=== PATIENT | male | born 1970 | race Caucasian/White ===

== ENCOUNTER 2016-10-30 18:08 | Emergency (ER) | payer BC, OTHER ==
[2016-10-30 18:28] VITALS: PULSE 71; RESP 18; TEMP 96.9
--- NOTE | 2016-10-30 18:28 | ED ---
General Adult HPI - General Chief complaint: ENT Stated complaint: ear pain Time Seen by Provider: 10/30/16 18:11 Source: patient, RN notes reviewed Mode of arrival: ambulatory Limitations: no limitations - History of Present Illness Initial comments: This is a 45-year-old male presents with a perforation to the left eardrum. Patient states he has had sinus congestion for 2 weeks and went to his doctor today who said he was going to prescribe him eardrops for perforated eardrum. Patient states when he got to the pharmacy the eardrops were not prescribed. Patient states the pharmacy told the patient to come here to get eardrops prescribed. Patient denies any ear pain or hearing loss but does admit to sinus congestion. Patient denies any fever/chills, nausea/vomiting/diarrhea. Patient states he is ALLERGIC to penicillins. Patient denies any recent fever, chills, shortness breath, chest pain, abdominal pain, back pain, numbness, tingling, hematuria, headache, or visual changes, or any other complaints. - Related Data Home Medications Medication Instructions Recorded Confirmed Benazepril HCl [Benazepril HCl] 10 mg PO DAILY 01/08/15 06/17/16 Metoprolol Succinate [Toprol XL] 50 mg PO BID 01/08/15 06/17/16 Aspirin 81 mg PO DAILY 06/08/15 06/17/16 Prasugrel HCl [Effient] 10 mg PO DAILY 06/09/16 06/17/16 buPROPion XL [Wellbutrin XL] 150 mg PO DAILY 06/09/16 06/17/16 Naproxen [Naproxen] 500 mg PO DAILY PRN 06/17/16 06/17/16 Previous Rx's Medication Instructions Recorded Atorvastatin [Lipitor] 80 mg PO DAILY #14 tab 12/10/15 HYDROcodone/APAP 7.5-325MG [[place]irley 1 tab PO Q4H PRN #40 tab 06/17/16 7.5-325] Ofloxacin [Floxin 0.3% Otic Soln] 10 drops LEFT EAR BID 14 Days 10/30/16 Allergies Allergy/AdvReac Type Severity Reaction Status Date / Time Penicillins Allergy Unknown Verified 10/30/16 18:15 Childhood venom-honey bee Allergy Swelling Verified 10/30/16 18:15 [bee venom (honey bee)] Review of Systems ROS Statement: Those systems with pertinent positive or pertinent negative responses have been documented in the HPI. ROS Other: All systems not noted in ROS Statement are negative. Past Medical History Past Medical History: Coronary Artery Disease (CAD), Hyperlipidemia, Hypertension, Myocardial Infarction ([place]), Osteoarthritis (OA) Additional Past Medical History / Comment(s): "blood clot" Last Myocardial Infarction Date:: 2008 History of Any Multi-Drug Resistant Organisms: None Reported Past Surgical History: Heart Catheterization With Stent, Orthopedic Surgery Additional Past Surgical History / Comment(s): multiple knee surg., bilateral shoulder surg., right thumb Past Anesthesia/Blood Transfusion Reactions: No Reported Reaction Date of Last Stent Placement:: 2008 Past Psychological History: No Psychological Hx Reported Smoking Status: Current every day smoker Past Alcohol Use History: Occasional Additional Past Alcohol Use History / Comment(s): 1ppd for 35 yrs. Past Drug Use History: None Reported - Past Family History Mother Family Medical History: No Reported History General Exam - General Exam Comments Initial Comments: General: The patient is awake and alert, in no distress, and does not appear acutely ill. Eye: Pupils are equal, round and reactive to light, extra-ocular movements are intact. No nystagmus. There is normal conjunctiva bilaterally. No signs of icterus. Ears: Left tympanic membrane with perforation to the 2 to 3 o'clock area, no erythema or drainage. Normal right tympanic membrane. Normal external ear canal. Nose: Nasal turbinates pink and moist. Mouth and throat: There are moist mucous membranes and no oral lesions. Neck: The neck is supple, there is no tenderness or JVD. Cardiovascular: There is a regular rate and rhythm. No murmur, rub or gallop is appreciated. Respiratory: Lungs are clear to auscultation, respirations are non-labored, breath sounds are equal. No wheezes, stridor, rales, or rhonchi. Musculoskeletal: Normal ROM, no tenderness. Strength 5/5. Sensation intact. Radial pulses equal bilaterally 2+. Neurological: A&O x 3. CN II-XII intact, There are no obvious motor or sensory deficits. Coordination appears grossly intact. Speech is normal. Skin: Skin is warm and dry and no rashes or lesions are noted. Psychiatric: Cooperative, appropriate mood & affect, normal judgment. Limitations: no limitations Course Vital Signs 10/30/16 10/30/16 18:12 18:34 Temperature 96.9 F L Pulse Rate 71 Respiratory 18 Rate Blood Pressure 181/95 171/102 O2 Sat by Pulse 99 Oximetry Medical Decision Making - Medical Decision Making This 45-year-old male who presents with perforated eardrum. On physical exam there is a perforation to the left tympanic membrane to the 2 to 3 o'clock area. Patient is afebrile in the EC today. Patient states he was at his doctor 's office today and was told he would get a prescription for eardrops but the doctor forgot to prescribe the eardrops when the patient arrived at the pharmacy. Patient states he is arriving today for a prescription for eardrops. I discussed the patient will receive a prescription for Floxin. I discussed that patient should follow-up with his family doctor tomorrow. Elevated blood pressure noted. Patient states his blood pressure at his doctor's today was in the 120s/80s. Patient states he is on blood pressure medication and has not yet taken his second dose due to being in the EC today. Patient Refuses treatment for blood pressure today in the EC stating he has medication at home and is currently asymptomatic. Discussed to return to the EC for any worsening symptoms or for any further concerns. Patient was receptive to this plan and patient will be discharged home. Disposition Clinical Impression: Perforated eardrum Disposition: HOME SELF-CARE Condition: Good Instructions: Ruptured Eardrum (ED) Additional Instructions: Please use eardrops as prescribed. Please follow-up with family physician tomorrow. Please return to the EC for any worsening symptoms or for any further concerns. Prescriptions: Ofloxacin [Floxin 0.3% Otic Soln] 10 drops LEFT EAR BID 14 Days Referrals: Kyler Ng DO [Primary Care Provider] - 1-2 days Kristian Loving MD [STAFF PHYSICIAN] - 1-2 days Time of Disposition: 18:27
[2016-10-30 18:36] VITALS: BP 171/102
== END 2016-10-30 18:36 | disposition home or self-care (01) ==
LOC: EC 18:08
DX: H72.92 Unspecified perforation of tympanic membrane, left ear (principal); I10 Essential (primary) hypertension; I25.10 Atherosclerotic heart disease of native coronary artery without angina pectoris; I25.2 Old myocardial infarction; M19.90 Unspecified osteoarthritis, unspecified site; F17.200 Nicotine dependence, unspecified, uncomplicated; Z88.0 Allergy status to penicillin; Z79.899 Other long term (current) drug therapy; Z91.030 Bee allergy status; Z79.82 Long term (current) use of aspirin; Z79.02 Long term (current) use of antithrombotics/antiplatelets; Z86.2 Personal history of diseases of the blood and blood-forming organs and certain disorders involving the immune mechanism
CPT/HCPCS: 99282

== ENCOUNTER 2016-11-24 18:54 | Emergency (ER) | payer BC, OTHER ==
[2016-11-24 19:17] VITALS: TEMP 97.7
--- NOTE | 2016-11-24 19:21 | ED ---
General Adult HPI - General Chief complaint: Extremity Injury, Upper Stated complaint: rt shoulder pain Time Seen by Provider: 11/24/16 19:10 Source: patient, RN notes reviewed Mode of arrival: ambulatory Limitations: no limitations - History of Present Illness Initial comments: Patient is a pleasant 45-year-old male presenting to the emergency Department with right shoulder discomfort. Onset was sometime around noon and has been progressively worsening since that time. No history of chronic shoulder problems. No specific injury. Discomfort is the right upper trapezius between the neck and the shoulder. Discomfort does increase with range of motion. No weakness. No loss of sensation. No chest pain or dyspnea. - Related Data Home Medications Medication Instructions Recorded Confirmed Benazepril HCl [Benazepril HCl] 10 mg PO DAILY 01/08/15 11/24/16 Aspirin 81 mg PO DAILY 06/08/15 11/24/16 buPROPion XL [Wellbutrin XL] 150 mg PO DAILY 06/09/16 11/24/16 Naproxen [Naproxen] 500 mg PO HS 06/17/16 11/24/16 Metoprolol Succinate (ER) [Toprol 50 mg PO BID 11/24/16 11/24/16 Xl] Previous Rx's Medication Instructions Recorded Atorvastatin [Lipitor] 80 mg PO DAILY #14 tab 12/10/15 Hydrocodone/Acetaminophen [[place] 2 each PO Q6HR PRN #20 tab 11/24/16 5-325] Allergies Allergy/AdvReac Type Severity Reaction Status Date / Time Penicillins Allergy Unknown Verified 11/24/16 20:12 Childhood venom-honey bee Allergy Swelling Verified 11/24/16 20:12 [bee venom (honey bee)] Review of Systems ROS Statement: Those systems with pertinent positive or pertinent negative responses have been documented in the HPI. ROS Other: All systems not noted in ROS Statement are negative. Constitutional: Denies: fever Eyes: Denies: eye pain ENT: Denies: ear pain Respiratory: Denies: cough Cardiovascular: Denies: chest pain Endocrine: Denies: fatigue Gastrointestinal: Denies: abdominal pain Genitourinary: Denies: dysuria Musculoskeletal: Denies: joint swelling Skin: Denies: rash Neurological: Denies: weakness Past Medical History Past Medical History: Coronary Artery Disease (CAD), Hyperlipidemia, Hypertension, Myocardial Infarction ([place]), Osteoarthritis (OA) Additional Past Medical History / Comment(s): "blood clot" Last Myocardial Infarction Date:: 2008 History of Any Multi-Drug Resistant Organisms: None Reported Past Surgical History: Heart Catheterization With Stent, Orthopedic Surgery Additional Past Surgical History / Comment(s): multiple knee surg., bilateral shoulder surg., right thumb Past Anesthesia/Blood Transfusion Reactions: No Reported Reaction Date of Last Stent Placement:: 2008 Past Psychological History: No Psychological Hx Reported Smoking Status: Current every day smoker Past Alcohol Use History: Rare Additional Past Alcohol Use History / Comment(s): 1ppd for 35 yrs. Past Drug Use History: None Reported - Past Family History Mother Family Medical History: No Reported History General Exam Limitations: no limitations General appearance: alert, in no apparent distress Head exam: Present: atraumatic Eye exam: Present: normal appearance Neck exam: Present: other (No midline tenderness. Mild right sided tenderness) Respiratory exam: Present: normal lung sounds bilaterally Cardiovascular Exam: Present: regular rate, normal rhythm Expanded Peripheral pulses: 2+: Radial (R) GI/Abdominal exam: Present: soft. Absent: tenderness Extremities exam: Present: other (Pain with active range of motion of the right arm. Patient is unable to fully relax for testing of passive range of motion. No discomfort of the shoulder itself. Distally the right upper extremity is neurovascular intact.) Back exam: Present: tenderness, muscle spasm (Right upper trapezius) Neurological exam: Present: alert. Absent: motor sensory deficit Psychiatric exam: Present: normal affect, normal mood Skin exam: Absent: rash Course Vital Signs 11/24/16 19:10 Temperature 97.7 F Pulse Rate 83 Respiratory 18 Rate Blood Pressure 196/96 O2 Sat by Pulse 96 Oximetry Medical Decision Making - Medical Decision Making Patient reexamined and resting comfortably in bed. updated on results and patient refuses pain medication at this time and states he took a naproxen just prior to arrival. Patient does not want a prescription for muscle relaxers. - Radiology Data Radiology results: image reviewed (X-ray of the chest, and right shoulder show no acute process. X-ray of the cervical spine shows minimal degenerative changes C5-C6.) Disposition Clinical Impression: Strain of shoulder Disposition: HOME SELF-CARE Condition: Stable Instructions: Muscle Spasm (ED) Additional Instructions: Please follow-up with your doctor this week. Return for weakness, loss of sensation, neck pain, chest pain or difficulty breathing, worsening symptoms or other concerns. Prescriptions: Hydrocodone/Acetaminophen [Climax 5-325] 2 each PO Q6HR PRN #20 tab PRN Reason: Pain Referrals: Kyler Ng DO [Primary Care Provider] - 1-2 days
[2016-11-24 20:31] VITALS: BP 159/84; PULSE 71; RESP 16
--- NOTE | 2016-11-24 22:23 | XR ---
EXAMINATION TYPE: XR shoulder complete RT DATE OF EXAM: 11/24/2016 7:54 PM CLINICAL HISTORY: Right shoulder pain with no known injury TECHNIQUE: Three views of the right shoulder are obtained. COMPARISON: None. FINDINGS: There is no acute fracture/dislocation evident in the right shoulder. The acromioclavicul ar and glenohumeral joint spaces are preserved. There is mild acromioclavicular arthropathy. There i s cortical irregularity of the inferior glenoid, as seen on the prior exam of 03/14/2014 and unchanged in the interim. Note is made on this examination that it is similar in appearance to the left inferi or glenoid. The visualized ribs are intact and unremarkable. IMPRESSION: 1. There is no acute fracture or dislocation in the right shoulder. 2. 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
--- NOTE | 2016-11-24 22:23 | XR ---
EXAMINATION TYPE: XR cervical spine comp DATE OF EXAM: 11/24/2016 7:54 PM TECHNIQUE: Frontal, lateral, oblique, swimmers, and open mouth view of the cervical spine are obtaine d. HISTORY: Cervical pain with no known injury COMPARISON: None FINDINGS: The cervical spine is visualized in its entirety from C1 thru the top of T1 level, it is s atisfactory in alignment without evidence of acute fracture or dislocation. The pre-vertebral soft t issue appears within normal limits. The C1-C2 articulation is within normal limits on the open mouth view. The oblique images are within normal limits. Minimal degenerative changes are appreciated of C5-C6. IMPRESSION: Mild degenerative changes at C5-C6. No acute fracture or dislocation is seen in the cerv ical spine.
--- NOTE | 2016-11-24 22:23 | XR ---
EXAMINATION TYPE: XR chest 2V DATE OF EXAM: 11/24/2016 7:54 PM COMPARISON: Chest radiograph dated 10/29/2015 HISTORY: Chest pain with history of coronary artery disease. TECHNIQUE: Frontal and lateral views of the chest are obtained. FINDINGS: There is no focal air space opacity, pleural effusion, or pneumothorax seen. The cardiac silhouette size is within normal limits. The osseous structures are intact. Minimal degenerative ch anges are appreciated the visualized thoracolumbar spine. IMPRESSION: No acute cardiopulmonary process, unchanged from the prior exam.
== END 2016-11-24 20:30 | disposition home or self-care (01) ==
LOC: EC 18:54
DX: S46.911A Strain of unspecified muscle, fascia and tendon at shoulder and upper arm level, right arm, initial encounter (principal); I25.10 Atherosclerotic heart disease of native coronary artery without angina pectoris; I25.2 Old myocardial infarction; I10 Essential (primary) hypertension; E78.5 Hyperlipidemia, unspecified; M19.90 Unspecified osteoarthritis, unspecified site; Z79.82 Long term (current) use of aspirin; Z79.1 Long term (current) use of non-steroidal anti-inflammatories (NSAID); Z79.899 Other long term (current) drug therapy; Z88.0 Allergy status to penicillin; Z91.030 Bee allergy status; F17.200 Nicotine dependence, unspecified, uncomplicated; Z95.5 Presence of coronary angioplasty implant and graft; X58.XXXA Exposure to other specified factors, initial encounter
CPT/HCPCS: 71020; 72050; 99283

== ENCOUNTER 2017-03-08 01:31 | Emergency (ER) | payer BC, OTHER ==
[2017-03-08 01:40] VITALS: RESP 18
--- NOTE | 2017-03-08 02:51 | XR ---
EXAM: XR Right Shoulder Complete, 2 or More Views CLINICAL HISTORY: Reason: Pain TECHNIQUE: Two or more views of the right shoulder. COMPARISON: Right shoulder radiographs 11/24/2016 FINDINGS: Bones/joints: No evidence of acute fracture, dislocation or bony erosion. Minimal hypertrophic degenerative changes involve the acromioclavicular joint. Soft tissues: Radiographically Unremarkable. Other findings: No significant change since 11/24/2016. IMPRESSION: No acute bone or joint abnormalities.
--- NOTE | 2017-03-08 03:03 | ED ---
Upper Extremity HPI - General Chief Complaint: Extremity Injury, Upper Stated Complaint: R Shoulder Pain Time Seen by Provider: 03/08/17 02:25 Source: patient, RN notes reviewed, old records reviewed Mode of arrival: ambulatory Limitations: no limitations - History of Present Illness Initial Comments: This is a 46 year old with right shoulder pain for the past 3 days. Patient reports this started while working on his vehicle. Patient reports he has had previous problems on the left shoulder and has known rotator cuff tear. Patient reports pain with abduction and rotation of the shoulder. Denies any fever, chills, elbow pain, wrist pain, peripheral paresthesias. - Related Data Home Medications Medication Instructions Recorded Confirmed Benazepril HCl [Benazepril HCl] 10 mg PO DAILY 01/08/15 03/08/17 Aspirin 81 mg PO DAILY 06/08/15 03/08/17 buPROPion XL [Wellbutrin XL] 150 mg PO DAILY 06/09/16 03/08/17 Naproxen [Naproxen] 500 mg PO HS 06/17/16 03/08/17 Metoprolol Succinate (ER) [Toprol 50 mg PO BID 11/24/16 03/08/17 Xl] Previous Rx's Medication Instructions Recorded Atorvastatin [Lipitor] 80 mg PO DAILY #14 tab 12/10/15 Hydrocodone/Acetaminophen [[place] 2 each PO Q6HR PRN #20 tab 11/24/16 5-325] HYDROcodone/APAP 5-325MG [[place] 1 tab PO Q6HR PRN #12 tab 03/08/17 5-325] Ibuprofen [Motrin] 600 mg PO Q8HR PRN #20 tab 03/08/17 Allergies Allergy/AdvReac Type Severity Reaction Status Date / Time Penicillins Allergy Unknown Verified 03/08/17 01:40 Childhood venom-honey bee Allergy Swelling Verified 03/08/17 01:40 [bee venom (honey bee)] Review of Systems ROS Statement: Those systems with pertinent positive or pertinent negative responses have been documented in the HPI. ROS Other: All systems not noted in ROS Statement are negative. Past Medical History Past Medical History: Coronary Artery Disease (CAD), Hyperlipidemia, Hypertension, Myocardial Infarction ([place]), Osteoarthritis ([place]) Additional Past Medical History / Comment(s): "blood clot" Last Myocardial Infarction Date:: 2008 History of Any Multi-Drug Resistant Organisms: None Reported Past Surgical History: Heart Catheterization With Stent, Orthopedic Surgery Additional Past Surgical History / Comment(s): multiple knee surg., bilateral shoulder surg., right thumb Past Anesthesia/Blood Transfusion Reactions: No Reported Reaction Date of Last Stent Placement:: 2008 Past Psychological History: No Psychological Hx Reported Smoking Status: Current every day smoker Past Alcohol Use History: Rare Additional Past Alcohol Use History / Comment(s): 1ppd for 35 yrs. Past Drug Use History: None Reported - Past Family History Mother Family Medical History: No Reported History General Exam - General Exam Comments Initial Comments: Pleasant 46 year old male, no distress. Limitations: no limitations General appearance: alert, in no apparent distress Head exam: Present: atraumatic, normocephalic, normal inspection Eye exam: Present: normal appearance, PERRL, EOMI. Absent: scleral icterus, conjunctival injection, periorbital swelling ENT exam: Present: normal exam, mucous membranes moist Neck exam: Present: normal inspection. Absent: tenderness, meningismus, lymphadenopathy Respiratory exam: Present: normal lung sounds bilaterally. Absent: respiratory distress, wheezes, rales, rhonchi, stridor Cardiovascular Exam: Present: regular rate, normal rhythm, normal heart sounds. Absent: systolic murmur, diastolic murmur, rubs, gallop, clicks GI/Abdominal exam: Present: soft, normal bowel sounds. Absent: distended, tenderness, guarding, rebound, rigid Extremities exam: Present: normal inspection, full ROM, normal capillary refill , other (pain on right shoulder and difficulty with abduction and flexion. ). Absent: tenderness, pedal edema, joint swelling, calf tenderness Back exam: Present: normal inspection Neurological exam: Present: alert, oriented X3, CN II-XII intact Psychiatric exam: Present: normal affect, normal mood Skin exam: Present: warm, dry, intact, normal color. Absent: rash Course Vital Signs 03/08/17 03/08/17 01:36 03:12 Temperature 97.7 F 98 F Pulse Rate 64 87 Respiratory 18 18 Rate Blood Pressure 157/111 129/79 O2 Sat by Pulse 99 98 Oximetry Medical Decision Making - Medical Decision Making This is a 46 year old with right shoulder pain after working. Patient has difficulty with abduction and internal rotation of right shoulder. Patient xray reviewed, negative for any acute process. Patient will be placed in a sling, advised to follow up with orthopedic. Sherie agrees to treatment plan and will comply. - Radiology Data Radiology results: pending, report reviewed Xray negative for acute process. Disposition Clinical Impression: Pain in right shoulder Disposition: HOME SELF-CARE Condition: Good Instructions: Rotator Cuff Injury (ED) Additional Instructions: Patient advised to rest, apply ice over the area. Take anti-inflammatory medication and tramadol as prescribed. Follow-up with orthopedic physician if symptoms continue to persist. Return to emergency department if any alarming signs or symptoms occur. Prescriptions: HYDROcodone/APAP 5-325MG [[place] 5-325] 1 tab PO Q6HR PRN #12 tab PRN Reason: Pain Ibuprofen [Motrin] 600 mg PO Q8HR PRN #20 tab PRN Reason: Pain Referrals: Kyler Ng DO [Primary Care Provider] - 1-2 days Time of Disposition: 03:00
[2017-03-08 03:13] VITALS: BP 129/79; PULSE 87; TEMP 98
== END 2017-03-08 03:13 | disposition home or self-care (01) ==
LOC: EC 01:31
DX: M25.511 Pain in right shoulder (principal); I10 Essential (primary) hypertension; M19.90 Unspecified osteoarthritis, unspecified site; I25.10 Atherosclerotic heart disease of native coronary artery without angina pectoris; F17.200 Nicotine dependence, unspecified, uncomplicated; Z98.890 Other specified postprocedural states; Z79.82 Long term (current) use of aspirin; Z79.899 Other long term (current) drug therapy; Z88.0 Allergy status to penicillin; Z91.030 Bee allergy status; X50.9XXA Other and unspecified overexertion or strenuous movements or postures, initial encounter; Y93.89 Activity, other specified
CPT/HCPCS: 99283

== ENCOUNTER 2017-04-03 14:01 | Emergency (ER) | payer BC, OTHER ==
[2017-04-03 14:12] VITALS: BP 163/96; PULSE 89; RESP 16; TEMP 98.3
--- NOTE | 2017-04-03 14:42 | ED ---
Upper Extremity HPI - General Chief Complaint: Extremity Injury, Upper Stated Complaint: Wrist Pain Time Seen by Provider: 04/03/17 14:19 Source: patient, RN notes reviewed Mode of arrival: ambulatory Limitations: no limitations - History of Present Illness Initial Comments: 46-year-old male presents emergency Department chief complaint right wrist pain. Patient states that he was walking on the yard fell on some gravel. Patient states he fell onto his right wrist and has right wrist pain. Patient states pain radiates to his right hand. Denies any head injury no LOC. Patient denies any paresthesias. Patient states only injury he has is his right wrist. He has had prior fracture to this. - Related Data Home Medications Medication Instructions Recorded Confirmed Benazepril HCl [Benazepril HCl] 10 mg PO DAILY 01/08/15 03/08/17 Aspirin 81 mg PO DAILY 06/08/15 03/08/17 buPROPion XL [Wellbutrin XL] 150 mg PO DAILY 06/09/16 03/08/17 Naproxen [Naproxen] 500 mg PO HS 06/17/16 03/08/17 Metoprolol Succinate (ER) [Toprol 50 mg PO BID 11/24/16 03/08/17 Xl] Previous Rx's Medication Instructions Recorded Atorvastatin [Lipitor] 80 mg PO DAILY #14 tab 12/10/15 Hydrocodone/Acetaminophen [[place] 2 each PO Q6HR PRN #20 tab 11/24/16 5-325] HYDROcodone/APAP 5-325MG [[place] 1 tab PO Q6HR PRN #12 tab 03/08/17 5-325] Ibuprofen [Motrin] 600 mg PO Q8HR PRN #20 tab 03/08/17 Hydrocodone/Acetaminophen [[place] 1 tab PO Q6HR PRN #15 tab 04/03/17 5-325] Ibuprofen [Motrin] 600 mg PO Q8HR PRN #30 tab 04/03/17 Allergies Allergy/AdvReac Type Severity Reaction Status Date / Time Penicillins Allergy Unknown Verified 03/08/17 01:40 Childhood venom-honey bee Allergy Swelling Verified 03/08/17 01:40 [bee venom (honey bee)] Review of Systems ROS Statement: Those systems with pertinent positive or pertinent negative responses have been documented in the HPI. ROS Other: All systems not noted in ROS Statement are negative. Past Medical History Past Medical History: Coronary Artery Disease (CAD), Hyperlipidemia, Hypertension, Myocardial Infarction ([place]), Osteoarthritis ([place]) Additional Past Medical History / Comment(s): "blood clot" Last Myocardial Infarction Date:: 2008 History of Any Multi-Drug Resistant Organisms: None Reported Past Surgical History: Heart Catheterization With Stent, Orthopedic Surgery Additional Past Surgical History / Comment(s): multiple knee surg., bilateral shoulder surg., right thumb Past Anesthesia/Blood Transfusion Reactions: No Reported Reaction Date of Last Stent Placement:: 2008 Past Psychological History: No Psychological Hx Reported Smoking Status: Current every day smoker Past Alcohol Use History: Rare Additional Past Alcohol Use History / Comment(s): 1ppd for 35 yrs. Past Drug Use History: None Reported - Past Family History Mother Family Medical History: No Reported History General Exam Limitations: no limitations General appearance: alert, in no apparent distress Neck exam: Present: normal inspection, full ROM. Absent: tenderness, meningismus, lymphadenopathy Respiratory exam: Present: normal lung sounds bilaterally. Absent: respiratory distress, wheezes, rales, rhonchi, stridor Cardiovascular Exam: Present: regular rate, normal rhythm, normal heart sounds. Absent: systolic murmur, diastolic murmur, rubs, gallop, clicks Extremities exam: Present: other (Right wrist there is mild swelling noted, tenderness greatest over the ulnar styloid region, mild distal radius tenderness radial pulses equal bilaterally there is no hand tenderness patient has full range of motion of his digits he does have moderate discomfort with range of motion of his right wrist and with pronation supination no tenderness proximal to the right wrist) Skin exam: Present: warm, intact Course Vital Signs 04/03/17 14:10 Temperature 98.3 F Pulse Rate 89 Respiratory 16 Rate Blood Pressure 163/96 O2 Sat by Pulse 98 Oximetry Medical Decision Making - Medical Decision Making 46-year-old male presented for right wrist injury. Patient had a fall. There is no acute fracture pressure reading. Patient is right wrist pain. Patient be discharged. Return parameters were discussed. Disposition Clinical Impression: Right wrist sprain Disposition: HOME SELF-CARE Condition: Stable Instructions: Wrist Sprain (ED) Additional Instructions: Please return to the Emergency Department if symptoms worsen or any other concerns. Prescriptions: Hydrocodone/Acetaminophen [[place] 5-325] 1 tab PO Q6HR PRN #15 tab PRN Reason: Pain Ibuprofen [Motrin] 600 mg PO Q8HR PRN #30 tab PRN Reason: Pain Referrals: Kyler Ng DO [Primary Care Provider] - 1-2 days Time of Disposition: 15:05
--- NOTE | 2017-04-03 14:59 | XR ---
EXAMINATION TYPE: XR wrist complete RT DATE OF EXAM ORDERED: 04/03/2017 HISTORY: Pain. COMPARISON: None. FINDINGS: There is a mild ulnar minus variant. No fracture, dislocation or other acute osseous lesion is seen. IMPRESSION: NO ACUTE OSSEOUS LESION.
== END 2017-04-03 15:17 | disposition home or self-care (01) ==
LOC: EC 14:01
DX: S63.501A Unspecified sprain of right wrist, initial encounter (principal); I10 Essential (primary) hypertension; M19.90 Unspecified osteoarthritis, unspecified site; I25.2 Old myocardial infarction; F17.200 Nicotine dependence, unspecified, uncomplicated; Z79.1 Long term (current) use of non-steroidal anti-inflammatories (NSAID); Z79.82 Long term (current) use of aspirin; Z79.899 Other long term (current) drug therapy; Z88.0 Allergy status to penicillin; Z91.030 Bee allergy status; W18.30XA Fall on same level, unspecified, initial encounter; Y92.096 Garden or yard of other non-institutional residence as the place of occurrence of the external cause; Y93.01 Activity, walking, marching and hiking
CPT/HCPCS: 99283

== ENCOUNTER 2017-05-02 23:31 | Emergency (ER) | payer BC, OTHER ==
[2017-05-02] MEDS ORDERED: SODIUM CHLORIDE 0.9% 1,000 ML IV STA (23:57)
[2017-05-02] MEDS ORDERED: PANTOPRAZOLE 40 MG/10 ML VIAL IVP STA (23:57)
[2017-05-02] MEDS ORDERED: RX INFO: IV CONTRAST WAS GIVEN 1 EACH MISC MISCELLANE PRN (23:57)
[2017-05-03 00:15] VITALS: RESP 18
[2017-05-03 00:32] LABS: Basophils # (A) 0.1 k/uL (0-0.2); Basophils % (A) 1 %; CH 33.8; CHCM 37.1; Eosinophils # (A) 0.2 k/uL (0-0.7); Eosinophils % (A) 3 %; HCT 41.5 % (39.0-53.0); HDW 2.68; HGB 15.3 gm/dL (13.0-17.5); Luc # (Auto) 0.16; Luc % (Auto) 2; Lymphocytes # (A) 2.2 k/uL (1.0-4.8); Lymphocytes % (A) 24 %; MCH 33.8 pg (25.0-35.0); MCHC 36.9 g/dL (31.0-37.0); MCV 91.4 fL (80.0-100.0); Mean Platelet Volume 8.5; Monocytes # (A) 0.5 k/uL (0-1.0); Monocytes % (A) 6 %; Neutrophils # (A) 5.8 k/uL (1.3-7.7); Neutrophils % (A) 65 %; RBC 4.53 m/uL (4.30-5.90); RDW 12.7 % (11.5-15.5)
[2017-05-03 00:34] LABS: ALT 65 U/L (21-72); AST 35 U/L (17-59); Alkaline Phosphatase 76 U/L (38-126); Anion Gap 10 mmol/L; Blood Urea Nitrogen 14 mg/dL (9-20); Calcium 9.6 mg/dL (8.4-10.2); Carbon Dioxide 25 mmol/L (22-30); Chloride 107 mmol/L (98-107); Glucose 92 mg/dL (74-99); Non-African American GFR(MDRD) >60 (>60 ml/min/1.73 sqM); Partial Thromboplastin Time 27.7 sec (22.0-30.0); Prothrombin Time 10.3 sec (9.0-12.0); Sodium 142 mmol/L (137-145); Total Bilirubin 0.4 mg/dL (0.2-1.3); Total Protein 6.6 g/dL (6.3-8.2)
[2017-05-03 00:52] LABS: Manual Review Performed; RBC Morphology Normal
[2017-05-03 01:16] LABS: Creatine Kinase MB 2.9 ng/mL (0.0-2.4)
--- NOTE | 2017-05-03 01:53 | ED ---
GI Bleed HPI - General Chief complaint: GI Bleed Stated complaint: Blood in Stool/LUQ Pain Time Seen by Provider: 05/02/17 23:49 Source: patient, RN notes reviewed Mode of arrival: ambulatory Limitations: no limitations - History of Present Illness Initial comments: 46-year-old male presents emergency Department chief complaint of rectal bleeding. Patient states that he noticed that he had some maroonish colored blood in the stool. Patient states that he was concerned because he developed some left-sided abdominal discomfort. Patient has no history of diverticulitis or bowel infections. Patient states she's had an ulcer in the past. Patient denies any chest pain or shortness of breath. Denies any fatigue denies fever, chills, dysuria, hematuria. Patient states that he initially thought it was related to eating topical well last night. Patient offers no other complaints. - Related Data Home Medications Medication Instructions Recorded Confirmed Benazepril HCl [Benazepril HCl] 10 mg PO DAILY 01/08/15 03/08/17 Aspirin 81 mg PO DAILY 06/08/15 03/08/17 buPROPion XL [Wellbutrin XL] 150 mg PO DAILY 06/09/16 03/08/17 Naproxen [Naproxen] 500 mg PO HS 06/17/16 03/08/17 Metoprolol Succinate (ER) [Toprol 50 mg PO BID 11/24/16 03/08/17 Xl] Previous Rx's Medication Instructions Recorded Atorvastatin [Lipitor] 80 mg PO DAILY #14 tab 12/10/15 Hydrocodone/Acetaminophen [[place] 2 each PO Q6HR PRN #20 tab 11/24/16 5-325] HYDROcodone/APAP 5-325MG [[place] 1 tab PO Q6HR PRN #12 tab 03/08/17 5-325] Ibuprofen [Motrin] 600 mg PO Q8HR PRN #20 tab 03/08/17 Hydrocodone/Acetaminophen [[place] 1 tab PO Q6HR PRN #15 tab 04/03/17 5-325] Ibuprofen [Motrin] 600 mg PO Q8HR PRN #30 tab 04/03/17 Allergies Allergy/AdvReac Type Severity Reaction Status Date / Time Penicillins Allergy Unknown Verified 05/02/17 23:35 Childhood venom-honey bee Allergy Swelling Verified 05/02/17 23:35 [bee venom (honey bee)] Review of Systems ROS Statement: Those systems with pertinent positive or pertinent negative responses have been documented in the HPI. ROS Other: All systems not noted in ROS Statement are negative. Past Medical History Past Medical History: Coronary Artery Disease (CAD), Hyperlipidemia, Hypertension, Myocardial Infarction ([place]), Osteoarthritis (OA) Additional Past Medical History / Comment(s): "blood clot" Last Myocardial Infarction Date:: 2008 History of Any Multi-Drug Resistant Organisms: None Reported Past Surgical History: Heart Catheterization With Stent, Orthopedic Surgery Additional Past Surgical History / Comment(s): multiple knee surg., bilateral shoulder surg., right thumb Past Anesthesia/Blood Transfusion Reactions: No Reported Reaction Date of Last Stent Placement:: 2008 Past Psychological History: No Psychological Hx Reported Smoking Status: Current every day smoker Past Alcohol Use History: Rare Past Drug Use History: None Reported - Past Family History Mother Family Medical History: No Reported History General Exam Limitations: no limitations General appearance: alert, in no apparent distress Respiratory exam: Present: normal lung sounds bilaterally. Absent: respiratory distress, wheezes, rales, rhonchi, stridor Cardiovascular Exam: Present: regular rate, normal rhythm, normal heart sounds. Absent: systolic murmur, diastolic murmur, rubs, gallop, clicks GI/Abdominal exam: Present: soft, tenderness (Mild left-sided abdominal tenderness), normal bowel sounds. Absent: distended, guarding, rebound, rigid Back exam: Absent: CVA tenderness (R), CVA tenderness (L) Neurological exam: Present: alert, oriented X3, CN II-XII intact Skin exam: Present: warm, dry, intact, normal color. Absent: rash Course Vital Signs 05/02/17 05/03/17 05/03/17 23:32 00:14 00:45 Temperature 97.4 F L Pulse Rate 95 84 83 Respiratory 20 18 18 Rate Blood Pressure 201/99 186/101 186/104 O2 Sat by Pulse 99 97 98 Oximetry 05/03/17 02:07 Temperature Pulse Rate 75 Respiratory 18 Rate Blood Pressure 173/107 O2 Sat by Pulse 97 Oximetry Medical Decision Making - Medical Decision Making 46-year-old male presents emergency Department chief complaint of blood in stool. Patient appears to have some colitis regardless of diverticulitis. Patient lab work is unremarkable other than Hemoccult-positive. Patient with follow-up with on-call surgery for colonoscopy. Return parameters discussed. - Lab Data Result diagrams: 05/03/17 00:00 05/03/17 00:00 Lab Results 05/03/17 05/03/17 05/03/17 Range/Units 00:00 00:00 00:00 WBC 9.0 (3.8-10.6) k/uL RBC 4.53 (4.30-5.90) m/uL Hgb 15.3 (13.0-17.5) gm/dL Hct 41.5 (39.0-53.0) % MCV 91.4 (80.0-100.0) fL MCH 33.8 (25.0-35.0) pg MCHC 36.9 (31.0-37.0) g/dL RDW 12.7 (11.5-15.5) % Plt Count 192 (150-450) k/uL Neutrophils % 65 % Lymphocytes % 24 % Monocytes % 6 % Eosinophils % 3 % Basophils % 1 % Neutrophils # 5.8 (1.3-7.7) k/uL Lymphocytes # 2.2 (1.0-4.8) k/uL Monocytes # 0.5 (0-1.0) k/uL Eosinophils # 0.2 (0-0.7) k/uL Basophils # 0.1 (0-0.2) k/uL Manual Slide Review Performed RBC Morphology Normal PT (9.0-12.0) sec INR (<1.1) APTT (22.0-30.0) sec Sodium 142 (137-145) mmol/L Potassium 4.0 (3.5-5.1) mmol/L Chloride 107 (98-107) mmol/L Carbon Dioxide 25 (22-30) mmol/L Anion Gap 10 mmol/L BUN 14 (9-20) mg/dL Creatinine 1.00 (0.66-1.25) mg/dL Est GFR (MDRD) Af Amer >60 (>60 ml/min/1.73 sqM) Est GFR (MDRD) Non-Af >60 (>60 ml/min/1.73 sqM) Glucose 92 (74-99) mg/dL Calcium 9.6 (8.4-10.2) mg/dL Total Bilirubin 0.4 (0.2-1.3) mg/dL AST 35 (17-59) U/L ALT 65 (21-72) U/L Alkaline Phosphatase 76 (38-126) U/L Total Creatine Kinase 180 H (55-170) U/L CK-MB (CK-2) 2.9 H* (0.0-2.4) ng/mL CK-MB (CK-2) Rel Index 1.6 Total Protein 6.6 (6.3-8.2) g/dL Albumin 4.3 (3.5-5.0) g/dL Stool Occult Blood (Negative) 05/03/17 05/03/17 Range/Units 00:00 00:00 WBC (3.8-10.6) k/uL RBC (4.30-5.90) m/uL Hgb (13.0-17.5) gm/dL Hct (39.0-53.0) % MCV (80.0-100.0) fL MCH (25.0-35.0) pg MCHC (31.0-37.0) g/dL RDW (11.5-15.5) % Plt Count (150-450) k/uL Neutrophils % % Lymphocytes % % Monocytes % % Eosinophils % % Basophils % % Neutrophils # (1.3-7.7) k/uL Lymphocytes # (1.0-4.8) k/uL Monocytes # (0-1.0) k/uL Eosinophils # (0-0.7) k/uL Basophils # (0-0.2) k/uL Manual Slide Review RBC Morphology PT 10.3 (9.0-12.0) sec INR 1.0 (<1.1) APTT 27.7 (22.0-30.0) sec Sodium (137-145) mmol/L Potassium (3.5-5.1) mmol/L Chloride (98-107) mmol/L Carbon Dioxide (22-30) mmol/L Anion Gap mmol/L BUN (9-20) mg/dL Creatinine (0.66-1.25) mg/dL Est GFR (MDRD) Af Amer (>60 ml/min/1.73 sqM) Est GFR (MDRD) Non-Af (>60 ml/min/1.73 sqM) Glucose (74-99) mg/dL Calcium (8.4-10.2) mg/dL Total Bilirubin (0.2-1.3) mg/dL AST (17-59) U/L ALT (21-72) U/L Alkaline Phosphatase (38-126) U/L Total Creatine Kinase (55-170) U/L CK-MB (CK-2) (0.0-2.4) ng/mL CK-MB (CK-2) Rel Index Total Protein (6.3-8.2) g/dL Albumin (3.5-5.0) g/dL Stool Occult Blood Positive (Negative) Disposition Clinical Impression: Colitis, Rectal bleeding Disposition: HOME SELF-CARE Condition: Stable Instructions: Colitis (ED) Additional Instructions: Please return to the Emergency Department if symptoms worsen or any other concerns. Referrals: Kyler Ng DO [Primary Care Provider] - 1-2 days Ant Solis MD [Medical Doctor] - 1-2 days Time of Disposition: 02:13
--- NOTE | 2017-05-03 02:07 | CT ---
EXAM: CT Abdomen and Pelvis With Intravenous Contrast CLINICAL HISTORY: Reason: pain/rectal bleeding TECHNIQUE: Axial computed tomography images of the abdomen and pelvis with intravenous contrast. CTDI is 11.1, 11.1 mGy and DLP is 1029.4 mGy-cm. This CT exam was performed using one or more of the following dose reduction techniques: automated exposure control, adjustment of the mA and/or kV according to patient size, and/or use of iterative reconstruction technique. COMPARISON: No relevant prior studies available. FINDINGS: Lower thorax: Small pulmonary nodules, the largest is a 5 mm nodule in the right middle lobe. Mild basilar atelectatic changes. ABDOMEN: Liver: Fatty liver. Gallbladder and bile ducts: Unremarkable. Pancreas: Unremarkable. Spleen: Unremarkable. Adrenals: Unremarkable. Kidneys and ureters: Prominence of the bilateral renal collecting systems without evidence of ureteral stone. Stomach and bowel: Mild wall thickening of the descending and sigmoid colon. No evidence of bowel obstruction. Underdistended mildly thickened stomach. Appendix: No findings to suggest acute appendicitis. PELVIS: Bladder: Unremarkable. Reproductive: Unremarkable as visualized. ABDOMEN and PELVIS: Intraperitoneal space: Unremarkable. No free air. No significant fluid collection. Bones/joints: Degenerative changes in the spine, most prominent at L5- S1. Soft tissues: Unremarkable. Vasculature: Atherosclerotic disease. Lymph nodes: Small nonspecific mesenteric and retroperitoneal lymph nodes. IMPRESSION: 1. Mild wall thickening of the descending and sigmoid colon. Correlate clinically for colitis. 2. Small pulmonary nodules measuring up to 5 mm. Compare to prior studies if available, nonemergent chest CT maybe considered if indicated. 3. Additional incidental findings, as above.
[2017-05-03 02:11] VITALS: BP 173/107; PULSE 75
[2017-05-03 02:23] VITALS: TEMP 98.4
== END 2017-05-03 02:23 | disposition home or self-care (01) ==
LOC: EC 23:31
DX: K52.9 Noninfective gastroenteritis and colitis, unspecified (principal); K62.5 Hemorrhage of anus and rectum; I25.10 Atherosclerotic heart disease of native coronary artery without angina pectoris; I25.2 Old myocardial infarction; I10 Essential (primary) hypertension; M19.90 Unspecified osteoarthritis, unspecified site; F17.200 Nicotine dependence, unspecified, uncomplicated; Z79.82 Long term (current) use of aspirin; Z79.899 Other long term (current) drug therapy; Z88.0 Allergy status to penicillin; Z91.030 Bee allergy status
CPT/HCPCS: 99285; 96374; 96361 ×2; 36415; 80053; 82550; 82553; 85025; 85610; 85730; 82272; 74177; Q9967; C9113

== ENCOUNTER 2017-10-12 07:52 | Emergency (ER) | payer BC, OTHER ==
[2017-10-12 07:57] VITALS: PULSE 102; RESP 20; TEMP 98.2
--- NOTE | 2017-10-12 08:08 | ED ---
URI HPI - General Chief Complaint: Upper Respiratory Infection Stated Complaint: HEADACHE AND CHEST CONGESTION Time Seen by Provider: 10/12/17 08:00 Source: patient, RN notes reviewed Mode of arrival: ambulatory Limitations: no limitations - History of Present Illness Initial Comments: 46-year-old presents emergency Department chief complaint of cough and cold- like symptoms for 3 weeks. Patient states started a sinus congestion progressed to chest congestion. Patient states his productive cough. Patient is a smoker denies any asthma or history of COPD. Patient has no chest pain or shortness breath. Denies sore throat. He complains of facial pressure, mild ear pain. Patient has tried some [id number] DayQuil without relief. Denies any sick contacts. Patient states he has ALLERGIES to penicillin products. Patient denies nausea, vomiting diarrhea constipation. - Related Data Home Medications Medication Instructions Recorded Confirmed Benazepril HCl [Benazepril HCl] 10 mg PO DAILY 01/08/15 03/08/17 Aspirin 81 mg PO DAILY 06/08/15 03/08/17 buPROPion XL [Wellbutrin XL] 150 mg PO DAILY 06/09/16 03/08/17 Naproxen [Naproxen] 500 mg PO HS 06/17/16 03/08/17 Metoprolol Succinate (ER) [Toprol 50 mg PO BID 11/24/16 03/08/17 Xl] Previous Rx's Medication Instructions Recorded Atorvastatin [Lipitor] 80 mg PO DAILY #14 tab 12/10/15 Hydrocodone/Acetaminophen [[place] 2 each PO Q6HR PRN #20 tab 11/24/16 5-325] HYDROcodone/APAP 5-325MG [[place] 1 tab PO Q6HR PRN #12 tab 03/08/17 5-325] Ibuprofen [Motrin] 600 mg PO Q8HR PRN #20 tab 03/08/17 Hydrocodone/Acetaminophen [[place] 1 tab PO Q6HR PRN #15 tab 04/03/17 5-325] Ibuprofen [Motrin] 600 mg PO Q8HR PRN #30 tab 04/03/17 Clarithromycin [Biaxin] 500 mg PO Q12HR #20 tablet 10/12/17 predniSONE 50 mg PO DAILY #5 tab 10/12/17 Allergies Allergy/AdvReac Type Severity Reaction Status Date / Time Penicillins Allergy Unknown Verified 10/12/17 07:57 Childhood venom-honey bee Allergy Swelling Verified 10/12/17 07:57 [bee venom (honey bee)] Review of Systems ROS Statement: Those systems with pertinent positive or pertinent negative responses have been documented in the HPI. ROS Other: All systems not noted in ROS Statement are negative. Past Medical History Past Medical History: Coronary Artery Disease (CAD), Hyperlipidemia, Hypertension, Myocardial Infarction ([place]), Osteoarthritis (OA) Additional Past Medical History / Comment(s): "blood clot" Last Myocardial Infarction Date:: 2008 History of Any Multi-Drug Resistant Organisms: None Reported Past Surgical History: Heart Catheterization With Stent, Orthopedic Surgery Additional Past Surgical History / Comment(s): multiple knee surg., bilateral shoulder surg., right thumb Past Anesthesia/Blood Transfusion Reactions: No Reported Reaction Date of Last Stent Placement:: 2008 Past Psychological History: No Psychological Hx Reported Smoking Status: Current every day smoker Past Alcohol Use History: Rare Past Drug Use History: None Reported - Past Family History Mother Family Medical History: No Reported History General Exam Limitations: no limitations General appearance: alert, in no apparent distress Head exam: Present: atraumatic, normocephalic, normal inspection Eye exam: Present: normal appearance, PERRL, EOMI. Absent: scleral icterus, conjunctival injection, periorbital swelling ENT exam: Present: mucous membranes moist, TM's normal bilaterally, normal external ear exam, other (maxillary sinus tenderness). Absent: normal oropharynx (Postnasal drainage) Neck exam: Present: normal inspection, full ROM. Absent: tenderness, meningismus, lymphadenopathy Respiratory exam: Present: normal lung sounds bilaterally. Absent: respiratory distress, wheezes, rales, rhonchi, stridor Cardiovascular Exam: Present: regular rate, normal rhythm, normal heart sounds. Absent: systolic murmur, diastolic murmur, rubs, gallop, clicks Skin exam: Present: warm, dry, intact, normal color. Absent: rash Course Vital Signs 10/12/17 07:54 Temperature 98.2 F Pulse Rate 102 H Respiratory 20 Rate Blood Pressure 181/110 O2 Sat by Pulse 99 Oximetry Medical Decision Making - Medical Decision Making 46-year-old male present emergency department for sinus congestion, chest congestion. Chest x-ray reveals no acute infiltrate noted. Patient was started on antibiotics at this time, steroids. Patient has been sick for 21 days per patient. Patient has acute sinusitis. Follow-up with PCP and return if symptoms worsen. Patient is a daily smoker and was counseled in detail greater than 3 minutes for smoking cessation. Disposition Clinical Impression: Acute sinusitis, Acute bronchitis Disposition: HOME SELF-CARE Condition: Stable Instructions: Sinusitis (ED) Additional Instructions: Please return to the Emergency Department if symptoms worsen or any other concerns. Prescriptions: Clarithromycin [Biaxin] 500 mg PO Q12HR #20 tablet predniSONE 50 mg PO DAILY #5 tab Referrals: Kyler Ng DO [Primary Care Provider] - 1-2 days Time of Disposition: 08:15
--- NOTE | 2017-10-12 08:29 | XR ---
EXAMINATION TYPE: XR chest 2V DATE OF EXAM: 10/12/2017 COMPARISON: Chest x-ray November 24, 2016 HISTORY: Cough and congestion for 3 weeks. TECHNIQUE: Frontal and lateral views of the chest are obtained. FINDINGS: Somewhat low lung volumes are redemonstrated. There is no focal air space opacity, pleural effusion, or pneumothorax seen. The cardiac silhouette size is within normal limits. Multilevel spur ring in thoracic spine is redemonstrated. IMPRESSION: No acute cardiopulmonary process. No significant change from prior.
[2017-10-12 08:34] VITALS: BP 174/93
== END 2017-10-12 08:33 | disposition home or self-care (01) ==
LOC: EC 07:52
DX: J20.9 Acute bronchitis, unspecified (principal); J01.90 Acute sinusitis, unspecified; I10 Essential (primary) hypertension; M19.90 Unspecified osteoarthritis, unspecified site; I25.2 Old myocardial infarction; F17.200 Nicotine dependence, unspecified, uncomplicated; Z79.1 Long term (current) use of non-steroidal anti-inflammatories (NSAID); Z79.82 Long term (current) use of aspirin; Z79.899 Other long term (current) drug therapy; Z88.0 Allergy status to penicillin; Z91.030 Bee allergy status
CPT/HCPCS: 71020; 99283

== ENCOUNTER 2018-01-27 15:22 | Emergency (ER) | payer BC ==
[2018-01-27 15:28] VITALS: TEMP 97.9
[2018-01-27 15:41] VITALS: PULSE 89
[2018-01-27 16:01] VITALS: RESP 16
[2018-01-27] MEDS ORDERED: cloNIDine HCL 0.1 MG TAB PO STA (16:01)
--- NOTE | 2018-01-27 16:13 | ED ---
General Adult HPI - General Chief complaint: Extremity Injury, Upper Stated complaint: Shoulder pain Time Seen by Provider: 01/27/18 15:30 Source: patient, RN notes reviewed Mode of arrival: ambulatory Limitations: no limitations - History of Present Illness Initial comments: Patient is a 47-year-old male presented to the emergency room today with a chief complaint of pain to the right axilla and shoulder over the last month. 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 He states he feels like there is some swelling in the right axilla area. He states he does have some pain is worse with movements. Denies any specific injury or trauma to the area. Patient denies any other complaints or symptoms. Patient's blood pressure is elevated at triage she doesn't that he just took his blood pressure medication prior to coming in to the emergency room. Patient denies any recent fever, chills, shortness of breath, chest pain, abdominal pain, nausea or vomiting, numbness or tingling, headaches or visual changes, or any other complaints. - Related Data Home Medications Medication Instructions Recorded Confirmed Benazepril HCl [Benazepril HCl] 10 mg PO DAILY 01/08/15 03/08/17 Aspirin 81 mg PO DAILY 06/08/15 03/08/17 buPROPion XL [Wellbutrin XL] 150 mg PO DAILY 06/09/16 03/08/17 Naproxen [Naproxen] 500 mg PO HS 06/17/16 03/08/17 Metoprolol Succinate (ER) [Toprol 50 mg PO BID 11/24/16 03/08/17 Xl] Previous Rx's Medication Instructions Recorded Atorvastatin [Lipitor] 80 mg PO DAILY #14 tab 12/10/15 Hydrocodone/Acetaminophen [[place] 2 each PO Q6HR PRN #20 tab 11/24/16 5-325] HYDROcodone/APAP 5-325MG [[place] 1 tab PO Q6HR PRN #12 tab 03/08/17 5-325] Ibuprofen [Motrin] 600 mg PO Q8HR PRN #20 tab 03/08/17 Hydrocodone/Acetaminophen [[place] 1 tab PO Q6HR PRN #15 tab 04/03/17 5-325] Ibuprofen [Motrin] 600 mg PO Q8HR PRN #30 tab 04/03/17 Clarithromycin [Biaxin] 500 mg PO Q12HR #20 tablet 10/12/17 predniSONE 50 mg PO DAILY #5 tab 10/12/17 Allergies Allergy/AdvReac Type Severity Reaction Status Date / Time Penicillins Allergy Unknown Verified 01/27/18 15:28 Childhood venom-honey bee Allergy Swelling Verified 01/27/18 15:28 [bee venom (honey bee)] Review of Systems ROS Statement: Those systems with pertinent positive or pertinent negative responses have been documented in the HPI. ROS Other: All systems not noted in ROS Statement are negative. Past Medical History Past Medical History: Coronary Artery Disease (CAD), Hyperlipidemia, Hypertension, Myocardial Infarction (OR), Osteoarthritis (OA) Additional Past Medical History / Comment(s): "blood clot" Last Myocardial Infarction Date:: 2008 History of Any Multi-Drug Resistant Organisms: None Reported Past Surgical History: Heart Catheterization With Stent, Orthopedic Surgery Additional Past Surgical History / Comment(s): multiple knee surg., bilateral shoulder surg., right thumb Past Anesthesia/Blood Transfusion Reactions: No Reported Reaction Date of Last Stent Placement:: 2008 Past Psychological History: No Psychological Hx Reported Smoking Status: Current every day smoker Past Alcohol Use History: Rare Past Drug Use History: None Reported - Past Family History Mother Family Medical History: No Reported History General Exam - General Exam Comments Initial Comments: General: The patient is awake and alert, in no distress, and does not appear acutely ill. Eye: Pupils are equal, round and reactive to light, extra-ocular movements are intact. No nystagmus. There is normal conjunctiva bilaterally. No signs of icterus. Ears, nose, mouth and throat: There are moist mucous membranes and no oral lesions. Neck: The neck is supple, there is no tenderness or JVD. Cardiovascular: There is a regular rate and rhythm. No murmur, rub or gallop is appreciated. Respiratory: Lungs are clear to auscultation, respirations are non-labored, breath sounds are equal. No wheezes, stridor, rales, or rhonchi. Musculoskeletal: Normal ROM. Patient does have tenderness right axilla some swollen lymph nodes on exam. Strength 5/5. Sensation intact. Pulses equal bilaterally 2+. Neurological: A&O x 3. CN II-XII intact, There are no obvious motor or sensory deficits. Coordination appears grossly intact. Speech is normal. Skin: Skin is warm and dry and no rashes or lesions are noted. Psychiatric: Cooperative, appropriate mood & affect, normal judgment. Limitations: no limitations Course Vital Signs 01/27/18 01/27/18 01/27/18 15:26 15:37 16:01 Temperature 97.9 F Pulse Rate 90 89 89 Respiratory 18 20 16 Rate Blood Pressure 203/100 180/109 173/109 O2 Sat by Pulse 97 Oximetry 01/27/18 16:50 Temperature Pulse Rate 89 Respiratory 16 Rate Blood Pressure 189/107 O2 Sat by Pulse Oximetry Medical Decision Making - Medical Decision Making The patient's ultrasound of the right axilla has been reviewed and does show 2 lymph nodes each measuring approximately 1 cm in size. No other abnormalities appreciated. Results were discussed with the patient. Some patient's pain is reproduced on palpation specifically over top of these lymph nodes in the right axilla. Patient advised to use anti-inflammatories for his pain. She states that approximate home that he can use. Patient blood pressure elevated here in the emergency room was given 0.1 Catapres. Patient states he does have blood pressure medication at home. He states he does plan on following up position. Advised to return to emergency room if any symptoms increase worsen. Disposition Clinical Impression: Lymphadenopathy, Hypertension Disposition: HOME SELF-CARE Condition: Good Instructions: Lymphadenopathy (ED) Additional Instructions: Please follow-up family physician as discussed over the next 2 days. Please return here to emergency room for any symptoms increase worsen or for any other concerns. Referrals: Kyler Ng DO [Primary Care Provider] - 1-2 days Time of Disposition: 16:57
--- NOTE | 2018-01-27 16:44 | US ---
EXAMINATION TYPE: US axilla RT DATE OF EXAM: 01/27/2018 COMPARISON: NONE CLINICAL HISTORY: 47-year-old male Pain and swelling right axilla x 1 month TECHNIQUE: Multiple sonographic images of the right axilla were obtained. FINDINGS: Two lymph nodes are noted in right axilla at patient's area of pain and swellin.1 x 0.9 x 1.0cm a nd more medially measuring = 1.1 x 1.1 x 0.9cm. IMPRESSION: 2 prominent but nonenlarged lymph nodes at the site of patient's right axillary swelling and pain. Th andrew measure up to 1.1 cm short axis. No other solid or cystic lesion identified. If any growth is not ed, the area can be very imaged.
[2018-01-27 16:50] VITALS: BP 189/107
== END 2018-01-27 17:00 | disposition home or self-care (01) ==
LOC: EC 15:22
DX: R59.0 Localized enlarged lymph nodes (principal); I10 Essential (primary) hypertension; I25.10 Atherosclerotic heart disease of native coronary artery without angina pectoris; I25.2 Old myocardial infarction; M19.90 Unspecified osteoarthritis, unspecified site; F17.200 Nicotine dependence, unspecified, uncomplicated; Z79.1 Long term (current) use of non-steroidal anti-inflammatories (NSAID); Z79.82 Long term (current) use of aspirin; Z79.899 Other long term (current) drug therapy; Z88.0 Allergy status to penicillin; Z91.030 Bee allergy status
CPT/HCPCS: 99283

== ENCOUNTER 2018-02-19 16:05 | Emergency (ER) | payer BC ==
[2018-02-19 16:09] VITALS: TEMP 98.4
[2018-02-19] MEDS ORDERED: ACETAMINOPHEN TAB 500 MG TAB PO STA (16:29)
[2018-02-19] MEDS ORDERED: SODIUM CHLORIDE 0.9% 500 ML IV STA (16:29)
--- NOTE | 2018-02-19 16:43 | ED ---
URI HPI - General Chief Complaint: Upper Respiratory Infection Stated Complaint: chest congestion, headache Time Seen by Provider: 02/19/18 16:15 Source: patient Mode of arrival: ambulatory Limitations: no limitations - History of Present Illness Initial Comments: Patient is a 47-year-old male presenting for congestion. He states that about 1 hour prior to presentation, he started getting a headache as well as congestion in his head and chest. He admits to shortness of breath and coughing but no chest pain or abdominal complaints. He also denies any nausea/ vomiting/diarrhea. He states that he is currently being worked up for enlarged lymph nodes in the right axilla in that he has a history of a blood clot in his heart after shoulder surgery but nothing recently and is not been put on blood thinners. He also denies any fevers and chills. - Related Data Home Medications Medication Instructions Recorded Confirmed Atorvastatin [Lipitor] 40 mg PO HS 02/19/18 02/19/18 Benazepril HCl 10 mg PO DAILY 02/19/18 02/19/18 Magnesium 200 mg PO BID 02/19/18 02/19/18 Metoprolol Succinate [Toprol XL] 25 mg PO BID 02/19/18 02/19/18 Naproxen 500 mg PO BID 02/19/18 02/19/18 Potassium 99 mg PO BID 02/19/18 02/19/18 buPROPion XL [Wellbutrin Xl] 150 mg PO DAILY 02/19/18 02/19/18 Allergies Allergy/AdvReac Type Severity Reaction Status Date / Time Penicillins Allergy Unknown Verified 02/19/18 16:14 Childhood venom-honey bee Allergy Swelling Verified 02/19/18 16:14 [bee venom (honey bee)] Review of Systems ROS Statement: Those systems with pertinent positive or pertinent negative responses have been documented in the HPI. Constitutional: Negative for chills, fatigue and fever. HENT: Positive for congestion. Negative for sore throat, ear pain Respiratory: Negative for chest tightness, and wheezing. Positive for cough and shortness of breath Cardiovascular: Negative for chest pain and palpitations. Gastrointestinal: Negative for abdominal pain. Negative for abdominal distention , diarrhea, nausea and vomiting. Genitourinary: Negative for dysuria. Musculoskeletal: Negative for back pain, neck pain and neck stiffness. Skin: Negative for color change. Neurological: Negative for dizziness, speech difficulty, weakness and light- headedness. Psychiatric/Behavioral: Negative for agitation and confusion. The patient is not nervous/anxious. ROS Other: All systems not noted in ROS Statement are negative. Past Medical History Past Medical History: Coronary Artery Disease (CAD), Hyperlipidemia, Hypertension, Myocardial Infarction ([place]), Osteoarthritis (OA) Additional Past Medical History / Comment(s): "blood clot" Last Myocardial Infarction Date:: 2008 History of Any Multi-Drug Resistant Organisms: None Reported Past Surgical History: Heart Catheterization With Stent, Orthopedic Surgery Additional Past Surgical History / Comment(s): multiple knee surg., bilateral shoulder surg., right thumb Past Anesthesia/Blood Transfusion Reactions: No Reported Reaction Date of Last Stent Placement:: 2008 Past Psychological History: No Psychological Hx Reported Smoking Status: Current every day smoker Past Alcohol Use History: Rare Past Drug Use History: None Reported - Past Family History Mother Family Medical History: No Reported History General Exam - General Exam Comments Initial Comments: Physical Exam Constitutional: Pt is oriented to person, place, and time. Pt appears well- developed and well-nourished. No distress. HENT: Head: Normocephalic and atraumatic. Eyes: EOM are normal. Neck: Normal range of motion. Neck supple. Cardiovascular: Positive for tachycardia, regular rhythm, S1 normal, S2 normal and normal heart sounds. Exam reveals no gallop and no friction rub. No murmur heard. Pulmonary/Chest: Effort normal and breath sounds normal. No tachypnea and no bradypnea. No respiratory distress. No wheezes or rales noted. Abdominal: Soft. Bowel sounds are normal. Pt exhibits no shifting dullness, no distension, no pulsatile liver, no fluid wave, no abdominal bruit and no ascites. There is no tenderness. There is no rigidity, no rebound, no guarding, no tenderness at McBurney's point and negative Quiroga's sign. Musculoskeletal: Normal range of motion. Neurological: Pt is alert and oriented to person, place, and time. No cranial nerve deficit. Skin: Skin is warm and dry. No rash noted. Pt is not diaphoretic. No erythema. No pallor. Psychiatric: Pt has a normal mood and affect. Pt behavior is normal. Thought content normal. Limitations: no limitations Course Vital Signs 02/19/18 02/19/18 02/19/18 16:07 16:53 18:25 Temperature 98.4 F Pulse Rate 112 H 101 H 87 Respiratory 20 18 18 Rate Blood Pressure 196/109 198/117 191/123 O2 Sat by Pulse 96 93 L 94 L Oximetry 02/19/18 19:54 Temperature Pulse Rate Respiratory Rate Blood Pressure 194/120 O2 Sat by Pulse Oximetry - Reevaluation(s) Reevaluation #1: 02/19/18 19:06 Cardiac evaluation revealed that repeat EKG did not show the ST depressions. Additionally, troponin was negative and d-dimer was initially negative but CT PE study was completed as the patient was considered to be high risk. This study was noted to negative. Patient was noted to be resting comfortably in no acute distress. He is also noted to be hypertensive and therefore the patient was given his home dose of metoprolol 50 mg XL and observed in the emergency department. Medical Decision Making - Medical Decision Making Laboratory studies showed that there is mild leukocytosis at 13.6 but patient states that this is been normal for him. Initial d-dimer was not elevated but because of the patient's past medical history and concern for pulmonary embolism , CT PE study was performed and showed no evidence of pulmonary embolism. Also , this study showed no evidence of infiltrate. Initial EKG did show a mild ST elevation. However, it is not clear whether this is artifact or not and therefore it was repeated at the end of the stay which did not show the same ST elevation. The patient had no chest pain or to stay and it is suspected that the initial ST elevation was potentially artifact. Additionally, there was transaminitis with ALT measuring 106 but patient was aware of this and states that this is a chronic problem for which he has been evaluated. His blood pressure was also noted to be mildly elevated with systolic measuring the low 190s. Patient was given his home blood pressure medication which did not result in a significant improvement. However, the patient showed no evidence of hypertensive emergency as he did not have a headache and did not have chest pain. It was explained that while there does not appear to be an emergent process, the etiology of the symptoms are still unclear but possibly related to viral syndrome and may need further workup as an outpatient if symptoms continue. Explained all labs and diagnostic test results and that we will discharge the patient home and patient is to follow up with PCP in 1-2 days and return to the ED if symptoms worsen. Pt is agreeable to plan. - Lab Data Result diagrams: 02/19/18 16:44 02/19/18 16:44 Lab Results 02/19/18 02/19/18 02/19/18 Range/Units 16:44 16:44 16:44 WBC 13.6 H (3.8-10.6) k/uL RBC 4.91 (4.30-5.90) m/uL Hgb 15.7 (13.0-17.5) gm/dL Hct 44.0 (39.0-53.0) % MCV 89.5 (80.0-100.0) fL MCH 31.9 (25.0-35.0) pg MCHC 35.7 (31.0-37.0) g/dL RDW 12.4 (11.5-15.5) % Plt Count 220 (150-450) k/uL Neutrophils % 74 % Lymphocytes % 17 % Monocytes % 6 % Eosinophils % 2 % Basophils % 0 % Neutrophils # 10.1 H (1.3-7.7) k/uL Lymphocytes # 2.3 (1.0-4.8) k/uL Monocytes # 0.8 (0-1.0) k/uL Eosinophils # 0.3 (0-0.7) k/uL Basophils # 0.0 (0-0.2) k/uL PT 9.7 (9.0-12.0) sec INR 1.0 (<1.2) APTT 25.1 (22.0-30.0) sec D-Dimer 0.21 (<0.60) mg/L FEU Sodium (137-145) mmol/L Potassium (3.5-5.1) mmol/L Chloride (98-107) mmol/L Carbon Dioxide (22-30) mmol/L Anion Gap mmol/L BUN (9-20) mg/dL Creatinine (0.66-1.25) mg/dL Est GFR (CKD-EPI)AfAm (>60 ml/min/1.73 sqM) Est GFR (CKD-EPI)NonAf (>60 ml/min/1.73 sqM) Glucose (74-99) mg/dL Calcium (8.4-10.2) mg/dL Magnesium (1.6-2.3) mg/dL Total Bilirubin (0.2-1.3) mg/dL AST (17-59) U/L ALT (21-72) U/L Alkaline Phosphatase (38-126) U/L Troponin I (0.000-0.034) ng/mL Total Protein (6.3-8.2) g/dL Albumin (3.5-5.0) g/dL Influenza Type A RNA Not Detected (Not Detectd) Influenza Type B (PCR) Not Detected (Not Detectd) 02/19/18 02/19/18 Range/Units 16:44 16:44 WBC (3.8-10.6) k/uL RBC (4.30-5.90) m/uL Hgb (13.0-17.5) gm/dL Hct (39.0-53.0) % MCV (80.0-100.0) fL MCH (25.0-35.0) pg MCHC (31.0-37.0) g/dL RDW (11.5-15.5) % Plt Count (150-450) k/uL Neutrophils % % Lymphocytes % % Monocytes % % Eosinophils % % Basophils % % Neutrophils # (1.3-7.7) k/uL Lymphocytes # (1.0-4.8) k/uL Monocytes # (0-1.0) k/uL Eosinophils # (0-0.7) k/uL Basophils # (0-0.2) k/uL PT (9.0-12.0) sec INR (<1.2) APTT (22.0-30.0) sec D-Dimer (<0.60) mg/L FEU Sodium 143 (137-145) mmol/L Potassium 4.2 (3.5-5.1) mmol/L Chloride 107 (98-107) mmol/L Carbon Dioxide 24 (22-30) mmol/L Anion Gap 12 mmol/L BUN 14 (9-20) mg/dL Creatinine 0.96 (0.66-1.25) mg/dL Est GFR (CKD-EPI)AfAm >90 (>60 ml/min/1.73 sqM) Est GFR (CKD-EPI)NonAf >90 (>60 ml/min/1.73 sqM) Glucose 97 (74-99) mg/dL Calcium 9.9 (8.4-10.2) mg/dL Magnesium 2.2 (1.6-2.3) mg/dL Total Bilirubin 0.6 (0.2-1.3) mg/dL AST 56 (17-59) U/L ALT 106 H (21-72) U/L Alkaline Phosphatase 85 (38-126) U/L Troponin I 0.021 (0.000-0.034) ng/mL Total Protein 6.9 (6.3-8.2) g/dL Albumin 4.4 (3.5-5.0) g/dL Influenza Type A RNA (Not Detectd) Influenza Type B (PCR) (Not Detectd) - EKG Data EKG Comments: EKG shows normal sinus rhythm with rate of 93 bpm, DC interval 162, QRS 92, QTC 440. There is approximately [address] elevation in lead V1 and 1-2 mm elevation in V2. There are no reciprocal changes. There is no evidence of S1Q3T3. Repeat EKG performed at 18:33 shows sinus rhythm of 89 bpm, DC interval 166, QRS 92, QTC 462. Additionally the ST elevations from the prior EKG is not present in V1 and V2. Nonspecific T-wave inversion remains in V1. Disposition Clinical Impression: Head congestion, Hypertension Disposition: HOME SELF-CARE Condition: Good Instructions: Upper Respiratory Infection (ED) Is patient prescribed a controlled substance at d/c from ED?: No Referrals: Kyler Ng DO [Primary Care Provider] - 1-2 days Time of Disposition: 18:46
[2018-02-19 16:55] VITALS: RESP 18
[2018-02-19 16:58] LABS: Basophils % (A) 0 %; Eosinophils # (A) 0.3 k/uL (0-0.7); Eosinophils % (A) 2 %; HGB 15.7 gm/dL (13.0-17.5); Lymphocytes # (A) 2.3 k/uL (1.0-4.8); Lymphocytes % (A) 17 %; MCH 31.9 pg (25.0-35.0); MCHC 35.7 g/dL (31.0-37.0); MCV 89.5 fL (80.0-100.0); Mean Platelet Volume 8.5; Monocytes # (A) 0.8 k/uL (0-1.0); Monocytes % (A) 6 %; Neutrophils # (A) 10.1 k/uL (1.3-7.7); Neutrophils % (A) 74 %; Platelet Count 220 k/uL (150-450); RBC 4.91 m/uL (4.30-5.90); RDW 12.4 % (11.5-15.5); WBC 13.6 k/uL (3.8-10.6)
--- NOTE | 2018-02-19 17:02 | XR ---
EXAMINATION TYPE: XR chest 2V DATE OF EXAM: 02/19/2018 COMPARISON: 10/12/2017 HISTORY: Chest congestion TECHNIQUE: Frontal and lateral views of the chest are obtained. FINDINGS: Heart and mediastinum are normal. Lungs are clear of infiltrate. There is no pleural effus ion. There are chest leads. Bony thorax is intact. IMPRESSION: Normal chest. No change.
[2018-02-19 17:07] LABS: ALT 106 U/L (21-72); AST 56 U/L (17-59); Albumin 4.4 g/dL (3.5-5.0); Alkaline Phosphatase 85 U/L (38-126); Anion Gap 12 mmol/L; Blood Urea Nitrogen 14 mg/dL (9-20); Calcium 9.9 mg/dL (8.4-10.2); Carbon Dioxide 24 mmol/L (22-30); Chloride 107 mmol/L (98-107); Glucose 97 mg/dL (74-99); Magnesium 2.2 mg/dL (1.6-2.3); Potassium 4.2 mmol/L (3.5-5.1); Sodium 143 mmol/L (137-145); Total Bilirubin 0.6 mg/dL (0.2-1.3); Total Protein 6.9 g/dL (6.3-8.2)
[2018-02-19 17:12] LABS: D-Dimer 0.21 mg/L FEU (<0.60); Partial Thromboplastin Time 25.1 sec (22.0-30.0); Prothrombin Time 9.7 sec (9.0-12.0)
[2018-02-19] MEDS ORDERED: RX INFO: IV CONTRAST WAS GIVEN 1 EACH MISC MISCELLANE PRN (17:16)
--- NOTE | 2018-02-19 18:04 | CT ---
EXAMINATION TYPE: CT angio chest DATE OF EXAM: 02/19/2018 5:49 PM COMPARISON: NONE HISTORY: Chest congestion. CT DLP: 377.4 mGycm Automated exposure control for dose reduction was used. CONTRAST: CTA scan of the thorax is performed with IV Contrast, patient injected with 78ml mL of Isovue 370, pu lmonary embolism protocol. There are 3-D post processed images.. FINDINGS: The lungs are clear of infiltrate. There is no evidence of a pulmonary mass. There is mild subsegment al atelectasis at the posterior lung cruz. Heart size is normal. There is no pericardial effusion. I see no filling defects in the pulmonary art eries. There is no evidence of thoracic aortic aneurysm or dissection. There are a few mediastinal an d bronchial lymph nodes that measure up to 1 cm. There is mild spurring in the thoracic spine. There is no pleural effusion. IMPRESSION: NO EVIDENCE OF PULMONARY EMBOLISM. NO PULMONARY CONSOLIDATION.
[2018-02-19 18:28] VITALS: PULSE 87
[2018-02-19] MEDS ORDERED: METOPROLOL SUCCINATE (ER) 50 MG TAB.ER.24H PO STA (18:44)
[2018-02-19 19:55] VITALS: BP 194/120
== END 2018-02-19 20:08 | disposition home or self-care (01) ==
LOC: EC 16:05
DX: R09.89 Other specified symptoms and signs involving the circulatory and respiratory systems (principal); I10 Essential (primary) hypertension; R06.02 Shortness of breath; R05 Cough; D72.829 Elevated white blood cell count, unspecified; R94.31 Abnormal electrocardiogram [ECG] [EKG]; R74.0 Nonspecific elevation of levels of transaminase and lactic acid dehydrogenase [LDH]; I25.10 Atherosclerotic heart disease of native coronary artery without angina pectoris; E78.5 Hyperlipidemia, unspecified; I25.2 Old myocardial infarction; M19.90 Unspecified osteoarthritis, unspecified site; F17.200 Nicotine dependence, unspecified, uncomplicated; Z79.1 Long term (current) use of non-steroidal anti-inflammatories (NSAID); Z79.899 Other long term (current) drug therapy; Z88.0 Allergy status to penicillin; Z91.030 Bee allergy status; Z95.5 Presence of coronary angioplasty implant and graft; Z53.29 Procedure and treatment not carried out because of patient's decision for other reasons
CPT/HCPCS: 36415; 93005; 85379; 80053; 83735; 84484; 85025; 85610; 85730; 87502; 71046; 71275; 99284; Q9967

== ENCOUNTER 2018-03-04 22:44 | Emergency (ER) | payer BC ==
--- NOTE | 2018-03-04 23:16 | ED ---
Abdominal Pain HPI - General Chief Complaint: Abdominal Pain Stated Complaint: lower abd pain Time Seen by Provider: 03/04/18 23:10 Source: patient, RN notes reviewed Mode of arrival: ambulatory Limitations: no limitations - History of Present Illness Initial Comments: This is a 47-year-old male with a recent history of elevated white blood cell count and was told by his doctor to come in tonight because his white blood cell count is in the 16,000 range. He states she's been dealing with this for about 2 months he also is had left lower quadrant abdominal pain for the past 2 days. He also states he coughed up some blood tonight. It was dark red. He denies any fevers chills nausea vomiting sweats diarrhea constipation melena or other symptoms. He is a smoker he does not drink alcohol anymore he states he quit because of elevated liver enzymes. MD Complaint: abdominal pain, other - Related Data Home Medications Medication Instructions Recorded Confirmed Atorvastatin [Lipitor] 40 mg PO HS 02/19/18 03/04/18 Benazepril HCl 10 mg PO DAILY 02/19/18 03/04/18 Magnesium 200 mg PO BID 02/19/18 03/04/18 Metoprolol Succinate [Toprol XL] 25 mg PO BID 02/19/18 03/04/18 Naproxen 500 mg PO BID 02/19/18 03/04/18 Potassium 99 mg PO BID 02/19/18 03/04/18 buPROPion XL [Wellbutrin Xl] 150 mg PO DAILY 02/19/18 03/04/18 Allergies Allergy/AdvReac Type Severity Reaction Status Date / Time Penicillins Allergy Unknown Verified 03/04/18 23:13 Childhood venom-honey bee Allergy Swelling Verified 03/04/18 23:13 [bee venom (honey bee)] Review of Systems ROS Statement: Those systems with pertinent positive or pertinent negative responses have been documented in the HPI. ROS Other: All systems not noted in ROS Statement are negative. Past Medical History Past Medical History: Coronary Artery Disease (CAD), Hyperlipidemia, Hypertension, Myocardial Infarction ([place]), Osteoarthritis (OA) Additional Past Medical History / Comment(s): "blood clot" Last Myocardial Infarction Date:: 2008 History of Any Multi-Drug Resistant Organisms: None Reported Past Surgical History: Heart Catheterization With Stent, Orthopedic Surgery Additional Past Surgical History / Comment(s): multiple knee surg., bilateral shoulder surg., right thumb Past Anesthesia/Blood Transfusion Reactions: No Reported Reaction Date of Last Stent Placement:: 2008 Past Psychological History: No Psychological Hx Reported Smoking Status: Current every day smoker Past Alcohol Use History: Rare Past Drug Use History: None Reported - Past Family History Mother Family Medical History: No Reported History General Exam - General Exam Comments Initial Comments: This is a well-developed well-nourished awake alert oriented 3 male Limitations: no limitations General appearance: alert, in no apparent distress Head exam: Present: atraumatic, normocephalic, normal inspection Eye exam: Present: normal appearance, PERRL, EOMI. Absent: scleral icterus, conjunctival injection, periorbital swelling ENT exam: Present: normal exam, mucous membranes moist Neck exam: Present: normal inspection. Absent: tenderness, meningismus, lymphadenopathy Respiratory exam: Present: normal lung sounds bilaterally. Absent: respiratory distress, wheezes, rales, rhonchi, stridor Cardiovascular Exam: Present: regular rate, normal rhythm, normal heart sounds. Absent: systolic murmur, diastolic murmur, rubs, gallop, clicks GI/Abdominal exam: Present: soft, tenderness (Left lower quadrant tenderness palpation no guarding rebound masses or bruits), normal bowel sounds. Absent: distended, guarding, rebound, rigid Rectal exam: Present: deferred Extremities exam: Present: normal inspection, full ROM, normal capillary refill. Absent: tenderness, pedal edema, joint swelling, calf tenderness Back exam: Present: normal inspection Neurological exam: Present: alert, oriented X3, CN II-XII intact Psychiatric exam: Present: normal affect, normal mood Skin exam: Present: warm, dry, intact, normal color. Absent: rash Course Vital Signs 03/04/18 03/05/18 03/05/18 22:52 00:22 01:02 Temperature 97.4 F L Pulse Rate 93 80 79 Respiratory 16 18 16 Rate Blood Pressure 234/135 198/115 206/118 O2 Sat by Pulse 97 98 96 Oximetry 03/05/18 01:25 Temperature Pulse Rate 68 Respiratory 18 Rate Blood Pressure 177/100 O2 Sat by Pulse 98 Oximetry Medical Decision Making - Medical Decision Making The patient feeling much improved his blood pressure is improved he states he did not take his medication today. Does explain the elevation of his blood pressure he is on a pickup later. He will be given a dose of his normal blood pressure medication he will be discharged the abdomen soft nontender no pain at this time his white blood cell count has improved. He will follow-up with his doctor. CAT scan reveals no acute processes. - Lab Data Result diagrams: 03/04/18 23:30 03/04/18 23:30 Lab Results 03/04/18 03/04/18 03/04/18 Range/Units 23:30 23:30 23:30 WBC 12.3 H (3.8-10.6) k/uL RBC 5.04 (4.30-5.90) m/uL Hgb 16.3 (13.0-17.5) gm/dL Hct 44.8 (39.0-53.0) % MCV 88.9 (80.0-100.0) fL MCH 32.3 (25.0-35.0) pg MCHC 36.3 (31.0-37.0) g/dL RDW 12.4 (11.5-15.5) % Plt Count 250 (150-450) k/uL Neutrophils % 68 % Lymphocytes % 22 % Monocytes % 6 % Eosinophils % 3 % Basophils % 1 % Neutrophils # 8.3 H (1.3-7.7) k/uL Lymphocytes # 2.7 (1.0-4.8) k/uL Monocytes # 0.7 (0-1.0) k/uL Eosinophils # 0.3 (0-0.7) k/uL Basophils # 0.1 (0-0.2) k/uL Hyperchromasia Slight PT (9.0-12.0) sec INR (<1.2) APTT (22.0-30.0) sec Sodium 143 (137-145) mmol/L Potassium 3.7 (3.5-5.1) mmol/L Chloride 103 (98-107) mmol/L Carbon Dioxide 28 (22-30) mmol/L Anion Gap 12 mmol/L BUN 13 (9-20) mg/dL Creatinine 0.90 (0.66-1.25) mg/dL Est GFR (CKD-EPI)AfAm >90 (>60 ml/min/1.73 sqM) Est GFR (CKD-EPI)NonAf >90 (>60 ml/min/1.73 sqM) Glucose 133 H (74-99) mg/dL Plasma Lactic Acid Sergio (0.7-2.0) mmol/L Calcium 9.8 (8.4-10.2) mg/dL Total Bilirubin 0.4 (0.2-1.3) mg/dL AST 43 (17-59) U/L ALT 79 H (21-72) U/L Alkaline Phosphatase 88 (38-126) U/L Total Creatine Kinase 178 H (55-170) U/L CK-MB (CK-2) 2.1 (0.0-2.4) ng/mL CK-MB (CK-2) Rel Index 1.2 Troponin I 0.027 (0.000-0.034) ng/mL Total Protein 6.9 (6.3-8.2) g/dL Albumin 4.3 (3.5-5.0) g/dL Amylase 63 (30-110) U/L Lipase 168 (23-300) U/L Urine Color Urine Appearance (Clear) Urine pH (5.0-8.0) Ur Specific [place] (1.001-1.035) Urine Protein (Negative) Urine Glucose (UA) (Negative) Urine Ketones (Negative) Urine Blood (Negative) Urine Nitrite (Negative) Urine Bilirubin (Negative) Urine Urobilinogen (<2.0) mg/dL Ur Leukocyte Esterase (Negative) Urine RBC (0-5) /hpf Urine WBC (0-5) /hpf Blood Type Blood Type Recheck Antibody Screen Spec Expiration Date 03/04/18 03/04/18 03/04/18 Range/Units 23:30 23:30 23:30 WBC (3.8-10.6) k/uL RBC (4.30-5.90) m/uL Hgb (13.0-17.5) gm/dL Hct (39.0-53.0) % MCV (80.0-100.0) fL MCH (25.0-35.0) pg MCHC (31.0-37.0) g/dL RDW (11.5-15.5) % Plt Count (150-450) k/uL Neutrophils % % Lymphocytes % % Monocytes % % Eosinophils % % Basophils % % Neutrophils # (1.3-7.7) k/uL Lymphocytes # (1.0-4.8) k/uL Monocytes # (0-1.0) k/uL Eosinophils # (0-0.7) k/uL Basophils # (0-0.2) k/uL Hyperchromasia PT 9.7 (9.0-12.0) sec INR 1.0 (<1.2) APTT 25.6 (22.0-30.0) sec Sodium (137-145) mmol/L Potassium (3.5-5.1) mmol/L Chloride (98-107) mmol/L Carbon Dioxide (22-30) mmol/L Anion Gap mmol/L BUN (9-20) mg/dL Creatinine (0.66-1.25) mg/dL Est GFR (CKD-EPI)AfAm (>60 ml/min/1.73 sqM) Est GFR (CKD-EPI)NonAf (>60 ml/min/1.73 sqM) Glucose (74-99) mg/dL Plasma Lactic Acid Sergio 0.9 (0.7-2.0) mmol/L Calcium (8.4-10.2) mg/dL Total Bilirubin (0.2-1.3) mg/dL AST (17-59) U/L ALT (21-72) U/L Alkaline Phosphatase (38-126) U/L Total Creatine Kinase (55-170) U/L CK-MB (CK-2) (0.0-2.4) ng/mL CK-MB (CK-2) Rel Index Troponin I (0.000-0.034) ng/mL Total Protein (6.3-8.2) g/dL Albumin (3.5-5.0) g/dL Amylase (30-110) U/L Lipase (23-300) U/L Urine Color Urine Appearance (Clear) Urine pH (5.0-8.0) Ur Specific [place] (1.001-1.035) Urine Protein (Negative) Urine Glucose (UA) (Negative) Urine Ketones (Negative) Urine Blood (Negative) Urine Nitrite (Negative) Urine Bilirubin (Negative) Urine Urobilinogen (<2.0) mg/dL Ur Leukocyte Esterase (Negative) Urine RBC (0-5) /hpf Urine WBC (0-5) /hpf Blood Type A Negative Blood Type Recheck CABO Indicated Antibody Screen NEGATIVE Spec Expiration Date 03/07/201803/04/18 Range/Units 23:30 WBC (3.8-10.6) k/uL RBC (4.30-5.90) m/uL Hgb (13.0-17.5) gm/dL Hct (39.0-53.0) % MCV (80.0-100.0) fL MCH (25.0-35.0) pg MCHC (31.0-37.0) g/dL RDW (11.5-15.5) % Plt Count (150-450) k/uL Neutrophils % % Lymphocytes % % Monocytes % % Eosinophils % % Basophils % % Neutrophils # (1.3-7.7) k/uL Lymphocytes # (1.0-4.8) k/uL Monocytes # (0-1.0) k/uL Eosinophils # (0-0.7) k/uL Basophils # (0-0.2) k/uL Hyperchromasia PT (9.0-12.0) sec INR (<1.2) APTT (22.0-30.0) sec Sodium (137-145) mmol/L Potassium (3.5-5.1) mmol/L Chloride (98-107) mmol/L Carbon Dioxide (22-30) mmol/L Anion Gap mmol/L BUN (9-20) mg/dL Creatinine (0.66-1.25) mg/dL Est GFR (CKD-EPI)AfAm (>60 ml/min/1.73 sqM) Est GFR (CKD-EPI)NonAf (>60 ml/min/1.73 sqM) Glucose (74-99) mg/dL Plasma Lactic Acid Sergio (0.7-2.0) mmol/L Calcium (8.4-10.2) mg/dL Total Bilirubin (0.2-1.3) mg/dL AST (17-59) U/L ALT (21-72) U/L Alkaline Phosphatase (38-126) U/L Total Creatine Kinase (55-170) U/L CK-MB (CK-2) (0.0-2.4) ng/mL CK-MB (CK-2) Rel Index Troponin I (0.000-0.034) ng/mL Total Protein (6.3-8.2) g/dL Albumin (3.5-5.0) g/dL Amylase (30-110) U/L Lipase (23-300) U/L Urine Color Light Yellow Urine Appearance Cloudy (Clear) Urine pH 7.5 (5.0-8.0) Ur Specific [place] 1.008 (1.001-1.035) Urine Protein Negative (Negative) Urine Glucose (UA) Negative (Negative) Urine Ketones Negative (Negative) Urine Blood Negative (Negative) Urine Nitrite Negative (Negative) Urine Bilirubin Negative (Negative) Urine Urobilinogen <2.0 (<2.0) mg/dL Ur Leukocyte Esterase Negative (Negative) Urine RBC 1 (0-5) /hpf Urine WBC 3 (0-5) /hpf Blood Type Blood Type Recheck Antibody Screen Spec Expiration Date - Radiology Data Radiology results: report reviewed (I did review the imaging and reports no acute findings.), image reviewed Disposition Clinical Impression: Abdominal pain, Leukocytosis, Uncontrolled hypertension Disposition: HOME SELF-CARE Condition: Good Instructions: Abdominal Pain (ED), Leukocytosis (ED), Hypertension (ED) Is patient prescribed a controlled substance at d/c from ED?: No Referrals: Kyler Ng DO [Primary Care Provider] - 1-2 days
[2018-03-04 23:38] LABS: Basophils # (A) 0.1 k/uL (0-0.2); Basophils % (A) 1 %; Eosinophils # (A) 0.3 k/uL (0-0.7); Eosinophils % (A) 3 %; HCT 44.8 % (39.0-53.0); HGB 16.3 gm/dL (13.0-17.5); Hyperchromasia Slight; Lymphocytes # (A) 2.7 k/uL (1.0-4.8); Lymphocytes % (A) 22 %; MCH 32.3 pg (25.0-35.0); MCHC 36.3 g/dL (31.0-37.0); MCV 88.9 fL (80.0-100.0); Mean Platelet Volume 7.6; Monocytes # (A) 0.7 k/uL (0-1.0); Monocytes % (A) 6 %; Neutrophils # (A) 8.3 k/uL (1.3-7.7); Neutrophils % (A) 68 %; Platelet Count 250 k/uL (150-450); RBC 5.04 m/uL (4.30-5.90); RDW 12.4 % (11.5-15.5); WBC 12.3 k/uL (3.8-10.6)
[2018-03-04 23:41] LABS: Appearance,Urine Cloudy (Clear); Bilirubin,Urine Negative (Negative); Blood,Urine Negative (Negative); Color,Urine Light Yellow; Glucose,Urine (UA) Negative (Negative); Ketones,Urine Negative (Negative); Leukocyte Esterase,Urine Negative (Negative); Nitrite,Urine Negative (Negative); PH, Urine 7.5 (5.0-8.0); Protein,Urine Negative (Negative); RBC,Urine 1 /hpf (0-5); Specific Gravity,Urine 1.008 (1.001-1.035); Urobilinogen,Urine <2.0 mg/dL (<2.0); WBC,Urine 3 /hpf (0-5)
[2018-03-04 23:48] LABS: Partial Thromboplastin Time 25.6 sec (22.0-30.0); Prothrombin Time 9.7 sec (9.0-12.0)
[2018-03-04 23:49] LABS: ALT 79 U/L (21-72); AST 43 U/L (17-59); Albumin 4.3 g/dL (3.5-5.0); Alkaline Phosphatase 88 U/L (38-126); Amylase 63 U/L (30-110); Anion Gap 12 mmol/L; Blood Urea Nitrogen 13 mg/dL (9-20); Calcium 9.8 mg/dL (8.4-10.2); Carbon Dioxide 28 mmol/L (22-30); Chloride 103 mmol/L (98-107); Glucose 133 mg/dL (74-99); Lipase 168 U/L (23-300); Potassium 3.7 mmol/L (3.5-5.1); Sodium 143 mmol/L (137-145); Total Bilirubin 0.4 mg/dL (0.2-1.3); Total Protein 6.9 g/dL (6.3-8.2)
[2018-03-05 00:03] LABS: Creatine Kinase MB 2.1 ng/mL (0.0-2.4); Troponin I 0.027 ng/mL (0.000-0.034)
[2018-03-05] MEDS ORDERED: KETOROLAC 30 MG/ML 1 ML VIAL IVP STA (00:23)
--- NOTE | 2018-03-05 00:36 | XR ---
EXAM: XR Chest, 2 Views CLINICAL HISTORY: : abdominal pain TECHNIQUE: Frontal and lateral views of the chest. COMPARISON: 02/19/18 FINDINGS: Lungs: Unremarkable. No consolidation. Pleural space: Unremarkable. No pneumothorax. Heart: Unremarkable. No cardiomegaly. Mediastinum: Unremarkable. Bones/joints: Unremarkable. IMPRESSION: Unremarkable 2 views of the chest no significant interval change compared to prior study
--- NOTE | 2018-03-05 00:38 | XR ---
EXAM: XR Abdomen, 2 Views CLINICAL HISTORY: abdominal pain TECHNIQUE: Frontal view of the abdomen/pelvis with upright view of the abdomen. COMPARISON: No relevant prior studies available. FINDINGS: Intraperitoneal space: No free air. Gastrointestinal tract: Unremarkable. No dilation. Bones/joints: Unremarkable. IMPRESSION: Normal abdominal x-rays.
[2018-03-05] MEDS ORDERED: hydrALAZINE HCL 20 MG/ML 1 ML VIAL IVP STA (01:02)
--- NOTE | 2018-03-05 01:35 | CT ---
EXAM: CT Abdomen and Pelvis With Intravenous Contrast CLINICAL HISTORY: Pain TECHNIQUE: Axial computed tomography images of the abdomen and pelvis with intravenous contrast. CTDI is 15.9 mGy and DLP is 1047.7 mGy-cm. This CT exam was performed using one or more of the following dose reduction techniques: automated exposure control, adjustment of the mA and/or kV according to patient size, and/or use of iterative reconstruction technique. COMPARISON: 05/03/17 FINDINGS: Lung bases: Unremarkable. No mass. No consolidation. ABDOMEN: Liver: Fatty infiltration of liver with no focal mass. Gallbladder and bile ducts: Unremarkable. Gallbladder is contracted. No calcified stones. No ductal dilation. Pancreas: Unremarkable. No mass. No ductal dilation. Spleen: Unremarkable. No splenomegaly. Adrenals: Unremarkable. No mass. Kidneys and ureters: Unremarkable. No solid mass. No hydronephrosis. Stomach and bowel: Unremarkable. No obstruction. No mucosal thickening. PELVIS: Appendix: No findings to suggest acute appendicitis. Bladder: Unremarkable. No mass. Reproductive: Unremarkable as visualized. ABDOMEN and PELVIS: Intraperitoneal space: Unremarkable. No free air. No significant fluid collection. Bones/joints: No acute fracture. No dislocation. Soft tissues: Unremarkable. Vasculature: Unremarkable. No abdominal aortic aneurysm. Lymph nodes: Unremarkable. No enlarged lymph nodes. IMPRESSION: Unremarkable CT abdomen and pelvis no significant change from prior study
[2018-03-05 01:41] VITALS: BP 177/100; PULSE 68; RESP 18
[2018-03-05] MEDS ORDERED: METOPROLOL SUCCINATE (ER) 25 MG TAB.ER.24H PO STA (01:50)
[2018-03-05 02:00] VITALS: TEMP 97.9
== END 2018-03-05 02:00 | disposition home or self-care (01) ==
LOC: EC 22:44
DX: I10 Essential (primary) hypertension (principal); D72.829 Elevated white blood cell count, unspecified; R10.32 Left lower quadrant pain; R04.2 Hemoptysis; E78.5 Hyperlipidemia, unspecified; I25.10 Atherosclerotic heart disease of native coronary artery without angina pectoris; M19.90 Unspecified osteoarthritis, unspecified site; I25.2 Old myocardial infarction; F17.200 Nicotine dependence, unspecified, uncomplicated; Z79.1 Long term (current) use of non-steroidal anti-inflammatories (NSAID); Z79.899 Other long term (current) drug therapy; Z88.0 Allergy status to penicillin; Z91.030 Bee allergy status
CPT/HCPCS: 36415; 86900; 86901; 80053; 82150; 82550; 82553; 83605; 83690; 84484; 85025; 85610; 85730; 86850; 81001; 71046; 74018; 74177; 99284; 96374; 96375; J0360; J1885; Q9967

== ENCOUNTER → 2018-03-30 | Outpatient (CLI) | payer BC ==
--- NOTE | 2018-03-31 00:19 | MR ---
EXAMINATION TYPE: MR brachial plexus RT wo/w con DATE OF EXAM: 03/30/2018 COMPARISON: NONE HISTORY: Brachial plexus disorder, Lumps under Rt arm, Order specifies attention brachial plexus CONTRAST: Standard multiplanar, multisequence MRI departmental protocol utilizing 10 mL intravenous Gadavist ga dolinium contrast. FINDINGS: I see no evidence of cervical or supraclavicular lymphadenopathy on the right side. There i s no evidence of soft tissue mass. Shoulder joint appears intact. There is no evidence of a brachial plexus mass. There is good visualization of the right-sided brachial plexus. I see no evidence of atr ophy or mass. There is a few lymph nodes in the right axilla and the largest measures 11 mm. The imag es of the cervical spine show no evidence of spinal stenosis. The contrast images show no pathologic enhancement. I see no bony destructive process. IMPRESSION: There are a few small nonspecific axillary lymph nodes. Otherwise negative exam. No evidence of brach ial plexus mass.
== END | disposition home or self-care (01) ==
LOC: RADMRIMAIN 19:34
PROVIDERS: ATTEND Family Medicine
DX: G54.0 Brachial plexus disorders (principal)
CPT/HCPCS: 71552; A9581

== ENCOUNTER 2018-06-25 13:43 | Emergency (ER) | payer BC ==
[2018-06-25 14:39] VITALS: RESP 18; TEMP 98.4
--- NOTE | 2018-06-25 15:08 | XR ---
EXAMINATION TYPE: XR chest 2V DATE OF EXAM: 06/25/2018 COMPARISON: 03/04/2018 HISTORY: 47-year-old male with cough TECHNIQUE: PA and lateral views FINDINGS: The cardiomediastinal silhouette, aorta, and pulmonary vasculature are within normal limits. There is mild peribronchial cuffing. Some strandy atelectasis at the left base. No consolidation or pleural e ffusion. IMPRESSION: Mild peribronchial cuffing could reflect bronchitis or asthma. Otherwise, no acute process seen.
[2018-06-25 15:17] LABS: Basophils % (A) 0 %; Eosinophils # (A) 0.2 k/uL (0-0.7); Eosinophils % (A) 1 %; Lymphocytes # (A) 1.9 k/uL (1.0-4.8); Lymphocytes % (A) 10 %; MCHC 34.8 g/dL (31.0-37.0); MCV 91.8 fL (80.0-100.0); Mean Platelet Volume 7.8; Monocytes % (A) 5 %; Neutrophils # (A) 15.6 k/uL (1.3-7.7); Neutrophils % (A) 82 %; Platelet Count 285 k/uL (150-450); RBC 5.01 m/uL (4.30-5.90); RDW 12.3 % (11.5-15.5)
[2018-06-25 15:26] LABS: ALT 57 U/L (21-72); AST 37 U/L (17-59); Albumin 4.3 g/dL (3.5-5.0); Alkaline Phosphatase 83 U/L (38-126); Amylase 49 U/L (30-110); Anion Gap 10 mmol/L; Blood Urea Nitrogen 11 mg/dL (9-20); Carbon Dioxide 23 mmol/L (22-30); Chloride 106 mmol/L (98-107); Glucose 87 mg/dL (74-99); Lipase 76 U/L (23-300); Potassium 4.9 mmol/L (3.5-5.1); Sodium 139 mmol/L (137-145); Total Bilirubin 0.6 mg/dL (0.2-1.3); Total Protein 7.3 g/dL (6.3-8.2)
[2018-06-25] MEDS ORDERED: ONDANSETRON 4 MG/2 ML VIAL IVP STA (15:42)
[2018-06-25] MEDS ORDERED: DICYCLOMINE 10 MG/ML 2 ML AMP IM STA (15:42)
[2018-06-25 16:12] LABS: Appearance,Urine Clear (Clear); Bilirubin,Urine Negative (Negative); Blood,Urine Negative (Negative); Color,Urine Light Yellow; Glucose,Urine (UA) Negative (Negative); Ketones,Urine Negative (Negative); Leukocyte Esterase,Urine Negative (Negative); Nitrite,Urine Negative (Negative); PH, Urine 5.5 (5.0-8.0); Protein,Urine Negative (Negative); Specific Gravity,Urine 1.006 (1.001-1.035); Urobilinogen,Urine <2.0 mg/dL (<2.0)
--- NOTE | 2018-06-25 16:27 | XR ---
EXAMINATION TYPE: XR abdomen 2V DATE OF EXAM: 06/25/2018 HISTORY: Pain. Technique: 3 views of the abdomen are submitted. Comparison: None. Findings: There is no convincing evidence of pneumoperitoneum. The Bowel gas pattern is nonspecific and nonobstructive. Wall thickening involving the left-sided sm all bowel loops may reflect enteritis. No sizable air-fluid levels are seen. No mass effects are noted. No renal calcifications are identified. IMPRESSION: 1. Nonspecific nonobstructive bowel gas pattern
--- NOTE | 2018-06-25 16:31 | ED ---
Nausea/Vomiting/Diarrhea HPI - General Chief complaint: Nausea/Vomiting/Diarrhea Stated complaint: Dizzy/Weakness Time Seen by Provider: 06/25/18 15:26 Source: patient Mode of arrival: ambulatory Limitations: no limitations - History of Present Illness Initial comments: Is a 47-year-old male who presents emergency department for nausea, vomiting, and diarrhea. He states that the symptoms been going on for the last few weeks area he states that he's been basically having similar symptoms for the last 6 months. He was found to have swollen lymph nodes in his axilla. He was worked up extensively because of these findings and did not find any acute abnormalities on his workup. Sees were negative. Patient states he just has persistent amount of nausea, vomiting, diarrhea. He denies any fevers or chills. He states that he just felt like he was getting worse or decided come emergency department for evaluation. No other acute complaint. - Related Data Home Medications Medication Instructions Recorded Confirmed Benazepril HCl 10 mg PO DAILY 02/19/18 06/25/18 Magnesium 200 mg PO BID 02/19/18 06/25/18 Metoprolol Succinate [Toprol XL] 25 mg PO BID 02/19/18 06/25/18 Naproxen 500 mg PO BID 02/19/18 06/25/18 Potassium 99 mg PO BID 02/19/18 06/25/18 buPROPion XL [Wellbutrin Xl] 150 mg PO DAILY 02/19/18 06/25/18 Previous Rx's Medication Instructions Recorded Albuterol Inhaler [Ventolin Hfa 1 - 2 puff INHALATION RT-Q6H PRN 06/25/18 Inhaler] #1 inhaler Azithromycin [Zithromax Z-pack] 0 mg PO DIRECTED #6 tab 06/25/18 predniSONE 50 mg PO DAILY #5 tablet 06/25/18 Allergies Allergy/AdvReac Type Severity Reaction Status Date / Time Penicillins Allergy Unknown Verified 06/25/18 15:23 Childhood venom-honey bee Allergy Swelling Verified 06/25/18 15:23 [bee venom (honey bee)] Review of Systems ROS Statement: Those systems with pertinent positive or pertinent negative responses have been documented in the HPI. ROS Other: All systems not noted in ROS Statement are negative. Past Medical History Past Medical History: Coronary Artery Disease (CAD), Hyperlipidemia, Hypertension, Myocardial Infarction (LA), Osteoarthritis (OA) Additional Past Medical History / Comment(s): "blood clot" Last Myocardial Infarction Date:: 2008 History of Any Multi-Drug Resistant Organisms: None Reported Past Surgical History: Heart Catheterization With Stent, Orthopedic Surgery Additional Past Surgical History / Comment(s): multiple knee surg., bilateral shoulder surg., right thumb Past Anesthesia/Blood Transfusion Reactions: No Reported Reaction Date of Last Stent Placement:: 2008 Past Psychological History: No Psychological Hx Reported Smoking Status: Current every day smoker Past Alcohol Use History: Rare Past Drug Use History: None Reported - Past Family History Mother Family Medical History: No Reported History General Exam - General Exam Comments Initial Comments: Constitutional: Awake alert Appears comfortable Head: Normocephalic atraumatic Eyes: no conjunctival injection No scleral icterus EOMI Neck: No JVD Supple Heart: Regular rate rhythm normal S1-S2 no murmurs Lungs: Clear to auscultation bilaterally No wheezing No rales Abdomen: Soft nondistended nontender Extremities: Non edematous DP pulses intact Radial pulses intact Neuro: A&Ox3 No focal neurologic deficits Psych: Appropriate mood and affect Limitations: no limitations Course Vital Signs 06/25/18 14:36 Temperature 98.4 F Pulse Rate 76 Respiratory 18 Rate Blood Pressure 143/95 O2 Sat by Pulse 98 Oximetry Medical Decision Making - Medical Decision Making This is a 47-year-old male who came in for nausea, vomiting, diarrhea. He also has been having a cough and some shortness of breath. Chest x-ray did not show any evidence for pneumonia but did show evidence for possible bronchitis. The patient had blood work performed that did show a leukocytosis however no other acute abnormalities. He did not want anything for nausea here. He states these had the symptoms for 6 months. I did tell me he is follow up with GI for these symptoms. As far as his bronchitis goes, I'm going to start him on azithromycin, steroids, and inhaler. He is told to follow-up closely with his primary doctor as well. He can return for any worsening or changing symptoms. All questions were answered. - Lab Data Result diagrams: 06/25/18 14:55 06/25/18 14:55 Lab Results 06/25/18 06/25/18 06/25/18 Range/Units 14:55 14:55 15:54 WBC 19.0 H (3.8-10.6) k/uL RBC 5.01 (4.30-5.90) m/uL Hgb 16.0 (13.0-17.5) gm/dL Hct 46.0 (39.0-53.0) % MCV 91.8 (80.0-100.0) fL MCH 32.0 (25.0-35.0) pg MCHC 34.8 (31.0-37.0) g/dL RDW 12.3 (11.5-15.5) % Plt Count 285 (150-450) k/uL Neutrophils % 82 % Lymphocytes % 10 % Monocytes % 5 % Eosinophils % 1 % Basophils % 0 % Neutrophils # 15.6 H (1.3-7.7) k/uL Lymphocytes # 1.9 (1.0-4.8) k/uL Monocytes # 1.0 (0-1.0) k/uL Eosinophils # 0.2 (0-0.7) k/uL Basophils # 0.0 (0-0.2) k/uL Sodium 139 (137-145) mmol/L Potassium 4.9 (3.5-5.1) mmol/L Chloride 106 (98-107) mmol/L Carbon Dioxide 23 (22-30) mmol/L Anion Gap 10 mmol/L BUN 11 (9-20) mg/dL Creatinine 1.10 (0.66-1.25) mg/dL Est GFR (CKD-EPI)AfAm >90 (>60 ml/min/1.73 sqM) Est GFR (CKD-EPI)NonAf 79 (>60 ml/min/1.73 sqM) Glucose 87 (74-99) mg/dL Calcium 10.0 (8.4-10.2) mg/dL Total Bilirubin 0.6 (0.2-1.3) mg/dL AST 37 (17-59) U/L ALT 57 (21-72) U/L Alkaline Phosphatase 83 (38-126) U/L Total Protein 7.3 (6.3-8.2) g/dL Albumin 4.3 (3.5-5.0) g/dL Amylase 49 (30-110) U/L Lipase 76 (23-300) U/L Urine Color Light Yellow Urine Appearance Clear (Clear) Urine pH 5.5 (5.0-8.0) Ur Specific [place] 1.006 (1.001-1.035) Urine Protein Negative (Negative) Urine Glucose (UA) Negative (Negative) Urine Ketones Negative (Negative) Urine Blood Negative (Negative) Urine Nitrite Negative (Negative) Urine Bilirubin Negative (Negative) Urine Urobilinogen <2.0 (<2.0) mg/dL Ur Leukocyte Esterase Negative (Negative) Disposition Clinical Impression: Bronchitis, Nausea & vomiting Disposition: HOME SELF-CARE Condition: Stable Instructions: Acute Bronchitis (ED), Acute Nausea and Vomiting (ED) Prescriptions: Albuterol Inhaler [Ventolin Hfa Inhaler] 1 - 2 puff INHALATION RT-Q6H PRN #1 inhaler PRN Reason: Wheezing Azithromycin [Zithromax Z-pack] 0 mg PO DIRECTED #6 tab predniSONE 50 mg PO DAILY #5 tablet Is patient prescribed a controlled substance at d/c from ED?: No Referrals: Kyler Ng DO [Primary Care Provider] - 1-2 days Binta Lees MD [STAFF PHYSICIAN] - 1-2 days
[2018-06-25 17:14] VITALS: BP 145/95; PULSE 74
== END 2018-06-25 17:14 | disposition home or self-care (01) ==
LOC: EC 13:43
DX: J40 Bronchitis, not specified as acute or chronic (principal); R11.2 Nausea with vomiting, unspecified; R19.7 Diarrhea, unspecified; D72.829 Elevated white blood cell count, unspecified; R59.0 Localized enlarged lymph nodes; I10 Essential (primary) hypertension; I25.10 Atherosclerotic heart disease of native coronary artery without angina pectoris; M19.90 Unspecified osteoarthritis, unspecified site; I25.2 Old myocardial infarction; F17.200 Nicotine dependence, unspecified, uncomplicated; Z79.1 Long term (current) use of non-steroidal anti-inflammatories (NSAID); Z79.899 Other long term (current) drug therapy; Z88.0 Allergy status to penicillin; Z91.030 Bee allergy status
CPT/HCPCS: 36415; 80053; 82150; 83690; 85025; 81003; 71046; 74019; 99284; 96372; J0500

== ENCOUNTER 2018-07-15 13:52 | Emergency (ER) | payer BC ==
[2018-07-15 14:43] VITALS: TEMP 98.2
[2018-07-15] MEDS ORDERED: SODIUM CHLORIDE 0.9% 1,000 ML IV STA (15:00)
[2018-07-15] MEDS ORDERED: ONDANSETRON 4 MG/2 ML VIAL IVP STA (15:00)
--- NOTE | 2018-07-15 15:05 | ED ---
General Adult HPI - General Chief complaint: Abdominal Pain Stated complaint: Stomach pain Time Seen by Provider: 07/15/18 14:00 Source: patient, RN notes reviewed Mode of arrival: ambulatory Limitations: no limitations - History of Present Illness Initial comments: This is a 47-year-old male who presents emergency Department complaining of lower abdominal pain. Patient states she's had this pain for 6 months. Patient states he vomits just about every day. Patient states she has an appointment with a ux architect on July 26. Patient states he has also had elevated white count the past and has been seeing a emu farm worker. Patient denies any fever chills. Patient denies any weight loss. Patient denies any chest pain difficulty breathing or shortness of breath. Patient denies any back pain. Patient denies any dysuria hematuria urinary frequency. - Related Data Home Medications Medication Instructions Recorded Confirmed Benazepril HCl 10 mg PO DAILY 02/19/18 07/15/18 Metoprolol Succinate [Toprol XL] 25 mg PO BID 02/19/18 07/15/18 Naproxen 500 mg PO BID 02/19/18 07/15/18 buPROPion XL [Wellbutrin Xl] 150 mg PO DAILY 02/19/18 07/15/18 Previous Rx's Medication Instructions Recorded Ondansetron Odt [Zofran Odt] 4 mg PO Q8HR PRN #10 tab 07/15/18 Allergies Allergy/AdvReac Type Severity Reaction Status Date / Time Penicillins Allergy Unknown Verified 07/15/18 15:33 Childhood venom-honey bee Allergy Swelling Verified 07/15/18 15:33 [bee venom (honey bee)] Review of Systems ROS Statement: Those systems with pertinent positive or pertinent negative responses have been documented in the HPI. ROS Other: All systems not noted in ROS Statement are negative. Past Medical History Past Medical History: Coronary Artery Disease (CAD), Hyperlipidemia, Hypertension, Myocardial Infarction (MD), Osteoarthritis (OA) Additional Past Medical History / Comment(s): "blood clot" Last Myocardial Infarction Date:: 2008 History of Any Multi-Drug Resistant Organisms: None Reported Past Surgical History: Heart Catheterization With Stent, Orthopedic Surgery Additional Past Surgical History / Comment(s): multiple knee surg., bilateral shoulder surg., right thumb Past Anesthesia/Blood Transfusion Reactions: No Reported Reaction Date of Last Stent Placement:: 2008 Past Psychological History: Depression Smoking Status: Current every day smoker Past Alcohol Use History: Occasional Past Drug Use History: None Reported - Past Family History Mother Family Medical History: No Reported History General Exam - General Exam Comments Initial Comments: GENERAL: Patient is well-developed and well-nourished. Patient is nontoxic and well- hydrated and is in mild distress. ENT: Neck is soft and supple. No significant lymphadenopathy is noted. Oropharynx is clear. Moist mucous membranes. Neck has full range of motion without eliciting any pain. EYES: The sclera were anicteric and conjunctiva were pink and moist. Extraocular movements were intact and pupils were equal round and reactive to light. Eyelids were unremarkable. PULMONARY: Unlabored respirations. Good breath sounds bilaterally. No audible rales rhonchi or wheezing was noted. CARDIOVASCULAR: There is a regular rate and rhythm without any murmurs gallops or rubs. ABDOMEN: Soft and nontender with normal bowel sounds. Patient is hyperactive bowel sounds SKIN: Skin is clear with no lesions or rashes and otherwise unremarkable. NEUROLOGIC: Patient is alert and oriented x3. Cranial nerves II through XII are grossly intact. Motor and sensory are also intact. Normal speech, volume and content. Symmetrical smile. MUSCULOSKELETAL: Normal extremities with adequate strength and full range of motion. No lower extremity swelling or edema. No calf tenderness. LYMPHATICS: No significant lymphadenopathy is noted PSYCHIATRIC: Normal psychiatric evaluation. Limitations: no limitations Course Vital Signs 07/15/18 14:40 Temperature 98.2 F Pulse Rate 67 Respiratory 20 Rate Blood Pressure 129/83 O2 Sat by Pulse 98 Oximetry Medical Decision Making - Medical Decision Making KUB shows no acute abnormality. Patient is resting comfortably the whole time he said emergency department. Patient never vomited while in the emergency department. - Lab Data Result diagrams: 07/15/18 15:13 07/15/18 15:13 Lab Results 07/15/18 07/15/18 07/15/18 Range/Units 15:13 15:13 15:55 WBC 11.5 H (3.8-10.6) k/uL RBC 4.95 (4.30-5.90) m/uL Hgb 16.2 (13.0-17.5) gm/dL Hct 45.9 (39.0-53.0) % MCV 92.8 (80.0-100.0) fL MCH 32.7 (25.0-35.0) pg MCHC 35.3 (31.0-37.0) g/dL RDW 12.9 (11.5-15.5) % Plt Count 278 (150-450) k/uL Neutrophils % 72 % Lymphocytes % 20 % Monocytes % 5 % Eosinophils % 2 % Basophils % 0 % Neutrophils # 8.2 H (1.3-7.7) k/uL Lymphocytes # 2.3 (1.0-4.8) k/uL Monocytes # 0.5 (0-1.0) k/uL Eosinophils # 0.2 (0-0.7) k/uL Basophils # 0.0 (0-0.2) k/uL Sodium 139 (137-145) mmol/L Potassium 4.8 (3.5-5.1) mmol/L Chloride 106 (98-107) mmol/L Carbon Dioxide 23 (22-30) mmol/L Anion Gap 10 mmol/L BUN 9 (9-20) mg/dL Creatinine 1.14 (0.66-1.25) mg/dL Est GFR (CKD-EPI)AfAm 87 (>60 ml/min/1.73 sqM) Est GFR (CKD-EPI)NonAf 76 (>60 ml/min/1.73 sqM) Glucose 93 (74-99) mg/dL Calcium 9.7 (8.4-10.2) mg/dL Total Bilirubin 0.7 (0.2-1.3) mg/dL AST 46 (17-59) U/L ALT 65 (21-72) U/L Alkaline Phosphatase 83 (38-126) U/L Total Protein 7.5 (6.3-8.2) g/dL Albumin 4.4 (3.5-5.0) g/dL Amylase 63 (30-110) U/L Lipase 90 (23-300) U/L Urine Color Light Yellow Urine Appearance Clear (Clear) Urine pH 5.5 (5.0-8.0) Ur Specific [place] 1.003 (1.001-1.035) Urine Protein Negative (Negative) Urine Glucose (UA) Negative (Negative) Urine Ketones Negative (Negative) Urine Blood Negative (Negative) Urine Nitrite Negative (Negative) Urine Bilirubin Negative (Negative) Urine Urobilinogen <2.0 (<2.0) mg/dL Ur Leukocyte Esterase Negative (Negative) Urine Opiates Screen Not Detected (NotDetected) Ur Oxycodone Screen Not Detected (NotDetected) Urine Methadone Screen Not Detected (NotDetected) Ur Propoxyphene Screen Not Detected (NotDetected) Ur Barbiturates Screen Not Detected (NotDetected) U Tricyclic Antidepress Not Detected (NotDetected) Ur Phencyclidine Scrn Not Detected (NotDetected) Ur Amphetamines Screen Not Detected (NotDetected) U Methamphetamines Scrn Not Detected (NotDetected) U Benzodiazepines Scrn Not Detected (NotDetected) Urine Cocaine Screen Not Detected (NotDetected) U Marijuana (THC) Screen Not Detected (NotDetected) Disposition Clinical Impression: Vomiting Disposition: HOME SELF-CARE Condition: Good Instructions: Acute Nausea and Vomiting (ED) Prescriptions: Ondansetron Odt [Zofran Odt] 4 mg PO Q8HR PRN #10 tab PRN Reason: Nausea And Vomiting Is patient prescribed a controlled substance at d/c from ED?: No Referrals: Kyler Ng DO [Primary Care Provider] - 1-2 days Time of Disposition: 16:23
[2018-07-15 15:31] LABS: Basophils % (A) 0 %; Eosinophils # (A) 0.2 k/uL (0-0.7); Eosinophils % (A) 2 %; HCT 45.9 % (39.0-53.0); HGB 16.2 gm/dL (13.0-17.5); Lymphocytes # (A) 2.3 k/uL (1.0-4.8); Lymphocytes % (A) 20 %; MCH 32.7 pg (25.0-35.0); MCHC 35.3 g/dL (31.0-37.0); MCV 92.8 fL (80.0-100.0); Monocytes # (A) 0.5 k/uL (0-1.0); Monocytes % (A) 5 %; Neutrophils # (A) 8.2 k/uL (1.3-7.7); Neutrophils % (A) 72 %; Platelet Count 278 k/uL (150-450); RBC 4.95 m/uL (4.30-5.90); RDW 12.9 % (11.5-15.5); WBC 11.5 k/uL (3.8-10.6)
[2018-07-15 15:38] LABS: Albumin 4.4 g/dL (3.5-5.0); Calcium 9.7 mg/dL (8.4-10.2); Potassium 4.8 mmol/L (3.5-5.1); Total Bilirubin 0.7 mg/dL (0.2-1.3); Total Protein 7.5 g/dL (6.3-8.2)
--- NOTE | 2018-07-15 15:50 | XR ---
EXAMINATION TYPE: XR KUB DATE OF EXAM: 07/15/2018 COMPARISON: 06/25/2018 HISTORY: Pain and diarrhea TECHNIQUE: One view abdominal series FINDINGS: The osseous structures are intact. The bowel gas pattern is nonspecific. There are air-fluid levels within the right abdomen. Arthropathy of the hip joints and hypertrophic change of the spine. IMPRESSION: 1. Nonspecific abdomen. Air-fluid levels are within the right abdomen. Correlate for ileus or enteri tis. Although partial obstruction not excluded felt less likely.
[2018-07-15 16:04] LABS: Appearance,Urine Clear (Clear); Bilirubin,Urine Negative (Negative); Blood,Urine Negative (Negative); Color,Urine Light Yellow; Glucose,Urine (UA) Negative (Negative); Ketones,Urine Negative (Negative); Leukocyte Esterase,Urine Negative (Negative); Nitrite,Urine Negative (Negative); PH, Urine 5.5 (5.0-8.0); Protein,Urine Negative (Negative); Specific Gravity,Urine 1.003 (1.001-1.035); Urobilinogen,Urine <2.0 mg/dL (<2.0)
[2018-07-15 16:17] LABS: Amphetamine Screen,Urine Not Detected (NotDetected); Barbiturate Screen,Urine Not Detected (NotDetected); Benzodiazepines Screen,Urine Not Detected (NotDetected); Cocaine Screen,Urine Not Detected (NotDetected); Methadone Screen, Urine Not Detected (NotDetected); Opiate Screen,Urine Not Detected (NotDetected); Oxycodone Screen, Urine Not Detected (NotDetected); Phencyclidine Screen,Urine Not Detected (NotDetected); Tricyclic Antidepressant,Urine Not Detected (NotDetected); Urn Cannabinoid Scrn Not Detected (NotDetected)
[2018-07-15 16:48] VITALS: BP 138/81; PULSE 61; RESP 18
== END 2018-07-15 16:46 | disposition home or self-care (01) ==
LOC: EC 13:52
DX: R11.10 Vomiting, unspecified (principal); R10.30 Lower abdominal pain, unspecified; I25.10 Atherosclerotic heart disease of native coronary artery without angina pectoris; I10 Essential (primary) hypertension; I25.2 Old myocardial infarction; M19.90 Unspecified osteoarthritis, unspecified site; F32.9 Major depressive disorder, single episode, unspecified; F17.200 Nicotine dependence, unspecified, uncomplicated; Z95.5 Presence of coronary angioplasty implant and graft; Z79.1 Long term (current) use of non-steroidal anti-inflammatories (NSAID); Z79.899 Other long term (current) drug therapy; Z88.0 Allergy status to penicillin; Z91.030 Bee allergy status
CPT/HCPCS: 36415; 74018; 80053; 80306; 81003; 82150; 83690; 85025; 96361; 96374; 99284

== ENCOUNTER 2018-07-28 09:57 | Day surgery (SDC) | payer BC ==
[2018-07-27 08:25] VITALS: BMI 27.8
[~2018-07-28 09:57] MED LIST: LACTATED RINGERS 1,000 ML IV SCH
[2018-07-28 11:09] VITALS: RESP 16; TEMP 98.1
[2018-07-28] MEDS ORDERED: LIDOCAINE 1% 20 ML VIAL (10MG/ML) FOR IV START INTRADERMA ONE (11:19)
[2018-07-28] MEDS ORDERED: PROPOFOL 10 MG/ML 20 ML VIAL IV ONE (11:30)
[2018-07-28] MEDS ORDERED: LIDOCAINE 1% INJ 10MG/ML (20 ML MDV) ONE (11:30)
--- NOTE | 2018-07-28 11:57 | P.PCN ---
Date of Procedure: 07/28/18 Procedure(s) Performed: Brief history: Patient is a pleasant 47-year-old white fmale male, scheduled for an elective upper endoscopy as well as colonoscopy as a part of evaluation of abdominal pain , nausea vomiting and change in bowel habits is a 30 pounds in the last 6 months duration. Procedure performed: Esophagogastroduodenoscopy WITH biopsy Colonoscopy with biopsy Preoperative diagnosis: Chronic intermittent nausea/vomiting Lower abdominal pain and progressive weight loss Anesthesia: MAC Procedure: After informed consent was obtained from the patient was brought into the endoscopy unit and IV sedation was administered by anesthesia under continuous monitoring. Initially upper endoscopy was done. The Olympus GF 160 video endoscope was inserted inserted into the mouth and esophagus intubated without any difficulty and was gradually advanced into the stomach and duodenum and carefully examined. The bulb and second part of the duodenum had mild erythema consistent with duodenitis and biopsies were done from this area.. The scope was then withdrawn into the stomach adequately insufflated with air and upon careful examination the antrum had patchy areas of erythema and biopsies were done from this area. The body, cardia and fundus appeared normal. The scope was then withdrawn into the esophagus. The GE junction was located at 42 cm to the incisors. It appeared re but there was circumferential erythema with superficial erosions consistent with LA grade B reflux esophagitis. Rest of the esophagus appeared normal. Patient tolerated the procedure well. At this time the patient continued to remain sedation. Initial digital rectal examination was normal. Olympus CF 160 video colonoscope was then inserted into the rectum and gradually advanced to the cecum without any difficulty. Careful examination was performed as the scope was gradually being withdrawn. The prep was excellent. The cecum, ascending colon, transverse colon, descending colon, sigmoid colon and rectum appeared normal. As a 5 mm polyp noted in the distal rectum that was removed by cold biopsy. Retroflexion was performed in the rectum and no lesions were noted. Patient tolerated the procedure well. Impression: 1. Upper Endoscopy revealed mild antral gastritis, duodenitis and LA grade B reflux esophagitis. 2. Colonoscopy revealed 5 mm distal rectal polyp status post removal by biopsy. Recommendations: Findings of this examination were discussed with the patient as well as his family. He was advised to follow with the biopsy results. He'll be seen in office in 2 weeks.
[2018-07-28 12:25] VITALS: BP 157/99; PULSE 65
== END 2018-07-28 12:35 | disposition home or self-care (01) ==
LOC: ORWHC2ENDO 09:57
PROVIDERS: ATTEND Internal Medicine Gastroenterology
DX: K29.50 Unspecified chronic gastritis without bleeding (principal); K29.80 Duodenitis without bleeding; K62.1 Rectal polyp; K21.0 Gastro-esophageal reflux disease with esophagitis; M19.90 Unspecified osteoarthritis, unspecified site; F17.210 Nicotine dependence, cigarettes, uncomplicated; I25.10 Atherosclerotic heart disease of native coronary artery without angina pectoris; I25.2 Old myocardial infarction; I10 Essential (primary) hypertension; E78.5 Hyperlipidemia, unspecified; Z95.5 Presence of coronary angioplasty implant and graft; Z88.0 Allergy status to penicillin; Z79.82 Long term (current) use of aspirin; Z79.1 Long term (current) use of non-steroidal anti-inflammatories (NSAID); Z79.899 Other long term (current) drug therapy
CPT/HCPCS: 88305; 88312; 45380; 43239; J2001; J2704

== ENCOUNTER 2018-08-15 11:55 | Emergency (ER) | payer BC ==
[2018-08-15 12:03] VITALS: TEMP 98.7
[2018-08-15] MEDS ORDERED: SODIUM CHLORIDE 0.9% 1,000 ML IV STA ×2 (12:18)
[2018-08-15] MEDS ORDERED: DIAZEPAM 5 MG/ML 2 ML INJ IVP STA (12:18)
[2018-08-15] MEDS ORDERED: SODIUM CHLORIDE 0.9% 500 ML 500 ML IV STA (12:18)
[2018-08-15] MEDS ORDERED: ONDANSETRON 4 MG/2 ML VIAL IVP STA (12:18)
--- NOTE | 2018-08-15 12:21 | ED ---
Weakness HPI - General Chief complaint: Headache Stated complaint: BLURRY VISION, HEADACHE, COLD SWEATS Time Seen by Provider: 08/15/18 12:03 Source: patient, RN notes reviewed, old records reviewed Mode of arrival: wheelchair Limitations: no limitations - History of Present Illness Initial comments: This is a 47-year-old male to the ER for evaluation of multiple nonspecific complaints today. Patient states he just recently got good news has had a prolonged hospitalization for some masses that he had his abdomen at this point he was told that he does not have CVA, patient is for about this, he states her last 2 days been having a lot of significant complaints minimally nonspecific regarding fevers chills occasional headaches bodyaches and generalized pain. Patient denies any recent change in medications is taking no new medications. Again no other recent travel history or sick contacts denies drug or alcohol abuse MD Complaint: generalized weakness, numbness, tingling, lack of energy -: days(s) Location: generalized Severity: mild Severity scale (1-10): 2 Consistency: intermittent Improves with: none Worsens with: none Associated Symptoms: fever/chills, headaches, loss of appetite, myalgias - Related Data Home Medications Medication Instructions Recorded Confirmed Aspirin [Adult Low Dose Aspirin EC] 81 mg PO DAILY 07/27/18 08/15/18 Benazepril [Lotensin] 10 mg PO DAILY 08/15/18 08/15/18 Metoprolol Succinate [Toprol XL] 25 mg PO BID 08/15/18 08/15/18 Naproxen 500 mg PO BID PRN 08/15/18 08/15/18 buPROPion XL [Wellbutrin Xl] 150 mg PO DAILY 08/15/18 08/15/18 Allergies Allergy/AdvReac Type Severity Reaction Status Date / Time Penicillins Allergy Unknown Verified 08/15/18 12:54 Childhood venom-honey bee Allergy Swelling Verified 08/15/18 12:54 [bee venom (honey bee)] Review of Systems ROS Statement: Those systems with pertinent positive or pertinent negative responses have been documented in the HPI. ROS Other: All systems not noted in ROS Statement are negative. Past Medical History Past Medical History: Coronary Artery Disease (CAD), Hyperlipidemia, Hypertension, Myocardial Infarction (LA), Osteoarthritis (OA) Additional Past Medical History / Comment(s): STATES NAUSEA & VOMITING AND DIARRHEA FOR 6 MONTHS. Last Myocardial Infarction Date:: 2008 History of Any Multi-Drug Resistant Organisms: None Reported Past Surgical History: Heart Catheterization With Stent, Orthopedic Surgery Additional Past Surgical History / Comment(s): multiple knee surg., bilateral shoulder surg., right thumb Past Anesthesia/Blood Transfusion Reactions: No Reported Reaction Date of Last Stent Placement:: 2008 Past Psychological History: Depression Smoking Status: Current every day smoker Past Alcohol Use History: Occasional Past Drug Use History: None Reported - Past Family History Mother Family Medical History: Cancer General Exam Limitations: no limitations General appearance: alert, in no apparent distress Head exam: Present: atraumatic, normocephalic, normal inspection Eye exam: Present: normal appearance, PERRL, EOMI. Absent: scleral icterus, conjunctival injection, periorbital swelling ENT exam: Present: normal exam, mucous membranes moist Neck exam: Present: normal inspection. Absent: tenderness, meningismus, lymphadenopathy Respiratory exam: Present: normal lung sounds bilaterally. Absent: respiratory distress, wheezes, rales, rhonchi, stridor Cardiovascular Exam: Present: regular rate, normal rhythm, normal heart sounds. Absent: systolic murmur, diastolic murmur, rubs, gallop, clicks GI/Abdominal exam: Present: soft, normal bowel sounds. Absent: distended, tenderness, guarding, rebound, rigid Extremities exam: Present: normal inspection, full ROM, normal capillary refill. Absent: tenderness, pedal edema, joint swelling, calf tenderness Back exam: Present: normal inspection Neurological exam: Present: alert, oriented X3, CN II-XII intact Psychiatric exam: Present: normal affect, normal mood Skin exam: Present: warm, dry, intact, normal color. Absent: rash Course Vital Signs 08/15/18 08/15/18 08/15/18 12:00 12:50 14:22 Temperature 98.7 F Pulse Rate 75 70 63 Respiratory 18 16 16 Rate Blood Pressure 185/105 166/110 179/108 O2 Sat by Pulse 98 97 99 Oximetry 08/15/18 14:37 Temperature Pulse Rate 67 Respiratory 18 Rate Blood Pressure 174/108 O2 Sat by Pulse 98 Oximetry - Reevaluation(s) Reevaluation #1: 08/15/18 14:34 Medical record is reviewed Reevaluation #2: 08/15/18 14:34 CT brain, x-ray, labwork are normal Reevaluation #3: 08/15/18 14:34 Patient's symptoms are improved EKG Findings - EKG Comments: EKG Findings:: EKG shows sinus rhythm rate of 67, CO 162, QRS 86, QTc 401 Medical Decision Making - Medical Decision Making Plan I male the ER here with multiple nonspecific complaints. This time patient feels much improved, states he can be discharged home - Lab Data Result diagrams: 08/15/18 12:31 08/15/18 12:31 Lab Results 08/15/18 08/15/18 08/15/18 Range/Units 12:31 12:31 12:31 WBC 13.0 H (3.8-10.6) k/uL RBC 5.01 (4.30-5.90) m/uL Hgb 16.1 (13.0-17.5) gm/dL Hct 47.5 (39.0-53.0) % MCV 94.8 (80.0-100.0) fL MCH 32.1 (25.0-35.0) pg MCHC 33.9 (31.0-37.0) g/dL RDW 13.3 (11.5-15.5) % Plt Count 240 (150-450) k/uL Neutrophils % 78 % Lymphocytes % 13 % Monocytes % 6 % Eosinophils % 1 % Basophils % 0 % Neutrophils # 10.2 H (1.3-7.7) k/uL Lymphocytes # 1.7 (1.0-4.8) k/uL Monocytes # 0.8 (0-1.0) k/uL Eosinophils # 0.2 (0-0.7) k/uL Basophils # 0.0 (0-0.2) k/uL PT (9.0-12.0) sec INR (<1.2) APTT (22.0-30.0) sec Sodium 140 (137-145) mmol/L Potassium 4.5 (3.5-5.1) mmol/L Chloride 108 H (98-107) mmol/L Carbon Dioxide 23 (22-30) mmol/L Anion Gap 9 mmol/L BUN 12 (9-20) mg/dL Creatinine 0.92 (0.66-1.25) mg/dL Est GFR (CKD-EPI)AfAm >90 (>60 ml/min/1.73 sqM) Est GFR (CKD-EPI)NonAf >90 (>60 ml/min/1.73 sqM) Glucose 96 (74-99) mg/dL Plasma Lactic Acid Sergio (0.7-2.0) mmol/L Calcium 9.9 (8.4-10.2) mg/dL Phosphorus 2.8 (2.5-4.5) mg/dL Magnesium 2.0 (1.6-2.3) mg/dL Total Bilirubin 0.5 (0.2-1.3) mg/dL AST 36 (17-59) U/L ALT 58 (21-72) U/L Alkaline Phosphatase 81 (38-126) U/L Total Creatine Kinase 97 (55-170) U/L CK-MB (CK-2) 3.3 H (0.0-2.4) ng/mL CK-MB (CK-2) Rel Index 3.4 Troponin I <0.012 (0.000-0.034) ng/mL Total Protein 6.5 (6.3-8.2) g/dL Albumin 4.1 (3.5-5.0) g/dL Urine Color Urine Appearance (Clear) Urine pH (5.0-8.0) Ur Specific [place] (1.001-1.035) Urine Protein (Negative) Urine Glucose (UA) (Negative) Urine Ketones (Negative) Urine Blood (Negative) Urine Nitrite (Negative) Urine Bilirubin (Negative) Urine Urobilinogen (<2.0) mg/dL Ur Leukocyte Esterase (Negative) Influenza Type A RNA (Not Detectd) Influenza Type B (PCR) (Not Detectd) 08/15/18 08/15/18 08/15/18 Range/Units 12:31 12:31 12:34 WBC (3.8-10.6) k/uL RBC (4.30-5.90) m/uL Hgb (13.0-17.5) gm/dL Hct (39.0-53.0) % MCV (80.0-100.0) fL MCH (25.0-35.0) pg MCHC (31.0-37.0) g/dL RDW (11.5-15.5) % Plt Count (150-450) k/uL Neutrophils % % Lymphocytes % % Monocytes % % Eosinophils % % Basophils % % Neutrophils # (1.3-7.7) k/uL Lymphocytes # (1.0-4.8) k/uL Monocytes # (0-1.0) k/uL Eosinophils # (0-0.7) k/uL Basophils # (0-0.2) k/uL PT 9.8 (9.0-12.0) sec INR 1.0 (<1.2) APTT 24.6 (22.0-30.0) sec Sodium (137-145) mmol/L Potassium (3.5-5.1) mmol/L Chloride (98-107) mmol/L Carbon Dioxide (22-30) mmol/L Anion Gap mmol/L BUN (9-20) mg/dL Creatinine (0.66-1.25) mg/dL Est GFR (CKD-EPI)AfAm (>60 ml/min/1.73 sqM) Est GFR (CKD-EPI)NonAf (>60 ml/min/1.73 sqM) Glucose (74-99) mg/dL Plasma Lactic Acid Sregio 1.2 (0.7-2.0) mmol/L Calcium (8.4-10.2) mg/dL Phosphorus (2.5-4.5) mg/dL Magnesium (1.6-2.3) mg/dL Total Bilirubin (0.2-1.3) mg/dL AST (17-59) U/L ALT (21-72) U/L Alkaline Phosphatase (38-126) U/L Total Creatine Kinase (55-170) U/L CK-MB (CK-2) (0.0-2.4) ng/mL CK-MB (CK-2) Rel Index Troponin I (0.000-0.034) ng/mL Total Protein (6.3-8.2) g/dL Albumin (3.5-5.0) g/dL Urine Color Urine Appearance (Clear) Urine pH (5.0-8.0) Ur Specific [place] (1.001-1.035) Urine Protein (Negative) Urine Glucose (UA) (Negative) Urine Ketones (Negative) Urine Blood (Negative) Urine Nitrite (Negative) Urine Bilirubin (Negative) Urine Urobilinogen (<2.0) mg/dL Ur Leukocyte Esterase (Negative) Influenza Type A RNA Not Detected (Not Detectd) Influenza Type B (PCR) Not Detected (Not Detectd) 08/15/18 Range/Units 12:50 WBC (3.8-10.6) k/uL RBC (4.30-5.90) m/uL Hgb (13.0-17.5) gm/dL Hct (39.0-53.0) % MCV (80.0-100.0) fL MCH (25.0-35.0) pg MCHC (31.0-37.0) g/dL RDW (11.5-15.5) % Plt Count (150-450) k/uL Neutrophils % % Lymphocytes % % Monocytes % % Eosinophils % % Basophils % % Neutrophils # (1.3-7.7) k/uL Lymphocytes # (1.0-4.8) k/uL Monocytes # (0-1.0) k/uL Eosinophils # (0-0.7) k/uL Basophils # (0-0.2) k/uL PT (9.0-12.0) sec INR (<1.2) APTT (22.0-30.0) sec Sodium (137-145) mmol/L Potassium (3.5-5.1) mmol/L Chloride (98-107) mmol/L Carbon Dioxide (22-30) mmol/L Anion Gap mmol/L BUN (9-20) mg/dL Creatinine (0.66-1.25) mg/dL Est GFR (CKD-EPI)AfAm (>60 ml/min/1.73 sqM) Est GFR (CKD-EPI)NonAf (>60 ml/min/1.73 sqM) Glucose (74-99) mg/dL Plasma Lactic Acid Sergio (0.7-2.0) mmol/L Calcium (8.4-10.2) mg/dL Phosphorus (2.5-4.5) mg/dL Magnesium (1.6-2.3) mg/dL Total Bilirubin (0.2-1.3) mg/dL AST (17-59) U/L ALT (21-72) U/L Alkaline Phosphatase (38-126) U/L Total Creatine Kinase (55-170) U/L CK-MB (CK-2) (0.0-2.4) ng/mL CK-MB (CK-2) Rel Index Troponin I (0.000-0.034) ng/mL Total Protein (6.3-8.2) g/dL Albumin (3.5-5.0) g/dL Urine Color Light Yellow Urine Appearance Clear (Clear) Urine pH 7.5 (5.0-8.0) Ur Specific [place] 1.006 (1.001-1.035) Urine Protein Negative (Negative) Urine Glucose (UA) Negative (Negative) Urine Ketones Negative (Negative) Urine Blood Negative (Negative) Urine Nitrite Negative (Negative) Urine Bilirubin Negative (Negative) Urine Urobilinogen <2.0 (<2.0) mg/dL Ur Leukocyte Esterase Negative (Negative) Influenza Type A RNA (Not Detectd) Influenza Type B (PCR) (Not Detectd) - Radiology Data Radiology results: report reviewed (T brain chest x-ray negative for acute disease), image reviewed Disposition Clinical Impression: Viral syndrome, Weakness Disposition: HOME SELF-CARE Condition: Good Instructions: Viral Syndrome (ED) Is patient prescribed a controlled substance at d/c from ED?: No Referrals: Kyler Ng DO [Primary Care Provider] - 1-2 days
[2018-08-15] MEDS ORDERED: ACETAMINOPHEN IV (For NPO) 1,000 MG in EMPTY BAG 1 BAG IVPB STA (12:22)
[2018-08-15 13:06] LABS: Basophils % (A) 0 %; Eosinophils # (A) 0.2 k/uL (0-0.7); Eosinophils % (A) 1 %; HCT 47.5 % (39.0-53.0); HGB 16.1 gm/dL (13.0-17.5); Lymphocytes # (A) 1.7 k/uL (1.0-4.8); Lymphocytes % (A) 13 %; MCH 32.1 pg (25.0-35.0); MCHC 33.9 g/dL (31.0-37.0); MCV 94.8 fL (80.0-100.0); Mean Platelet Volume 8.3; Monocytes # (A) 0.8 k/uL (0-1.0); Monocytes % (A) 6 %; Neutrophils # (A) 10.2 k/uL (1.3-7.7); Neutrophils % (A) 78 %; Platelet Count 240 k/uL (150-450); RBC 5.01 m/uL (4.30-5.90); RDW 13.3 % (11.5-15.5)
[2018-08-15 13:09] LABS: Appearance,Urine Clear (Clear); Bilirubin,Urine Negative (Negative); Blood,Urine Negative (Negative); Color,Urine Light Yellow; Glucose,Urine (UA) Negative (Negative); Ketones,Urine Negative (Negative); Leukocyte Esterase,Urine Negative (Negative); Nitrite,Urine Negative (Negative); PH, Urine 7.5 (5.0-8.0); Protein,Urine Negative (Negative); Specific Gravity,Urine 1.006 (1.001-1.035); Urobilinogen,Urine <2.0 mg/dL (<2.0)
[2018-08-15 13:14] LABS: Partial Thromboplastin Time 24.6 sec (22.0-30.0); Prothrombin Time 9.8 sec (9.0-12.0)
[2018-08-15 13:16] LABS: ALT 58 U/L (21-72); AST 36 U/L (17-59); Albumin 4.1 g/dL (3.5-5.0); Alkaline Phosphatase 81 U/L (38-126); Anion Gap 9 mmol/L; Blood Urea Nitrogen 12 mg/dL (9-20); Calcium 9.9 mg/dL (8.4-10.2); Carbon Dioxide 23 mmol/L (22-30); Chloride 108 mmol/L (98-107); Glucose 96 mg/dL (74-99); Phosphorus 2.8 mg/dL (2.5-4.5); Potassium 4.5 mmol/L (3.5-5.1); Sodium 140 mmol/L (137-145); Total Bilirubin 0.5 mg/dL (0.2-1.3); Total Protein 6.5 g/dL (6.3-8.2)
--- NOTE | 2018-08-15 13:16 | CT ---
EXAMINATION TYPE: CT brain wo con DATE OF EXAM: 08/15/2018 COMPARISON: Previous study dated 06/08/2015. HISTORY: Blurred vision, dizziness, disorientation CT DLP: 1108.4 mGycm Automated exposure control for dose reduction was used. FINDINGS: Central structures are midline. There is no evidence of hydrocephalus. No acute focal lesion, mass ef fect or midline shift is seen. I do not see evidence of intracranial blood There is mild mucoperiosteal thickening involving the right maxillary sinus. The remainder the parana kandace sinuses and mastoids are clear. The bony calvarium is intact. IMPRESSION: 1. NO ACUTE INTRACRANIAL ABNORMALITY. 2. MILD, CHRONIC RIGHT MAXILLARY SINUS MUCOSAL DISEASE.
--- NOTE | 2018-08-15 13:28 | XR ---
EXAMINATION TYPE: XR abdomen acute w cxr , 4 VIEWS DATE OF EXAM ORDERED: 08/15/2018 HISTORY: Blurry vision and diaphoresis. COMPARISON: None. FINDINGS: The lungs are clear. Pleural space are clear. The heart is not enlarged. Within the abdomen, the abdominal gas pattern is within normal limits. There is no evidence of obstru ction or free air. No unusual calcifications are seen. IMPRESSION: NO ACUTE ABDOMINAL OR THORACIC ABNORMALITY.
[2018-08-15 13:32] LABS: Creatine Kinase 97 U/L (55-170)
[2018-08-15] MEDS ORDERED: KETOROLAC 30 MG/ML 1 ML VIAL IVP STA (13:39)
[2018-08-15 13:43] LABS: Creatine Kinase MB 3.3 ng/mL (0.0-2.4); Troponin I <0.012 ng/mL (0.000-0.034)
[2018-08-15] MEDS ORDERED: LABETALOL 5 MG/ML VIAL MDV IVP STA (14:29)
[2018-08-15 14:38] VITALS: PULSE 67; RESP 18
[2018-08-15 15:04] VITALS: BP 163/96
== END 2018-08-15 15:11 | disposition home or self-care (01) ==
LOC: EC 11:55
DX: B34.9 Viral infection, unspecified (principal); I25.10 Atherosclerotic heart disease of native coronary artery without angina pectoris; I25.2 Old myocardial infarction; I10 Essential (primary) hypertension; F32.9 Major depressive disorder, single episode, unspecified; F17.200 Nicotine dependence, unspecified, uncomplicated; Z79.82 Long term (current) use of aspirin; Z79.899 Other long term (current) drug therapy; Z88.0 Allergy status to penicillin; Z91.030 Bee allergy status
CPT/HCPCS: 36415; 93005; 80053; 82550; 82553; 83605; 83735; 84100; 84484; 85025; 85610; 85730; 81003; 87086; 87502; 74022; 70450; 99285; 96374; 96375 ×4; 96361 ×3; J3360; J2405; J1885; J0131

== ENCOUNTER → 2018-09-10 | Outpatient (CLI) | payer BC ==
--- NOTE | 2018-09-10 09:15 | CT ---
EXAMINATION TYPE: CT ChestAbdPelvis w con DATE OF EXAM: 09/10/2018 COMPARISON: CT abdomen pelvis 03/05/2018 HISTORY: Weight loss, patient states benign abdominal (lateral) tumors CT DLP: 1648 mGycm CONTRAST: CT scan of the chest, abdomen and pelvis is performed with Oral Contrast and with IV Contrast, patien t injected with 100 mL of Isovue 300. CT Chest: LUNGS: The lungs are clear and free of infiltrate or atelectasis. 4.5 mm pulmonary nodule lateral seg ment right middle lobe. No additional pulmonary nodules seen. No evidence for pulmonary mass. No pleu ral effusion or CT evidence of interstitial lung disease. MEDIASTINUM: Thoracic aorta is of normal caliber. The heart is not enlarged. No evidence for media stinal mass or adenopathy. HILAR STRUCTURES: No evidence for mass. No hilar adenopathy is appreciated. OTHER: No significant abnormality. CONTRAST CT ABDOMEN AND PELVIS FINDINGS: LIVER/GB: Mild hepatic steatosis noted. No calcified gallstones. No space occupying hepatic lesion. Biliary tree is of normal caliber. PANCREAS: No inflammation. No distinct mass. SPLEEN: No splenic enlargement. No lesion seen. ADRENALS: No nodule. No thickening. KIDNEYS/BLADDER: No hydronephrosis. No nephrolithiasis. No disctinct renal mass. BOWEL: Normal appendix. Normal bowel caliber. No inflammation. GENITAL ORGANS: No gross abnormality. LYMPH NODES: No greater than 1cm abdominal or pelvic lymph nodes are appreciated. AORTA: No significant abnormality. OSSEOUS STRUCTURES: Degenerative changes lumbar spine. OTHER: No significant additional abnormality is seen. IMPRESSION: 1. Small nonspecific pulmonary nodular density lateral segment right middle lobe. Follow-up is advise d in 6 months. 2. Mild fatty liver. 3. Otherwise unremarkable study.
== END | disposition home or self-care (01) ==
LOC: RADCTMAIN 06:19
PROVIDERS: ATTEND Internal Medicine Hematology & Oncology
DX: K76.0 Fatty (change of) liver, not elsewhere classified (principal); R91.1 Solitary pulmonary nodule; D72.829 Elevated white blood cell count, unspecified; R63.4 Abnormal weight loss; Z88.0 Allergy status to penicillin
CPT/HCPCS: 71260; 74177; Q9967

== ENCOUNTER → 2018-09-24 | Outpatient (CLI) | payer OTHER ==
--- NOTE | 2018-09-24 15:00 | XR ---
EXAMINATION TYPE: XR shoulder complete RT DATE OF EXAM: 09/24/2018 CLINICAL HISTORY: Sprain injury with pain TECHNIQUE: Three views of the right shoulder are obtained. COMPARISON: None. FINDINGS: There is no acute fracture/dislocation evident in the right shoulder. Moderate to severe n arrowing at acromioclavicular joint with prominent inferior spur distal clavicle is noted. There is m ild narrowing and mild inferior spurring glenohumeral joint noted The visualized ribs are intact and unremarkable. IMPRESSION: There is no acute fracture or dislocation in the right shoulder.
== END | disposition home or self-care (01) ==
LOC: RADXRMAIN 14:38
PROVIDERS: ATTEND Emergency Medicine
DX: S43.401A Unspecified sprain of right shoulder joint, initial encounter (principal); S40.011A Contusion of right shoulder, initial encounter

== ENCOUNTER → 2018-10-08 | Outpatient (CLI) | payer OTHER ==
--- NOTE | 2018-10-09 23:47 | MR ---
EXAMINATION TYPE: MR shoulder RT wo con DATE OF EXAM: 10/08/2018 COMPARISON: Right shoulder x-ray September 24, 2018. HISTORY: Pain in right shoulder per order. Pain with difficulty raising overhead after lifting injury 2 months ago. TECHNIQUE: Multiplanar, multisequence imaging of the right shoulder is performed without contrast. FINDINGS: Rotator Cuff: Infraspinatus tendon is intact . There is however articular full surface tear of the gallegos praspinatus tendon seen paracoronal image 10 and best seen parasagittal image 5 measuring 13 mm AP di ameter. Subscapularis tendon is intact. Rotator cuff muscle bulk is preserved. Acromioclavicular Joint: Moderate to severe narrowing and spurring at acromioclavicular joint is pres ent. Distal acromion morphology is unremarkable. Glenohumeral Joint: Moderate to large glenohumeral joint effusion is seen. No significant spurring is present. Subchondral cyst inferior glenoid is present paracoronal image 15. Labrum: The labrum appears grossly intact given limitation of non-arthrogram study. Biceps Tendon: The long head of biceps is in normal location within bicipital groove. Bone marrow signal: No additional area of focal abnormal marrow signal is appreciated. Other: No additional significant abnormality is appreciated. IMPRESSION: Full-thickness tear of the supraspinatus tendon at articular surface felt likely acute in age.
== END | disposition home or self-care (01) ==
LOC: RADMRIMAIN 19:35
PROVIDERS: ATTEND Orthopaedic Surgery
DX: M75.121 Complete rotator cuff tear or rupture of right shoulder, not specified as traumatic (principal)

== ENCOUNTER → 2018-10-29 | Outpatient (CLI) | payer BC ==
[2018-10-29 16:13] LABS: Basophils # (A) 0.1 k/uL (0-0.2); Basophils % (A) 1 %; Eosinophils # (A) 0.2 k/uL (0-0.7); Eosinophils % (A) 2 %; HCT 42.8 % (39.0-53.0); HGB 14.1 gm/dL (13.0-17.5); Lymphocytes # (A) 2.2 k/uL (1.0-4.8); Lymphocytes % (A) 19 %; MCH 31.4 pg (25.0-35.0); MCV 95.1 fL (80.0-100.0); Mean Platelet Volume 7.6; Monocytes # (A) 0.8 k/uL (0-1.0); Monocytes % (A) 7 %; Neutrophils # (A) 8.2 k/uL (1.3-7.7); Neutrophils % (A) 70 %; Platelet Count 262 k/uL (150-450); RDW 12.7 % (11.5-15.5); WBC 11.7 k/uL (3.8-10.6)
[2018-10-29 16:34] LABS: Potassium 3.8 mmol/L (3.5-5.1)
== END | disposition home or self-care (01) ==
LOC: LABPAT 15:23
PROVIDERS: ATTEND Orthopaedic Surgery
DX: Z01.818 Encounter for other preprocedural examination (principal); Z01.812 Encounter for preprocedural laboratory examination; M75.41 Impingement syndrome of right shoulder
CPT/HCPCS: 36415; 80051; 85025; 93005

== ENCOUNTER → 2018-11-05 | Day surgery (SDC) | payer BC, OTHER ==
[2018-11-01 09:37] VITALS: BMI 29.5
--- NOTE | 2018-11-04 13:13 | HP ---
HISTORY AND PHYSICAL CHIEF COMPLAINT: Right shoulder pain. 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 He is having a difficult time with overhead use and at night ever since. He has been working with restrictions. He denies significant previous problems. He has been taking pain medications without much relief. PAST MEDICAL HISTORY: Significant for hypertension. PAST SURGICAL HISTORY: Significant for previous knee surgery, left shoulder surgery in addition to right thumb surgery. CURRENT MEDICATIONS: 1. Aspirin. 2. Atorvastatin. 3. Effient. 4. Metoprolol. 5. Omeprazole. 6. Benazepril. ALLERGIES: He notes allergies to PENICILLIN. FAMILY HISTORY: Negative. SOCIAL HISTORY: Significant for 1/2 pack per day tobacco use. REVIEW OF SYSTEMS: Sixteen-point review of systems otherwise reviewed and is noncontributory. PHYSICAL EXAMINATION: On examination, the patient is approximately 5 feet 9 inches, 190 pounds of endomorphic habitus. HEENT exam is nonfocal. Neck is supple. On examination of his right shoulder, he is tender about the anterior subacromial space. He has mild subacromial crepitus. He has moderate guarding. Active range of motion forward elevation 110 degrees, external rotation with arm at side 50 degrees, internal rotation to L1. Passively I am able to forward elevate him to 155 degrees. Impingement test, Neer test, and Speed test are positive. His distal neurovascular exam otherwise appears intact in the right upper extremity. MRI report from 10/08/2018 of the right shoulder shows a full-thickness tear of the supraspinatus tendon. IMPRESSION: 1. Right rotator cuff [id number]. 2. History of hypertension/coronary artery disease, on anticoagulants. RECOMMENDATIONS: I talked to the patient at length regarding his condition and treatment options. At this point, he remains quite symptomatic after this acute injury. After thorough discussion, he opts to proceed with surgery. We will plan to proceed with arthroscopic evaluation with probable subacromial decompression, arthroscopic rotator cuff repair versus debridement and possible biceps tenotomy. Risks and benefits are discussed at length in layman's terms. We will likely perform that as an outpatient procedure. MMODL / IJN: [id number] /
[~2018-11-05] MED LIST changes: +DEXAMETHASONE SOD PHOS (MDV) 100 MG/10 ML VIAL IVP ONE; +DEXAMETHASONE SOD PHOSPHATE 10 MG/ML 1 ML VIAL IV ONE; +LIDOCAINE 1% 20 ML VIAL (10MG/ML) FOR IV START INTRADERMA PRN; +LIDOCAINE 1% INJ 10MG/ML (20 ML MDV) ONE; +MIDAZOLAM (PF) 2 MG/2 ML VIAL IV PRN; +MIDAZOLAM 2 MG/2 ML VIAL ONE; +ONDANSETRON 4 MG/2 ML VIAL IVP ONE; +PROPOFOL 10 MG/ML 20 ML VIAL IV ONE; +ROPIVACAINE 5 MG/ML 30 ML VIAL MISCELLANE ONE; +ROPIVACAINE 5 MG/ML 30 ML VIAL ONE; +SODIUM CHLORIDE 0.9% 1,000 ML IV ONE; +SUCCINYLCHOLINE CHLORIDE VIAL 200 MG/10 ML VIAL IV ONE; +ceFAZolin IN SWFI 2 GM/20 ML SYRINGE IVP ONE; +fentaNYL (PF) 50 MCG/ML 2 ML AMP IVP ONE; +fentaNYL (PF) 50 MCG/ML 2 ML AMP ONE
[2018-11-05 08:23] VITALS: RESP 16
--- NOTE | 2018-11-05 09:20 | P.ONQ ---
Anesthesiology Proc Note - PNB - Peripheral Nerve Block Performed Right Interscalene Single Time Out Performed: Yes Procedure Start Time: 08:47 Procedure Stop Time: 08:55 Indication: Requested by physician Specifically requested for management of pain by : Leno Quintanilla Sedation Type: Sedate with meaningful contact maintained Preparation: Sterile Prep Needle Types: Other (see comment) (pujunk) Needle Size: 50mm (2") Needle Gauge: 21 Technique: Ultrasound Injectate: 0.5% Ropivacaine (see comment for volume) (25 ml) Blood Aspirated: No Pain Paresthesia on Injection Noted: No Resistance on Injection: Normal Events: Uneventful and Well Tolerated
--- NOTE | 2018-11-05 11:08 | P.OP ---
Date of Procedure: 11/05/18 Preoperative Diagnosis: Acute symptomatic rotator cuff tear Postoperative Diagnosis: Same Procedure(s) Performed: Right shoulder arthroscopic subacromial decompression/rotator cuff repair Implants: Arthrex 4.75 mm swivel lock anchor 4 Anesthesia: jazmine MCGUIRE Surgeon: Leno Quintanilla Principal Electrical Engineer #1: Rob De La Torre Estimated Blood Loss (ml): 10 Pathology: none sent Condition: stable Disposition: PACU Indications for Procedure: The patient's a 47-year-old male who presents with right shoulder pain after an injury at work. Upon evaluation he was noted of evidence of an acute rotator cuff tear. A discussion of the risks and benefits of operative intervention versus continued conservative measures was made with patient. He opted proceed with surgery. Operative risks to include infection, neurovascular injury, developed blood clots, possible tendon rerupture, possible postoperative stiffness, and possible need for subsequent procedures was discussed. Informed consent was obtained. Operative Findings: As below Description of Procedure: The patient was brought to the operating room, and after induction of general anesthesia was placed in a beachchair position. A preoperative interscalene block was placed for postoperative analgesia. I examined the right shoulder. There was no gross block to passive motion or gross glenohumeral instability. The right upper extremity was prepped and draped in normal fashion. The bony outlines the acromion, distal clavicle, and coracoid process were outlined with a skin marker. The glenohumeral joint was inflated with 50 mL of saline utilizing a spinal needle from posterior approach. A posterior portal was made through a 5 mm skin incision 1 cm medial and inferior to the posterior lateral border time. A blunt trocar was used to easily into the joint. Diagnostic arthroscopy was performed. An anterior portal was made just lateral to the coracoid process entering the joint above the subscapularis tendon. The subscapularis tendon appeared to be intact. Anterior labrum was intact. The inferior recess was inspected. The posterior labrum was intact. The biceps and its anchor were intact. On inspection the rotator cuff a 2 cm full- thickness tear involving the supraspinatus tendon was noted with minimal retraction. The arthroscope was placed into the subacromial space. The soft tissue on the undersurface of the acromion was debrided with a motorized shaver and electrocautery clearly defining the anterior medial and lateral borders as well as the distal clavicle. An anterior inferior acromioplasty was performed with a motorized shai starting anterolateral, then extending this posteriorly, then extending this medially. I converted to a flat acromion and this was verified in the posterior and lateral viewing portals. The greater tuberosity was lightly decorticating with a shaver down to a bleeding bony surface. The rotator cuff was easily mobilized back to the greater tuberosity. The greater tuberosity was lightly decorticated down to bleeding bony surface with motorized bur. An accessory superior lateral portals made just off the lateral edge of the acromion for anchor placement. 2 anchors were then placed just off the articular surface with the appropriate starting awl. 4.75 mm anchors preloaded with #2 fiber tape were placed. Good purchase was obtained. These fiber tapes were then passed the rotator cuff with a scorpion suture passer. A lateral row was created crisscrossing these tapes. Two 4.75 mm swivel lock anchors were placed laterally. Good purchase was obtained. Final arthroscopic view showed adequate compression at the footprint. The arthroscope was then removed. The portals were closed with simple 3-0 nylon sutures. A sterile dressing was applied in addition to an abductor brace. The patient was then awoken from general anesthesia and transferred to recovery room in good condition. Blood loss was estimated at 10 mL. No complications were incurred. Sponge and needle counts were correct in the case. Smith MARTELL assisted and the major components of the case to include arm positioning, anchor placement, and rotator cuff repair.
[2018-11-05 11:23] VITALS: TEMP 97.1
[2018-11-05] MEDS: fentaNYL (PF) 50 MCG/ML 2 ML AMP IV PRN ×2 (11:30→11:40)
[2018-11-05 13:25] VITALS: BP 161/93; PULSE 76
== END | disposition home or self-care (01) ==
LOC: OR 07:32
PROVIDERS: ATTEND Orthopaedic Surgery
DX: M75.121 Complete rotator cuff tear or rupture of right shoulder, not specified as traumatic (principal); M19.011 Primary osteoarthritis, right shoulder; I25.10 Atherosclerotic heart disease of native coronary artery without angina pectoris; I10 Essential (primary) hypertension; E78.5 Hyperlipidemia, unspecified; F17.210 Nicotine dependence, cigarettes, uncomplicated; K44.9 Diaphragmatic hernia without obstruction or gangrene; Z79.01 Long term (current) use of anticoagulants; Z79.82 Long term (current) use of aspirin; Z79.899 Other long term (current) drug therapy; Z88.0 Allergy status to penicillin
CPT/HCPCS: 64415; 29826; 29827; C1713; C1894; J2250 ×2; J0330; J2405; J2001; J3010; J1100; J2795; J2704; J0690

== ENCOUNTER → 2019-09-07 | Outpatient (CLI) | payer OTHER ==
--- NOTE | 2019-09-07 09:16 | MR ---
EXAMINATION TYPE: MR shoulder RT wo con DATE OF EXAM: 09/07/2019 8:43 AM COMPARISON: 10/08/2018 HISTORY: Pain in right shoulder, prior imaging in pacs, had surgery about 1 year ago TECHNIQUE: Multiplanar multispin echo imaging of the right shoulder was performed. Patient motion philip its portions of the examination. FINDINGS: Rotator cuff : Partial full-thickness tear supraspinatus tendon anteriorly. Thickening and heterogene ity of the supraspinatus tendon compatible chronic tendinopathy. Interval postoperative changes noted . Remaining constituents of the rotator cuff are intact. Bursa: No bursal effusion or thickening is seen. Musculature: There is no muscular tear, contusion, or atrophy. Acromioclavicular joint : Moderately severe AC joint arthropathy. There appear to be changes of acrom ioplasty. Osseous structures : There are no fractures or regions of abnormal bone marrow signal intensity. Cyst ic degenerative change humeral head. Cystic degenerative change of the glenoid. Long biceps tendon : The biceps tendon is normally situated within the bicipital groove. No complete or partial biceps tendon tear is present. Glenohumeral Joint fluid : There is no glenohumeral joint effusion. Cartilage and Bone : No focal hyaline cartilage defects are noted. No Hill-Sachs, reverse Hill-Sachs, or bony Bankart lesions are seen. Labrum : There are no SLAP or soft tissue Bankart lesions. No paralabral cysts are seen. OTHER FINDINGS : none IMPRESSION: 1. Partial full-thickness tear supraspinatus tendon anteriorly. Thickening and heterogeneity of the s upraspinatus tendon compatible chronic tendinopathy. Interval postoperative changes noted.
== END ==
LOC: RADMRIMAIN 07:50
PROVIDERS: ATTEND Orthopaedic Surgery
DX: R93.7 Abnormal findings on diagnostic imaging of other parts of musculoskeletal system (principal); M75.121 Complete rotator cuff tear or rupture of right shoulder, not specified as traumatic; Z98.890 Other specified postprocedural states

== ENCOUNTER → 2020-05-03 | Outpatient (CLI) | payer OTHER ==
--- NOTE | 2020-05-03 15:05 | P.PAINCN ---
History of Present Illness - Reason for Consult Consult date: 05/03/20 - History of Present Illness This is a initial consultation visit for this 49 years old male with a chronic history of severe right shoulder pain, the pain started in July 2018 after he had work-related injury, he was doing heavy lifting, and he injured his right shoulder, from that time on he continued to have severe right shoulder pain the pain is constant and localized in the right shoulder, after that he had right rotator cuff repair and right shoulder arthroscopy and subacromial decompression, which was done in October 2018, he continued to have severe right shoulder pain, denies any numbness or tingling sensation he denies any neck pain, and he is not able to do rotation of his right shoulder,, denies any fever or night sweats. Denies any discharge from the shoulder he denies any swelling or redness in the shoulder Past Medical History Past Medical History: Coronary Artery Disease (CAD), Hyperlipidemia, Hypertension, Myocardial Infarction (AR), Osteoarthritis (OA) Additional Past Medical History / Comment(s): STATES NAUSEA & VOMITING AND DIARRHEA FOR 6 MONTHS. Last Myocardial Infarction Date:: 2008 History of Any Multi-Drug Resistant Organisms: None Reported Past Surgical History: Heart Catheterization With Stent, Orthopedic Surgery Additional Past Surgical History / Comment(s): multiple knee surg., bilateral shoulder surg., right thumb Past Anesthesia/Blood Transfusion Reactions: No Reported Reaction Date of Last Stent Placement:: 2008 Smoking Status: Current every day smoker - Past Family History Mother Family Medical History: Cancer Medications and Allergies Home Medications Medication Instructions Recorded Confirmed Type Aspirin [Adult Low Dose Aspirin EC] 81 mg PO DAILY 07/27/18 05/03/20 History Benazepril [Lotensin] 10 mg PO DAILY 08/15/18 05/03/20 History Metoprolol Succinate [Toprol XL] 50 mg PO BID 08/15/18 05/03/20 History Naproxen 500 mg PO BID PRN 08/15/18 05/03/20 History buPROPion XL [Wellbutrin Xl] 150 mg PO DAILY 08/15/18 05/03/20 History Allergies Allergy/AdvReac Type Severity Reaction Status Date / Time Penicillins Allergy Unknown Verified 05/03/20 14:30 Childhood venom-honey bee Allergy Swelling Verified 05/03/20 14:30 [bee venom (honey bee)] Physical Exam Vitals: Vital Signs Pulse Resp BP Pulse Ox 07/09/20 14:32 95 16 238/132 98 Intake and Output 05/02/20 05/03/20 05/03/20 22:59 06:59 14:59 Other: Weight 90.718 kg Physical Examinations : -Constitutiona : Cooperative , not in acute distress . -HEENT : nech : supple , no Lymphadenopathy , normal thyroid size . : eyes : no ptosis , no icterus, no photophobia . : ENT : normal of hearing , normal oropharynx , no Thrush . - Respiratory : Chest clear to auscultations Bilaterally , no wheezing , no Rhonchi . - Cardiovascula : regular rate and rhythem , S1 , S2 , no S3 , no S4. - Gastrointestina : abdomen soft no tenderness , bowel sounds , no organomegally . - Genitourinary : Defferred . - neurologic : Cranial nerve II to XII intact , no focal neurological deffecit . -psychatric : alert , oriented X 3 , appropriate affect , intact judgment and insight . -Lymphatic : no Lymphadenopathy . - musculoskeltal : Cervical Spine motor stregnth in the deltoid and biceps, normal right side , normal Left side motor stregnth biceps and the wrist extensors normal right side ,normal left side . motor stregnth in the triceps muscle . normal Right side , normal Left side deep tendon reflexes normal at the biceps , normal at Brachioradialis , normal at triceps. cervical facet loading test= negative Bilaterally Spurling's test negative bilaterally Shoulder= severe tenderness over palpation of the right shoulder Severe tenderness over the right acromioclavicular joint Severe tenderness over the right glenohumeral joint Limited ability to extend or rotation of the right shoulder, decreased ability to abduct the right shoulder No erythema, and no discharge, no swelling over the right shoulder Lumber spine moter stegnth lower extremities ,thigh and legs 5/5 Right side , 5/5 Left side Results Comments: MRI of the right shoulder done August 2019 (after the right shoulder arthrosc opy ) Acromial clavicular joint arthropathy, there is degenerative changes in the glenohumeral joint and there is partial full thickness of the area of the supraspinatus tendon anteriorly Assessment and Plan Plan: Assessment and plan= right shoulder pain secondary to multifactorial causes, right shoulder rotator cuff tear and retear, and right shoulder acr omioclavicular joint arthroplasty and right shoulder glenohumeral joint arthropathy. Patient had no benefit from physical therapy, and he reported that Dr. Hernadez is not a candidate for any surgical interventions, patient could benefit from right-sided acromioclavicular joint steroid injection on the right- sided glenohumeral joint steroid injection, procedure risk and benefits and alternatives discussed with the patient and he agreed with the preceding, she should continue his current medication naproxen as prescribed by his primary care. note = during the visit today his blood pressure was extremely elevated process to the patient the need to go to the emergency room for his blood pressure management, he reported that he did not take his blood pressure medication over the last 2 days, patient also contacted his primary care to get this prescription refill Time with Patient: Greater than 30 PQRS Measure Charge Sheet Measure #130: Documentation of Current Meds in Medical Chart: Patient's medications documented in chart Measure #226: Tobacco Use: Screen & Cessation Intervention: Pt screened for tobacco use AND intervention given Measure #111: Pneumonia Vaccination: Pneumococcal vaccine administered or previously received Measure #47: Advance Care Plan: Advance care planning discussed & documented, pt chose/unable to give Measure #412: Opioid Treatment Agreement: No documentation of signed opioid treatment agreement Measure #408: Opioid Therapy Follow-up Evaluation: Patient had NO f/u eval minimum every 3 months during opioid therapy Measure #317: Preventitive Care & Scrn High Bld Press & F/U: Pre-hypertensive or hypertensive BP documented, pt will f/u with PCP Measure #128: Body Mass Index (BMI) Screening & Follow-up: BMI documented ABOVE normal parameters - f/u documented Measure #131: Pain Assessment & Follow-up: Pain positive & plan documented, Follow-up scheduled Measure #431: Unhealthy Alcohol Use Preventative Care & Scrn: Patient not identified as an unhealthy alcohol user PQRS Narrative: Smoking Status Current every day smoker Blood Pressure 238/132 Pain Intensity [Right Shoulder 9 ] Scale Used Numeric (1 - 10) Hx Alcohol Use (MH) Yes: 1 "ANG[employer]INE [employer]KE" DAILY Home Medications: Ambulatory Orders Aspirin [Adult Low Dose Aspirin EC] 81 mg PO DAILY 07/27/18 Benazepril [Lotensin] 10 mg PO DAILY 08/15/18 Metoprolol Succinate [Toprol XL] 50 mg PO BID 08/15/18 Naproxen 500 mg PO BID PRN 08/15/18 buPROPion XL [Wellbutrin Xl] 150 mg PO DAILY 08/15/18
[2020-05-04 10:15] VITALS: BP 238/132; PULSE 95; RESP 16
== END | disposition home or self-care (01) ==
LOC: PNWHC3 13:57
PROVIDERS: ATTEND Specialist
DX: M75.101 Unspecified rotator cuff tear or rupture of right shoulder, not specified as traumatic (principal); M19.011 Primary osteoarthritis, right shoulder; I25.10 Atherosclerotic heart disease of native coronary artery without angina pectoris; I10 Essential (primary) hypertension; Z96.611 Presence of right artificial shoulder joint; F17.200 Nicotine dependence, unspecified, uncomplicated; Z79.1 Long term (current) use of non-steroidal anti-inflammatories (NSAID); Z79.82 Long term (current) use of aspirin; Z79.899 Other long term (current) drug therapy; Z88.0 Allergy status to penicillin; Z91.030 Bee allergy status
CPT/HCPCS: 99211

== ENCOUNTER 2020-05-05 01:42 | Inpatient (IN) | payer BC ==
[2020-05-05] MEDS ORDERED: HEPARIN SODIUM,PORCINE 5,000 UNIT/ML 1 ML VIAL IV STA (01:56)
[2020-05-05] MEDS ORDERED: ASPIRIN 81 MG PO STA (01:56)
[2020-05-05] MEDS ORDERED: MORPHINE SULFATE 4 MG/ML SYRINGE IV STA (01:57)
--- NOTE | 2020-05-05 02:00 | ED ---
Chest Pain HPI - General Chief Complaint: Chest Pain Stated Complaint: Poss heart attack Time Seen by Provider: 05/05/20 01:49 Source: patient Mode of arrival: ambulatory Limitations: no limitations - History of Present Illness Initial Comments: This patient is a 49-year-old man who presents to be evaluated for substernal chest pain. The patient states that he had been sleeping and then woke up to tell his daughter to go to bed. He states that following this she noted some substernal tightness or pressure. He states that reminded him of previous chest pain related to an MS. He was seen here 9 years ago and had a stent placed. He does not follow with cardiology. He does continue to smoke. Patient denies any associated symptoms. MD Complaint: chest pain Onset/Timin -: minutes(s) Onset: during rest Pain Location: substernal Pain Radiation: none Quality: heaviness Consistency: constant Improves With: nothing Worsens With: nothing Treatments Prior to Arrival: none - Related Data Home Medications Medication Instructions Recorded Confirmed Aspirin [Adult Low Dose Aspirin EC] 81 mg PO DAILY 07/27/18 05/03/20 Benazepril [Lotensin] 10 mg PO DAILY 08/15/18 05/03/20 Metoprolol Succinate [Toprol XL] 50 mg PO BID 08/15/18 05/03/20 Naproxen 500 mg PO BID PRN 08/15/18 05/03/20 buPROPion XL [Wellbutrin Xl] 150 mg PO DAILY 08/15/18 05/03/20 Allergies Allergy/AdvReac Type Severity Reaction Status Date / Time Penicillins Allergy Unknown Verified 05/05/20 01:56 Childhood venom-honey bee Allergy Swelling Verified 05/05/20 01:56 [bee venom (honey bee)] Review of Systems ROS Statement: Those systems with pertinent positive or pertinent negative responses have been documented in the HPI. ROS Other: All systems not noted in ROS Statement are negative. Constitutional: Denies: fever, chills Respiratory: Denies: cough, dyspnea Cardiovascular: Reports: as per HPI, chest pain. Denies: palpitations, orthopnea, edema, syncope Gastrointestinal: Denies: abdominal pain, nausea, vomiting, diarrhea, melena, hematochezia Genitourinary: Denies: dysuria, hematuria Musculoskeletal: Denies: back pain Skin: Denies: rash Neurological: Denies: headache, weakness, numbness Hematological/Lymphatic: Denies: easy bleeding EKG Findings - EKG Results: EKG: interpreted by ERMD, sinus rhythm EKG shows: tachycardia (Rate approximately 104 bpm) - Blocks, [place], Hypertrophy, ST Abn: QRS axis and voltage: right axis deviation (+90 to +180) - MS, Pacemaker, Normal: Myocardial infarction: lateral MS (acute or recent) (ST elevation in V5, V6.) Past Medical History Past Medical History: Coronary Artery Disease (CAD), Hyperlipidemia, Hypertension, Myocardial Infarction (MS), Osteoarthritis (OA) Additional Past Medical History / Comment(s): STATES NAUSEA & VOMITING AND DIARRHEA FOR 6 MONTHS. Last Myocardial Infarction Date:: 2008 History of Any Multi-Drug Resistant Organisms: None Reported Past Surgical History: Heart Catheterization With Stent, Orthopedic Surgery Additional Past Surgical History / Comment(s): multiple knee surg., bilateral shoulder surg., right thumb Past Anesthesia/Blood Transfusion Reactions: No Reported Reaction Date of Last Stent Placement:: 2008 Past Psychological History: Depression Smoking Status: Current every day smoker Past Alcohol Use History: None Reported Past Drug Use History: None Reported - Past Family History Mother Family Medical History: Cancer General Exam Limitations: no limitations General appearance: alert, in no apparent distress Head exam: Present: atraumatic, normocephalic Eye exam: Present: normal appearance. Absent: scleral icterus, conjunctival injection ENT exam: Present: normal oropharynx Neck exam: Present: normal inspection Respiratory exam: Present: normal lung sounds bilaterally. Absent: respiratory distress, wheezes, rales, rhonchi, stridor Cardiovascular Exam: Present: normal rhythm, tachycardia (Rate approximately 14 bpm), normal heart sounds. Absent: systolic murmur, diastolic murmur, rubs, gallop GI/Abdominal exam: Present: soft. Absent: distended, tenderness, guarding, rebound, rigid, mass Extremities exam: Present: normal inspection, normal capillary refill. Absent: pedal edema, calf tenderness Back exam: Present: normal inspection. Absent: CVA tenderness (R), CVA tend erness (L) Neurological exam: Present: alert Skin exam: Present: warm, dry, intact, normal color. Absent: rash Course Vital Signs 05/05/20 05/05/20 05/05/20 01:52 01:58 02:12 Temperature 97.9 F Pulse Rate 107 H 107 H 97 Respiratory 18 18 18 Rate Blood Pressure 221/152 202/154 113/86 O2 Sat by Pulse 100 99 Oximetry 05/05/20 05/05/20 05/05/20 02:16 02:20 02:24 Temperature Pulse Rate 81 89 82 Respiratory 17 18 18 Rate Blood Pressure 133/86 114/93 118/71 O2 Sat by Pulse 96 99 97 Oximetry 05/05/20 02:35 Temperature 97.9 F Pulse Rate 79 Respiratory 16 Rate Blood Pressure 126/94 O2 Sat by Pulse 97 Oximetry - Reevaluation(s) Reevaluation #1: 05/05/20 01:59 Case is discussed with the on-call building consultant and mini lab operator activated. Chest Pain [facility] This patient is a 49-year-old man presenting to be evaluated for chest pain. The initial ECG is nondiagnostic though it is concerning for acute coronary syndrome. The patient subsequently became diaphoretic, he was continued have chest pain. The repeat ECG was obtained at 2:31 and at this point more diagnostic for STEMI. The case is discussed with Dr. Taveras who is coming to take the patient for catheterization. Critical Care Time Critical Care Time: Yes (45 minutes) Disposition Clinical Impression: Acute coronary syndrome Disposition: ADMITTED IP TO THIS HOSP Condition: Critical
[2020-05-05] MEDS: NITROGLYCERIN SL TABS 0.4 MG TAB SUBLINGUAL PRN ×2 (02:04→02:11)
[2020-05-05] MEDS ORDERED: ATORVASTATIN 80 MG TAB PO STA (02:07)
[2020-05-05] MEDS ORDERED: METOPROLOL TARTRATE 12.5 MG TAB PO STA (02:08)
[2020-05-05 02:12] LABS: Basophils # (A) 0.1 k/uL (0-0.2); Basophils % (A) 1 %; Eosinophils # (A) 0.4 k/uL (0-0.7); Eosinophils % (A) 3 %; HCT 51.9 % (39.0-53.0); HGB 18.1 gm/dL (13.0-17.5); Lymphocytes # (A) 4.2 k/uL (1.0-4.8); Lymphocytes % (A) 27 %; MCH 33.2 pg (25.0-35.0); MCHC 34.8 g/dL (31.0-37.0); MCV 95.2 fL (80.0-100.0); Mean Platelet Volume 9.3; Monocytes # (A) 0.9 k/uL (0-1.0); Monocytes % (A) 6 %; Neutrophils # (A) 9.9 k/uL (1.3-7.7); Neutrophils % (A) 63 %; Platelet Count 241 k/uL (150-450); RBC 5.45 m/uL (4.30-5.90); RDW 12.7 % (11.5-15.5); WBC 15.8 k/uL (3.8-10.6)
--- NOTE | 2020-05-05 02:12 | XR ---
EXAMINATION TYPE: XR chest 1V portable DATE OF EXAM: 05/05/2020 COMPARISON: 08/15/2018 HISTORY: Chest pain TECHNIQUE: Single view FINDINGS: There is no confluent pneumonic infiltrate. There is coarsening of the interstitial markin gs. Heart size is normal. There is no pleural effusion. There are chest leads. IMPRESSION: increased interstitial pulmonary markings compared to old exam. No gross heart failure.
[2020-05-05 02:20] LABS: INR 0.9 (<1.2); Partial Thromboplastin Time 26.2 sec (22.0-30.0); Prothrombin Time 9.6 sec (9.0-12.0)
[2020-05-05 02:24] LABS: Albumin 4.7 g/dL (3.5-5.0); Calcium 9.6 mg/dL (8.4-10.2); Potassium 3.2 mmol/L (3.5-5.1); Total Bilirubin 0.7 mg/dL (0.2-1.3); Total Protein 7.6 g/dL (6.3-8.2)
[2020-05-05] MEDS ORDERED: METOPROLOL TARTRATE 5 MG/5 ML VIAL IVP STA (02:26)
[2020-05-05] MEDS ORDERED: HYDROmorphone 1 MG/ML 1 ML SYRINGE IVP STA (02:30)
[2020-05-05] MEDS ORDERED: LIDOCAINE 1% INJ 10MG/ML (20 ML MDV) ONE (02:48)
[2020-05-05] MEDS ORDERED: MIDAZOLAM 2 MG/2 ML VIAL IVP ONE ×2 (03:01→03:13)
[2020-05-05] MEDS ORDERED: HYDROmorphone 1 MG/ML 1 ML SYRINGE ONE ×2 (03:12→04:10)
[2020-05-05] MEDS ORDERED: HYDROmorphone 1 MG/ML 1 ML SYRINGE IVP ONE ×2 (03:13→04:11)
[2020-05-05] MEDS ORDERED: SODIUM CHLORIDE 0.9% 1,000 ML IV ONE (03:14)
[2020-05-05] MEDS ORDERED: NITROGLYCERIN SL TABS 0.4 MG TAB SUBLINGUAL ONE (03:16)
[2020-05-05] MEDS ORDERED: LIDOCAINE 1% INJ 10MG/ML (20 ML MDV) SQ ONE (03:16)
[2020-05-05 03:17] LABS: Troponin I 0.136 ng/mL (0.000-0.034)
[2020-05-05] MEDS ORDERED: BIVALIRUDIN BOLUS 250 MG/50 ML IV ONE (03:28)
[2020-05-05] MEDS ORDERED: BIVALIRUDIN 250 MG in SODIUM CHLORIDE 0.9% 50 ML IV ONE (03:29)
[2020-05-05] MEDS ORDERED: LABETALOL 5 MG/ML VIAL MDV IVP STA (03:31)
[2020-05-05] MEDS ORDERED: NITROGLYCERIN 1000MCG/10ML SYRINGE INTRACORON ONE ×2 (03:40→04:00)
[2020-05-05] MEDS ORDERED: IOPAMIDOL-370 100ML BTL INJ ONE ×3 (03:40→04:09)
[2020-05-05] MEDS ORDERED: CLOPIDOGREL 75 MG TAB ONE (03:42)
[2020-05-05] MEDS ORDERED: CLOPIDOGREL 75 MG TAB PO ONE (03:47)
[2020-05-05] MEDS ORDERED: LABETALOL SYRINGE 5 MG/ML IV ONE ×3 (03:48→04:08)
[2020-05-05] MEDS ORDERED: FUROSEMIDE 10 MG/ML 4 ML VIAL ONE (04:05)
[2020-05-05] MEDS ORDERED: FUROSEMIDE 10 MG/ML 4 ML VIAL IV ONE (04:06)
[2020-05-05 04:41] LABS: Glucose,Whole Blood 151 mg/dL (75-99)
[2020-05-05] MEDS ORDERED: FUROSEMIDE 10 MG/ML 2 ML VIAL IV ONE (05:35)
[2020-05-05] MEDS: POTASSIUM CHLORIDE ER 20 MEQ TAB.ER PO SCH ×3 (06:19→09:05)
[2020-05-05] MEDS ORDERED: ALPRAZolam 0.25 MG TAB PO PRN (06:39)
--- NOTE | 2020-05-05 06:44 | CONS ---
CONSULTATION This is a 49-year-old gentleman with a known history of CAD and previous non ST elevation SC in 2011 when he presented with EKG changes and echocardiographic findings of hypokinesia in the apical lateral wall and had stenting of a diagonal vessel performed by me. Since then, he has not followed up with a oven tender and again in 2013 he came in with episode of chest pain with unremarkable coronaries. Now he presents with complaints of substernal heaviness and pressure. The symptoms are very similar to 2012 and he woke his daughter and came into the hospital. I reviewed the initial EKG and there was no evidence of any ST elevation. I recommended to do a repeat EKG after 30 minutes and the repeat EKG showed that there was an ST elevation in leads V5 and V6 suggestive of apical lateral ST-elevation SC. This was at about 2:31 a.m. on May 05. 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 The patient was having chest pain, hemodynamically stable at the time of my evaluation. He smokes heavily at least a pack a day. He also has back pain and was seen recently in the Pain [facility]. Does not follow up with a oven tender and is not very consistent in his followup with his PCP. He stopped all his medications and he states he ran out of them, but has been smoking nearly 1-2 packs a day. PAST MEDICAL HISTORY: 1. CAD with stenting of diagonal in 2011 and patent diagonal in 2013. 2. Hypertension with poor compliance with medications. 3. Smoking and chronic obstructive pulmonary disease. 4. Osteoarthritis. 5. History of some orthopedic surgery in the past. MEDICATIONS: Medications that he was supposed to take at home, but was not taking, include aspirin 81 mg b.i.d., benazepril 10 mg daily, metoprolol succinate 50 mg daily, Wellbutrin. ALLERGIES: PENICILLIN PHYSICAL EXAMINATION: On examination, blood pressure was 180/90, pulse rate is about 78 per minute. HEENT: Unremarkable. Fundus was not examined by me. NECK: Supple. No JVD. I do not hear a carotid bruit. HEART: Exam reveals S1, S2 heard normally. No significant murmurs. LUNGS: Reveal diminished air entry. ABDOMEN: Soft. EXTREMITIES: Lower extremities reveal diminished pulses. CENTRAL NERVOUS SYSTEM: Normal. EKG revealed sinus mechanism with ST elevation in V5 and V6. IMPRESSION: 1. Acute apical lateral ST-elevation myocardial infarction in a patient with known coronary artery disease. 2. History of hypertension, noncompliance with medications. 3. History of smoking and chronic obstructive pulmonary disease. RECOMMENDATIONS: I recommended cardiac cath and PCI and proceeded to perform this expeditiously. VANIA / ADRIAN: [id number] /
[2020-05-05] MEDS: SODIUM CHLORIDE 0.9% 1,000 ML IV SCH ×2 (06:54→20:17)
--- NOTE | 2020-05-05 07:05 | CC ---
CARDIAC CATHETERIZATION REPORT DATE OF SERVICE: 05/05/2020 PROCEDURE: 1. Left heart catheterization and coronary angiography. 2. PTCA and stenting of a totally occluded mid circumflex coronary artery in the setting of an acute ST-elevation MT with a drug-eluting stent, reperfusion accomplished in 52 minutes. 3. PTCA and stenting of a mid LAD lesion just after the diagonal branch with a drug- eluting stent. PERFORMED BY: Dr. Ronald Taveras. ANESTHESIA: Moderate conscious sedation time was 60 minutes. Patient was administered Versed and Dilaudid. Oxygen saturation, hemodynamics and EKG were monitored closely. CLINICAL INFORMATION: Mr. Ildefonso Mercer is a 49-year-old gentleman with a known history of CAD, diagonal stenting performed in 2011, noncompliant with medications and doctor visits. Smokes more than a pack a day and also has hypertension, does not take medicines as advised. He came in with chest pain and had ST elevation in apical lateral leads. ST elevation occurred at 2:32 a.m. and reperfusion was accomplished in 52 minutes. He was advised cardiac cath and PCI that was performed expeditiously. PROCEDURE NOTE: Under local anesthesia and strict aseptic precautions, a 6-Syriac introducer was placed in the right femoral artery. I started off with a 3.5 left Cassius guide catheter and performed intervention of the totally occluded circumflex and also performed intervention of the mid LAD. Subsequently performed selective coronary angiography of the right coronary artery and also checked LV pressures. LV gram was not performed. The sheath was taken out and a Perclose device used to secure hemostasis and he was sent to the room in a stable condition. Results were discussed with the patient and daughter. The left ventricular end-diastolic pressure was elevated. He received 20 mg of Lasix IV push in addition to nitrates. CARDIAC CATHETERIZATION FINDINGS: The left ventricular end-diastolic pressure was almost 36 mmHg with no gradient across the aortic valve. CORONARY ANGIOGRAPHY FINDINGS: RIGHT CORONARY ARTERY: This coronary artery was injected after the intervention procedure. It is a very super dominant vessel, large in caliber and distribution, bifurcates distally into PDA, PLV, and other smaller branches. Has minor diffuse irregularities of less than 30%. No significant disease. This is a super dominant relatively disease free vessel. LEFT MAIN CORONARY ARTERY: This almost does not exist. Patient has almost 2 separate ostia to the circumflex and LAD [id number] and there is no clear-cut left main. LEFT ANTERIOR DESCENDING CORONARY ARTERY: Fair caliber vessel, gives off septal branch and the first diagonal branch. The second diagonal branch was stented and the stented diagonal branch is patent. After the second diagonal branch, there is a very eccentric 80% stenosis and then the caliber of the vessel decreases and has diffuse irregularities all the way to the apex. LAD therefore has a mid lesion of 80% diagonal which is a second diagonal that was stented which is patent with brisk flow and has no more than 35% to 40% lesion just before the stent. Within the stent, there is no significant stenosis. The LAD therefore has a mid lesion, which I believe is quite significant in multiple projections. LEFT POSTERIOR CIRCUMFLEX CORONARY ARTERY: This has almost a separate origin just below the LAD and it has a single obtuse marginal that is totally occluded and only the groove branch is noted with 100% occlusion of mid circumflex after the origin of a groove branch. LV function was not assessed by LV-gram. FINAL IMPRESSION: This patient has a right dominant system. No significant disease in RCA, the previously stented diagonal stent is widely patent with good flow with some 40% lesion before the stented segment. LAD has 80% mid lesion after the second diagonal. The circumflex is totally occluded in the midportion and is a culprit vessel for his presentation with acute MT. LV end-diastolic pressure is elevated. No gradient across aortic valve. RECOMMENDATIONS: I recommended PCI of circumflex and proceeded to perform this expeditiously. PCI PROCEDURE DETAILS: A 3.5 left Cassius guide catheter was used to cannulate the circumflex coronary artery. A run-through wire was used to cross the lesion. A 3.0 caliber 12 mm Trek balloon was to used to pre-dilate the lesion and a 3.5 caliber 15 mm long Xience stent was deployed at 13 atmospheres. Excellent angiographic result was achieved without complication. I then turned my attention to the LAD. Same guide catheter was used and the catheter was selectively placed in the LAD. I noted the mid LAD lesion was significant of 80%. I advanced the same guidewire distally without predilatation. I deployed a 3.0 caliber 12 mm Xience stent right after the diagonal branch. Excellent angiographic result was achieved in multiple projections. The patient had chest pain and ST elevation. He received Angiomax bolus and infusion and also received 600 mg of Plavix orally. The sheath was then taken out and a Perclose device used to secure hemostasis. Excellent angiographic results were achieved. Patient was chest pain free, hemodynamically stable with a JOHANA-3 flow in both LAD and circumflex. He was counseled regarding the need to quit smoking. He was sent to the ICU in a stable condition. VANIA / ADRIAN: [id number] /
[2020-05-05] MEDS: METOPROLOL TARTRATE 25 MG TAB PO SCH ×2 (09:20→18:03)
[2020-05-05] MEDS: NICOTINE 21MG/24HR PATCH TRANSDERM SCH (09:20)
[2020-05-05] MEDS: lisinopriL 20 MG TAB PO SCH (09:21)
[2020-05-05] MEDS: amLODIPine 5 MG TAB PO SCH ×2 (09:21→19:55)
--- NOTE | 2020-05-05 12:14 | P.CNPUL ---
History of Present Illness Consult date: 05/05/20 Requesting physician: Vikash Taveras Reason for consult: COPD, other (Critical care management) Chief complaint: Chest pain History of present illness: This is a very pleasant 49-year-old gentleman who follows with Dr. Ng as his primary care provider. He has a history of coronary artery disease with previous stent placement, hyperlipidemia, hypertension, osteoarthritis, depression, chronic and ongoing tobacco dependence. He presented here to the emergency room earlier this morning at approximately 2 AM after waking up with substernal chest pain. This was substernal tightness and pressure that reminded him of his previous myocardial infarction that was 9 years ago with the stent pl acement. He was found to have an acute ST segment elevation myocardial infarction was taken directly to the [facility] where he received PTCA and stenting of a totally occluded mid circumflex artery and PTCA and stenting of the mid LAD. He was transferred to the intensive care unit for closer observ ation. He is currently awake and alert in no acute distress. He is maintaining O2 saturations in the mid 90s on 4 L/m per nasal cannula. He's per currently afebrile. Hemodynamically stable. His 0.9 normal saline at 75 ML's per hour. No other drips. White count 15.8. Hemoglobin 18.1. Platelets 241. Sodium 140. Potassium 3.2. Creatinine 1.30. Initial troponin 0.136 second troponin 68.9. Chest x-ray revealed no acute pulmonary process or some coarsening of interstitial markings. No overt heart failure. Echocardiogram pending. Coag 19 screening pending. Review of Systems REVIEW OF SYSTEMS: CONSTITUTIONAL: Denies any recent significant weight loss or weight gain. EYES: Denies change in vision. EARS, NOSE, MOUTH, THROAT: Denies headaches, denies sore throat. CARDIOVASCULAR: Positive for chest pain, no palpitations or syncopal episodes. RESPIRATORY: Denies shortness of breath, cough, congestion or hemoptysis. GASTROINTESTINAL: Denies change in appetite, denies abdominal pain GENITOURINARY: Denies hematuria, denies infections. MUSKULOSKELETAL: Denies pain, denies swelling. INTEGUMENTARY: Denies rash, denies eczema. NEUROLOGICAL: Denies recent memory loss, no recent seizure activity. PSYCHIATRIC: Denies anxiety, denies depression. HEMATOLOGIC/LYMPHATIC: Denies anemia, denies enlarged lymph nodes. Past Medical History Past Medical History: Coronary Artery Disease (CAD), Hyperlipidemia, Hypertension, Myocardial Infarction (MD), Osteoarthritis (OA) Additional Past Medical History / Comment(s): STATES NAUSEA & VOMITING AND DIARRHEA FOR 6 MONTHS. Last Myocardial Infarction Date:: 2008 History of Any Multi-Drug Resistant Organisms: None Reported Past Surgical History: Heart Catheterization With Stent, Orthopedic Surgery Additional Past Surgical History / Comment(s): multiple knee surg., bilateral shoulder surg., right thumb Past Anesthesia/Blood Transfusion Reactions: No Reported Reaction Date of Last Stent Placement:: 2008 Past Psychological History: Depression Smoking Status: Current every day smoker Past Alcohol Use History: None Reported Past Drug Use History: None Reported - Past Family History Mother Family Medical History: Cancer Medications and Allergies Home Medications Medication Instructions Recorded Confirmed Type Aspirin [Adult Low Dose Aspirin EC] 81 mg PO DAILY 07/27/18 05/05/20 History Naproxen 500 mg PO DAILY PRN 08/15/18 05/05/20 History Allergies Allergy/AdvReac Type Severity Reaction Status Date / Time Penicillins Allergy Unknown Verified 05/05/20 09:49 Childhood venom-honey bee Allergy Swelling Verified 05/05/20 09:49 [bee venom (honey bee)] Physical Exam Vitals: Vital Signs Temp Pulse Resp BP Pulse Ox 05/05/20 11:00 62 14 142/99 95 05/05/20 10:00 66 16 144/100 94 L 05/05/20 09:00 78 16 136/95 95 05/05/20 08:00 98.0 F 71 14 137/98 94 L 05/05/20 07:00 60 12 114/77 96 05/05/20 06:00 67 12 121/78 97 05/05/20 05:00 97.7 F 66 14 143/88 95 05/05/20 02:35 97.9 F 79 16 126/94 97 05/05/20 02:24 82 18 118/71 97 05/05/20 02:20 89 18 114/93 99 05/05/20 02:16 81 17 133/86 96 05/05/20 02:12 97 18 113/86 05/05/20 01:58 107 H 18 202/154 99 05/05/20 01:52 97.9 F 107 H 18 221/152 100 Intake and Output 0705/05/20 05/05/20 22:59 06:59 14:59 Intake Total 485 375 Output Total 300 1300 Balance 185 -925 Intake: IV 485 0.9 Normal Saline 150 Intake, IV Titration 375 Amount Sodium Chloride 0.9% 1, 375 000 ml @ 75 mls/hr IV . [id number] [facility] Rx#:[id number] Output: Urine 300 1300 Other: Voiding Method Urinal Weight 90 kg GENERAL EXAM: Alert, pleasant 49-year-old gentleman, on 4 L nasal cannula, comfortable in no apparent distress. HEAD: Normocephalic. EYES: Normal reaction of pupils, equal size. NOSE: Clear with pink turbinates. THROAT: No erythema or exudates. NECK: No masses, no JVD. CHEST: No chest wall deformity. LUNGS: Equal air entry with no crackles, wheeze, rhonchi or dullness. CVS: S1 and S2 normal with no audible murmur, regular rhythm. ABDOMEN: No hepatosplenomegaly, normal bowel sounds, no guarding or rigidity. SPINE: No scoliosis or deformity SKIN: No rashes CENTRAL NERVOUS SYSTEM: No focal deficits, tone is normal in all 4 extremities. EXTREMITIES: There is no peripheral edema. No clubbing, no cyanosis. Peripheral pulses are intact. Results - Laboratory Findings CBC and BMP: 05/05/20 01:58 05/05/20 01:58 PT/INR, D-dimer PT 9.6 sec (9.0-12.0) 05/05/20 01:58 INR 0.9 (<1.2) 05/05/20 01:58 Abnormal lab findings: Abnormal Labs 05/05/20 05/05/20 05/05/20 01:58 01:58 01:58 WBC 15.8 H Hgb 18.1 H Neutrophils # 9.9 H Potassium 3.2 L Creatinine 1.30 H Glucose 120 H POC Glucose (mg/dL) ALT 60 H CK-MB (CK-2) 3.0 H Troponin I 0.136 H* 05/05/20 05/05/20 04:40 07:53 WBC Hgb Neutrophils # Potassium Creatinine Glucose POC Glucose (mg/dL) 151 H ALT CK-MB (CK-2) Troponin I 68.900 H* - Diagnostic Findings Chest x-ray: image reviewed (No acute pulmonary process) Assessment and Plan Assessment: [address] segment elevation myocardial infarction status post stenting of a totally occluded mid circumflex artery along with stenting of the mid LAD. 2 History of coronary artery disease with previous stent placement in 2011 3 Chronic and ongoing tobacco dependence 4 Hypertension 5 Hyperlipidemia 6 Osteoarthritis 7 History of depression Plan: The patient was seen and evaluated by Dr. Sears Chest x-ray and labs reviewed Titrate down the FiO2 as tolerated Continue isolation until Covid screening resulted Educated regarding the importance of complete smoking cessation Would benefit from a workup in the outpatient setting including full pulmonary function testing to evaluate the severity of his suspected COPD We will continue to follow and make further recommendations based on his clinical status. I, the cosigning physician, performed a history & physical examination of the patient. Lungs sounds are clear. Maintaining good O2 saturations in the 90s on 4 L/m per nasal cannula. I discussed the assessment and plan of care with my nurse practitioner, Monica Rios. I attest to the above note as dictated by her. Time with Patient: Greater than 30
--- NOTE | 2020-05-05 13:14 | ECHOF ---
Referral Reason:Status Post PCI with Stent Placement MEASUREMENTS -------- HEIGHT: 175.3 cm WEIGHT: 89.8 kg BP: 114/77 RVIDd: 2.4 cm (< 3.3) IVSd: 1.6 cm (0.6 - 1.1) LVIDd: 4.1 cm (3.9 - 5.3) LVPWd: 1.6 cm (0.6 - 1.1) IVSs: 2.3 cm LVIDs: 3.0 cm LVPWs: 1.7 cm LAESV Index (A-L): 38.28 ml/m Ao Diam: 3.6 cm (2.0 - 3.7) AV Cusp: 2.4 cm (1.5 - 2.6) MV EXCURSION: 16.269 mm (> 18.000) MV EF SLOPE: 110 mm/s (70 - 150) EPSS: 0.7 cm MV E Grupo: 1.07 m/s MV DecT: 172 ms MV A Grupo: 0.42 m/s MV E/A Ratio: 2.53 RAP: 5.00 mmHg RVSP: 43.85 mmHg FINDINGS -------- Sinus rhythm. This was a technically adequate study. The left ventricular size is normal. There is moderate concentric left ventricular hypertrophy. O verall left ventricular systolic function is moderately impaired with, an EF between 35 - 40 %. [facility] Doppler inflow pattern suggests diastolic filling abnormality 20.67. apical hypokinetic The right ventricle is normal in size. LA is moderately dilated 34-39 ml/m2 The right atrial size is normal. Interatrial and interventricular septum intact. The aortic valve is trileaflet and appears structurally normal. There is no evidence of aortic regu rgitation. There is no evidence of aortic stenosis. [id number] mitral regurgitation is present. Mild tricuspid regurgitation present. There is mild pulmonary hypertension. The right ventricular systolic pressure, as measured by Doppler, is 43.85mmHg. Trace/mild (physiologic) pulmonic regurgitation. The aortic root size is normal. IVC Not well visulized. There is no pericardial effusion. CONCLUSIONS -------- 1. Sinus rhythm. 2. This was a technically adequate study. 3. The left ventricular size is normal. 4. There is moderate concentric left ventricular hypertrophy. 5. Overall left ventricular systolic function is moderately impaired with, an EF between 35 - 40 %. 6. Mitral Doppler inflow pattern suggest diastolic filling abnormality 20.67. 7. Anterior is hypokinetic 8. The right ventricle is normal in size. 9. LA is moderately dilated 34-39 ml/m2 10. The right atrial size is normal. 11. Interatrial and interventricular septum intact. 12. The aortic valve is trileaflet and appears structurally normal. 13. There is no evidence of aortic regurgitation. 14. There is no evidence of aortic stenosis. 15. [id number] mitral regurgitation is present. 16. Mild tricuspid regurgitation present. 17. There is mild pulmonary hypertension. 18. The right ventricular systolic pressure, as measured by Doppler, is 43.85mmHg. 19. Trace/mild (physiologic) pulmonic regurgitation. 20. The aortic root size is normal. 21. IVC Not well visulized. 22. There is no pericardial effusion. CLINIC SUPERVISOR: Silvia Kiran RDCS
[2020-05-05 16:09] LABS: Calcium 9.1 mg/dL (8.4-10.2); Magnesium 2.1 mg/dL (1.6-2.3); Potassium 3.9 mmol/L (3.5-5.1)
--- NOTE | 2020-05-05 20:55 | P.HPIM ---
History of Present Illness H&P Date: 05/05/20 Chief Complaint: Chest Pain Patient is a 49-year-old male with a known history of coronary artery disease status post stent placement and 2009, history of UT, osteoarthritis, hypertension, hyperlipidemia, depression and currently everyday smoker presents to ER with his 1 week of at around 2 AM with the complaints of chest pain. Chest pain is mainly substernal with tightness and pressure-like sensation which he felt when he had acute UT about 9 years ago. No associated headache or dizziness or lightheadedness. Patient was diaphoretic when he presented to ER. In the ER he was found to have acute ST elevated UT and was immediately taken to cardiac catheterization. Patient is status post stenting of mid circumflex and mid LAD. Patient otherwise denied any complaints of cough or sputum production. No fever no chills. Denied any recent illnesses. Patient otherwise continues to smoke daily. Currently denied any complaints of chest pain or shortness of breath. Laboratory data showed WBC 15.8, hemoglobin 18.1, platelets 241 Neutrophils 9.9 Sodium 140, potassium 3.2, BUN 14 and creatinine 1.3 Troponin 0 0.136, 68.9 and 61.9 blood pressure is 155/99 pulse is 71 respiration 22 and pulse ox 92% on 2 L oxygen via nasal cannula. Chest x-ray showed increased interstitial pulmonary markings compatible exam. No gross heart failure. Review of Systems Constitutional: Patient denies any fever or chills . No generalized weakness or weight loss. Abdomen: Patient denied nausea vomiting and diarrhea and abdominal pain. Cardiovascular: Patient does have chest pain is worse with shortness of breath and diaphoresis. No palpitations.. Respiratory: patient denied any cough is from production. No shortness of breath Neurologic: Patient denied any numbness or tingling headache. Musculoskeletal: Patient denies any complaints of joint swelling or deformity. Skin: Negative Psychiatric: Negative Endocrine: No heat or cold intolerance. No recent weight gain. Genitourinary: No dysuria or hematuria. All other 14 point ROS negative except the above Past Medical History Past Medical History: Coronary Artery Disease (CAD), Hyperlipidemia, Hypertension, Myocardial Infarction (UT), Osteoarthritis (OA) Additional Past Medical History / Comment(s): STATES NAUSEA & VOMITING AND DIARRHEA FOR 6 MONTHS. Last Myocardial Infarction Date:: 2008 History of Any Multi-Drug Resistant Organisms: None Reported Past Surgical History: Heart Catheterization With Stent, Orthopedic Surgery Additional Past Surgical History / Comment(s): multiple knee surg., bilateral shoulder surg., right thumb Past Anesthesia/Blood Transfusion Reactions: No Reported Reaction Date of Last Stent Placement:: 2008 Past Psychological History: Depression Smoking Status: Current every day smoker Past Alcohol Use History: None Reported Past Drug Use History: None Reported - Past Family History Mother Family Medical History: Cancer Medications and Allergies Home Medications Medication Instructions Recorded Confirmed Type Aspirin [Adult Low Dose Aspirin EC] 81 mg PO DAILY 07/27/18 05/05/20 History Naproxen 500 mg PO DAILY PRN 08/15/18 05/05/20 History Allergies Allergy/AdvReac Type Severity Reaction Status Date / Time Penicillins Allergy Unknown Verified 05/05/20 09:49 Childhood venom-honey bee Allergy Swelling Verified 05/05/20 09:49 [bee venom (honey bee)] Physical Exam Vitals: Vital Signs Temp Pulse Resp BP Pulse Ox 05/05/20 07:00 60 12 114/77 96 05/05/20 06:00 67 12 121/78 97 05/05/20 05:00 97.7 F 66 14 143/88 95 05/05/20 02:35 97.9 F 79 16 126/94 97 05/05/20 02:24 82 18 118/71 97 05/05/20 02:20 89 18 114/93 99 05/05/20 02:16 81 17 133/86 96 05/05/20 02:12 97 18 113/86 05/05/20 01:58 107 H 18 202/154 99 05/05/20 01:52 97.9 F 107 H 18 221/152 100 Intake and Output 05/04/20 05/05/20 05/05/20 22:59 06:59 14:59 Intake Total 485 75 Output Total 300 500 Balance 185 -425 Intake: IV 485 0.9 Normal Saline 150 Intake, IV Titration 75 Amount Sodium Chloride 0.9% 1, 75 000 ml @ 75 mls/hr IV . [id number] [facility] Rx#:[id number] Output: Urine 300 500 Other: Weight 90 kg PHYSICAL EXAMINATION: Patient is lying in the bed comfortably, no acute distress, awake alert and oriented.. HEENT: Normocephalic. Neck is supple. Pupils reactive. Nostrils clear. Oral cavity is moist. Ears reveal no drainage. Neck reveals no JVD, carotid bruits, or thyromegaly. CHEST EXAMINATION: Trachea is central. Symmetrical expansion. Lung cruz clear to auscultation and percussion. CARDIAC: Normal S1, S2 with no gallops. No murmurs ABDOMEN: Soft. Bowel sounds normal. No organomegaly. No abdominal bruits. Extremities: reveal no edema. No clubbing or cyanosis Neurologically awake, alert, oriented x3 with well-coordinated movements. No focal deficits noted Skin: No rash or skin lesions. Psychiatric: Coperative. Nonsuicidal Musculoskeletal: No joint swelling or deformity. Normal range of motion. Results CBC & Chem 7: 05/05/20 01:58 05/05/20 15:11 Labs: Abnormal Lab Results - Last 24 Hours (Table) 05/05/20 05/05/20 05/05/20 Range/Units 01:58 01:58 01:58 WBC 15.8 H (3.8-10.6) k/uL Hgb 18.1 H (13.0-17.5) gm/dL Neutrophils # 9.9 H (1.3-7.7) k/uL Potassium 3.2 L (3.5-5.1) mmol/L Creatinine 1.30 H (0.66-1.25) mg/dL Glucose 120 H (74-99) mg/dL POC Glucose (mg/dL) (75-99) mg/dL ALT 60 H (4-49) U/L CK-MB (CK-2) 3.0 H (0.0-2.4) ng/mL Troponin I 0.136 H* (0.000-0.034) ng/mL 05/05/20 05/05/20 Range/Units 04:40 07:53 WBC (3.8-10.6) k/uL Hgb (13.0-17.5) gm/dL Neutrophils # (1.3-7.7) k/uL Potassium (3.5-5.1) mmol/L Creatinine (0.66-1.25) mg/dL Glucose (74-99) mg/dL POC Glucose (mg/dL) 151 H (75-99) mg/dL ALT (4-49) U/L CK-MB (CK-2) (0.0-2.4) ng/mL Troponin I 68.900 H* (0.000-0.034) ng/mL Thrombosis Risk Factor Assmnt - DVT/VTE Prophylaxis DVT/VTE Prophylaxis: Pharmacologic Prophylaxis ordered - Choose All That Apply Each Factor Represents 1 point: Acute UT, Age 41-60 years Thrombosis Risk Factor Assessment Total Risk Factor Score: 2 Thrombosis Risk Factor Assessment Level: Low Risk Assessment and Plan Assessment: Acute ST elevated UT status post stent placement to mid circumflex and mid LAD History of coronary artery disease with stent placement about 9 years ago Ongoing nicotine addiction Possible underlying COPD. Will need outpatient PFTs. Questionable noncompliance with medications Uncontrolled hypertension, Hyperlipidemia History of UT Osteoarthritis with multiple knee surgeries and bilateral shoulder surgery Depression DVT prophylaxis with heparin subcu Plan: Patient is currently status post stent placement x2. Continue with telemetry monitoring. Patient was started on aspirin, statins, Plavix and metoprolol. Titrate blood pressure medications for better blood pressure control. Currently patient is maintaining sinus rhythm. Continue to follow-up as an ICU. Smoking cessation has been counseled extensively. Time with Patient: Greater than 30
[2020-05-06 04:50] LABS: Basophils # (A) 0.1 k/uL (0-0.2); Basophils % (A) 0 %; Eosinophils # (A) 0.1 k/uL (0-0.7); Eosinophils % (A) 1 %; Lymphocytes # (A) 1.5 k/uL (1.0-4.8); Lymphocytes % (A) 9 %; MCH 32.3 pg (25.0-35.0); MCHC 34.2 g/dL (31.0-37.0); MCV 94.5 fL (80.0-100.0); Mean Platelet Volume 9.2; Monocytes # (A) 0.9 k/uL (0-1.0); Monocytes % (A) 6 %; Neutrophils # (A) 13.4 k/uL (1.3-7.7); Neutrophils % (A) 83 %; Platelet Count 185 k/uL (150-450); RBC 4.65 m/uL (4.30-5.90); RDW 12.7 % (11.5-15.5); WBC 16.1 k/uL (3.8-10.6)
[2020-05-06 05:02] LABS: African American GFR (CKD) >90 (>60 ml/min/1.73 sqM); Anion Gap 6 mmol/L; Blood Urea Nitrogen 14 mg/dL (9-20); Calcium 8.9 mg/dL (8.4-10.2); Carbon Dioxide 23 mmol/L (22-30); Chloride 108 mmol/L (98-107); Glucose 106 mg/dL (74-99); Non-African American GFR(CKD) 85 (>60 ml/min/1.73 sqM); Potassium 3.6 mmol/L (3.5-5.1); Sodium 137 mmol/L (137-145)
[2020-05-06] MEDS: ATORVASTATIN 80 MG TAB PO SCH (07:59)
[2020-05-06] MEDS: NICOTINE 21MG/24HR PATCH TRANSDERM SCH (08:00)
[2020-05-06] MEDS: lisinopriL 20 MG TAB PO SCH (08:00)
[2020-05-06] MEDS: ASPIRIN 81 MG PO SCH (08:00)
[2020-05-06] MEDS: CLOPIDOGREL 75 MG TAB PO SCH (08:00)
[2020-05-06] MEDS: METOPROLOL TARTRATE 25 MG TAB PO SCH (08:00)
[2020-05-06] MEDS: amLODIPine 5 MG TAB PO SCH ×2 (08:00→20:08)
[2020-05-06] MEDS ORDERED: METOPROLOL TARTRATE 25 MG TAB PO STA (09:18)
--- NOTE | 2020-05-06 10:11 | PN ---
PROGRESS NOTE Ildefonso is a 49-year-old gentleman that was admitted to hospital with anterior wall myocardial infarction. He underwent cardiac catheterization and angioplasty of the LAD. This morning he is doing well and is free of symptoms. PHYSICAL EXAM: Blood pressure is elevated at 142/90 to 151/102. Afebrile. Heart rate is normal. There is there is no jugular venous distention. Chest exam reveals good air entry bilaterally. Heart exam reveals first and second heart sounds. No gallop. No murmur. No rub. Abdomen is soft, nontender. Exam of extremities did not reveal any edema. Groin is free of bleeding, bruit, hematoma. LABS: His labs show that the troponin is elevated at 68, potassium is 3.6, creatinine is 1. Hemoglobin is 15. MEDICATIONS: The patient is currently on Norvasc 5 b.i.d. aspirin, Lipitor, Plavix 75 daily, Zestril 20 daily, metoprolol 25 b.i.d., Nicoderm patch. ASSESSMENT: 1. Acute anterior wall myocardial infarction status post catheterization and angioplasty. 2. Ischemic cardiomyopathy. 3. Uncontrolled hypertension. PLAN: I am going to increase the dose of metoprolol to 50 b.i.d. given the elevated blood pressures and the cardiomyopathy. MMODL / IJN: [id number] /
--- NOTE | 2020-05-06 11:21 | P.PN ---
Subjective Progress Note Date: 05/06/20 Principal diagnosis: Acute ST segment elevation status post stenting of a totally occluded mid circumflex along with stenting of the LAD This is a very pleasant 49-year-old gentleman who follows with Dr. Ng as his primary care provider. He has a history of coronary artery disease with previous stent placement, hyperlipidemia, hypertension, osteoarthritis, depression, chronic and ongoing tobacco dependence. He presented here to the emergency room earlier this morning at approximately 2 AM after waking up with substernal chest pain. This was substernal tightness and pressure that reminded him of his previous myocardial infarction that was 9 years ago with the stent p lacement. He was found to have an acute ST segment elevation myocardial infarction was taken directly to the [facility] where he received PTCA and stenting of a totally occluded mid circumflex artery and PTCA and stenting of the mid LAD. He was transferred to the intensive care unit for closer obser vation. He is currently awake and alert in no acute distress. He is maintaining O2 saturations in the mid 90s on 4 L/m per nasal cannula. He's per currently afebrile. Hemodynamically stable. His 0.9 normal saline at 75 ML's per hour. No other drips. White count 15.8. Hemoglobin 18.1. Platelets 241. Sodium 140. Potassium 3.2. Creatinine 1.30. Initial troponin 0.136 second troponin 68.9. Chest x-ray revealed no acute pulmonary process or some coarsening of interstitial markings. No overt heart failure. Echocardiogram pending. Coag 19 screening pending. The patient is seen today 05/06/2020 in follow-up in the intensive care unit. He is awake and alert in no acute distress. No shortness of breath, cough or congestion. No chest pain or palpitations. He is feeling much better. No further issues overnight. He is maintaining good O2 saturations in the mid 90s on room air. He's afebrile. Hemodynamically stable. White count 16.1. Hemoglobin 15.0. Sodium 137. Potassium 3.6. Creatinine 1.02. Troponins trending down. [place] virus not detected. He remains on Plavix and aspirin. Objective - Vital Signs Vital signs: Vital Signs Temp 98.5 F 05/06/20 08:00 Pulse 74 05/06/20 09:00 Resp 19 05/06/20 09:00 BP 151/102 07/12/20 09:00 Pulse Ox 96 05/06/20 09:00 Intake & Output 05/05/20 05/06/20 05/06/20 18:59 06:59 18:59 Intake Total 900 0 Output Total 1300 0 0 Balance -400 0 0 Weight 97.2 kg Intake: IV 0 0.9 Normal Saline 0 Intake, IV Titration 900 Amount Sodium Chloride 0.9% 1, 900 000 ml @ 75 mls/hr IV . [id number] [facility] Rx#:[id number] Output: Urine 1300 0 0 Other: Voiding Method Urinal Urinal # Voids 1 0 0 - Exam GENERAL EXAM: Alert, active, very pleasant 49-year-old gentleman, on room air, comfortable in no apparent distress. HEAD: Normocephalic. EYES: Normal reaction of pupils, equal size. NOSE: Clear with pink turbinates. THROAT: No erythema or exudates. NECK: No masses, no JVD. CHEST: No chest wall deformity. LUNGS: Equal air entry with no crackles, wheeze, rhonchi or dullness. CVS: S1 and S2 normal with no audible murmur, regular rhythm. ABDOMEN: No hepatosplenomegaly, normal bowel sounds, no guarding or rigidity. SPINE: No scoliosis or deformity SKIN: No rashes CENTRAL NERVOUS SYSTEM: No focal deficits, tone is normal in all 4 extremities. EXTREMITIES: There is no peripheral edema. No clubbing, no cyanosis. Peripheral pulses are intact. - Labs CBC & Chem 7: 05/06/20 04:13 05/06/20 04:13 Labs: Abnormal Lab Results - Last 24 Hours (Table) 05/05/20 05/05/20 05/06/20 Range/Units 15:11 17:54 04:13 WBC 16.1 H (3.8-10.6) k/uL Neutrophils # 13.4 H (1.3-7.7) k/uL Chloride (98-107) mmol/L Glucose 134 H (74-99) mg/dL Troponin I 61.900 H* (0.000-0.034) ng/mL 05/06/20 Range/Units 04:13 WBC (3.8-10.6) k/uL Neutrophils # (1.3-7.7) k/uL Chloride 108 H (98-107) mmol/L Glucose 106 H (74-99) mg/dL Troponin I (0.000-0.034) ng/mL Assessment and Plan Assessment: [address] segment elevation myocardial infarction status post stenting of a totally occluded mid circumflex artery along with stenting of the mid LAD. 2 History of coronary artery disease with previous stent placement in 2011 3 Chronic and ongoing tobacco dependence 4 Hypertension 5 Hyperlipidemia 6 Osteoarthritis 7 History of depression Plan: The patient was seen and evaluated by Dr. Sears He is stable from the critical care standpoint [facility] Again educated regarding the importance of complete smoking cessation Would benefit from a workup in the outpatient setting including full pulmonary function testing to evaluate the severity of his suspected COPD We will continue to follow and make further recommendations based on his clinical status. I, the cosigning physician, performed a history & physical examination of the patient. Lungs sounds are clear. Maintaining good O2 saturations in the 90s on room air. I discussed the assessment and plan of care with my nurse practitioner, Monica Rios. I attest to the above note as dictated by her.
[2020-05-06] MEDS: METOPROLOL TARTRATE 50 MG TAB PO SCH (20:08)
--- NOTE | 2020-05-06 23:04 | P.PN ---
Subjective Progress Note Date: 05/06/20 Principal diagnosis: Acute KS Patient is a 49-year-old male with a known history of coronary artery disease status post stent placement and 2009, history of KS, osteoarthritis, h ypertension, hyperlipidemia, depression and currently everyday smoker presents to ER with his 1 week of at around 2 AM with the complaints of chest pain. Chest pain is mainly substernal with tightness and pressure-like sensation which he felt when he had acute KS about 9 years ago. No associated headache or dizziness or lightheadedness. Patient was diaphoretic when he presented to ER. In the ER he was found to have acute ST elevated KS and was immediately taken to cardiac catheterization. Patient is status post stenting of mid circumflex and mid LAD. Patient otherwise denied any complaints of cough or sputum production. No fever no chills. Denied any recent illnesses. Patient otherwise continues to smoke daily. Currently denied any complaints of chest pain or shortness of breath. Laboratory data showed WBC 15.8, hemoglobin 18.1, platelets 241 Neutrophils 9.9 Sodium 140, potassium 3.2, BUN 14 and creatinine 1.3 Troponin 0 0.136, 68.9 and 61.9 blood pressure is 155/99 pulse is 71 respiration 22 and pulse ox 92% on 2 L oxygen via nasal cannula. Chest x-ray showed increased interstitial pulmonary markings compatible exam. No gross heart failure. 05/06/2020 Patient is currently sitting in the chair comfortably. Denied any complaints of nausea vomiting or abdominal pain. No chest pain or shortness of breath. Blood pressure is slightly elevated today. Beta-karina dose was increased. Cardiology and pulmonary is on board. No other acute overnight issues or abnormal rhythm noted. Currently being continued on aspirin Plavix and beta-blockers. Current medications reviewed. Objective - Vital Signs Vital signs: Vital Signs Temp 98.3 F 05/06/20 16:00 Pulse 82 05/06/20 16:00 Resp 18 05/06/20 16:00 BP 146/65 05/06/20 16:00 Pulse Ox 96 05/06/20 19:37 Intake & Output 05/06/20 05/06/20 05/07/20 06:59 18:59 06:59 Intake Total 0 230 Output Total 0 0 Balance 0 230 Weight 97.2 kg Intake: IV 0 0.9 Normal Saline 0 Oral 230 Output: Urine 0 0 Other: Voiding Method Urinal Urinal # Voids 0 2 - Exam PHYSICAL EXAMINATION: Patient is lying in the bed comfortably, no acute distress, awake alert and oriented.. HEENT: Normocephalic. Neck is supple. Pupils reactive. Nostrils clear. Oral cavity is moist. Ears reveal no drainage. Neck reveals no JVD, carotid bruits, or thyromegaly. CHEST EXAMINATION: Trachea is central. Symmetrical expansion. Lung cruz clear to auscultation and percussion. CARDIAC: Normal S1, S2 with no gallops. No murmurs ABDOMEN: Soft. Bowel sounds normal. No organomegaly. No abdominal bruits. Extremities: reveal no edema. No clubbing or cyanosis Neurologically awake, alert, oriented x3 with well-coordinated movements. No focal deficits noted Skin: No rash or skin lesions. Psychiatric: Coperative. Nonsuicidal Musculoskeletal: No joint swelling or deformity. Normal range of motion. - Labs CBC & Chem 7: 05/06/20 04:13 05/06/20 04:13 Labs: Abnormal Lab Results - Last 24 Hours (Table) 05/06/20 05/06/20 Range/Units 04:13 04:13 WBC 16.1 H (3.8-10.6) k/uL Neutrophils # 13.4 H (1.3-7.7) k/uL Chloride 108 H (98-107) mmol/L Glucose 106 H (74-99) mg/dL Assessment and Plan Assessment: Acute ST elevated KS status post stent placement to mid circumflex and mid LAD History of coronary artery disease with stent placement about 9 years ago Ongoing nicotine addiction Possible underlying COPD. Will need outpatient PFTs. Questionable noncompliance with medications Uncontrolled hypertension, Hyperlipidemia History of [place] Osteoarthritis with multiple knee surgeries and bilateral shoulder surgery Depression DVT prophylaxis with heparin subcu Plan: Patient is currently status post stent placement x2. Continue with telemetry monitoring. Patient was started on aspirin, statins, Plavix and metoprolol. Titrate blood pressure medications for better blood pressure control. Currently patient is maintaining sinus rhythm. Continue to follow-up as an ICU. Smoking cessation has been counseled extensively. Time with Patient: Greater than 30
[2020-05-07] MEDS: amLODIPine 5 MG TAB PO SCH (09:28)
[2020-05-07] MEDS: CLOPIDOGREL 75 MG TAB PO SCH (09:28)
[2020-05-07] MEDS: METOPROLOL TARTRATE 50 MG TAB PO SCH (09:28)
[2020-05-07] MEDS: ASPIRIN 81 MG PO SCH (09:28)
[2020-05-07] MEDS: ATORVASTATIN 80 MG TAB PO SCH (09:28)
[2020-05-07] MEDS: lisinopriL 20 MG TAB PO SCH (09:28)
[2020-05-07] MEDS: NICOTINE 21MG/24HR PATCH TRANSDERM SCH (09:28)
--- NOTE | 2020-05-07 13:28 | P.PN ---
Subjective Progress Note Date: 05/07/20 Principal diagnosis: Acute ST segment elevated myocardial infarction This is a very pleasant 49-year-old gentleman who follows with Dr. Ng as his primary care provider. He has a history of coronary artery disease with previous stent placement, hyperlipidemia, hypertension, osteoarthritis, depression, chronic and ongoing tobacco dependence. He presented here to the emergency room earlier this morning at approximately 2 AM after waking up with substernal chest pain. This was substernal tightness and pressure that reminded him of his previous myocardial infarction that was 9 years ago with the stent placement. He was found to have an acute ST segment elevation myocardial infarction was taken directly to the [facility] where he received PTCA and stenting of a totally occluded mid circumflex artery and PTCA and stenting of the mid LAD. He was transferred to the intensive care unit for closer observation. He is currently awake and alert in no acute distress. He is maintaining O2 saturations in the mid 90s on 4 L/m per nasal cannula. He's per currently afebrile. Hemodynamically stable. His 0.9 normal saline at 75 ML's per hour. No other drips. White count 15.8. Hemoglobin 18.1. Platelets 241. Sodium 140. Potassium 3.2. Creatinine 1.30. Initial troponin 0.136 second troponin 68.9. Chest x-ray revealed no acute pulmonary process or some coarsening of interstitial markings. No overt heart failure. Echocardiogram pending. Coag 19 screening pending. The patient is seen today 05/06/2020 in follow-up in the intensive care unit. He is awake and alert in no acute distress. No shortness of breath, cough or congestion. No chest pain or palpitations. He is feeling much better. No further issues overnight. He is maintaining good O2 saturations in the mid 90s on room air. He's afebrile. Hemodynamically stable. White count 16.1. Hemoglobin 15.0. Sodium 137. Potassium 3.6. Creatinine 1.02. Troponins trending down. [place] virus not detected. He remains on Plavix and aspirin. On 05/07/2020 patient seen in follow-up on selective care unit, he is awake and alert, oriented 3, not on any oxygen or any IV drips. IV fluids have an hep- locked, he is ambulating about the room, tolerating activity well, room air pulse ox 90%, hemodynamically stable, no fever or chills, no complaint of shortness of breath or chest pain. Patient is on aspirin, Plavix, Lipitor, lisinopril, metoprolol. No acute events overnight, his lung sounds are clear, his echocardiogram showed moderately impaired left ventricular systolic function with an EF between 35-40%, no evidence of aortic regurgitation or aortic stenosis, mild to moderate mitral regurg, mild tricuspid regurgitation, mild pulmonary hypertension with right-sided pressures of 43.8 mmHg. Today's labs have been reviewed, showing white blood cell, 16.1, hemoglobin of 15, sodium is 137, potassium is 3.6, chloride is 108, CO2 is 23, BUN of 14, creatinine is 1.04 patient has had no acute events overnight, he is anticipated to be discharged home today. Objective - Vital Signs Vital signs: Vital Signs Temp 98.1 F 05/07/20 08:00 Pulse 79 05/07/20 08:00 Resp 16 05/07/20 08:00 BP 140/90 05/07/20 08:00 Pulse Ox 98 05/07/20 08:00 Intake & Output 05/06/20 05/07/20 05/07/20 18:59 06:59 18:59 Intake Total 230 240 240 Output Total 0 Balance 230 240 240 Weight 91.4 kg Intake: Oral 230 240 240 Output: Urine 0 Other: Voiding Method Urinal Urinal # Voids 2 - Exam GENERAL EXAM: Alert, very pleasant, 49-year-old white male, on room air, with a pulse ox of 98% comfortable in no apparent distress. HEAD: Normocephalic/atraumatic. EYES: Normal reaction of pupils, equal size. Conjunctiva pink, sclera white. NOSE: Clear with pink turbinates. THROAT: No erythema or exudates. NECK: No masses, no JVD, no thyroid enlargement, no adenopathy. CHEST: No chest wall deformity. Symmetrical expansion. LUNGS: Equal air entry with crackles, no rhonchi or wheezes CVS: Regular rate and rhythm, normal S1 and S2, no gallops, no murmurs, no rubs ABDOMEN: Soft, nontender. No hepatosplenomegaly, normal bowel sounds, no guarding or rigidity. EXTREMITIES: No clubbing, no edema, no cyanosis, 2+ pulses and upper and lower extremities. MUSCULOSKELETAL: Muscle strength and tone normal. SPINE: No scoliosis or deformity SKIN: No rashes CENTRAL NERVOUS SYSTEM: Alert and oriented -3. No focal deficits, tone is normal in all 4 extremities. PSYCHIATRIC: Alert and oriented -3. Appropriate affect. Intact judgment and i nsight. - Labs CBC & Chem 7: 05/06/20 04:13 05/06/20 04:13 Assessment and Plan Plan: Assessment: [address] segment elevation myocardial infarction status post stenting of a totally occluded mid circumflex artery along with stenting of the mid LAD. 2 History of coronary artery disease with previous stent placement in 2011 3 Chronic and ongoing tobacco dependence 4 Hypertension 5 Hyperlipidemia 6 Osteoarthritis 7 History of depression 8 ischemic cardiomyopathy, with moderately impaired LV function and EF of 35- 40%, moderate concentric LVH, mild tricuspid regurg, mild to moderate mitral regurg, mild pulmonary hypertension with right-sided oppressive 43.8 mmHg Plan: Patient remains stable, no complaint of chest pain, no shortness of breath, he is tolerating ambulation, IV fluids have been hep-locked, he is on room air, no acute events overnight. Echocardiogram results have been noted. Anticipate discharge home today, smoking cessation was advised I performed a history & physical examination of the patient and discussed their management with my nurse practitioner, Yesenia Vieira. I reviewed the nurse practitioner's note and agree with the documented findings and plan of care. Lung sounds are positive for clear breath sounds. The findings and the impression was discussed with the patient. I attest to the documentation by the nurse practitioner. Time with Patient: Less than 30
[2020-05-07 13:40] VITALS: BP 132/85; PULSE 71; RESP 18; TEMP 98
[2020-05-07] MEDS ORDERED: POTASSIUM CHLORIDE ER 20 MEQ TAB.ER PO STA (14:07)
--- NOTE | 2020-05-07 14:31 | PN ---
PROGRESS NOTE Mr. Mercer presents with acute apical AK, underwent stenting of a totally occluded circumflex and also a mid LAD. He is doing better. No chest pain or shortness of breath. Vitals are stable, no JVD, ejection fraction in the 40% range. I am recommending we decrease amlodipine to 5 mg daily and increase activity, possible discharge today. I will see him in the office in 2 weeks. Vitals are stable, no JVD,. S1, S2 heard normally. His lungs are clear. Abdomen and lower extremity exam unchanged. MMODL / IJN: [id number] /
--- NOTE | 2020-05-07 16:14 | P.DS ---
Providers Date of admission: 05/05/20 02:06 Expected date of discharge: 05/07/20 Attending physician: Kyler Ng Consults: 05/05/20 01:56 Consult Physician Stat Consulting Provider: [facility] Consult Reason/Comments: STEMI ACTIVATION COMPLETE Do you want consulting provider notified?: Yes 05/05/20 04:44 Consult Physician Stat Consulting Provider: Arabella Taveras Consult Reason/Comments: Acute coronary syndrome Do you want consulting provider notified?: Already Contacted 05/05/20 05:00 Consult Physician Routine Consulting Provider: Pj Sears Consult Reason/Comments: COPD Do you want consulting provider notified?: Already Contacted Primary care physician: Kyler Ng Hospital Course: Final Diagnoses: Acute ST elevated [place] status post stent placement to mid circumflex and mid LAD History of coronary artery disease with stent placement about 9 years ago Ongoing nicotine addiction Possible underlying COPD. Will need outpatient PFTs. Questionable noncompliance with medications Uncontrolled hypertension, Hyperlipidemia History of [place] Osteoarthritis with multiple knee surgeries and bilateral shoulder surgery Depression Hospital course: This is a 49-year-old gentleman admitted with acute STEMI and multiple other medical issues. Evaluated by cardiology and pulmonary. Underwent cardiac catheterization with stenting of the LAD and circumflex. Tolerated procedure well. Cleared by cardiology and pulmonary for discharge. Patient is being discharged home today in a stable condition with guarded prognosis. Please refer to EMR for further details. The impression and plan of care has been dictated as directed. : I performed a history and examination of this patient, discussed the same with the dictator. I agree with the dictator's note ,documented as a scribe. Any additional findings or plans will be noted. Patient Condition at Discharge: Stable Plan - Discharge Summary Discharge Rx Participant: No New Discharge Prescriptions: New Nicotine 21Mg/24Hr Patch [Habitrol] 1 patch TRANSDERM DAILY #30 patch Atorvastatin [Lipitor] 80 mg PO HS #30 tab Metoprolol Tartrate [Lopressor] 50 mg PO BID #60 tab Nitroglycerin Sl Tabs [Nitrostat] 0.4 mg SUBLINGUAL Q5M PRN #100 tab PRN Reason: Chest Pain amLODIPine [Norvasc] 5 mg PO DAILY #30 tab Clopidogrel [Plavix] 75 mg PO DAILY #30 tab Lisinopril [Zestril] 20 mg PO BID #60 tab Continue Aspirin [Adult Low Dose Aspirin EC] 81 mg PO DAILY Discontinued Naproxen 500 mg PO DAILY PRN PRN Reason: Pain Discharge Medication List Aspirin [Adult Low Dose Aspirin EC] 81 mg PO DAILY 07/27/18 [History] Atorvastatin [Lipitor] 80 mg PO HS #30 tab 05/07/20 [Rx] Clopidogrel [Plavix] 75 mg PO DAILY #30 tab 05/07/20 [Rx] Lisinopril [Zestril] 20 mg PO BID #60 tab 05/07/20 [Rx] Metoprolol Tartrate [Lopressor] 50 mg PO BID #60 tab 05/07/20 [Rx] Nicotine 21Mg/24Hr Patch [Habitrol] 1 patch TRANSDERM DAILY #30 patch 05/07/20 [Rx] Nitroglycerin Sl Tabs [Nitrostat] 0.4 mg SUBLINGUAL Q5M PRN #100 tab 05/07/20 [Rx] amLODIPine [Norvasc] 5 mg PO DAILY #30 tab 05/07/20 [Rx] Follow up Appointment(s)/Referral(s): Arabella Taveras MD [STAFF PHYSICIAN] - 2 Weeks (Dr Taveras's office will call patient with appointment ) Kyler Ng DO [Primary Care Provider] - 05/08/20 11:00 am Ambulatory/Diagnostic Orders: Complete Blood Count w/diff [LAB.AMB] Time Frame: 3 Days, Location: None Selected Patient Instructions/Handouts: Acute Coronary Syndrome (DC), Heart Catheterization (DC) Activity/Diet/Wound Care/Special Instructions: No smoking Discharge Disposition: HOME SELF-CARE
[2020-05-07] MEDS ORDERED: lisinopriL 20 MG TAB PO SCH (21:00)
[2020-05-08] MEDS ORDERED: amLODIPine 5 MG TAB PO SCH (09:00)
--- NOTE | 2020-05-08 13:38 | CDI ---
Documentation Clarification Form Date: 05/08/20 From: Reyna Brown Phone: If you have a question about this query, please contact Samantha Fisher Leather Belt Shaper at [phone] between 8am and 5pm. Admit Date: 05/05/20 Discharge Date: 05/07/20 Patient Name: Ildefonso Mercer Visit Number: [id number] ATTENTION: The Clinical Documentation Specialists (CDI) and [facility] Coding Staff appreciate your assistance in clarifying documentation. Please respond to the clarification below the line at the bottom and electronically sign. The CDI & [facility] Coding staff will review the response and follow-up if needed. Please note: Queries are made part of the Legal Health Record. If you have any questions, please contact the author of this message via ITS. Dear Dr. Johnson The patient presented with the following: acute ST elevation [place]. History/Risk Factors: Hypertension, noncompliance with hypertensive meds, CAD, pulmonary hypertension, smoker Clinical Indicators: Elevated blood pressures Vital Signs: T. 97/9, P. 107, R. 18, BP 221/152 Blood Pressures: 05/05 - 221/152, 202/154 (01:52 - 02:12); 144/100, 142/99, 139/103 (10:00 - 12:00), 155/99, 151/91, 178/115, 172/102, 151/97, 173/112 (16:00 - midnight) Treatment: increased metoprolol dose to 50 b.i.d. In your professional opinion, can you please clarify the uncontrolled hypertension? Crisis Emergency Urgency Other, please specify Unable to determine Hypertensive Emergency MTDD
== END 2020-05-07 14:59 | disposition home or self-care (01) | DRG 247 ==
LOC: EC 01:42 → 2SICU 02:06 → 3SCARD 05-06 10:48
PROVIDERS: ADMIT Family Medicine; ATTEND Family Medicine
PROC: 4A023N7 Measurement of Cardiac Sampling and Pressure, Left Heart, Percutaneous Approach (ICD-10-PCS; principal; 2020-05-05 02:26)
PROC: 027135Z Dilation of Coronary Artery, Two Arteries with Two Drug-eluting Intraluminal Devices, Percutaneous Approach (ICD-10-PCS; principal; 2020-05-05 02:26)
PROC: B2111ZZ Fluoroscopy of Multiple Coronary Arteries using Low Osmolar Contrast (ICD-10-PCS; principal; 2020-05-05 02:26)
DX: I21.09 ST elevation (STEMI) myocardial infarction involving other coronary artery of anterior wall (principal); I16.1 Hypertensive emergency; I25.5 Ischemic cardiomyopathy; I27.20 Pulmonary hypertension, unspecified; J44.9 Chronic obstructive pulmonary disease, unspecified; E78.5 Hyperlipidemia, unspecified; F17.210 Nicotine dependence, cigarettes, uncomplicated; F32.9 Major depressive disorder, single episode, unspecified; I08.1 Rheumatic disorders of both mitral and tricuspid valves; I10 Essential (primary) hypertension; I25.10 Atherosclerotic heart disease of native coronary artery without angina pectoris; I25.2 Old myocardial infarction; M19.90 Unspecified osteoarthritis, unspecified site; M54.9 Dorsalgia, unspecified; Z11.59 Encounter for screening for other viral diseases; Z79.899 Other long term (current) drug therapy; Z79.82 Long term (current) use of aspirin; Z91.14 Patient's other noncompliance with medication regimen; Z88.0 Allergy status to penicillin; Z91.030 Bee allergy status
CPT/HCPCS: 36415; 71045; 80048; 80053; 82550; 82553; 83735; 84484; 85025; 85610; 85730; 93005; 93306; 93458; 94760; 96374; 96375; 99291

== ENCOUNTER 2021-04-28 10:22 | Emergency (ER) | payer BC ==
[2021-04-28 10:36] VITALS: RESP 18; TEMP 98.4
[2021-04-28] MEDS ORDERED: SODIUM CHLORIDE 0.9% 1,000 ML IV STA (10:50)
--- NOTE | 2021-04-28 10:55 | ED ---
Abdominal Pain HPI - General Chief Complaint: Abdominal Pain Stated Complaint: side pain Time Seen by Provider: 04/28/21 10:37 Source: patient Mode of arrival: ambulatory Limitations: no limitations - History of Present Illness Initial Comments: Patient is a 50-year-old male with history of heart disease, hypertension, presenting to the emergency Department with complaints of right-sided abdominal pain that's been intermittent for the last 3 weeks. He describes the pain as a pulled muscle for further arm many times that the pain is very sharp and feels like something is ripping inside. He describes it on the on the side of his abdomen with some mild radiation towards the right flank. He denies any abdominal surgeries in the past, he states he has had a scope to remove "2 masses in his stomach." He was on a small dose chemo medication for 2 years, just finished that a few months ago. He had intermittent diarrhea which has been normal for him for the past 5-6 months. He denies any fevers or chills, no nausea or vomiting. He states he has been taking naproxen for the medication, it sometimes helps. He denies any chest pain or shortness of breath. No hematuria, he has history of kidney stones many years ago, he is unsure if the pain is similar. He has no further complaints. His vital signs are stable upon arrival. - Related Data Home Medications Medication Instructions Recorded Confirmed Aspirin [Adult Low Dose Aspirin EC] 81 mg PO DAILY 07/27/18 04/28/21 Atorvastatin [Lipitor] 80 mg PO DAILY 04/28/21 04/28/21 Naproxen [Naprosyn] 500 mg PO BID PRN 04/28/21 04/28/21 amLODIPine BESYLATE/BENAZEPRIL 1 cap PO DAILY 04/28/21 04/28/21 [Lotrel 5-20 MG] buPROPion XL [Wellbutrin Xl] 150 mg PO DAILY 04/28/21 04/28/21 Previous Rx's Medication Instructions Recorded Metoprolol Tartrate [Lopressor] 50 mg PO BID #60 tab 05/07/20 lisinopriL [Zestril] 20 mg PO BID #60 tab 05/07/20 Ciprofloxacin HCl [Cipro] 500 mg PO BID 7 Days #14 tab 04/28/21 metroNIDAZOLE [Flagyl] 500 mg PO TID 7 Days #21 tab 04/28/21 Allergies Allergy/AdvReac Type Severity Reaction Status Date / Time Penicillins Allergy Unknown Verified 04/28/21 10:36 Childhood venom-honey bee Allergy Swelling Verified 04/28/21 10:36 [bee venom (honey bee)] Review of Systems ROS Statement: Those systems with pertinent positive or pertinent negative responses have been documented in the HPI. ROS Other: All systems not noted in ROS Statement are negative. Past Medical History Past Medical History: Coronary Artery Disease (CAD), Hyperlipidemia, Hypertension, Myocardial Infarction ([place]), Osteoarthritis (OA) Additional Past Medical History / Comment(s): STATES NAUSEA & VOMITING AND DIARRHEA FOR 6 MONTHS. Last Myocardial Infarction Date:: 2008 History of Any Multi-Drug Resistant Organisms: None Reported Past Surgical History: Heart Catheterization With Stent, Orthopedic Surgery Additional Past Surgical History / Comment(s): multiple knee surg., bilateral shoulder surg., right thumb Past Anesthesia/Blood Transfusion Reactions: No Reported Reaction Date of Last Stent Placement:: 2008 Past Psychological History: Depression Smoking Status: Current every day smoker Past Alcohol Use History: None Reported Past Drug Use History: None Reported - Past Family History Mother Family Medical History: Cancer General Exam - General Exam Comments Initial Comments: GENERAL: Patient is well-developed and well-nourished. Patient is nontoxic and in no acute distress. HEAD: Atraumatic, normocephalic. EYES: Pupils equal round and reactive to light, extraocular movements intact, sclera anicteric, conjunctiva are normal. Eyelids were unremarkable. ENT: TMs normal, nares patent, oropharynx clear without exudates. Moist mucous membranes. NECK: Normal range of motion, supple without lymphadenopathy or JVD. LUNGS: Unlabored respirations. Breath sounds clear to auscultation bilaterally and equal. No wheezes rales or rhonchi. HEART: Regular rate and rhythm without murmurs, rubs or gallops. ABDOMEN: Soft, tender to palpation of the entire right side of the abdomen, right flank pain, positive guarding, normoactive bowel sounds. No masses appreciated. : Deferred MUSCULOSKELETAL: Normal extremities with adequate strength and normal range of motion, no pitting or edema. No clubbing or cyanosis. NEUROLOGICAL: Patient is alert and oriented x 3. Motor and sensory are also intact. Cranial nerves II through XII grossly intact. Symmetrical smile. Normal speech, normal gait. PSYCH: Normal mood, normal affect. SKIN: Warm, Dry, normal turgor, no rashes or lesions noted. Limitations: no limitations Course Vital Signs 04/28/21 04/28/21 04/28/21 10:34 11:36 12:00 Temperature 98.4 F Pulse Rate 74 60 Respiratory 18 18 18 Rate Blood Pressure 128/85 135/84 O2 Sat by Pulse 100 98 Oximetry Medical Decision Making - Medical Decision Making Patient is a 50-year-old male here for right-sided abdominal pain for the last 3 weeks. He has intermittent spurts of very sharp pains. No fevers, his vitals are stable. CT the abdomen and pelvis shows a normal appendix, known nephrolithiasis, no hydronephrosis. There is some wall thickening around the maximal sigmoid colon as well as some minimal diverticular change. No evidence of acute diverticulitis. She has been resting comfortably, vital signs remained stable. I discussed these findings with the patient. I recommended a course of antibiotics for inflammation, possible colitis. He is in agreement with this plan of care. Patient is stable for discharge. He will follow up with his primary care physician. Return parameters were discussed with him and he verbalized understanding. Case discussed with Dr. Bates. - Lab Data Result diagrams: 04/28/21 11:08 04/28/21 11:08 Lab Results 04/28/21 04/28/21 04/28/21 Range/Units 11:08 11:08 11:08 WBC 16.8 H (3.8-10.6) k/uL RBC 5.10 (4.30-5.90) m/uL Hgb 16.5 (13.0-17.5) gm/dL Hct 47.9 (39.0-53.0) % MCV 94.1 (80.0-100.0) fL MCH 32.5 (25.0-35.0) pg MCHC 34.5 (31.0-37.0) g/dL RDW 13.3 (11.5-15.5) % Plt Count 211 (150-450) k/uL MPV 8.6 Neutrophils % 78 % Lymphocytes % 13 % Monocytes % 5 % Eosinophils % 2 % Basophils % 1 % Neutrophils # 13.1 H (1.3-7.7) k/uL Lymphocytes # 2.2 (1.0-4.8) k/uL Monocytes # 0.9 (0-1.0) k/uL Eosinophils # 0.3 (0-0.7) k/uL Basophils # 0.1 (0-0.2) k/uL Sodium 140 (137-145) mmol/L Potassium 4.3 (3.5-5.1) mmol/L Chloride 110 H (98-107) mmol/L Carbon Dioxide 23 (22-30) mmol/L Anion Gap 7 mmol/L BUN 17 (9-20) mg/dL Creatinine 1.03 (0.66-1.25) mg/dL Est GFR (CKD-EPI)AfAm >90 (>60 ml/min/1.73 sqM) Est GFR (CKD-EPI)NonAf 84 (>60 ml/min/1.73 sqM) Glucose 110 H (74-99) mg/dL Plasma Lactic Acid Sergio 1.1 (0.7-2.0) mmol/L Calcium 9.8 (8.4-10.2) mg/dL Total Bilirubin 0.6 (0.2-1.3) mg/dL AST 34 (17-59) U/L ALT 36 (4-49) U/L Alkaline Phosphatase 60 (38-126) U/L Total Protein 6.6 (6.3-8.2) g/dL Albumin 4.2 (3.5-5.0) g/dL Lipase 145 (23-300) U/L Urine Color Urine Appearance (Clear) Urine pH (5.0-8.0) Ur Specific [place] (1.001-1.035) Urine Protein (Negative) Urine Glucose (UA) (Negative) Urine Ketones (Negative) Urine Blood (Negative) Urine Nitrite (Negative) Urine Bilirubin (Negative) Urine Urobilinogen (<2.0) mg/dL Ur Leukocyte Esterase (Negative) 04/28/21 Range/Units 12:17 WBC (3.8-10.6) k/uL RBC (4.30-5.90) m/uL Hgb (13.0-17.5) gm/dL Hct (39.0-53.0) % MCV (80.0-100.0) fL MCH (25.0-35.0) pg MCHC (31.0-37.0) g/dL RDW (11.5-15.5) % Plt Count (150-450) k/uL MPV Neutrophils % % Lymphocytes % % Monocytes % % Eosinophils % % Basophils % % Neutrophils # (1.3-7.7) k/uL Lymphocytes # (1.0-4.8) k/uL Monocytes # (0-1.0) k/uL Eosinophils # (0-0.7) k/uL Basophils # (0-0.2) k/uL Sodium (137-145) mmol/L Potassium (3.5-5.1) mmol/L Chloride (98-107) mmol/L Carbon Dioxide (22-30) mmol/L Anion Gap mmol/L BUN (9-20) mg/dL Creatinine (0.66-1.25) mg/dL Est GFR (CKD-EPI)AfAm (>60 ml/min/1.73 sqM) Est GFR (CKD-EPI)NonAf (>60 ml/min/1.73 sqM) Glucose (74-99) mg/dL Plasma Lactic Acid Sergio (0.7-2.0) mmol/L Calcium (8.4-10.2) mg/dL Total Bilirubin (0.2-1.3) mg/dL AST (17-59) U/L ALT (4-49) U/L Alkaline Phosphatase (38-126) U/L Total Protein (6.3-8.2) g/dL Albumin (3.5-5.0) g/dL Lipase (23-300) U/L Urine Color Yellow Urine Appearance Clear (Clear) Urine pH 5.5 (5.0-8.0) Ur Specific [place] 1.043 H (1.001-1.035) Urine Protein Trace H (Negative) Urine Glucose (UA) Negative (Negative) Urine Ketones Negative (Negative) Urine Blood Negative (Negative) Urine Nitrite Negative (Negative) Urine Bilirubin Negative (Negative) Urine Urobilinogen 2.0 (<2.0) mg/dL Ur Leukocyte Esterase Negative (Negative) Disposition Clinical Impression: Abdominal pain, Colitis Disposition: HOME SELF-CARE Condition: Stable Instructions (If sedation given, give patient instructions): Colitis (ED) Additional Instructions: Please return to the Emergency Department if symptoms worsen or any other concerns. Take both medications as prescribed. Finish entire course. Follow up with your primary care physician. Prescriptions: Ciprofloxacin HCl [Cipro] 500 mg PO BID 7 Days #14 tab metroNIDAZOLE [Flagyl] 500 mg PO TID 7 Days #21 tab Is patient prescribed a controlled substance at d/c from ED?: No Referrals: Kyler Ng DO [Primary Care Provider] - 1-2 days Time of Disposition: 13:31
[2021-04-28 11:21] LABS: Basophils # (A) 0.1 k/uL (0-0.2); Basophils % (A) 1 %; Eosinophils # (A) 0.3 k/uL (0-0.7); Eosinophils % (A) 2 %; HCT 47.9 % (39.0-53.0); HGB 16.5 gm/dL (13.0-17.5); Lymphocytes # (A) 2.2 k/uL (1.0-4.8); Lymphocytes % (A) 13 %; MCH 32.5 pg (25.0-35.0); MCHC 34.5 g/dL (31.0-37.0); MCV 94.1 fL (80.0-100.0); Mean Platelet Volume 8.6; Monocytes # (A) 0.9 k/uL (0-1.0); Monocytes % (A) 5 %; Neutrophils # (A) 13.1 k/uL (1.3-7.7); Neutrophils % (A) 78 %; Platelet Count 211 k/uL (150-450); RDW 13.3 % (11.5-15.5); WBC 16.8 k/uL (3.8-10.6)
[2021-04-28 11:25] LABS: ALT 36 U/L (4-49); AST 34 U/L (17-59); African American GFR (CKD) >90 (>60 ml/min/1.73 sqM); Albumin 4.2 g/dL (3.5-5.0); Alkaline Phosphatase 60 U/L (38-126); Anion Gap 7 mmol/L; Blood Urea Nitrogen 17 mg/dL (9-20); Calcium 9.8 mg/dL (8.4-10.2); Carbon Dioxide 23 mmol/L (22-30); Chloride 110 mmol/L (98-107); Glucose 110 mg/dL (74-99); Lipase 145 U/L (23-300); Non-African American GFR(CKD) 84 (>60 ml/min/1.73 sqM); Potassium 4.3 mmol/L (3.5-5.1); Sodium 140 mmol/L (137-145); Total Bilirubin 0.6 mg/dL (0.2-1.3); Total Protein 6.6 g/dL (6.3-8.2)
--- NOTE | 2021-04-28 12:19 | CT ---
EXAMINATION TYPE: CT abdomen pelvis w con DATE OF EXAM: 04/28/2021 COMPARISON: 09/10/2018 HISTORY: 50-year-old male right-sided abdominal pain for 3 weeks Abdomen pain TECHNIQUE: Contiguous axial scanning of the abdomen and pelvis following administration of 100 ml Iso annamarie 300 IV contrast. Delayed images through the kidneys and coronal/sagittal reconstructions perform ed. CT DLP: 1127.9 mGycm Automated exposure control for dose reduction was used. FINDINGS: Heart normal size without pericardial effusion. Some strandy dependent atelectasis is present. Liver mildly enlarged at 18.5 cm without focal lesion. Bile duct upper limits of normal in caliber at 6 mm. No intrahepatic biliary ductal dilatation. Portal venous system is patent. Gallbladder, adrenal glands, right kidney, spleen, and pancreas within normal limits. Extrarenal pelv is left kidney. No dilated small bowel, free fluid, free air. No mesenteric or retroperitoneal lymphadenopathy. A 1.2 cm wendi hepatic lymph node remains unchanged from 2018, likely chronic reactive/post inflammatory e tiology. Normal appendix. Some prominent fluid-filled small bowel loops mid to lower abdomen. No significant s tool burden. Mild circumferential wall thickening proximal sigmoid colon, axial image 72 but without any surrounding inflammation. Minimal diverticular change junction of the sigmoid and descending colo n. Mild stool within the distal sigmoid and rectum. Bladder urine distended. No abnormal fluid collection in the pelvis. Prominent 9 mm bilateral externa l iliac chain lymph nodes remain unchanged from 2018. No abnormal fluid collection in the pelvis. Bones: Mild degenerative spurring at the hips. Moderate degenerative disc disease at L5-S1. Prominent disc osteophyte complex at L5-S1 may impinge the traversing left S1 nerve root and causes a mild to moderate spinal canal stenosis. There is also moderate bilateral neuroforaminal stenosis. IMPRESSION: 1. Normal appendix. No nephrolithiasis or hydronephrosis. Some prominent fluid-filled small bowel loo ps in the mid to lower abdomen could reflect a mild ileus or enteritis. 2. In addition, some circumferential wall thickening along the proximal sigmoid colon could be due to nondistention or a nonspecific mild colitis. 3. Minimal diverticular change at the junction of the lower descending and sigmoid colon. No evidence for acute diverticulitis.
[2021-04-28 12:57] LABS: Appearance,Urine Clear (Clear); Bilirubin,Urine Negative (Negative); Blood,Urine Negative (Negative); Color,Urine Yellow; Glucose,Urine (UA) Negative (Negative); Ketones,Urine Negative (Negative); Leukocyte Esterase,Urine Negative (Negative); Nitrite,Urine Negative (Negative); PH, Urine 5.5 (5.0-8.0); Protein,Urine Trace (Negative); Specific Gravity,Urine 1.043 (1.001-1.035)
[2021-04-28 13:48] VITALS: BP 142/82; PULSE 63
== END 2021-04-28 13:32 | disposition home or self-care (01) ==
LOC: EC 10:22
DX: K52.9 Noninfective gastroenteritis and colitis, unspecified (principal); F17.200 Nicotine dependence, unspecified, uncomplicated; I25.10 Atherosclerotic heart disease of native coronary artery without angina pectoris; E78.5 Hyperlipidemia, unspecified; I10 Essential (primary) hypertension; I25.2 Old myocardial infarction; M19.90 Unspecified osteoarthritis, unspecified site; F32.9 Major depressive disorder, single episode, unspecified; Z95.5 Presence of coronary angioplasty implant and graft
CPT/HCPCS: 36415; 80053; 83605; 83690; 85025; 81003; 74177; 99284; 96360; Q9967

== ENCOUNTER 2021-05-28 17:47 | Emergency (ER) | payer BC ==
[2021-05-28 18:18] VITALS: TEMP 100
--- NOTE | 2021-05-28 19:51 | XR ---
EXAMINATION TYPE: XR elbow complete LT DATE OF EXAM: 05/28/2021 COMPARISON: NONE HISTORY: Pain and swelling TECHNIQUE: 3 views FINDINGS: There is large spur on the olecranon process of the ulna. There is subcutaneous edema over the posterior lower humerus. I see no fracture nor dislocation. Joint spaces are fairly normal. There is soft tissue swelling over the olecranon process. IMPRESSION: Large olecranon process spur. No fracture seen. Subcutaneous edema and posterior soft tis howie swelling.
[2021-05-28] MEDS ORDERED: CLINDAMYCIN 150 MG CAP PO STA (20:04)
--- NOTE | 2021-05-28 20:07 | ED ---
General Adult HPI - General Chief complaint: Allergic Reaction Stated complaint: Elbow pain Time Seen by Provider: 05/28/21 19:18 Source: patient Mode of arrival: ambulatory Limitations: no limitations - History of Present Illness Initial comments: 50-year-old male with a past medical history of CAD, hyperlipidemia, hypertension presents to the emergency room for chief complaint of left elbow pain. Patient reports for 3 days now he has had left elbow pain. Patient states he woke up with this. Patient denies any pain with movement of the elbow. Patient denies fevers at home and states he has been taking his temperature daily. Patient denies any constitutional symptoms.Patient has no other complaints at this time including shortness of breath, chest pain, abdominal pain, nausea or vomiting, headache, or visual changes. - Related Data Home Medications Medication Instructions Recorded Confirmed Aspirin [Adult Low Dose Aspirin EC] 81 mg PO DAILY 07/27/18 04/28/21 Atorvastatin [Lipitor] 80 mg PO DAILY 04/28/21 04/28/21 Naproxen [Naprosyn] 500 mg PO BID PRN 04/28/21 04/28/21 amLODIPine BESYLATE/BENAZEPRIL 1 cap PO DAILY 04/28/21 04/28/21 [Lotrel 5-20 MG] buPROPion XL [Wellbutrin Xl] 150 mg PO DAILY 04/28/21 04/28/21 Previous Rx's Medication Instructions Recorded Metoprolol Tartrate [Lopressor] 50 mg PO BID #60 tab 05/07/20 lisinopriL [Zestril] 20 mg PO BID #60 tab 05/07/20 Ciprofloxacin HCl [Cipro] 500 mg PO BID 7 Days #14 tab 04/28/21 metroNIDAZOLE [Flagyl] 500 mg PO TID 7 Days #21 tab 04/28/21 Clindamycin [Cleocin] 450 mg PO Q8H 14 Days #126 cap 05/28/21 Allergies Allergy/AdvReac Type Severity Reaction Status Date / Time Penicillins Allergy Unknown Verified 05/28/21 18:18 Childhood venom-honey bee Allergy Swelling Verified 05/28/21 18:18 [bee venom (honey bee)] Review of Systems ROS Statement: Those systems with pertinent positive or pertinent negative responses have been documented in the HPI. ROS Other: All systems not noted in ROS Statement are negative. Past Medical History Past Medical History: Coronary Artery Disease (CAD), Hyperlipidemia, Hypertension, Myocardial Infarction ([place]), Osteoarthritis ([place]) Additional Past Medical History / Comment(s): STATES NAUSEA & VOMITING AND DIARRHEA FOR 6 MONTHS. Last Myocardial Infarction Date:: 2008 History of Any Multi-Drug Resistant Organisms: None Reported Past Surgical History: Heart Catheterization With Stent, Orthopedic Surgery Additional Past Surgical History / Comment(s): multiple knee surg., bilateral shoulder surg., right thumb Past Anesthesia/Blood Transfusion Reactions: No Reported Reaction Date of Last Stent Placement:: 2008 Past Psychological History: Depression Smoking Status: Current every day smoker Past Alcohol Use History: None Reported Past Drug Use History: None Reported - Past Family History Mother Family Medical History: Cancer General Exam Limitations: no limitations General appearance: alert Head exam: Present: atraumatic Eye exam: Present: normal appearance, PERRL, EOMI. Absent: scleral icterus, conjunctival injection ENT exam: Present: normal exam, mucous membranes moist Neck exam: Present: normal inspection, full ROM. Absent: tenderness Respiratory exam: Present: normal lung sounds bilaterally. Absent: respiratory distress, wheezes Cardiovascular Exam: Present: regular rate, normal rhythm, normal heart sounds Extremities exam: Present: full ROM (Full range of motion of the left elbow), tenderness (Mild tenderness to the dorsal left elbow.), normal capillary refill (Capillary refill less than 2 seconds, radial pulse 2+ left upper extremity.), other (Patient has mild edema of the left olecranon bursa with erythema extending midway up the upper arm volar aspect) Course Vital Signs 05/28/21 18:16 Temperature 100 F H Pulse Rate 94 Respiratory 16 Rate Blood Pressure 129/85 O2 Sat by Pulse 98 Oximetry Medical Decision Making - Medical Decision Making Vitals are stable. Patient has a low-grade temperature 100.0, has not taken any Motrin or Tylenol the past 6-8 hours. Patient denies fevers at home. Physical exam does reveal Olecranon bursitis and surrounding cellulitis extending midway up the upper arm and possibly the very proximal forearm. Patient has full range of motion of the elbow. There is no evidence for a joint infection at this time. X-ray was obtained which showed a large spur of the olecranon process as well as subcutaneous edema and posterior soft tissue swelling. Patient was started on clindamycin. Patient strongly prefers outpatient management. Patient will have close follow-up and will call and hopefully see primary care tomorrow. I did discuss strict return parameters with patient and he is agreeable to this. Disposition Clinical Impression: Olecranon bursitis, Cellulitis Disposition: HOME SELF-CARE Condition: Good Additional Instructions: Take antibiotics as directed. Monitor for spreading redness. If the redness is spreading significantly over the next 24 hours he needs to return to the emergency room. If it is not improving after 24-48 hours in each return as well. Please follow-up with your primary care doctor tomorrow for recheck. Return for any other worsening symptoms. Prescriptions: Clindamycin [Cleocin] 450 mg PO Q8H 14 Days #126 cap Is patient prescribed a controlled substance at d/c from ED?: No Referrals: Kyler Ng DO [Primary Care Provider] - 1-2 days Time of Disposition: 20:05
[2021-05-28 20:15] VITALS: BP 137/92; PULSE 89; RESP 18
== END 2021-05-28 20:15 | disposition home or self-care (01) ==
LOC: EC 17:47
DX: M70.22 Olecranon bursitis, left elbow (principal); L03.114 Cellulitis of left upper limb; I10 Essential (primary) hypertension; E78.5 Hyperlipidemia, unspecified; I25.2 Old myocardial infarction; M19.90 Unspecified osteoarthritis, unspecified site; F32.9 Major depressive disorder, single episode, unspecified; F17.200 Nicotine dependence, unspecified, uncomplicated; Z79.82 Long term (current) use of aspirin
CPT/HCPCS: 99283

== ENCOUNTER 2021-12-12 21:02 | Inpatient (IN) | payer BC ==
--- NOTE | 2021-12-12 21:45 | ED ---
SOB HPI - General Chief Complaint: Shortness of Breath Stated Complaint: HARVEY Time Seen by Provider: 12/12/21 21:21 Source: patient, RN notes reviewed, old records reviewed Mode of arrival: wheelchair Limitations: no limitations - History of Present Illness Initial Comments: Is a 51-year-old male DF for evaluation. Patient presents today for shortness o f breath. Patient was outside on medication more short of breath with the day went on today. Patient comes in the ER for increasing difficulty breathing. Patient has long history of smoking as well as a positive significant heart history. No recent travel history no fevers. Symptoms just started today with no chest pain. Again patient denies chest pain. Has history of prior [place] this is not the same. No other cough or congestion, no other complaints MD Complaint: shortness of breath, cough -: hour(s) Severity: moderate Severity scale (1-10): 6 Quality: throbbing Improves With: nothing Worsens With: exertion, movement Known History Of: COPD, asthma, other (History of prior [place]) Associated Symptoms: denies other symptoms Treatments Prior to Arrival: none - Related Data Home Medications Medication Instructions Recorded Confirmed Atorvastatin [Lipitor] 80 mg PO DAILY 04/28/21 12/12/21 Naproxen [Naprosyn] 500 mg PO BID PRN 04/28/21 12/12/21 amLODIPine BESYLATE/BENAZEPRIL 1 cap PO DAILY 04/28/21 12/12/21 [Lotrel 5-20 MG] buPROPion XL [Wellbutrin Xl] 150 mg PO DAILY 04/28/21 12/12/21 Previous Rx's Medication Instructions Recorded Metoprolol Tartrate [Lopressor] 50 mg PO BID #60 tab 05/07/20 lisinopriL [Zestril] 20 mg PO BID #60 tab 05/07/20 Allergies Allergy/AdvReac Type Severity Reaction Status Date / Time Penicillins Allergy Unknown Verified 12/12/21 21:08 Childhood venom-honey bee Allergy Swelling Verified 12/12/21 21:08 [bee venom (honey bee)] Review of Systems ROS Statement: Those systems with pertinent positive or pertinent negative responses have been documented in the HPI. ROS Other: All systems not noted in ROS Statement are negative. Past Medical History Past Medical History: Coronary Artery Disease (CAD), Hyperlipidemia, Hypertension, Myocardial Infarction ([place]), Osteoarthritis (OA) Additional Past Medical History / Comment(s): STATES NAUSEA & VOMITING AND DIARRHEA FOR 6 MONTHS. Last Myocardial Infarction Date:: 2008 History of Any Multi-Drug Resistant Organisms: None Reported Past Surgical History: Heart Catheterization With Stent, Orthopedic Surgery Additional Past Surgical History / Comment(s): multiple knee surg., bilateral shoulder surg., right thumb Past Anesthesia/Blood Transfusion Reactions: No Reported Reaction Date of Last Stent Placement:: 2008 Past Psychological History: Depression Smoking Status: Current every day smoker Past Alcohol Use History: None Reported Past Drug Use History: None Reported - Past Family History Mother Family Medical History: Cancer General Exam Limitations: no limitations General appearance: alert, in no apparent distress, anxious Head exam: Present: atraumatic, normocephalic, normal inspection Eye exam: Present: normal appearance, PERRL, EOMI. Absent: scleral icterus, conjunctival injection, periorbital swelling ENT exam: Present: normal exam, mucous membranes moist Neck exam: Present: normal inspection. Absent: tenderness, meningismus, lymphadenopathy Respiratory exam: Present: respiratory distress, wheezes, accessory muscle use, decreased breath sounds, prolonged expiratory. Absent: rales, rhonchi, stridor Cardiovascular Exam: Present: regular rate, normal rhythm, normal heart sounds. Absent: systolic murmur, diastolic murmur, rubs, gallop, clicks GI/Abdominal exam: Present: soft, normal bowel sounds. Absent: distended, te nderness, guarding, rebound, rigid Extremities exam: Present: normal inspection, full ROM, normal capillary refill. Absent: tenderness, pedal edema, joint swelling, calf tenderness Back exam: Present: normal inspection Neurological exam: Present: alert, oriented X3, CN II-XII intact Psychiatric exam: Present: normal affect, normal mood Skin exam: Present: warm, dry, intact, normal color. Absent: rash Course Vital Signs 12/12/21 21:05 Temperature 98.0 F Pulse Rate 94 Respiratory 26 H Rate Blood Pressure 181/104 O2 Sat by Pulse 91 L Oximetry - Reevaluation(s) Reevaluation #1: 12/12/21 23:37 Medical record is reviewed Reevaluation #2: 12/12/21 23:37 Patient informed of results and questions have been answered Reevaluation #3: 12/12/21 23:37 Patient still remains shortness of breath any of some mild low to the ER - Consultations Consultation #1: Spoke with [facility] to agrees to admit this patient Medical Decision Making - Medical Decision Making 51 male to the emergency department for evaluation patient with shortness of breath. Patient is COPD and hypoxia with pneumonia. Also is elevated troponin, non-ST elevated [place] no chest pain throughout ER stay. Patient was significantly hypoxic upon arrival Patient be admitted for cardiology evaluation - Lab Data Result diagrams: 12/12/21 21:45 12/12/21 21:45 Lab Results 12/12/21 12/12/21 12/12/21 Range/Units 21:45 21:45 21:45 WBC 12.0 H (3.8-10.6) k/uL RBC 5.12 (4.30-5.90) m/uL Hgb 17.2 (13.0-17.5) gm/dL Hct 49.3 (39.0-53.0) % MCV 96.3 (80.0-100.0) fL MCH 33.6 (25.0-35.0) pg MCHC 34.9 (31.0-37.0) g/dL RDW 12.6 (11.5-15.5) % Plt Count 219 (150-450) k/uL MPV 9.5 Neutrophils % 69 % Lymphocytes % 22 % Monocytes % 5 % Eosinophils % 3 % Basophils % 1 % Neutrophils # 8.3 H (1.3-7.7) k/uL Lymphocytes # 2.6 (1.0-4.8) k/uL Monocytes # 0.6 (0-1.0) k/uL Eosinophils # 0.3 (0-0.7) k/uL Basophils # 0.1 (0-0.2) k/uL PT 10.5 (9.0-12.0) sec INR 1.0 (<1.2) APTT 27.0 (22.0-30.0) sec Sodium 139 (137-145) mmol/L Potassium 4.3 (3.5-5.1) mmol/L Chloride 107 (98-107) mmol/L Carbon Dioxide 23 (22-30) mmol/L Anion Gap 9 mmol/L BUN 17 (9-20) mg/dL Creatinine 1.33 H (0.66-1.25) mg/dL Est GFR (CKD-EPI)AfAm 71 (>60 ml/min/1.73 sqM) Est GFR (CKD-EPI)NonAf 61 (>60 ml/min/1.73 sqM) Glucose 107 H (74-99) mg/dL Plasma Lactic Acid Sergio (0.7-2.0) mmol/L Calcium 9.6 (8.4-10.2) mg/dL Phosphorus 3.1 (2.5-4.5) mg/dL Magnesium 2.2 (1.6-2.3) mg/dL Total Bilirubin 0.7 (0.2-1.3) mg/dL AST 47 (17-59) U/L ALT 61 H (4-49) U/L Alkaline Phosphatase 72 (38-126) U/L Troponin I (0.000-0.034) ng/mL NT-Pro-B Natriuret Pep pg/mL Total Protein 7.4 (6.3-8.2) g/dL Albumin 4.4 (3.5-5.0) g/dL 12/12/21 12/12/21 12/12/21 Range/Units 21:45 21:45 21:45 WBC (3.8-10.6) k/uL RBC (4.30-5.90) m/uL Hgb (13.0-17.5) gm/dL Hct (39.0-53.0) % MCV (80.0-100.0) fL MCH (25.0-35.0) pg MCHC (31.0-37.0) g/dL RDW (11.5-15.5) % Plt Count (150-450) k/uL MPV Neutrophils % % Lymphocytes % % Monocytes % % Eosinophils % % Basophils % % Neutrophils # (1.3-7.7) k/uL Lymphocytes # (1.0-4.8) k/uL Monocytes # (0-1.0) k/uL Eosinophils # (0-0.7) k/uL Basophils # (0-0.2) k/uL PT (9.0-12.0) sec INR (<1.2) APTT (22.0-30.0) sec Sodium (137-145) mmol/L Potassium (3.5-5.1) mmol/L Chloride (98-107) mmol/L Carbon Dioxide (22-30) mmol/L Anion Gap mmol/L BUN (9-20) mg/dL Creatinine (0.66-1.25) mg/dL Est GFR (CKD-EPI)AfAm (>60 ml/min/1.73 sqM) Est GFR (CKD-EPI)NonAf (>60 ml/min/1.73 sqM) Glucose (74-99) mg/dL Plasma Lactic Acid Sergio 1.6 (0.7-2.0) mmol/L Calcium (8.4-10.2) mg/dL Phosphorus (2.5-4.5) mg/dL Magnesium (1.6-2.3) mg/dL Total Bilirubin (0.2-1.3) mg/dL AST (17-59) U/L ALT (4-49) U/L Alkaline Phosphatase (38-126) U/L Troponin I 0.078 H* (0.000-0.034) ng/mL NT-Pro-B Natriuret Pep 2140 pg/mL Total Protein (6.3-8.2) g/dL Albumin (3.5-5.0) g/dL - EKG Data -: EKG Interpreted by Me (EKG shows sinus rhythm 77, SC 178, QRS 122, QTC 431) - Radiology Data Radiology results: report reviewed (Chest x-ray shows right lower lobe pne umonia), image reviewed Critical Care Time Critical Care Time: Yes Total Critical Care Time: 31 Disposition Clinical Impression: NSTEMI (non-ST elevated myocardial infarction), COPD (chronic obstructive pulmonary disease), Acute exacerbation of chronic bronchitis, Hypoxia, Community acquired pneumonia Disposition: ADMITTED IP TO THIS HOSP Condition: Fair Is patient prescribed a controlled substance at d/c from ED?: No Referrals: Kyler Ng DO [Primary Care Provider] - 1-2 days
[2021-12-12 21:57] LABS: Basophils # (A) 0.1 k/uL (0-0.2); Basophils % (A) 1 %; Eosinophils # (A) 0.3 k/uL (0-0.7); Eosinophils % (A) 3 %; HCT 49.3 % (39.0-53.0); HGB 17.2 gm/dL (13.0-17.5); Lymphocytes # (A) 2.6 k/uL (1.0-4.8); Lymphocytes % (A) 22 %; MCH 33.6 pg (25.0-35.0); MCHC 34.9 g/dL (31.0-37.0); MCV 96.3 fL (80.0-100.0); Mean Platelet Volume 9.5; Monocytes # (A) 0.6 k/uL (0-1.0); Monocytes % (A) 5 %; Neutrophils # (A) 8.3 k/uL (1.3-7.7); Neutrophils % (A) 69 %; Platelet Count 219 k/uL (150-450); RBC 5.12 m/uL (4.30-5.90); RDW 12.6 % (11.5-15.5)
--- NOTE | 2021-12-12 22:08 | XR ---
EXAMINATION TYPE: XR chest 1V portable DATE OF EXAM: 12/12/2021 9:44 PM COMPARISON:Chest radiographs from 05/05/2020 TECHNIQUE: XR chest 1V portable Frontal view of the chest. CLINICAL INDICATION:Male, 51 years old with history of sob; FINDINGS: Lungs/Pleura: Right lower lung airspace opacities to. There is no evidence of pleural effusion or pne umothorax. Pulmonary vascularity: Unremarkable. Heart/mediastinum: Cardiomediastinal silhouette is unremarkable. Musculoskeletal: No acute osseous pathology. IMPRESSION: Right lower lung increased airspace opacities correlate for pneumonia.
[2021-12-12 22:11] LABS: Albumin 4.4 g/dL (3.5-5.0); Calcium 9.6 mg/dL (8.4-10.2); Magnesium 2.2 mg/dL (1.6-2.3); Phosphorus 3.1 mg/dL (2.5-4.5); Potassium 4.3 mmol/L (3.5-5.1); Total Bilirubin 0.7 mg/dL (0.2-1.3); Total Protein 7.4 g/dL (6.3-8.2)
[2021-12-12 22:16] LABS: Prothrombin Time 10.5 sec (9.0-12.0)
[2021-12-12] MEDS ORDERED: IPRATROPIUM-ALBUTEROL 3 ML NEB INHALATION STA ×2 (22:49→23:25)
[2021-12-12] MEDS ORDERED: methylPREDNISolone SOD SUCCI 125 MG/2 ML VIAL IV STA (22:49)
[2021-12-12] MEDS ORDERED: AZITHROMYCIN 500 MG in SODIUM CHLORIDE 0.9% 250 ML IVPB ONE (23:00)
[2021-12-12] MEDS ORDERED: NALOXONE 0.4 MG/ML 1 ML VIAL IV PRN (23:25)
[2021-12-12] MEDS ORDERED: PNEUMONIA PROTOCOL UTILIZED 1 EACH MISC PO PRN (23:25)
[2021-12-12] MEDS ORDERED: MORPHINE SULFATE 4 MG/ML SYRINGE IV PRN (23:25)
[2021-12-12] MEDS ORDERED: IBUPROFEN 400 MG TAB PO PRN (23:25)
[2021-12-12] MEDS ORDERED: LORazepam 2 MG/ML INJ IV PRN (23:25)
[2021-12-12] MEDS ORDERED: ACETAMINOPHEN TAB 325 MG TAB PO PRN (23:25)
[2021-12-13] MEDS: SODIUM CHLORIDE 0.9% 1,000 ML IV SCH ×3 (00:20→11:12)
[2021-12-13] MEDS: NICOTINE 21MG/24HR PATCH TRANSDERM SCH ×2 (02:51→07:56)
[2021-12-13 05:11] LABS: Basophils % (A) 0 %; Eosinophils # (A) 0.1 k/uL (0-0.7); Eosinophils % (A) 0 %; HCT 46.6 % (39.0-53.0); HGB 15.8 gm/dL (13.0-17.5); Lymphocytes % (A) 7 %; MCH 33.1 pg (25.0-35.0); MCHC 33.9 g/dL (31.0-37.0); MCV 97.7 fL (80.0-100.0); Mean Platelet Volume 9.2; Monocytes # (A) 0.3 k/uL (0-1.0); Monocytes % (A) 2 %; Neutrophils # (A) 13.8 k/uL (1.3-7.7); Neutrophils % (A) 91 %; Platelet Count 197 k/uL (150-450); RBC 4.77 m/uL (4.30-5.90); RDW 12.6 % (11.5-15.5); WBC 15.2 k/uL (3.8-10.6)
[2021-12-13 05:23] LABS: Albumin 3.8 g/dL (3.5-5.0); Calcium 9.1 mg/dL (8.4-10.2); Potassium 3.7 mmol/L (3.5-5.1); Total Bilirubin 0.5 mg/dL (0.2-1.3); Total Protein 6.6 g/dL (6.3-8.2)
[2021-12-13] MEDS: ALBUTEROL NEBULIZED 2.5 MG/3 ML INHALATION SCH ×3 (07:27→16:37)
--- NOTE | 2021-12-13 09:41 | XR ---
EXAMINATION TYPE: XR chest 2V DATE OF EXAM: 12/13/2021 COMPARISON: 12/12/2021 TECHNIQUE: PA and lateral views submitted. HISTORY: Cough FINDINGS: The lungs are clear and there is no pneumothorax, pleural effusion, or focal pneumonia. Hypertrophi c and degenerative change of the spine. Arthropathy of the shoulders. Interstitial pattern noted. Und erlying COPD suspected with degenerative changes spine. IMPRESSION: 1. Correlate for chronic interstitial lung disease, bronchitis or interstitial pneumonitis..
--- NOTE | 2021-12-13 10:41 | P.CRDCN ---
History of Present Illness Consult date: 12/13/21 History of present illness: This is a 50-year-old gentleman with history of coronary artery disease with a previous stent placement, hyperlipidemia, hypertension, chronic tobacco abuse who came to the emergency room with complaints of mainly shortness of breath. He claims that he was walking to his mailbox and with some suddenly became short of breath. He was coughing. Denied any chest pain. In April 2020 patient presented to the hospital with chest pain and evidence of myocardial infarction. Patient had a cardiac catheterization and stent placement of the circumflex and also mid LAD by Dr. SHERLY Taveras. Since then patient hasn't had any cardiac follow- up. We'll continue to smoke. He chest x-ray showed findings of possible chronic bronchitis and interstitial pneumonia. He was treated with antibiotics and is already feeling better is also given some steroids. We are consulted because of abnormal troponin values. The troponins were mildly abnormal. The peak value of 0.078 with downward trend. Is not having any chest pain and is feeling much better today. His last echocardiogram and ejection fraction about 35%. He does have systolic murmur in the left sternal border. Patient is going to have an echocardiogram. I'm also going to get d-dimer value. I will resume his beta blockers, SLOANE inhibitor and the rest of the medications. Further exami nation depend upon the clinical course. Patient may need noninvasive evaluation to see if there is any progression of ischemic heart disease. If there is any Sigmund change in LV function, patient may also be considered for cardiac catheterization. We will also get a BNP level Review of Systems As per the chart Past Medical History Past Medical History: Coronary Artery Disease (CAD), Hyperlipidemia, Hypertension, Myocardial Infarction ([place]), Osteoarthritis (OA) Additional Past Medical History / Comment(s): STATES NAUSEA & VOMITING AND DIARRHEA FOR 6 MONTHS. Last Myocardial Infarction Date:: 2008 History of Any Multi-Drug Resistant Organisms: None Reported Past Surgical History: Heart Catheterization With Stent, Orthopedic Surgery Additional Past Surgical History / Comment(s): multiple knee surg., bilateral shoulder surg., right thumb Past Anesthesia/Blood Transfusion Reactions: No Reported Reaction Date of Last Stent Placement:: 2008 Past Psychological History: Depression Additional Psychological History / Comment(s): STATES STARTED ON WELLBUTRIN AFTER [place] Smoking Status: Current every day smoker Past Alcohol Use History: Occasional Additional Past Alcohol Use History / Comment(s): 1ppd for 35 yrs., Started smo ernie age 10. Past Drug Use History: None Reported - Past Family History Mother Family Medical History: Cancer Medications and Allergies Home Medications Medication Instructions Recorded Confirmed Type Metoprolol Tartrate [Lopressor] 50 mg PO BID #60 tab 05/07/20 12/12/21 Rx lisinopriL [Zestril] 20 mg PO BID #60 tab 05/07/20 12/12/21 Rx Atorvastatin [Lipitor] 80 mg PO DAILY 04/28/21 12/12/21 History Naproxen [Naprosyn] 500 mg PO BID PRN 04/28/21 12/12/21 History amLODIPine BESYLATE/BENAZEPRIL 1 cap PO DAILY 04/28/21 12/12/21 History [Lotrel 5-20 MG] buPROPion XL [Wellbutrin Xl] 150 mg PO DAILY 04/28/21 12/12/21 History Allergies Allergy/AdvReac Type Severity Reaction Status Date / Time Penicillins Allergy Unknown Verified 12/12/21 21:08 Childhood venom-honey bee Allergy Swelling Verified 12/12/21 21:08 [bee venom (honey bee)] Physical Exam Vitals: Vital Signs Temp Pulse Pulse Resp BP BP Pulse Ox 12/13/21 08:00 102 H 18 12/13/21 07:58 97.6 F 102 H 18 157/86 94 L 12/13/21 07:38 80 12/13/21 07:27 88 12/13/21 03:25 98.1 F 91 16 146/98 94 L 12/13/21 01:53 74 15 143/92 96 12/13/21 00:53 77 12/13/21 00:47 80 12/13/21 00:08 73 16 154/84 94 L 12/13/21 00:03 74 12/12/21 23:52 70 12/12/21 22:08 70 18 154/89 95 12/12/21 21:45 67 18 160/93 94 L 12/12/21 21:05 98.0 F 94 26 H 181/104 91 L Intake and Output 12/12/21 12/13/21 12/13/21 22:59 06:59 14:59 Other: Voiding Method Toilet Toilet # Voids 1 Weight 90.718 kg 90.718 kg GENERAL EXAM: Patient is alert and oriented and doesn't appear to be in any acute distress HEENT: Normocephalic. Normal reaction of pupils, equal size, normal range of extraocular motion. No erythema or exudates in the throat. NECK: No masses, no nuchal rigidity. CHEST: No chest wall deformity. LUNGS: Mild expiratory wheezes HEART: S1 and S2 normal . Systolic murmur heard ABDOMEN: No hepatosplenomegaly, normal bowel sounds, no guarding or rigidity. SKIN: No rashes CENTRAL NERVOUS SYSTEM: No focal deficits. EXTREMITIES: No cyanosis, clubbing or edema. Results 12/13/21 04:49 12/13/21 04:49 Cardiac Enzymes 12/12/21 12/12/21 12/13/21 Range/Units 21:45 21:45 01:26 AST 47 (17-59) U/L Troponin I 0.078 H* 0.063 H* (0.000-0.034) ng/mL 12/13/21 12/13/21 Range/Units 04:49 04:49 AST 41 (17-59) U/L Troponin I 0.047 H* (0.000-0.034) ng/mL Coagulation 12/12/21 Range/Units 21:45 PT 10.5 (9.0-12.0) sec APTT 27.0 (22.0-30.0) sec CBC 12/12/21 12/13/21 Range/Units 21:45 04:49 WBC 12.0 H 15.2 H (3.8-10.6) k/uL RBC 5.12 4.77 (4.30-5.90) m/uL Hgb 17.2 15.8 (13.0-17.5) gm/dL Hct 49.3 46.6 (39.0-53.0) % Plt Count 219 197 (150-450) k/uL Comprehensive Metabolic Panel 12/12/21 12/13/21 Range/Units 21:45 04:49 Sodium 139 139 (137-145) mmol/L Potassium 4.3 3.7 (3.5-5.1) mmol/L Chloride 107 109 H (98-107) mmol/L Carbon Dioxide 23 22 (22-30) mmol/L BUN 17 15 (9-20) mg/dL Creatinine 1.33 H 1.12 (0.66-1.25) mg/dL Glucose 107 H 214 H (74-99) mg/dL Calcium 9.6 9.1 (8.4-10.2) mg/dL AST 47 41 (17-59) U/L ALT 61 H 52 H (4-49) U/L Alkaline Phosphatase 72 66 (38-126) U/L Total Protein 7.4 6.6 (6.3-8.2) g/dL Albumin 4.4 3.8 (3.5-5.0) g/dL Current Medications Generic Name Dose Route Start Last Admin Trade Name Freq PRN Reason Stop Dose Admin Acetaminophen 650 mg 12/12/21 23:25 Acetaminophen Tab 325 Mg Tab PO Q6HR PRN Mild Pain or Fever > 100.5 Albuterol Sulfate 2.5 mg 12/13/21 08:00 12/13/21 07:27 Albuterol Nebulized 2.5 Mg/3 Ml INHALATION 2.5 mg RT-QID BINU Administration Atorvastatin Calcium 80 mg 12/14/21 09:00 Atorvastatin 80 Mg Tab PO DAILY BINU Bupropion HCl 150 mg 12/14/21 09:00 Bupropion Xl 150 Mg Tab.Er.24h PO DAILY BINU Azithromycin 500 mg/ Sodium 250 mls @ 250 mls/hr 12/13/21 21:00 Chloride IVPB DAILY@2100 BINU Ceftriaxone Sodium 1 gm/ 50 mls @ 100 mls/hr 12/13/21 09:00 12/13/21 07:53 Sodium Chloride IVPB 100 mls/hr Q12HR BINU Administration Sodium Chloride 1,000 mls @ 130 mls/hr 12/12/21 23:30 12/13/21 07:56 Saline 0.9% IV 130 mls/hr .Q7H42M BINU Administration Ibuprofen 400 mg 12/12/21 23:25 Ibuprofen 400 Mg Tab PO Q6HR PRN Mild Pain or Fever > 100.5 Lisinopril 20 mg 12/13/21 21:00 Lisinopril 20 Mg Tab PO BID BINU Lorazepam 0.5 mg 12/12/21 23:25 Lorazepam 2 Mg/Ml Inj IV Q6HR PRN Anxiety Metoprolol Tartrate 50 mg 12/13/21 21:00 Metoprolol Tartrate 50 Mg Tab PO BID [facility] Miscellaneous Information 1 each 12/12/21 23:25 Pneumonia Protocol Utilized 1 Each Misc PO ONCE PRN Per Protocol Morphine Sulfate 4 mg 12/12/21 23:25 Morphine Sulfate 4 Mg/Ml Syringe IV Q4HR PRN Severe Pain Naloxone HCl 0.2 mg 12/12/21 23:25 Naloxone 0.4 Mg/Ml 1 Ml Vial IV Q2M PRN Opioid Reversal Nicotine 1 patch 12/12/21 23:30 12/13/21 07:56 Nicotine 21mg/24hr Patch TRANSDERM Not Given DAILY BINU Non-Formulary Medication 1 cap 12/14/21 09:00 Amlodipine Besylate/Benazepril [Lotrel 5-20 Mg] PO DAILY BINU Intake and Output 12/12/21 12/13/21 12/13/21 22:59 06:59 14:59 Other: Voiding Method Toilet Toilet # Voids 1 Weight 90.718 kg 90.718 kg 12/13/21 04:49 12/13/21 04:49 EKG Interpretations (text) Sinus rhythm with evidence of J-point elevation in anterior leads and septal myocardial infarction cannot be completely excluded. APCs noted Assessment and Plan (1) Troponin level elevated Current Visit: Yes Status: Acute Code(s): R77.8 - OTHER SPECIFIED AB NORMALITIES OF PLASMA PROTEINS SNOMED Code(s): 181865439 (2) Acute exacerbation of chronic bronchitis Current Visit: Yes Status: Acute Code(s): J20.9 - ACUTE BRONCHITIS, UNSPEC IFIED; J42 - UNSPECIFIED CHRONIC BRONCHITIS SNOMED Code(s): 487807156 (3) COPD (chronic obstructive pulmonary disease) Current Visit: Yes Status: Acute Code(s): J44.9 - CHRONIC OBSTRUCTIVE PULMONARY DISEASE, UNSPECIFIED SNOMED Code(s): 99477631 (4) CAD (coronary artery disease) Current Visit: Yes Status: Acute Code(s): I25.10 - ATHSCL HEART DISEASE OF [place] CORONARY ARTERY W/O ANG PCTRS SNOMED Code(s): 15271202 (5) Cardiomyopathy Current Visit: Yes Status: Acute Code(s): I42.9 - CARDIOMYOPATHY, UNSPECIFIED SNOMED Code(s): 10453596 Plan: Patient has showed significant improvement with current medical therapy. Suggest her most probably pulmonary issues and bronchitis. We'll get an echocardiogram to assess LV function and continue monitor his symptoms. He may need noninvasive or invasive workup for any progression of the ischemic heart disease, especially if there are any new wall motion. We will also get d-dimer and BNP levels
[2021-12-13] MEDS: SPIRONOLACTONE 25 MG TAB PO SCH (11:12)
--- NOTE | 2021-12-13 12:45 | ECHOF ---
Referral Reason:Shortness of breath, heart murmur MEASUREMENTS -------- HEIGHT: 175.3 cm WEIGHT: 90.7 kg BP: IVSd: 1.8 cm (0.6 - 1.1) LVIDd: 4.3 cm (3.9 - 5.3) LVPWd: 1.7 cm (0.6 - 1.1) IVSs: 2.2 cm LVIDs: 2.8 cm LVPWs: 2.2 cm LAESV Index (A-L): 22.63 ml/m Ao Diam: 3.8 cm (2.0 - 3.7) AV Cusp: 2.5 cm (1.5 - 2.6) LA Diam: 4.9 cm (2.7 - 3.8) MV EXCURSION: 15.271 mm (> 18.000) MV EF SLOPE: 89 mm/s (70 - 150) EPSS: 1.0 cm MV E Grupo: 0.93 m/s MV DecT: 238 ms MV A Grupo: 1.29 m/s MV E/A Ratio: 0.72 RAP: 5.00 mmHg RVSP: 18.67 mmHg FINDINGS -------- Sinus rhythm. This was a technically adequate study. The left ventricular size is normal. There is moderate concentric left ventricular hypertrophy. O verall left ventricular systolic function is normal with, an EF between 55 - 60 %. The right ventricle is normal in size. Normal LA size by volume 22+/-6 ml/m2. The right atrial size is normal. Interatrial and interventricular septum intact. The aortic valve is trileaflet, and appears structurally normal. No aortic stenosis or regurgitation. The mitral valve is normal. There is trace mitral regurgitation. The tricuspid valve appears structurally normal. Mild tricuspid regurgitation present. Right vent ricular systolic pressure is normal at < 35 mmHg. The right ventricular systolic pressure, as measu red by Doppler, is 18.67mmHg. There is no pulmonic regurgitation present. The aortic root size is normal. IVC Not well visulized. There is no pericardial effusion. CONCLUSIONS -------- 1. There is moderate concentric left ventricular hypertrophy. 2. Overall left ventricular systolic function is normal with, an EF between 55 - 60 %. 3. The aortic valve is trileaflet, and appears structurally normal. No aortic stenosis or regurgitati on. 4. There is trace mitral regurgitation. 5. Mild tricuspid regurgitation present. [employer] GUARD: Silvia Kiran RDCS
--- NOTE | 2021-12-13 16:45 | P.HPIM ---
History of Present Illness H&P Date: 12/13/21 Chief Complaint: Shortness of breath 50-year-old gentleman with history of coronary artery disease with a previous stent placement, hyperlipidemia, hypertension, chronic tobacco abuse who came to the emergency room with complaints of mainly shortness of breath. He claims th at he was walking to his mailbox and with some suddenly became short of breath. He was coughing. Denied any chest pain. In April 2020 patient presented to the hospital with chest pain and evidence of myocardial infarction. Patient had a cardiac catheterization and stent placement of the circumflex and also mid LAD. Since then patient hasn't had any cardiac follow-up Workup in ED with chest x-ray showed findings of possible chronic bronchitis and interstitial pneumonia. He was treated with antibiotics and is already feeling better is also given some steroids. Blood work reveals; troponins were mildly abnormal. The peak value of 0.078 with downward trend. WBC of 15.2, hemoglobin 15.8 and hematocrit 46.6 with platelets of 197, sodium 139, potassium 2.7, BUN/creatinine of 15/12.1 and blood glucose of 214. Review of Systems REVIEW OF SYSTEMS: CONSTITUTIONAL: No fever, no malaise, no fatigue. HEENT: No recent visual problems or hearing problems. Denied any sore throat. CARDIOVASCULAR: No chest pain, orthopnea, PND, no palpitations, no syncope. PULMONARY: No shortness of breath, no cough, no hemoptysis. GASTROINTESTINAL: No diarrhea, no nausea, no vomiting, no abdominal pain. NEUROLOGICAL: No headaches, no weakness, no numbness. HEMATOLOGICAL: Denies any bleeding or petechiae. GENITOURINARY: Denies any burning micturition, frequency, or urgency. MUSCULOSKELETAL/RHEUMATOLOGICAL: Denies any joint pain, swelling, or any muscle pain. ENDOCRINE: Denies any polyuria or polydipsia. The rest of the 14-point review of systems is negative. Past Medical History Past Medical History: Coronary Artery Disease (CAD), Hyperlipidemia, Hypertension, Myocardial Infarction ([place]), Osteoarthritis (OA) Additional Past Medical History / Comment(s): STATES NAUSEA & VOMITING AND DIARRHEA FOR 6 MONTHS. Last Myocardial Infarction Date:: 2008 History of Any Multi-Drug Resistant Organisms: None Reported Past Surgical History: Heart Catheterization With Stent, Orthopedic Surgery Additional Past Surgical History / Comment(s): multiple knee surg., bilateral shoulder surg., right thumb Past Anesthesia/Blood Transfusion Reactions: No Reported Reaction Date of Last Stent Placement:: 2008 Past Psychological History: Depression Additional Psychological History / Comment(s): STATES STARTED ON WELLBUTRIN AFTER [place] Smoking Status: Current every day smoker Past Alcohol Use History: Occasional Additional Past Alcohol Use History / Comment(s): 1ppd for 35 yrs., Started smoking age 10. Past Drug Use History: None Reported - Past Family History Mother Family Medical History: Cancer Medications and Allergies Home Medications Medication Instructions Recorded Confirmed Type Metoprolol Tartrate [Lopressor] 50 mg PO BID #60 tab 05/07/20 12/12/21 Rx lisinopriL [Zestril] 20 mg PO BID #60 tab 05/07/20 12/12/21 Rx Atorvastatin [Lipitor] 80 mg PO DAILY 04/28/21 12/12/21 History Naproxen [Naprosyn] 500 mg PO BID PRN 04/28/21 12/12/21 History amLODIPine BESYLATE/BENAZEPRIL 1 cap PO DAILY 04/28/21 12/12/21 History [Lotrel 5-20 MG] buPROPion XL [Wellbutrin Xl] 150 mg PO DAILY 04/28/21 12/12/21 History Allergies Allergy/AdvReac Type Severity Reaction Status Date / Time Penicillins Allergy Unknown Verified 12/12/21 21:08 Childhood venom-honey bee Allergy Swelling Verified 12/12/21 21:08 [bee venom (honey bee)] Physical Exam Vitals: Vital Signs Temp Pulse Pulse Resp BP BP Pulse Ox 12/13/21 11:50 86 12/13/21 11:41 90 12/13/21 11:14 98.0 F 97 18 155/84 97 12/13/21 08:00 102 H 18 12/13/21 07:58 97.6 F 102 H 18 157/86 94 L 12/13/21 07:38 80 12/13/21 07:27 88 12/13/21 03:25 98.1 F 91 16 146/98 94 L 12/13/21 01:53 74 15 143/92 96 12/13/21 00:53 77 12/13/21 00:47 80 12/13/21 00:08 73 16 154/84 94 L 12/13/21 00:03 74 12/12/21 23:52 70 12/12/21 22:08 70 18 154/89 95 12/12/21 21:45 67 18 160/93 94 L 12/12/21 21:05 98.0 F 94 26 H 181/104 91 L Intake and Output 12/12/21 12/13/21 12/13/21 22:59 06:59 14:59 Other: Voiding Method Toilet Toilet # Voids 1 Weight 90.718 kg 90.718 kg - Constitutional General appearance: Present: average body habitus, cooperative, no acute distress - EENT Eyes: Present: anicteric sclerae, EOMI, PERRLA, normal appearance ENT: Present: hearing grossly normal, normal oropharynx Ears: bilateral: normal - Neck Neck: Present: normal ROM. Absent: lymphadenopathy, rigidity, thyromegaly Carotids: negative: bruit present Thyroid: bilateral: normal size, negative: enlarged, nodule - Respiratory Respiratory: bilateral: CTA, negative: rales, rhonchi, wheezing - Cardiovascular Rhythm: regular Heart sounds: normal: S1, S2 Abnormal Heart Sounds: Absent: systolic murmur, diastolic murmur - Gastrointestinal General gastrointestinal: Present: normal bowel sounds, soft. Absent: distended, organomegaly, tenderness - Genitourinary Genitourinary Comment(s): deferred - Integumentary Integumentary: Present: normal turgor. Absent: jaundiced, rash, ulcer - Neurologic Neurologic: Present: CNII-XII intact. Absent: focal deficits - Musculoskeletal Musculoskeletal: Present: gait normal, strength equal bilaterally - Psychiatric Psychiatric: Present: A&O x's 3, appropriate affect, intact judgment & insight Results CBC & Chem 7: 12/13/21 04:49 12/13/21 04:49 Labs: Abnormal Lab Results - Last 24 Hours (Table) 12/12/21 12/12/21 12/12/21 Range/Units 21:45 21:45 21:45 WBC 12.0 H (3.8-10.6) k/uL Neutrophils # 8.3 H (1.3-7.7) k/uL Chloride (98-107) mmol/L Creatinine 1.33 H (0.66-1.25) mg/dL Glucose 107 H (74-99) mg/dL ALT 61 H (4-49) U/L Troponin I 0.078 H* (0.000-0.034) ng/mL 12/13/21 12/13/21 12/13/21 Range/Units 01:26 04:49 04:49 WBC 15.2 H (3.8-10.6) k/uL Neutrophils # 13.8 H (1.3-7.7) k/uL Chloride (98-107) mmol/L Creatinine (0.66-1.25) mg/dL Glucose (74-99) mg/dL ALT (4-49) U/L Troponin I 0.063 H* 0.047 H* (0.000-0.034) ng/mL 12/13/21 Range/Units 04:49 WBC (3.8-10.6) k/uL Neutrophils # (1.3-7.7) k/uL Chloride 109 H (98-107) mmol/L Creatinine (0.66-1.25) mg/dL Glucose 214 H (74-99) mg/dL ALT 52 H (4-49) U/L Troponin I (0.000-0.034) ng/mL Assessment and Plan Assessment: 1. Community-acquired pneumonia; patient has been placed on IV Rocephin and azithromycin; we will monitor CBC, CMP and pro-calcitonin; blood culture and sputum cultures 2. Elevated troponin/possible non-ST [place]; we will trend troponin; monitor EKG; 2-D echo; consult cardiology for further recommendations 3. COPD; not in exacerbation; continue with home inhaler therapy 4. CAD/cardiomyopathy; stable on aspirin and beta blockers 5. Hypertension; lisinopril 20 mg twice a day, metoprolol 50 mg twice a day and amlodipine 5 mg daily 6. Hyperlipidemia; Lipitor 80 mg by mouth daily at bedtime 7. Depression; continue with home dose of Wellbutrin 150 mg daily DVT prophylaxis; SCDs CODE STATUS; full code
--- NOTE | 2021-12-13 17:30 | P.CNPUL ---
History of Present Illness Consult date: 12/13/21 Requesting physician: Xi Prince Reason for consult: dyspnea, cough, COPD, hypoxemia, pneumonia, abnormal CXR/CT Chief complaint: Shortness of breath. History of present illness: Pulmonary consult dated 12/13/2021. 51-year-old patient who presents to the emergency department, on 12/12, compla ining of shortness of breath. The patient has been short of breath for a couple days prior to admission. The patient continues to smoke, and is been smoking for more than 40 years. The patient likely has a history of underlying COPD. The patient has never been seen by a lung doctor in the past. The patient does have a history of coronary disease, hyperlipidemia, hypertension, myocardial infarction, osteoarthritis. He's had a heart catheterization with stent placement. He does continue to smoke cigarettes. He does not take any breathing medications at home. His medications include Lipitor, Naprosyn, Lotrel, Wellbutrin, Lopressor, and Zestril. White count 15.2, with a normal hemoglobin, hematocrit, and platelet count. D-dimer was normal. Sodium 139, potassium 3.7, chlorides 109, CO2 22, BUN 15, and creatinine 1.12. The patient had a troponin of 0.078 0.063, and 0.047. N-terminal proBNP was 2140. The patient's initial chest x-ray was consistent with a right lower lobe infiltrate. Review of Systems REVIEW OF SYSTEMS: CONSTITUTIONAL: [Negative.] NEUROLOGIC: [ Negative.] HEENT: [ Negative.] CARDIAC: [Negative.] PULMONARY: Shortness of breath and cough. GI: [Negative.] : [Negative.] RHEUMATOLOGIC: [ Negative.] IMMUNOLOGIC: [ Negative.] ENDOCRINE: [Negative. ] DERMATOLOGIC: [Negative.] Past Medical History Past Medical History: Coronary Artery Disease (CAD), Hyperlipidemia, Hypertension, Myocardial Infarction ([place]), Osteoarthritis ([place]) Additional Past Medical History / Comment(s): STATES NAUSEA & VOMITING AND DIARRHEA FOR 6 MONTHS. Last Myocardial Infarction Date:: 2008 History of Any Multi-Drug Resistant Organisms: None Reported Past Surgical History: Heart Catheterization With Stent, Orthopedic Surgery Additional Past Surgical History / Comment(s): multiple knee surg., bilateral shoulder surg., right thumb Past Anesthesia/Blood Transfusion Reactions: No Reported Reaction Date of Last Stent Placement:: 2008 Past Psychological History: Depression Additional Psychological History / Comment(s): STATES STARTED ON WELLBUTRIN AFTER [place] Smoking Status: Current every day smoker Past Alcohol Use History: Occasional Additional Past Alcohol Use History / Comment(s): 1ppd for 35 yrs., Started smoking age 10. Past Drug Use History: None Reported - Past Family History Mother Family Medical History: Cancer Medications and Allergies Home Medications Medication Instructions Recorded Confirmed Type Metoprolol Tartrate [Lopressor] 50 mg PO BID #60 tab 05/07/20 12/12/21 Rx lisinopriL [Zestril] 20 mg PO BID #60 tab 05/07/20 12/12/21 Rx Atorvastatin [Lipitor] 80 mg PO DAILY 04/28/21 12/12/21 History Naproxen [Naprosyn] 500 mg PO BID PRN 04/28/21 12/12/21 History amLODIPine BESYLATE/BENAZEPRIL 1 cap PO DAILY 04/28/21 12/12/21 History [Lotrel 5-20 MG] buPROPion XL [Wellbutrin Xl] 150 mg PO DAILY 04/28/21 12/12/21 History Allergies Allergy/AdvReac Type Severity Reaction Status Date / Time Penicillins Allergy Unknown Verified 12/12/21 21:08 Childhood venom-honey bee Allergy Swelling Verified 12/12/21 21:08 [bee venom (honey bee)] Physical Exam Osteopathic Statement: *. No significant issues noted on an osteopathic structural exam other than those noted in the History and Physical/Consult. Vitals: Vital Signs Temp Pulse Pulse Resp BP BP Pulse Ox 12/13/21 16:49 89 12/13/21 16:37 88 12/13/21 15:42 97.9 F 107 H 16 184/96 96 12/13/21 13:49 97 18 12/13/21 12:30 98 12/13/21 11:50 86 12/13/21 11:41 90 12/13/21 11:14 98.0 F 97 18 155/84 97 12/13/21 08:00 102 H 18 12/13/21 07:58 97.6 F 102 H 18 157/86 94 L 12/13/21 07:38 80 12/13/21 07:27 88 12/13/21 03:25 98.1 F 91 16 146/98 94 L 12/13/21 01:53 74 15 143/92 96 12/13/21 00:53 77 12/13/21 00:47 80 12/13/21 00:08 73 16 154/84 94 L 12/13/21 00:03 74 12/12/21 23:52 70 12/12/21 22:08 70 18 154/89 95 12/12/21 21:45 67 18 160/93 94 L 12/12/21 21:05 98.0 F 94 26 H 181/104 91 L Intake and Output 12/13/21 12/13/21 12/13/21 06:59 14:59 22:59 Intake Total 1620 Balance 1620 Intake: Intake, IV Titration 600 Amount Sodium Chloride 0.9% 1, 600 000 ml @ 50 mls/hr IV . Q20H [facility] Rx#:[id number] Oral 1020 Other: Voiding Method Toilet Toilet # Voids 1 2 Weight 90.718 kg No acute distress, oriented 3. Currently not on any supplemental oxygen. Saturations are 95% on room air. HEENT examination is grossly unremarkable. Neck supple. Full range of motion. No adenopathy thyromegaly or neck vein distention. Cardiovascular examination reveals regular rhythm rate. S1-S2 normal. No S3 or S4. No discernible murmur noted. Heart rate 89 bpm. Lungs reveal scattered rhonchi. No wheezes. No crackles. Breath sounds equal bilaterally. Abdomen soft bowel sounds are heard. No masses or tenderness. Extremities are intact. No cyanosis clubbing or edema. Skin is without rash or lesion. Neurologic examination is brief but nonfocal. Results - Laboratory Findings CBC and BMP: 12/13/21 04:49 12/13/21 04:49 PT/INR, D-dimer PT 10.5 sec (9.0-12.0) 12/12/21 21:45 INR 1.0 (<1.2) 12/12/21 21:45 D-Dimer 0.28 mg/L FEU (<0.60) 12/13/21 10:35 Abnormal lab findings: Abnormal Labs 12/12/21 12/12/21 12/12/21 21:45 21:45 21:45 WBC 12.0 H Neutrophils # 8.3 H Chloride Creatinine 1.33 H Glucose 107 H ALT 61 H Troponin I 0.078 H* 12/13/21 12/13/21 12/13/21 01:26 04:49 04:49 WBC 15.2 H Neutrophils # 13.8 H Chloride Creatinine Glucose ALT Troponin I 0.063 H* 0.047 H* 12/13/21 04:49 WBC Neutrophils # Chloride 109 H Creatinine Glucose 214 H ALT 52 H Troponin I - Diagnostic Findings Chest x-ray: image reviewed Assessment and Plan Assessment: Shortness of breath, likely secondary to COPD exacerbation, complicated by right lower lobe infiltrate/pneumonia. History of ongoing tobacco use with nicotine addiction, for more than 40 years. History of CAD, with previous myocardial infarction, heart catheterization and stent placement. History of hyperlipidemia. History of hypertension. History of osteoarthritis. History of depression. Plan: Plan dated 12/13/2021. The patient is advised about the importance of smoking cessation. The patient is currently on Rocephin, and azithromycin. The patient should also be on albuterol sulfate and ipratropium bromide. Additional recommendations and suggestions are forthcoming. A nicotine patch has been ordered. We will continue to follow and make recommendations where appropriate. Prognosis is guarded. The patient has been seen by cardiology. Time with Patient: Greater than 30
[2021-12-13] MEDS: SYMBICORT 160-4.5 MCG INHALER INHALATION SCH (20:05)
[2021-12-13] MEDS: IPRATROPIUM-ALBUTEROL 3 ML NEB INHALATION SCH (20:05)
[2021-12-13] MEDS: AZITHROMYCIN 500 MG in SODIUM CHLORIDE 0.9% 250 ML IVPB SCH (20:42)
[2021-12-13] MEDS: lisinopriL 20 MG TAB PO SCH (20:42)
[2021-12-13] MEDS: METOPROLOL TARTRATE 50 MG TAB PO SCH (20:42)
[2021-12-13 22:57] LABS: Glucose,Whole Blood 132 mg/dL (75-99)
[2021-12-13] MEDS ORDERED: FUROSEMIDE 10 MG/ML 4 ML VIAL IV STA (23:00)
[2021-12-13] MEDS ORDERED: HEPARIN SODIUM 1,000 UN/ML (10ML VL) IV ONE (23:27)
--- NOTE | 2021-12-13 23:28 | XR ---
EXAMINATION TYPE: XR chest 1V DATE OF EXAM: 12/13/2021 COMPARISON: Today HISTORY: Short of breath TECHNIQUE: Single view FINDINGS: There is pulmonary moderate interstitial edema. Heart size is fairly normal. There are ches t leads. There is no pleural effusion. IMPRESSION: Pulmonary interstitial edema appears new compared to exam earlier today and could be acut e heart failure.
[2021-12-13] MEDS ORDERED: NITROGLYCERIN-D5W PMX 50 MG in DEXTROSE/WATER 1 250ML.BAG IV SCH (23:30)
[2021-12-13 23:48] LABS: Glucose,Whole Blood 141 mg/dL (75-99)
[2021-12-13 23:52] LABS: INR 0.9 (<1.2); Partial Thromboplastin Time 23.8 sec (22.0-30.0)
[2021-12-14 00:02] LABS: Basophils # (A) 0.1 k/uL (0-0.2); Basophils % (A) 0 %; Eosinophils # (A) 0.1 k/uL (0-0.7); Eosinophils % (A) 0 %; HCT 49.4 % (39.0-53.0); HGB 16.5 gm/dL (13.0-17.5); Lymphocytes # (A) 3.1 k/uL (1.0-4.8); Lymphocytes % (A) 11 %; MCH 32.8 pg (25.0-35.0); MCHC 33.4 g/dL (31.0-37.0); MCV 98.2 fL (80.0-100.0); Mean Platelet Volume 9.1; Monocytes # (A) 1.2 k/uL (0-1.0); Monocytes % (A) 4 %; Neutrophils # (A) 23.9 k/uL (1.3-7.7); Neutrophils % (A) 84 %; Platelet Count 222 k/uL (150-450); RBC 5.03 m/uL (4.30-5.90); RDW 12.9 % (11.5-15.5); WBC 28.6 k/uL (3.8-10.6)
--- NOTE | 2021-12-14 00:09 | P.PN ---
Progress Note - Text Progress Note Date: 12/14/21 51 year old male with CAD s/p stents admitted for pneumonia , and chest pain cardiology evaluated patient earlier and suspected pulmonary causes as his trops were trending down and echo showed preserved LVEF. A team called for difficulty breathing and hypoxemia . patient is having hard time to breath, hypoxemic in mid 80s% , SBP>192 lung exam showing diminished breath sounds and noisy breathing. suspected flash pulmonary edema patient given lasix 40 mg IVP and ativan and started on bipap , which helped with his breathing. EKG done , showed new T wave peaking and elevated over leads V1 V2 V3, case discussed with cardiology instructional technology instructor, and recommended starting patient on heparin drip and nitro check trops and d dimer case discussed with pulmonary for ICU admission for nitro drip Total amount of critical care time spent was 43 minutes not counting procedures performed.
[2021-12-14] MEDS: HEPARIN SOD,PORK IN 0.45% NACL 25,000 UNIT in 0.45% NACL 1 250ML.BAG IV SCH ×2 (00:16→18:05)
--- NOTE | 2021-12-14 01:39 | CT ---
EXAMINATION TYPE: CT angio chest DATE OF EXAM: 12/14/2021 COMPARISON: 02/19/2018 HISTORY: pe CT DLP: 509.7 mGycm Automated exposure control for dose reduction was used. CONTRAST: Performed with IV Contrast, patient injected with 100 mL of Isovue 370. Images obtained from the thoracic inlet to the diaphragm with IV contrast. There are Three-D postproc essed images. There is patchy groundglass interstitial infiltrate throughout both lungs. There is some coalescent d ensity at the posterior lung bases. There are very small pleural effusions. Heart size is normal. There is no pericardial effusion. There are a few bilateral bronchial lymph nod es up to 1.5 cm. There is no mediastinal adenopathy. Thoracic aorta is intact. There is no aneurysm o r dissection. There is no evidence of filling defect in the pulmonary arteries. The thoracic spine is intact. There is no compression fracture. Sternum is intact. IMPRESSION: No evidence of pulmonary embolism. Extensive pulmonary infiltrates consistent with multifocal pneumonia. Infiltrates mostly new compared to old exam. Mild bronchial adenopathy increased compared to the old exam.
[2021-12-14 06:33] LABS: Basophils # (A) 0.1 k/uL (0-0.2); Basophils % (A) 0 %; Eosinophils # (A) 0.4 k/uL (0-0.7); Eosinophils % (A) 1 %; HCT 47.4 % (39.0-53.0); HGB 15.9 gm/dL (13.0-17.5); Lymphocytes # (A) 2.5 k/uL (1.0-4.8); Lymphocytes % (A) 9 %; MCH 32.8 pg (25.0-35.0); MCHC 33.6 g/dL (31.0-37.0); MCV 97.7 fL (80.0-100.0); Mean Platelet Volume 9.2; Monocytes # (A) 1.1 k/uL (0-1.0); Monocytes % (A) 4 %; Neutrophils # (A) 24.4 k/uL (1.3-7.7); Neutrophils % (A) 85 %; Platelet Count 208 k/uL (150-450); RBC 4.85 m/uL (4.30-5.90); WBC 28.8 k/uL (3.8-10.6)
[2021-12-14 06:41] LABS: Partial Thromboplastin Time 28.9 sec (22.0-30.0); Prothrombin Time 10.5 sec (9.0-12.0)
[2021-12-14] MEDS: ATORVASTATIN 80 MG TAB PO SCH (08:03)
[2021-12-14] MEDS: amLODIPine 5 MG TAB PO SCH (08:03)
[2021-12-14] MEDS: buPROPion XL 150 MG TAB.ER.24H PO SCH (08:03)
[2021-12-14] MEDS: HEPARIN SODIUM 1,000 UN/ML (10ML VL) IV PRN (08:03)
[2021-12-14] MEDS: predniSONE 10 MG TAB PO SCH (08:03)
[2021-12-14] MEDS: FUROSEMIDE 40 MG TAB PO SCH (08:03)
[2021-12-14] MEDS: METOPROLOL TARTRATE 50 MG TAB PO SCH ×2 (08:03→20:25)
[2021-12-14] MEDS: SPIRONOLACTONE 25 MG TAB PO SCH (08:03)
[2021-12-14] MEDS: lisinopriL 20 MG TAB PO SCH ×2 (08:03→20:25)
[2021-12-14] MEDS: NICOTINE 21MG/24HR PATCH TRANSDERM SCH (08:04)
[2021-12-14] MEDS: SYMBICORT 160-4.5 MCG INHALER INHALATION SCH ×2 (08:41→20:26)
[2021-12-14] MEDS: IPRATROPIUM-ALBUTEROL 3 ML NEB INHALATION SCH ×4 (08:41→20:27)
[2021-12-14] MEDS ORDERED: lisinopriL 20 MG TAB PO SCH (09:00)
[2021-12-14] MEDS: SODIUM CHLORIDE 0.9% 1,000 ML IV SCH (11:44)
--- NOTE | 2021-12-14 12:31 | P.PN ---
Subjective Progress Note Date: 12/14/21 Principal diagnosis: Shortness of breath, pneumonia, COPD exacerbation. Pulmonary consult dated 12/13/2021. 51-year-old patient who presents to the emergency department, on 12/12, complaining of shortness of breath. The patient has been short of breath for a couple days prior to admission. The patient continues to smoke, and is been smoking for more than 40 years. The patient likely has a history of underlying COPD. The patient has never been seen by a lung doctor in the past. The patient does have a history of coronary disease, hyperlipidemia, hypertension, myocardial infarction, osteoarthritis. He's had a heart catheterization with stent placement. He does continue to smoke cigarettes. He does not take any breathing medications at home. His medications include Lipitor, Naprosyn, Lotrel, Wellbutrin, Lopressor, and Zestril. White count 15.2, with a normal hemoglobin, hematocrit, and platelet count. D-dimer was normal. Sodium 139, potassium 3.7, chlorides 109, CO2 22, BUN 15, and creatinine 1.12. The patient had a troponin of 0.078 0.063, and 0.047. N-terminal proBNP was 2140. The patient's initial chest x-ray was consistent with a right lower lobe infiltrate. Progress note dated 12/14/2021. This is a 51-year-old male that we saw yesterday in consultation. We saw him for shortness of breath, he was found to have a COPD exacerbation, copy given by right lower lobe pneumonia. The patient is a heavy tobacco user, having smoked for more than 40 years. The patient has never seen a lung doctor in the past. In addition, he has a history of coronary disease, hyperlipidemia, hypertension, myocardial infarction, and osteoarthritis. The patient has undergone a heart catheterization with stent placement. Yesterday, when we saw him, he will very stable. Apparently sometime early in the morning, he developed flash pulmonary edema, and was transferred to the intensive care unit. The patient denied any chest pain. His only complaint was that of shortness of breath. The patient apparently received some Ativan, and some Lasix. Currently, he's on 6 L nasal cannula. He is getting saline at KVO. He's currently on a heparin drip. White count 28.8, hemoglobin 15.9, hematocrit 47.4, and platelet count 208,000. PT, INR, and PTT were normal. D-dimer was 0.98. Troponins were 0.061 and 0.084. A chest x-ray done last night when this all developed, shows some interstitial edema. A CT angiogram, was negative for pulmonary embolism, and showed extensive pulmonary infiltrates, consistent with either interstitial pneumonia or interstitial edema. Objective - Vital Signs Vital signs: Vital Signs Temp 98.8 F 12/14/21 08:00 Pulse 78 12/14/21 12:18 Resp 16 12/14/21 11:30 BP 132/85 12/14/21 11:30 Pulse Ox 93 L 12/14/21 11:30 Intake & Output 12/13/21 12/14/21 12/14/21 18:59 06:59 18:59 Intake Total 1860 704.7 156.708 Output Total 1300 400 Balance 1860 -595.3 -243.292 Weight 91.4 kg Intake: IV 80 Sodium Chloride 0.9% 1, 80 000 ml @ 50 mls/hr IV . Q20H [facility] Rx#:[id number] Intake, IV Titration 600 464.7 76.708 Amount Azithromycin 500 mg In 250 Sodium Chloride 0.9% 250 ml @ 250 mls/hr IVPB DAILY@2100 [facility] Rx#: [id number] Heparin Sod,Pork in 0.45% 76.708 NaCl 25,000 unit In 0.45 % NaCl 1 250ml.bag @ 11.2 UNITS/KG/HR 10.16 mls/hr IV .Q24H [facility] Rx#: [id number] Nitroglycerin-D5w Pmx 50 14.7 mg In Dextrose/Water 1 250ml.bag @ Titrate IV . Q0M [facility] Rx#:[id number] Sodium Chloride 0.9% 1, 600 150 000 ml @ 50 mls/hr IV . Q20H [facility] Rx#:[id number] cefTRIAXone 1 gm In 50 Sodium Chloride 0.9% 50 ml @ 100 mls/hr IVPB Q12HR [facility] Rx#:[id number] Oral 1260 240 Output: Urine 1300 400 Other: Voiding Method Toilet Urinal Urinal # Voids 2 1 1 # Bowel Movements 1 - Exam No acute distress, oriented 3. Currently on 6 L nasal cannula, with saturations just about 90%. HEENT examination is grossly unremarkable. Neck supple. Full range of motion. No adenopathy thyromegaly or neck vein distention. Cardiovascular examination reveals regular rhythm rate. S1-S2 normal. No S3 or S4. No discernible murmur noted. Heart rate 80 bpm. Lungs reveal scattered rhonchi and crackles. Breath sounds equal. There are no wheezes. Abdomen soft bowel sounds are heard. No masses or tenderness. Extremities are intact. No cyanosis clubbing or edema. Skin is without rash or lesion. Neurologic examination is brief but nonfocal. - Labs CBC & Chem 7: 12/14/21 06:16 12/13/21 04:49 Labs: Abnormal Lab Results - Last 24 Hours (Table) 12/13/21 12/13/21 12/13/21 Range/Units 22:56 23:12 23:12 WBC (3.8-10.6) k/uL Neutrophils # (1.3-7.7) k/uL Monocytes # (0-1.0) k/uL D-Dimer 0.98 H (<0.60) mg/L FEU POC Glucose (mg/dL) 132 H (75-99) mg/dL Troponin I 0.061 H* (0.000-0.034) ng/mL 12/13/21 12/13/21 12/14/21 Range/Units 23:45 23:46 02:04 WBC 28.6 H (3.8-10.6) k/uL Neutrophils # 23.9 H (1.3-7.7) k/uL Monocytes # 1.2 H (0-1.0) k/uL D-Dimer (<0.60) mg/L FEU POC Glucose (mg/dL) 141 H (75-99) mg/dL Troponin I 0.084 H* (0.000-0.034) ng/mL 12/14/21 Range/Units 06:16 WBC 28.8 H (3.8-10.6) k/uL Neutrophils # 24.4 H (1.3-7.7) k/uL Monocytes # 1.1 H (0-1.0) k/uL D-Dimer (<0.60) mg/L FEU POC Glucose (mg/dL) (75-99) mg/dL Troponin I (0.000-0.034) ng/mL Assessment and Plan Assessment: Acute shortness of breath, likely multifactorial, and secondary to COPD exacerba tion, right lower lobe pneumonia, and flash pulmonary edema. History of ongoing tobacco use with nicotine addiction, for more than 40 years. History of CAD, with previous myocardial infarction, heart catheterization and stent placement. History of hyperlipidemia. History of hypertension. History of osteoarthritis. History of depression. Plan: Plan dated 12/13/2021. The patient is advised about the importance of smoking cessation. The patient is currently on Rocephin, and azithromycin. The patient should also be on albuterol sulfate and ipratropium bromide. Additional recommendations and suggestions are forthcoming. A nicotine patch has been ordered. We will continue to follow and make recommendations where appropriate. Prognosis is gu arded. The patient has been seen by cardiology. Plan dated 12/14/2021. The patient developed acute respiratory distress last night. We saw him early in the day, and he was very stable, only on room air. He developed some acute pulmonary edema, of unclear etiology. It could relate to some myocardial ischemia. He does have a history of CAD, and previous history of stent placement. Clinically, the patient looks relatively stable now. He is in the intensive care unit. The patient is on 6 L nasal cannula. He was seen by cardiology and placed on IV heparin. Additional recommendations and suggestions are forthcoming. Prognosis is guarded. Labs, x-rays, and medications are reviewed. CT angiogram was negative for pulmonary embolism. Time with Patient: Greater than 30
--- NOTE | 2021-12-14 15:02 | P.PN ---
Subjective Progress Note Date: 12/14/21 This is a 50-year-old gentleman with history of ischemic heart disease with a previous stent placement of the circumflex and also mid LAD, who presented to the hospital mainly with complaints of shortness of breath of rather sudden onset. It improved on admission and was stable, yesterday. Last night, patient developed acute shortness of breath and was transferred to intensive care unit. A chest x-ray showed what looks like possible pulmonary edema or interstitial pneumonia. Patient was treated with IV Lasix. By morning patient is feeling much better. A computed tomography scan is suggestive of multilobular pneumonia. Patient also has underlying COPD. He is being treated with antibiotics and steroids. Patient is also on Aldactone and Lasix and beta blockers. His echocardiogram actually showed improved LV function with an ejection fraction of 55%. His symptoms appear to be multifactorial. His troponins are mildly elevated. May consider cardiac catheterization for definitive diagnosis. Probably Thursday. Meanwhile, continue with current medical therapy including nitrates, beta blockers, diuretics and SLOANE inhibitor Objective - Vital Signs Vital signs: Vital Signs Temp 98 F 12/14/21 12:00 Pulse 80 12/14/21 12:25 Resp 18 12/14/21 12:00 BP 129/80 12/14/21 12:00 Pulse Ox 95 12/14/21 12:00 Intake & Output 12/13/21 12/14/21 12/14/21 18:59 06:59 18:59 Intake Total 1860 704.7 206.708 Output Total 1300 825 Balance 1860 -595.3 -618.292 Weight 91.4 kg Intake: IV 130 Sodium Chloride 0.9% 1, 130 000 ml @ 50 mls/hr IV . Q20H [facility] Rx#:[id number] Intake, IV Titration 600 464.7 76.708 Amount Azithromycin 500 mg In 250 Sodium Chloride 0.9% 250 ml @ 250 mls/hr IVPB DAILY@2100 [facility] Rx#: [id number] Heparin Sod,Pork in 0.45% 76.708 NaCl 25,000 unit In 0.45 % NaCl 1 250ml.bag @ 11.2 UNITS/KG/HR 10.16 mls/hr IV .Q24H [facility] Rx#: [id number] Nitroglycerin-D5w Pmx 50 14.7 mg In Dextrose/Water 1 250ml.bag @ Titrate IV . Q0M [facility] Rx#:[id number] Sodium Chloride 0.9% 1, 600 150 000 ml @ 50 mls/hr IV . Q20H [facility] Rx#:[id number] cefTRIAXone 1 gm In 50 Sodium Chloride 0.9% 50 ml @ 100 mls/hr IVPB Q12HR [facility] Rx#:[id number] Oral 1260 240 Output: Urine 1300 825 Other: Voiding Method Toilet Urinal Urinal # Voids 2 1 1 # Bowel Movements 1 - Exam GENERAL EXAM: Patient is alert and oriented and doesn't appear to be in any acute distress HEENT: Normocephalic. Normal reaction of pupils, equal size, normal range of extraocular motion. No erythema or exudates in the throat. NECK: No masses, no nuchal rigidity. CHEST: No chest wall deformity. LUNGS: Diminished air entry HEART: S1 and S2 normal with no audible mumurs or gallops. Regular rhythm, femorals equal on both sides.. ABDOMEN: No hepatosplenomegaly, normal bowel sounds, no guarding or rigidity. SKIN: No rashes CENTRAL NERVOUS SYSTEM: No focal deficits. EXTREMITIES: No cyanosis, clubbing or edema. - Labs CBC & Chem 7: 12/14/21 06:16 12/13/21 04:49 Labs: Abnormal Lab Results - Last 24 Hours (Table) 12/13/21 12/13/21 12/13/21 Range/Units 22:56 23:12 23:12 WBC (3.8-10.6) k/uL Neutrophils # (1.3-7.7) k/uL Monocytes # (0-1.0) k/uL D-Dimer 0.98 H (<0.60) mg/L FEU POC Glucose (mg/dL) 132 H (75-99) mg/dL Troponin I 0.061 H* (0.000-0.034) ng/mL 12/13/21 12/13/21 12/14/21 Range/Units 23:45 23:46 02:04 WBC 28.6 H (3.8-10.6) k/uL Neutrophils # 23.9 H (1.3-7.7) k/uL Monocytes # 1.2 H (0-1.0) k/uL D-Dimer (<0.60) mg/L FEU POC Glucose (mg/dL) 141 H (75-99) mg/dL Troponin I 0.084 H* (0.000-0.034) ng/mL 12/14/21 Range/Units 06:16 WBC 28.8 H (3.8-10.6) k/uL Neutrophils # 24.4 H (1.3-7.7) k/uL Monocytes # 1.1 H (0-1.0) k/uL D-Dimer (<0.60) mg/L FEU POC Glucose (mg/dL) (75-99) mg/dL Troponin I (0.000-0.034) ng/mL Assessment and Plan (1) Troponin level elevated Current Visit: Yes Status: Acute Code(s): R77.8 - OTHER SPECIFIED ABNOR MALITIES OF PLASMA PROTEINS SNOMED Code(s): 692954362 (2) Acute exacerbation of chronic bronchitis Current Visit: Yes Status: Acute Code(s): J20.9 - ACUTE BRONCHITIS, UNSPECIFIED; J42 - UNSPECIFIED CHRONIC BRONCHITIS SNOMED Code(s): 419845420 (3) COPD (chronic obstructive pulmonary disease) Current Visit: Yes Status: Acute Code(s): J44.9 - CHRONIC OBSTRUCTIVE PULMONARY DISEASE, UNSPECIFIED SNOMED Code(s): 51720174 (4) CAD (coronary artery disease) Current Visit: Yes Status: Acute Code(s): I25.10 - ATHSCL HEART DISEASE OF [place] CORONARY ARTERY W/O ANG PCTRS SNOMED Code(s): 63734323 (5) Cardiomyopathy Current Visit: Yes Status: Acute Code(s): I42.9 - CARDIOMYOPATHY, UNSPECIFIED SNOMED Code(s): 76473914 Plan: Patient had a sudden onset of shortness of breath with chest x-ray suggestive of pulmonary edema or interstitial pneumonia. Patient is feeling better today. His white count is about 25,000. The possibility of multilobular pneumonia is also considered. We'll continue current medical therapy. His echo cardiogram showed good LV function without any significant valvular abnormalities. However, we'll may consider cardiac catheterization to rule out any significant underlying ischemic heart disease.
--- NOTE | 2021-12-14 19:42 | P.PN ---
Subjective Progress Note Date: 12/14/21 Principal diagnosis: Acute hypoxic respiratory failure; multifactorial COPD exacerbation Pulmonary edema Right lower lobe pneumonia 51-year-old patient who presents to the emergency department, on 12/12, complaining of shortness of breath. The patient has been short of breath for a couple days prior to admission. The patient continues to smoke, and is been smoking for more than 40 years. The patient likely has a history of underlying COPD. The patient has never been seen by a lung doctor in the past. The patient does have a history of coronary disease, hyperlipidemia, hypertension, myocardial infarction, osteoarthritis. He's had a heart catheterization with stent placement. He does continue to smoke cigarettes. He does not take any breathing medications at home. His medications include Lipitor, Naprosyn, Lotrel, Wellbutrin, Lopressor, and Zestril. White count 15.2, with a normal hemoglobin, hematocrit, and platelet count. D-dimer was normal. Sodium 139, potassium 3.7, chlorides 109, CO2 22, BUN 15, and creatinine 1.12. The patient had a troponin of 0.078 0.063, and 0.047. N-terminal proBNP was 2140. The patient's initial chest x-ray was consistent with a right lower lobe infiltrate. Early in the morning, patient became acutely short of breath; stat CTA of chest reveals extensive pulmonary infiltrates consistent with interstitial pneumonia versus pulmonary edema Patient was treated with IV diuretics and is transferred to ICU for further treatment; possible acute myocardial ischemia could be the contributing factor; patient has been placed on IV heparin and nitroglycerin for hypertension; pulmonary and cardiology service is on board Objective - Vital Signs Vital signs: Vital Signs Temp 98 F 12/14/21 12:00 Pulse 80 12/14/21 12:25 Resp 18 12/14/21 12:00 BP 129/80 12/14/21 12:00 Pulse Ox 95 12/14/21 12:00 Intake & Output 12/13/21 12/14/21 12/14/21 18:59 06:59 18:59 Intake Total 1860 704.7 206.708 Output Total 1300 825 Balance 1860 -595.3 -618.292 Weight 91.4 kg Intake: IV 130 Sodium Chloride 0.9% 1, 130 000 ml @ 50 mls/hr IV . Q20H [facility] Rx#:[id number] Intake, IV Titration 600 464.7 76.708 Amount Azithromycin 500 mg In 250 Sodium Chloride 0.9% 250 ml @ 250 mls/hr IVPB DAILY@2100 [facility] Rx#: [id number] Heparin Sod,Pork in 0.45% 76.708 NaCl 25,000 unit In 0.45 % NaCl 1 250ml.bag @ 11.2 UNITS/KG/HR 10.16 mls/hr IV .Q24H [facility] Rx#: [id number] Nitroglycerin-D5w Pmx 50 14.7 mg In Dextrose/Water 1 250ml.bag @ Titrate IV . Q0M [facility] Rx#:[id number] Sodium Chloride 0.9% 1, 600 150 000 ml @ 50 mls/hr IV . Q20H [facility] Rx#:[id number] cefTRIAXone 1 gm In 50 Sodium Chloride 0.9% 50 ml @ 100 mls/hr IVPB Q12HR [facility] Rx#:[id number] Oral 1260 240 Output: Urine 1300 825 Other: Voiding Method Toilet Urinal Urinal # Voids 2 1 1 # Bowel Movements 1 - Exam - Constitutional General appearance: Present: average body habitus, cooperative, no acute distress - EENT Eyes: Present: anicteric sclerae, EOMI, PERRLA, normal appearance ENT: Present: hearing grossly normal, normal oropharynx Ears: bilateral: normal - Neck Neck: Present: normal ROM. Absent: lymphadenopathy, rigidity, thyromegaly Carotids: negative: bruit present Thyroid: bilateral: normal size, negative: enlarged, nodule - Respiratory Respiratory: bilateral: CTA, negative: rales, rhonchi, wheezing - Cardiovascular Rhythm: regular Heart sounds: normal: S1, S2 Abnormal Heart Sounds: Absent: systolic murmur, diastolic murmur - Gastrointestinal General gastrointestinal: Present: normal bowel sounds, soft. Absent: distended, organomegaly, tenderness - Genitourinary Genitourinary Comment(s): deferred - Integumentary Integumentary: Present: normal turgor. Absent: jaundiced, rash, ulcer - Neurologic Neurologic: Present: CNII-XII intact. Absent: focal deficits - Musculoskeletal Musculoskeletal: Present: gait normal, strength equal bilaterally - Psychiatric Psychiatric: Present: A&O x's 3, appropriate affect, intact judgment & insight - Labs CBC & Chem 7: 12/14/21 06:16 12/13/21 04:49 Labs: Abnormal Lab Results - Last 24 Hours (Table) 12/13/21 12/13/21 12/13/21 Range/Units 22:56 23:12 23:12 WBC (3.8-10.6) k/uL Neutrophils # (1.3-7.7) k/uL Monocytes # (0-1.0) k/uL D-Dimer 0.98 H (<0.60) mg/L FEU POC Glucose (mg/dL) 132 H (75-99) mg/dL Troponin I 0.061 H* (0.000-0.034) ng/mL 12/13/21 12/13/21 12/14/21 Range/Units 23:45 23:46 02:04 WBC 28.6 H (3.8-10.6) k/uL Neutrophils # 23.9 H (1.3-7.7) k/uL Monocytes # 1.2 H (0-1.0) k/uL D-Dimer (<0.60) mg/L FEU POC Glucose (mg/dL) 141 H (75-99) mg/dL Troponin I 0.084 H* (0.000-0.034) ng/mL 12/14/21 Range/Units 06:16 WBC 28.8 H (3.8-10.6) k/uL Neutrophils # 24.4 H (1.3-7.7) k/uL Monocytes # 1.1 H (0-1.0) k/uL D-Dimer (<0.60) mg/L FEU POC Glucose (mg/dL) (75-99) mg/dL Troponin I (0.000-0.034) ng/mL Assessment and Plan Assessment: 1. Community-acquired pneumonia; patient has been placed on IV Rocephin and azithromycin; we will monitor CBC, CMP and pro-calcitonin; blood culture and sputum cultures 2. Elevated troponin/possible non-ST [place]; we will trend troponin; monitor EKG; 2-D echo; consult cardiology for further recommendations 3. COPD; not in exacerbation; continue with home inhaler therapy 4. CAD/cardiomyopathy; stable on aspirin and beta blockers 5. Hypertension; lisinopril 20 mg twice a day, metoprolol 50 mg twice a day and amlodipine 5 mg daily 6. Hyperlipidemia; Lipitor 80 mg by mouth daily at bedtime 7. Depression; continue with home dose of Wellbutrin 150 mg daily DVT prophylaxis; SCDs CODE STATUS; full code
[2021-12-14] MEDS: AZITHROMYCIN 500 MG in SODIUM CHLORIDE 0.9% 250 ML IVPB SCH (20:25)
[2021-12-15] MEDS: SODIUM CHLORIDE 0.9% 1,000 ML IV SCH (06:50)
[2021-12-15] MEDS: IPRATROPIUM-ALBUTEROL 3 ML NEB INHALATION SCH ×4 (08:14→20:19)
[2021-12-15] MEDS: SYMBICORT 160-4.5 MCG INHALER INHALATION SCH ×2 (08:15→20:32)
[2021-12-15] MEDS: buPROPion XL 150 MG TAB.ER.24H PO SCH (08:42)
[2021-12-15] MEDS: FUROSEMIDE 40 MG TAB PO SCH (08:42)
[2021-12-15] MEDS: ATORVASTATIN 80 MG TAB PO SCH (08:42)
[2021-12-15] MEDS: amLODIPine 5 MG TAB PO SCH (08:43)
[2021-12-15] MEDS: METOPROLOL TARTRATE 50 MG TAB PO SCH ×2 (08:43→20:29)
[2021-12-15] MEDS: SPIRONOLACTONE 25 MG TAB PO SCH (08:43)
[2021-12-15] MEDS: predniSONE 10 MG TAB PO SCH (08:43)
[2021-12-15] MEDS: lisinopriL 20 MG TAB PO SCH ×2 (08:44→20:29)
[2021-12-15] MEDS: NICOTINE 21MG/24HR PATCH TRANSDERM SCH (08:45)
[2021-12-15] MEDS: HEPARIN SODIUM 1,000 UN/ML (10ML VL) IV PRN (09:06)
--- NOTE | 2021-12-15 10:36 | XR ---
EXAMINATION TYPE: XR chest 1V portable DATE OF EXAM: 12/15/2021 Comparison: 12/13/2021 Clinical History: 51-year-old male pulmonary edema Findings: Heart borderline enlarged. Interstitial opacities show slight interval improvement. No pleural effusi on. Degenerative changes of both shoulders. Impression: Portable and heart size and continued but improving interstitial opacities/interstitial edema.
--- NOTE | 2021-12-15 11:29 | P.PN ---
Subjective Progress Note Date: 12/15/21 This is a 50-year-old gentleman with history of ischemic heart disease with a previous stent placement of the circumflex and also mid LAD, who presented to the hospital mainly with complaints of shortness of breath of rather sudden onset. It improved on admission and was stable, yesterday. Last night, patient developed acute shortness of breath and was transferred to intensive care unit. A chest x-ray showed what looks like possible pulmonary edema or interstitial pneumonia. Patient was treated with IV Lasix. By morning patient is feeling much better. A computed tomography scan is suggestive of multilobular pneumonia. Patient also has underlying COPD. He is being treated with antibiotics and steroids. Patient is also on Aldactone and Lasix and beta blockers. His echocardiogram actually showed improved LV function with an ejection fraction of 55%. His symptoms appear to be multifactorial. His troponins are mildly elevated. May consider cardiac catheterization for definitive diagnosis. Probably Thursday. Meanwhile, continue with current medical therapy including nitrates, beta blockers, diuretics and SLOANE inhibitor. 12/15/2021: This patient is feeling much better. Hasn't had any acute episodes of shortness of breath. Mild cough. Chest x-ray showed resolving interstitial infiltrates/edema. Patient is on diuretics and also antibiotics. Lungs show diminished air exchange. Heart is regular. We'll continue current medical therapy. In view of sudden onset of episodes of shortness of breath, patient is advised to have a cardiac catheterization to rule out any underlying ischemic heart disease progression. Patient is agreeable. Will keep him nothing by mouth after midnight. Cardiac catheterization will be performed by Dr. SHERLY Taveras tomorrow Objective - Vital Signs Vital signs: Vital Signs Temp 97.8 F 12/15/21 08:00 Pulse 75 12/15/21 11:00 Resp 17 12/15/21 11:00 BP 141/100 12/15/21 11:00 Pulse Ox 95 12/15/21 11:00 Intake & Output 12/14/21 12/15/21 12/15/21 18:59 06:59 18:59 Intake Total 581.775 130 888.236 Output Total 825 950 700 Balance -243.225 -820 188.236 Weight 91.3 kg Intake: IV 370 130 70 Sodium Chloride 0.9% 1, 370 130 70 000 ml @ 50 mls/hr IV . Q20H [facility] Rx#:[id number] Intake, IV Titration 211.775 218.236 Amount Heparin Sod,Pork in 0.45% 211.775 218.236 NaCl 25,000 unit In 0.45 % NaCl 1 250ml.bag @ 11.2 UNITS/KG/HR 10.16 mls/hr IV .Q24H [facility] Rx#: [id number] Oral 600 Output: Urine 825 950 700 Other: Voiding Method Urinal Urinal # Voids 1 1 # Bowel Movements 1 - Exam GENERAL EXAM: Patient is alert and oriented and doesn't appear to be in any acute distress HEENT: Normocephalic. Normal reaction of pupils, equal size, normal range of extraocular motion. No erythema or exudates in the throat. NECK: No masses, no nuchal rigidity. CHEST: No chest wall deformity. LUNGS: Diminished air entry HEART: S1 and S2 normal with no audible mumurs or gallops. Regular rhythm, femorals equal on both sides.. ABDOMEN: No hepatosplenomegaly, normal bowel sounds, no guarding or rigidity. SKIN: No rashes CENTRAL NERVOUS SYSTEM: No focal deficits. EXTREMITIES: No cyanosis, clubbing or edema. - Labs CBC & Chem 7: 12/14/21 06:16 12/13/21 04:49 Labs: Abnormal Lab Results - Last 24 Hours (Table) 12/14/21 12/14/21 12/15/21 Range/Units 15:47 22:55 06:10 APTT 37.4 H 44.2 H 39.2 H (22.0-30.0) sec Assessment and Plan (1) Troponin level elevated Current Visit: Yes Status: Acute Code(s): R77.8 - OTHER SPECIFIED ABNORMALITIES OF PLASMA PROTEINS SNOMED Code(s): 085365179 (2) Acute exacerbation of chronic bronchitis Current Visit: Yes Status: Acute Code(s): J20.9 - ACUTE BRONCHITIS, UNSPECIFIED; J42 - UNSPECIFIED CHRONIC BRONCHITIS SNOMED Code(s): 556938947 (3) COPD (chronic obstructive pulmonary disease) Current Visit: Yes Status: Acute Code(s): J44.9 - CHRONIC OBSTRUCTIVE PULMONARY DISEASE, UNSPECIFIED SNOMED Code(s): 82584710 (4) CAD (coronary artery disease) Current Visit: Yes Status: Acute Code(s): I25.10 - ATHSCL HEART DISEASE OF [place] CORONARY ARTERY W/O ANG PCTRS SNOMED Code(s): 67438541 (5) Cardiomyopathy Current Visit: Yes Status: Acute Code(s): I42.9 - CARDIOMYOPATHY, UNSPECIFIED SNOMED Code(s): 39765724 Plan: patient is stable. Less short of breath. No fever. Chest x-ray showed a resolving interstitial infiltrates/edema. Advised to have a cardiac cath for definitive diagnosis. Patient understands and accepts the risks
--- NOTE | 2021-12-15 11:46 | P.PN ---
Subjective Progress Note Date: 12/15/21 Principal diagnosis: Shortness of breath, pneumonia, COPD exacerbation. Pulmonary consult dated 12/13/2021. 51-year-old patient who presents to the emergency department, on 12/12, complaining of shortness of breath. The patient has been short of breath for a couple days prior to admission. The patient continues to smoke, and is been smoking for more than 40 years. The patient likely has a history of underlying COPD. The patient has never been seen by a lung doctor in the past. The patient does have a history of coronary disease, hyperlipidemia, hypertension, myocardial infarction, osteoarthritis. He's had a heart catheterization with stent placement. He does continue to smoke cigarettes. He does not take any breathing medications at home. His medications include Lipitor, Naprosyn, Lotrel, Wellbutrin, Lopressor, and Zestril. White count 15.2, with a normal hemoglobin, hematocrit, and platelet count. D-dimer was normal. Sodium 139, potassium 3.7, chlorides 109, CO2 22, BUN 15, and creatinine 1.12. The patient had a troponin of 0.078 0.063, and 0.047. N-terminal proBNP was 2140. The patient's initial chest x-ray was consistent with a right lower lobe infiltrate. Progress note dated 12/14/2021. This is a 51-year-old male that we saw yesterday in consultation. We saw him for shortness of breath, he was found to have a COPD exacerbation, copy given by right lower lobe pneumonia. The patient is a heavy tobacco user, having smoked for more than 40 years. The patient has never seen a lung doctor in the past. In addition, he has a history of coronary disease, hyperlipidemia, hypertension, myocardial infarction, and osteoarthritis. The patient has undergone a heart catheterization with stent placement. Yesterday, when we saw him, he will very stable. Apparently sometime early in the morning, he developed flash pulmonary edema, and was transferred to the intensive care unit. The patient denied any chest pain. His only complaint was that of shortness of breath. The patient apparently received some Ativan, and some Lasix. Currently, he's on 6 L nasal cannula. He is getting saline at KVO. He's currently on a heparin drip. White count 28.8, hemoglobin 15.9, hematocrit 47.4, and platelet count 208,000. PT, INR, and PTT were normal. D-dimer was 0.98. Troponins were 0.061 and 0.084. A chest x-ray done last night when this all developed, shows some interstitial edema. A CT angiogram, was negative for pulmonary embolism, and showed extensive pulmonary infiltrates, consistent with either interstitial pneumonia or interstitial edema. Progress note dated 12/15/2021. This is a 51-year-old male, again seen in room 260, in the intensive care unit. Currently he is getting saline at 10 mL an hour, IV heparin, and O2 at 3 L. He is scheduled for a heart catheterization in the morning. This morning, he was feeling a bit more short of breath off of oxygen, and he put the oxygen back on. The patient has a history of CAD, hyperlipidemia, hypertension, myocardial infarction, and osteoarthritis. He does have a prior history of heart catheterization, and stent placement. His PTT is 39.2. Chest x-ray today shows improving pulmonary edema. CT angiogram, was negative for PE. Objective - Vital Signs Vital signs: Vital Signs Temp 97.8 F 12/15/21 08:00 Pulse 75 12/15/21 11:00 Resp 17 12/15/21 11:00 BP 141/100 12/15/21 11:00 Pulse Ox 95 12/15/21 11:00 Intake & Output 12/14/21 12/15/21 12/15/21 18:59 06:59 18:59 Intake Total 581.775 130 888.236 Output Total 825 950 700 Balance -243.225 -820 188.236 Weight 91.3 kg Intake: IV 370 130 70 Sodium Chloride 0.9% 1, 370 130 70 000 ml @ 50 mls/hr IV . Q20H [facility] Rx#:[id number] Intake, IV Titration 211.775 218.236 Amount Heparin Sod,Pork in 0.45% 211.775 218.236 NaCl 25,000 unit In 0.45 % NaCl 1 250ml.bag @ 11.2 UNITS/KG/HR 10.16 mls/hr IV .Q24H [facility] Rx#: [id number] Oral 600 Output: Urine 825 950 700 Other: Voiding Method Urinal Urinal # Voids 1 1 # Bowel Movements 1 - Exam No acute distress, oriented 3. Currently on 3 L nasal cannula, with saturations just about 92%. HEENT examination is grossly unremarkable. Neck supple. Full range of motion. No adenopathy thyromegaly or neck vein distention. Cardiovascular examination reveals regular rhythm rate. S1-S2 normal. No S3 or S4. No discernible murmur noted. Heart rate 75 bpm. Lungs reveal scattered rhonchi and crackles. Breath sounds equal. There are no wheezes. Abdomen soft bowel sounds are heard. No masses or tenderness. Extremities are intact. No cyanosis clubbing or edema. Skin is without rash or lesion. Neurologic examination is brief but nonfocal. - Labs CBC & Chem 7: 12/14/21 06:16 12/13/21 04:49 Labs: Abnormal Lab Results - Last 24 Hours (Table) 12/14/21 12/14/21 12/15/21 Range/Units 15:47 22:55 06:10 APTT 37.4 H 44.2 H 39.2 H (22.0-30.0) sec Assessment and Plan Assessment: Acute shortness of breath, likely multifactorial, and secondary to COPD exacerbation, right lower lobe pneumonia, and flash pulmonary edema. History of ongoing tobacco use with nicotine addiction, for more than 40 years. History of CAD, with previous myocardial infarction, heart catheterization and stent placement. History of hyperlipidemia. History of hypertension. History of osteoarthritis. History of depression. Plan: Plan dated 12/13/2021. The patient is advised about the importance of smoking cessation. The patient is currently on Rocephin, and azithromycin. The patient should also be on albuterol sulfate and ipratropium bromide. Additional recommendations and suggestions are forthcoming. A nicotine patch has been ordered. We will continue to follow and make recommendations where appropriate. Prognosis is guarded. The patient has been seen by cardiology. Plan dated 12/14/2021. The patient developed acute respiratory distress last night. We saw him early in the day, and he was very stable, only on room air. He developed some acute pulmonary edema, of unclear etiology. It could relate to some myocardial ischemia. He does have a history of CAD, and previous history of stent placement. Clinically, the patient looks relatively stable now. He is in the intensive care unit. The patient is on 6 L nasal cannula. He was seen by cardiology and placed on IV heparin. Additional recommendations and suggestions are forthcoming. Prognosis is guarded. Labs, x-rays, and medications are reviewed. CT angiogram was negative for pulmonary embolism. Plan dated 12/15/2021. The patient is scheduled for heart catheterization in the morning. The patient's currently on 3 L nasal cannula. His chest x-ray showing improved pulmonary edema. The patient is also being treated for a COPD exacerbation, and pneumonia. He remains on azithromycin, Rocephin, Symbicort, and updraft tr eatments. He is also taking prednisone 30 mg a day. Overall, he has improved, but still having some shortness of breath. The patient has been seen by cardiology. As mentioned above, heart catheterization in the morning. Time with Patient: Less than 30
[2021-12-15] MEDS: HEPARIN SOD,PORK IN 0.45% NACL 25,000 UNIT in 0.45% NACL 1 250ML.BAG IV SCH (13:40)
--- NOTE | 2021-12-15 15:05 | P.PN ---
Subjective Progress Note Date: 12/15/21 Principal diagnosis: Acute hypoxic respiratory failure; multifactorial COPD exacerbation Pulmonary edema Right lower lobe pneumonia 51-year-old patient who presents to the emergency department, on 12/12, complaining of shortness of breath. The patient has been short of breath for a couple days prior to admission. The patient continues to smoke, and is been smoking for more than 40 years. The patient likely has a history of underlying COPD. The patient has never been seen by a lung doctor in the past. The patient does have a history of coronary disease, hyperlipidemia, hypertension, myocardial infarction, osteoarthritis. He's had a heart catheterization with stent placement. He does continue to smoke cigarettes. He does not take any breathing medications at home. His medications include Lipitor, Naprosyn, Lotrel, Wellbutrin, Lopressor, and Zestril. White count 15.2, with a normal hemoglobin, hematocrit, and platelet count. D-dimer was normal. Sodium 139, potassium 3.7, chlorides 109, CO2 22, BUN 15, and creatinine 1.12. The patient had a troponin of 0.078 0.063, and 0.047. N-terminal proBNP was 2140. The patient's initial chest x-ray was consistent with a right lower lobe infiltrate. Early in the morning, patient became acutely short of breath; stat CTA of chest reveals extensive pulmonary infiltrates consistent with interstitial pneumonia versus pulmonary edema Patient was treated with IV diuretics and is transferred to ICU for further treatment; possible acute myocardial ischemia could be the contributing factor; patient has been placed on IV heparin and nitroglycerin for hypertension; pulmonary and cardiology service is on board 12/15/2021 Patient is seen and evaluated ambulating in the room; daughter at bedside; denies any complaint of chest pain or shortness of breath Vital signs are reviewed and stable with temperature of 97.8, pulse 75, respirations 17 and blood pressure 141/100 Patient had sudden onset of episodes of shortness of breath; cardiology on board and recommending cardiac catheterization to rule out any underlying ischemic heart disease progression. Patient is agreeable. Cardiac catheterization will be scheduled for tomorrow The patient is also being treated for a COPD exacerbation, and pneumonia. He remains on azithromycin, Rocephin, Symbicort, and updraft treatments. He is also taking prednisone 30 mg a day. Overall, he has improved, but still having some shortness of breath. Objective - Vital Signs Vital signs: Vital Signs Temp 97.7 F 12/15/21 04:00 Pulse 93 12/15/21 07:00 Resp 13 12/15/21 07:00 BP 135/95 12/15/21 07:00 Pulse Ox 96 12/15/21 07:00 Intake & Output 12/14/21 12/15/21 12/15/21 18:59 06:59 18:59 Intake Total 581.775 130 10 Output Total 825 950 Balance -243.225 -820 10 Weight 91.3 kg Intake: IV 370 130 10 Sodium Chloride 0.9% 1, 370 130 10 000 ml @ 50 mls/hr IV . Q20H [facility] Rx#:[id number] Intake, IV Titration 211.775 Amount Heparin Sod,Pork in 0.45% 211.775 NaCl 25,000 unit In 0.45 % NaCl 1 250ml.bag @ 11.2 UNITS/KG/HR 10.16 mls/hr IV .Q24H [facility] Rx#: [id number] Output: Urine 825 950 Other: Voiding Method Urinal Urinal # Voids 1 1 # Bowel Movements 1 - Exam - Constitutional General appearance: Present: average body habitus, cooperative, no acute distress - EENT Eyes: Present: anicteric sclerae, EOMI, PERRLA, normal appearance ENT: Present: hearing grossly normal, normal oropharynx Ears: bilateral: normal - Neck Neck: Present: normal ROM. Absent: lymphadenopathy, rigidity, thyromegaly Carotids: negative: bruit present Thyroid: bilateral: normal size, negative: enlarged, nodule - Respiratory Respiratory: bilateral: CTA, negative: rales, rhonchi, wheezing - Cardiovascular Rhythm: regular Heart sounds: normal: S1, S2 Abnormal Heart Sounds: Absent: systolic murmur, diastolic murmur - Gastrointestinal General gastrointestinal: Present: normal bowel sounds, soft. Absent: distended, organomegaly, tenderness - Genitourinary Genitourinary Comment(s): deferred - Integumentary Integumentary: Present: normal turgor. Absent: jaundiced, rash, ulcer - Neurologic Neurologic: Present: CNII-XII intact. Absent: focal deficits - Musculoskeletal Musculoskeletal: Present: gait normal, strength equal bilaterally - Psychiatric Psychiatric: Present: A&O x's 3, appropriate affect, intact judgment & insight - Labs CBC & Chem 7: 12/14/21 06:16 12/13/21 04:49 Labs: Abnormal Lab Results - Last 24 Hours (Table) 12/14/21 12/14/21 12/15/21 Range/Units 15:47 22:55 06:10 APTT 37.4 H 44.2 H 39.2 H (22.0-30.0) sec Assessment and Plan Assessment: 1. Community-acquired pneumonia; patient has been placed on IV Rocephin and azithromycin; we will monitor CBC, CMP and pro-calcitonin; blood culture and sputum cultures 2. Elevated troponin/possible non-ST CA; we will trend troponin; monitor EKG; 2-D echo; consult cardiology for further recommendations 3. COPD; not in exacerbation; continue with home inhaler therapy 4. CAD/cardiomyopathy; stable on aspirin and beta blockers 5. Hypertension; lisinopril 20 mg twice a day, metoprolol 50 mg twice a day and amlodipine 5 mg daily 6. Hyperlipidemia; Lipitor 80 mg by mouth daily at bedtime 7. Depression; continue with home dose of Wellbutrin 150 mg daily DVT prophylaxis; SCDs CODE STATUS; full code
[2021-12-15] MEDS: AZITHROMYCIN 500 MG in SODIUM CHLORIDE 0.9% 250 ML IVPB SCH (21:12)
[2021-12-16] MEDS: SODIUM CHLORIDE 0.9% 1,000 ML in EMPTY BAG 1 BAG IV SCH ×4 (01:23→21:33)
[2021-12-16 03:10] LABS: HCT 47.6 % (39.0-53.0); HGB 16.1 gm/dL (13.0-17.5); MCHC 33.8 g/dL (31.0-37.0); MCV 97.6 fL (80.0-100.0); Mean Platelet Volume 9.2; Platelet Count 196 k/uL (150-450); RBC 4.88 m/uL (4.30-5.90); RDW 12.9 % (11.5-15.5); WBC 18.9 k/uL (3.8-10.6)
[2021-12-16 03:18] LABS: Calcium 9.4 mg/dL (8.4-10.2)
[2021-12-16 03:22] LABS: INR 0.9 (<1.2); Partial Thromboplastin Time 53.1 sec (22.0-30.0); Prothrombin Time 10.3 sec (9.0-12.0)
[2021-12-16] MEDS: SODIUM CHLORIDE 0.9% 1,000 ML IV SCH ×3 (03:30→23:02)
[2021-12-16 06:51] LABS: Glucose,Whole Blood 107 mg/dL (75-99)
[2021-12-16] MEDS: HEPARIN SOD,PORK IN 0.45% NACL 25,000 UNIT in 0.45% NACL 1 250ML.BAG IV SCH (07:21)
[2021-12-16] MEDS ORDERED: ASPIRIN 325 MG TAB PO STA (08:03)
[2021-12-16] MEDS: SYMBICORT 160-4.5 MCG INHALER INHALATION SCH ×2 (08:17→20:43)
[2021-12-16] MEDS: IPRATROPIUM-ALBUTEROL 3 ML NEB INHALATION SCH ×4 (08:17→20:43)
[2021-12-16] MEDS: predniSONE 10 MG TAB PO SCH (08:22)
[2021-12-16] MEDS: SPIRONOLACTONE 25 MG TAB PO SCH (08:22)
[2021-12-16] MEDS: lisinopriL 20 MG TAB PO SCH ×2 (08:22→20:30)
[2021-12-16] MEDS: ATORVASTATIN 80 MG TAB PO SCH (08:22)
[2021-12-16] MEDS: amLODIPine 5 MG TAB PO SCH (08:22)
[2021-12-16] MEDS: FUROSEMIDE 40 MG TAB PO SCH (08:22)
[2021-12-16] MEDS: METOPROLOL TARTRATE 50 MG TAB PO SCH ×2 (08:23→20:30)
[2021-12-16] MEDS: buPROPion XL 150 MG TAB.ER.24H PO SCH (08:23)
[2021-12-16] MEDS: NICOTINE 21MG/24HR PATCH TRANSDERM SCH (08:24)
--- NOTE | 2021-12-16 08:43 | XR ---
EXAMINATION TYPE: XR chest 1V portable DATE OF EXAM: 12/16/2021 COMPARISON: 12/15/2021 HISTORY: Shortness of breath TECHNIQUE: Single frontal view of the chest is obtained. FINDINGS: There is no focal air space opacity, pleural effusion, or pneumothorax seen. The cardiac silhouette size is within normal limits. The osseous structures are intact. Diffuse interstitial pa ttern noted. Suspect underlying COPD. IMPRESSION: Persistent diffuse interstitial pattern correlate for interstitial pneumonitis or venous congestion.
[2021-12-16] MEDS ORDERED: VERAPAMIL 2.5 MG/ML 2 ML AMP ONE (10:19)
[2021-12-16] MEDS ORDERED: HEPARIN SODIUM 1,000 UN/ML (10ML VL) ONE (10:19)
[2021-12-16] MEDS ORDERED: LIDOCAINE 1% INJ 10MG/ML (20 ML MDV) ONE (10:19)
--- NOTE | 2021-12-16 10:28 | PN ---
PROGRESS NOTE Mr. Mercer came into the hospital with shortness of breath, seems to have multilobar pneumonia and seems to have improved. With this, there is a borderline troponin elevation. He has history of multivessel PCI with acute inferior SD in 2019 with stenting of circumflex and also LAD. He is doing better today. He is going for a cardiac catheterization, which will be performed by me today. Cardiac catheterization is being performed because of chest pain, shortness of breath, multivessel intervention and a flash pulmonary edema type picture, which seems to have improved. LV function is well preserved. Vitals are stable. No JVD. S1-S2 heard normally. No significant murmurs. Lungs reveal decent air entry with fine rales on right base. Abdomen is soft. Lower extremities reveal diminished pulses. Central nervous system is normal. Plan is to proceed with cardiac catheterization. He patient understands rationale, risks, benefits, options and wishes to proceed. Will hold heparin 2 hours before and continue all his other medications. MMODL / IJN: [id number] /
[2021-12-16] MEDS ORDERED: IV FLUID CONTINUATION 400 ML IV ONE (11:05)
[2021-12-16] MEDS ORDERED: MIDAZOLAM 2 MG/2 ML VIAL IV ONE (11:12)
[2021-12-16] MEDS ORDERED: LIDOCAINE 1% INJ 10MG/ML (20 ML MDV) SQ ONE (11:13)
[2021-12-16] MEDS: VERAPAMIL SYRINGE (5 MG/10 ML) INTRAARTER ONE ×2 (11:15→11:47)
[2021-12-16] MEDS ORDERED: HEPARIN SODIUM 1,000 UN/ML (10ML VL) IV ONE (11:16)
[2021-12-16] MEDS ORDERED: IOPAMIDOL-370 100ML BTL INJ ONE ×2 (11:35→11:47)
[2021-12-16] MEDS ORDERED: IOPAMIDOL-370 50ML BTL INJ ONE (11:39)
[2021-12-16] MEDS ORDERED: RX INFO: IV CONTRAST WAS GIVEN 1 EACH MISC MISCELLANE PRN (11:54)
--- NOTE | 2021-12-16 12:18 | CDI ---
Documentation Clarification Form Date: 12/16/2021 11:59:19 AM From: Aditi Delatorre RN CCDS Admit Date: 12/12/2021 11:25:00 PM Patient Name: Ildefonso Mercer Visit Number: [id number] Discharge Date: ATTENTION: The Clinical Documentation Specialists (CDI) and [facility] Coding Staff appreciate your assistance in clarifying documentation. Please respond to the clarification below the line at the bottom and electronically sign. The CDI & [facility] Coding staff will review the response and follow-up if needed. Please note: Queries are made part of the Legal Health Record. If you have any questions, please contact the author of this message via ITS. Dr. Kyler Ng Your patient is receiving the following medications: Lasix, Aldactone and Lopressor. Please clarify what condition / diagnosis is being treated. History/Risk Factors: 51 year -old male presents to the ED with shortness of breath. Medical history: 05/14 Myocardial infarction; CAD; HLD and HTN. Cardiology consult, 12/13. Clinical Indicators: NT-Pro-B Natriuret Pep 12/12: 2140 Troponin: 12/12 - 0.078; 12/13 0.063; 0.047; 0.061. Echo 12/13: EF 55-60% Trace mitral regurgitation, Mild tricuspid regurgitation. CXR: 12/13 Pulmonary interstitial edema. Could be acute heart failure. Treatment: 12/13 Lasix 40mg IV x 1; 12/14 Current Lasix 40mg po Daily; 12/13 Current Lopressor 50mg po BID; 12/13 to Current Aldactone 25mg po Daily. Can you please clarify what diagnosis you are treating with Lasix, Aldcactone and Lopressor? [ ] Acute on Chronic Diastolic CHF [ ] Chronic Diastolic CHF [ ] Other, please specify [ ] Unable to determine DCS Possible NSTEMI, s/p cardiac catheterization .Yolanda Hunt NP/ Dr Ng. (Template Last Revised: December 2020) ALYD
--- NOTE | 2021-12-16 12:43 | P.PN ---
Subjective Progress Note Date: 12/16/21 Principal diagnosis: Acute hypoxic respiratory failure secondary to right lower lobe pneumonia, acute exacerbation of COPD, and possible acute diastolic congestive heart failure 51-year-old patient who presents to the emergency department, on 12/12, complaining of shortness of breath. The patient has been short of breath for a couple days prior to admission. The patient continues to smoke, and is been smoking for more than 40 years. The patient likely has a history of underlying COPD. The patient has never been seen by a lung doctor in the past. The patient does have a history of coronary disease, hyperlipidemia, hypertension, myocardial infarction, osteoarthritis. He's had a heart catheterization with stent placement. He does continue to smoke cigarettes. He does not take any breathing medications at home. His medications include Lipitor, Naprosyn, Lotrel, Wellbutrin, Lopressor, and Zestril. White count 15.2, with a normal hemoglobin, hematocrit, and platelet count. D-dimer was normal. Sodium 139, potassium 3.7, chlorides 109, CO2 22, BUN 15, and creatinine 1.12. The patient had a troponin of 0.078 0.063, and 0.047. N-terminal proBNP was 2140. The patient's initial chest x-ray was consistent with a right lower lobe infiltrate. Progress note dated 12/14/2021. This is a 51-year-old male that we saw yesterday in consultation. We saw him for shortness of breath, he was found to have a COPD exacerbation, copy given by right lower lobe pneumonia. The patient is a heavy tobacco user, having smoked for more than 40 years. The patient has never seen a lung doctor in the past. In addition, he has a history of coronary disease, hyperlipidemia, hypertension, myocardial infarction, and osteoarthritis. The patient has undergone a heart catheterization with stent placement. Yesterday, when we saw him, he will very stable. Apparently sometime early in the morning, he developed flash pulmonary edema, and was transferred to the intensive care unit. The patient denied any chest pain. His only complaint was that of shortness of breath. The patient apparently received some Ativan, and some Lasix. Currently, he's on 6 L nasal cannula. He is getting saline at KVO. He's currently on a heparin drip. White count 28.8, hemoglobin 15.9, hematocrit 47.4, and platelet count 208,000. PT, INR, and PTT were normal. D-dimer was 0.98. Troponins were 0.061 and 0.084. A chest x-ray done last night when this all developed, shows some interstitial edema. A CT angiogram, was negative for pulmonary embolism, and showed extensive pulmonary infiltrates, consistent with either interstitial pneumonia or interstitial edema. Progress note dated 12/15/2021. This is a 51-year-old male, again seen in room 260, in the intensive care unit. Currently he is getting saline at 10 mL an hour, IV heparin, and O2 at 3 L. He is scheduled for a heart catheterization in the morning. This morning, he was feeling a bit more short of breath off of oxygen, and he put the oxygen back on. The patient has a history of CAD, hyperlipidemia, hypertension, myocardial infarction, and osteoarthritis. He does have a prior history of heart catheterization, and stent placement. His PTT is 39.2. Chest x-ray today shows improving pulmonary edema. CT angiogram, was negative for PE. Reevaluated today on 12/16/2021, patient is on room air, he is sitting in bed, does not seem to be in any distress, he tells me today that he feels significantly better compared to how he felt when he came in with shortness of breath initiated. Patient is scheduled to undergo cardiac catheterization, his troponins have been elevated, and his chest x-ray as well as CT of the chest is suggestive of interstitial edema. Patient responded well to diuretics, CT angiogram of the chest negative for pulmonary embolism. Continues to have leukocytosis with WBC count of 18.9 hemoglobin is 16 electrolytes are normal renal profile is normal. Objective - Vital Signs Vital signs: Vital Signs Temp 98.5 F 12/16/21 08:05 Pulse 64 12/16/21 10:00 Resp 10 L 12/16/21 10:00 BP 153/100 12/16/21 10:00 Pulse Ox 95 12/16/21 10:00 Intake & Output 12/15/21 12/16/21 12/16/21 18:59 06:59 18:59 Intake Total 0789.585 1738 400 Output Total 2600 500 Balance -377.020 3757 -100 Weight 89.6 kg Intake: IV 180 445 400 Sodium Chloride 0.9% 1, 180 445 300 000 ml @ 50 mls/hr IV . Q20H [facility] Rx#:[id number] Intake, IV Titration 250.000 250 Amount Heparin Sod,Pork in 0.45% 250.000 250 NaCl 25,000 unit In 0.45 % NaCl 1 250ml.bag @ 11.2 UNITS/KG/HR 10.16 mls/hr IV .Q24H [facility] Rx#: [id number] Oral 1500 480 Output: Urine 2600 500 Other: # Voids 1 1 - Exam Physical Exam: Revealed 51-year-old white male in no distress, on room air. Head: Atraumatic, normocephalic. HEENT:[Neck is supple.] [No neck masses.] [No thyromegaly.] [No JVD.] Chest: [Clear throughout, no crackles, no rhonchi, no wheezes.] Cardiac Exam: [Normal S1 and S2, no S3 gallop, no murmur.] Abdomen: [Soft, nontender, no megaly, no rebound, no guarding, normal bowel sounds.] Extremities: [No clubbing, no edema, no cyanosis.] Neurological Exam: [No focal neurologic deficit.] Alert oriented 3. Musculoskeletal: No deformities noted limitation of range of motion. Psychiatric: Normal mood affect and normal mental status examination. Skin: No rashes. - Labs CBC & Chem 7: 12/16/21 02:55 12/16/21 02:55 Labs: Abnormal Lab Results - Last 24 Hours (Table) 12/15/21 12/16/21 12/16/21 Range/Units 14:53 02:55 02:55 WBC 18.9 H (3.8-10.6) k/uL APTT 51.3 H 53.1 H (22.0-30.0) sec Glucose (74-99) mg/dL POC Glucose (mg/dL) (75-99) mg/dL 12/16/21 12/16/21 Range/Units 02:55 06:49 WBC (3.8-10.6) k/uL APTT (22.0-30.0) sec Glucose 108 H (74-99) mg/dL POC Glucose (mg/dL) 107 H (75-99) mg/dL Assessment and Plan Assessment: Impression: Acute hypoxic respiratory failure secondary to acute community-acquired pneumonia and acute exacerbation of COPD, possible acute diastolic congestive heart failure. Elevated troponin, possible non-ST elevation myocardial infarction. History of coronary artery disease and previous stents placement. Benign essential hypertension. Dyslipidemia. History of depression. Recommendation: Continue present supportive care measures. Agree with cardiac catheterization on this patient. Continue antibiotics and bronchodilators. Continue lisinopril and amlodipine. Continue Lasix. We will continue to follow. Consider transferring the patient out of the ICU later today after his cardiac catheterization. Time with Patient: Less than 30
--- NOTE | 2021-12-16 15:25 | CC ---
CARDIAC CATHETERIZATION REPORT DATE OF SERVICE: 12/16/2021 PROCEDURE: Left heart catheterization and coronary angiography. PERFORMED BY: Dr. Ronald Taveras. Moderate conscious sedation time was 35 minutes. Patient was administered Versed. Oxygen saturation, hemodynamics and EKG were monitored closely. CLINICAL INFORMATION: Mr. 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 He came into the hospital with episode of shortness of breath, was found to have a right lower lobe infiltrate, exacerbation of COPD, borderline troponin elevation which responded to breathing treatments and prednisone. He did not have any clear-cut EKG changes. He always has a mild anterior ST-segment abnormality that was noted. Troponin profile did not suggest any significant myocardial injury. He was advised cardiac catheterization, given the fact he has significant history of CAD with stenting of a major diagonal branch in 2011 and stenting of a circumflex totally occluded in the setting of an acute AZ in 2019; and at the same time I performed stenting of mid LAD, and the diagonal at that time was open. He has not followed up and has stopped taking aspirin, smokes at least one to two packs daily. He was advised cardiac catheterization and I discussed with him the rationale, risks, benefits and options. PROCEDURE NOTE: Under local anesthesia and strict aseptic precautions, a 6-[place] introducer was placed in the right radial artery. Using a JR4 catheter, I performed selective coronary angiography of the right coronary artery, and the same catheter was used to check LV pressures. Initially I used a JL3.5, then switched over to a 3.0 catheter. With this I was able to get selective injection of both circumflex and LAD, which were coming almost from a [id number] origin. The patient really technically does not have a clear-cut left main. LV pressures were obtained but LV gram was not performed with the right catheter. CARDIAC CATHETERIZATION FINDINGS: The left ventricular end-diastolic pressure was 12 mmHg without any gradient across the aortic valve. CORONARY ANGIOGRAPHY FINDINGS: RIGHT CORONARY ARTERY: Technically dominant vessel, very large in caliber, has minor irregularities, distally bifurcates into a large PDA and PLV which gives off several multiple branches. There is mild diffuse disease of less than 30% to 35% in the branches but no significant disease in the dominant RCA. LEFT MAIN CORONARY ARTERY: This patient really has two separate origins coming side-by- side of circumflex and LAD, but no clear-cut left main. LEFT POSTERIOR CIRCUMFLEX CORONARY ARTERY: This vessel was stented in the mid portion in the setting of an acute AZ in April 2020. Circumflex is widely patent with good flow. The stented segment is widely patent. In the mid and distal portions there are about 30% to 40% areas of narrowing noted. No significant stenosis in the distal circumflex, and its branches have mild diffuse disease noted. Circumflex therefore is widely patent at the site of previous stenting, and beyond the stented segment there is about 30% to 35% narrowing noted. LEFT ANTERIOR DESCENDING CORONARY ARTERY: Injection was somewhat difficult. I used a 6- [place] diagnostic catheter of 3.0 . With this I was able to get selective injections. During the manipulation, patient had transient ST elevation with possible spasm, which then resolved very quickly. LAD ostium is widely patent. No significant flow. No damping noted. Mid portion it gives off a septal and diagonal branch which is patent. Second diagonal that was stented is widely patent with good flow. The mid LAD after the second diagonal which was stented is also widely patent with very good flow. LAD has multiple areas of 30% to 40% narrowing, but really no significant stenosis is noted. The ostium also is widely patent in multiple views. There is multiple 30% to 40% narrowing in the LAD system. Diagonal vessel that was stented in 2011 is also widely patent. There is about a 30% narrowing within the stented area. Left ventriculogram was not performed. FINAL IMPRESSION: This patient has a right-dominant system with minor irregularities of 30% to 40%. No significant disease in the dominant RCA. Circumflex and LAD of separate origin. Circumflex that was stented before is widely patent with good flow with distal moderate disease of 30% to 40%. LAD ostium and mid portion which was stented and the diagonal are patent. There is about a 35% stenosis in the diagonal branch. LAD is widely patent. No significant disease, but there are diffuse 30% to 40% narrowings noted. LV gram was not performed. RECOMMENDATIONS: Findings were discussed with the patient at length. He did not wish that I speak to any family members. I explained to him the importance of smoking cessation. I will add Imdur 30 mg b.i.d. to his regimen. Continue beta blockers, amlodipine, aspirin and subcutaneous heparin. He will go back to his room and TR band removal will be started soon. A TR band was applied without any issue. Saturation in the fingers of the right hand was 95%. Patient tolerated the procedure well. No complications were noted. Advised smoking cessation and compliance with medical therapy. MMODL / IJN: [id number] /
--- NOTE | 2021-12-16 19:10 | PN ---
PROGRESS NOTE DATE OF SERVICE: 12/16/2021 This 51-year-old gentleman who was admitted with acute hypoxic respiratory failure, COPD, acute exacerbation and pulmonary edema is being closely monitored in the ICU. Patient had a cardiac catheterization which showed diffuse moderate coronary artery disease. Medical management is considered. Patient is being closely monitored in ICU. No chest pain or palpitations. Past medical history REVIEW OF SYSTEMS: CARDIOVASCULAR SYSTEM: As mentioned earlier. RESPIRATION: As mentioned earlier. GI: No nausea. : No dysuria. NERVOUS SYSTEM: No numbness, weakness. CURRENT MEDICATIONS: Reviewed. They include Tylenol, DuoNeb, Norvasc, aspirin. Doses and other medications are reviewed. PHYSICAL EXAMINATION: Pulse is 87, blood pressure 107/69, respirations 16, pulse ox 94% on room air. HEENT: Conjunctivae normal. NECK: No jugular venous distention. CARDIOVASCULAR: S1, S2 muffled. RESPIRATION: Breath sounds diminished at the bases. A few scattered rhonchi and crackles. ABDOMEN: Soft, nontender. LEGS: No edema. No swelling. NERVOUS SYSTEM: No focal deficit. LABS: WBC 18.. Other labs are noted. ASSESSMENT: 1. Chronic obstructive pulmonary disease, acute exacerbation, with community- acquired pneumonia with acute hypoxic respiratory failure. 2. Possible acute [id number] myocardial infarction, status post cardiac catheterization showing mild to moderate coronary artery disease. 3. Chronic obstructive pulmonary disease. 4. Coronary artery disease, cardiomyopathy. 5. Hypertension. 6. Hyperlipidemia. 7. Depression. RECOMMENDATIONS AND DISCUSSION: I recommend to continue current medications, continue with the monitoring, symptomatic treatment. Continue with the medical treatment. See orders for further details. Prognosis guarded. Dr. Ng will follow. Continue the antibiotic and rest of the medications. Repeat labs will be ordered for tomorrow. MMODL / IJN: [id number] / [facility]
[2021-12-16] MEDS: HEPARIN SODIUM,PORCINE/PF 5,000 UNIT/0.5 ML SYRINGE SQ SCH (20:29)
[2021-12-16] MEDS: ISOSORBIDE MONONITRATE ER 30 MG TAB.ER.24H PO SCH (20:30)
[2021-12-16] MEDS: AZITHROMYCIN 500 MG in SODIUM CHLORIDE 0.9% 250 ML IVPB SCH (21:46)
[2021-12-17] MEDS: SODIUM CHLORIDE 0.9% 1,000 ML IV SCH ×2 (01:20→04:01)
[2021-12-17 06:37] LABS: Basophils # (A) 0.1 k/uL (0-0.2); Basophils % (A) 0 %; Eosinophils # (A) 0.2 k/uL (0-0.7); Eosinophils % (A) 1 %; HCT 44.9 % (39.0-53.0); HGB 14.7 gm/dL (13.0-17.5); Lymphocytes # (A) 2.9 k/uL (1.0-4.8); Lymphocytes % (A) 16 %; MCH 32.4 pg (25.0-35.0); MCHC 32.9 g/dL (31.0-37.0); MCV 98.5 fL (80.0-100.0); Mean Platelet Volume 9.2; Monocytes # (A) 0.8 k/uL (0-1.0); Monocytes % (A) 5 %; Neutrophils # (A) 13.5 k/uL (1.3-7.7); Neutrophils % (A) 76 %; Platelet Count 210 k/uL (150-450); RBC 4.56 m/uL (4.30-5.90); RDW 13.6 % (11.5-15.5); WBC 17.7 k/uL (3.8-10.6)
[2021-12-17 06:52] LABS: Calcium 9.4 mg/dL (8.4-10.2); Potassium 4.4 mmol/L (3.5-5.1)
[2021-12-17] MEDS ORDERED: SODIUM CHLORIDE 0.9% 1,000 ML IV SCH (07:30)
[2021-12-17] MEDS: NICOTINE 21MG/24HR PATCH TRANSDERM SCH (07:44)
[2021-12-17] MEDS: IPRATROPIUM-ALBUTEROL 3 ML NEB INHALATION SCH ×4 (08:46→19:40)
[2021-12-17] MEDS: SYMBICORT 160-4.5 MCG INHALER INHALATION SCH ×2 (08:46→19:41)
[2021-12-17] MEDS: ATORVASTATIN 80 MG TAB PO SCH (08:47)
[2021-12-17] MEDS: FUROSEMIDE 40 MG TAB PO SCH (08:47)
[2021-12-17] MEDS: ISOSORBIDE MONONITRATE ER 30 MG TAB.ER.24H PO SCH ×2 (08:47→19:59)
[2021-12-17] MEDS: SPIRONOLACTONE 25 MG TAB PO SCH (08:47)
[2021-12-17] MEDS: amLODIPine 5 MG TAB PO SCH ×2 (08:47→19:59)
[2021-12-17] MEDS: lisinopriL 20 MG TAB PO SCH ×2 (08:47→19:59)
[2021-12-17] MEDS: HEPARIN SODIUM,PORCINE/PF 5,000 UNIT/0.5 ML SYRINGE SQ SCH ×2 (08:47→19:59)
[2021-12-17] MEDS: buPROPion XL 150 MG TAB.ER.24H PO SCH (08:47)
[2021-12-17] MEDS: predniSONE 10 MG TAB PO SCH (08:47)
[2021-12-17] MEDS: METOPROLOL TARTRATE 50 MG TAB PO SCH ×2 (08:47→19:59)
[2021-12-17] MEDS: ASPIRIN 81 MG PO SCH (08:47)
--- NOTE | 2021-12-17 09:16 | PN ---
PROGRESS NOTE Mr. Mercer had a cardiac cath yesterday which revealed patent stent in the LAD, moderate disease in the diagonal stent, patent stent in the circumflex. LV function by echo was good. Filling pressures are normal. He is doing well. Right radial site is clean and dry with a good pulse. Vitals are stable. No JVD. S1-S2 heard normally. Short systolic murmur noted. Lungs revealed decent air entry. Abdomen is soft. Lower extremities reveal diminished pulses. I am recommending that we increase amlodipine to 5 mg b.i.d., increase activity, move him to telemetry with possible discharge later today or tomorrow, and I will see him in the office in one week. Discharge instructions were given. I also advised the patient regarding the importance of smoking cessation and being compliant with his doctor visits and medications. MMJEFFL / CHOLON: [id number] /
--- NOTE | 2021-12-17 13:16 | P.PN ---
Subjective Progress Note Date: 12/17/21 Principal diagnosis: Acute hypoxic respiratory failure secondary to right lower lobe pneumonia, acute exacerbation of COPD, and possible acute diastolic congestive heart failure 51-year-old patient who presents to the emergency department, on 12/12, complaining of shortness of breath. The patient has been short of breath for a couple days prior to admission. The patient continues to smoke, and is been smoking for more than 40 years. The patient likely has a history of underlying COPD. The patient has never been seen by a lung doctor in the past. The patient does have a history of coronary disease, hyperlipidemia, hypertension, myocardial infarction, osteoarthritis. He's had a heart catheterization with stent placement. He does continue to smoke cigarettes. He does not take any breathing medications at home. His medications include Lipitor, Naprosyn, Lotrel, Wellbutrin, Lopressor, and Zestril. White count 15.2, with a normal hemoglobin, hematocrit, and platelet count. D-dimer was normal. Sodium 139, potassium 3.7, chlorides 109, CO2 22, BUN 15, and creatinine 1.12. The patient had a troponin of 0.078 0.063, and 0.047. N-terminal proBNP was 2140. The patient's initial chest x-ray was consistent with a right lower lobe infiltrate. Progress note dated 12/14/2021. This is a 51-year-old male that we saw yesterday in consultation. We saw him for shortness of breath, he was found to have a COPD exacerbation, copy given by right lower lobe pneumonia. The patient is a heavy tobacco user, having smoked for more than 40 years. The patient has never seen a lung doctor in the past. In addition, he has a history of coronary disease, hyperlipidemia, hypertension, myocardial infarction, and osteoarthritis. The patient has undergone a heart catheterization with stent placement. Yesterday, when we saw him, he will very stable. Apparently sometime early in the morning, he developed flash pulmonary edema, and was transferred to the intensive care unit. The patient denied any chest pain. His only complaint was that of shortness of breath. The patient apparently received some Ativan, and some Lasix. Currently, he's on 6 L nasal cannula. He is getting saline at KVO. He's currently on a heparin drip. White count 28.8, hemoglobin 15.9, hematocrit 47.4, and platelet count 208,000. PT, INR, and PTT were normal. D-dimer was 0.98. Troponins were 0.061 and 0.084. A chest x-ray done last night when this all developed, shows some interstitial edema. A CT angiogram, was negative for pulmonary embolism, and showed extensive pulmonary infiltrates, consistent with either interstitial pneumonia or interstitial edema. Progress note dated 12/15/2021. This is a 51-year-old male, again seen in room 260, in the intensive care unit. Currently he is getting saline at 10 mL an hour, IV heparin, and O2 at 3 L. He is scheduled for a heart catheterization in the morning. This morning, he was feeling a bit more short of breath off of oxygen, and he put the oxygen back on. The patient has a history of CAD, hyperlipidemia, hypertension, myocardial infarction, and osteoarthritis. He does have a prior history of heart catheterization, and stent placement. His PTT is 39.2. Chest x-ray today shows improving pulmonary edema. CT angiogram, was negative for PE. Reevaluated today on 12/16/2021, patient is on room air, he is sitting in bed, does not seem to be in any distress, he tells me today that he feels significantly better compared to how he felt when he came in with shortness of breath initiated. Patient is scheduled to undergo cardiac catheterization, his troponins have been elevated, and his chest x-ray as well as CT of the chest is suggestive of interstitial edema. Patient responded well to diuretics, CT angiogram of the chest negative for pulmonary embolism. Continues to have leukocytosis with WBC count of 18.9 hemoglobin is 16 electrolytes are normal renal profile is normal. Reevaluated today on 12/17/2021, patient remains in the ICU as an overflow, doing well, relatively asymptomatic. He is on room air. Patient had a cardiac catheterization yesterday, it showed patent stent in the LAD, moderate disease in the diagonal stent, patent stent in the circumflex, and he had a relatively good LV function. He had normal filling pressures. Today the patient is doing great, relatively asymptomatic. And his last chest x-ray showed improvement in his right lower lobe pneumonia which she had on his initial presentation. Objective - Vital Signs Vital signs: Vital Signs Temp 98.0 F 12/17/21 08:00 Pulse 72 12/17/21 12:08 Resp 18 12/17/21 12:00 BP 130/93 12/17/21 12:00 Pulse Ox 93 L 12/17/21 12:00 Intake & Output 12/16/21 12/17/21 12/17/21 18:59 06:59 18:59 Intake Total 1075 750 300 Output Total 2200 600 1150 Balance -1125 150 -850 Weight 89.8 kg Intake: IV 400 750 300 Sodium Chloride 0.9% 1, 300 000 ml @ 50 mls/hr IV . Q20H [facility] Rx#:[id number] Sodium Chloride 0.9% 1, 750 300 000 ml @ 75 mls/hr IV . [id number] [facility] Rx#:[id number] Intake, IV Titration 675 0 Amount Sodium Chloride 0.9% 1, 675 000 ml @ 75 mls/hr IV . [id number] [facility] Rx#:[id number] cefTRIAXone 1 gm In 0 Sodium Chloride 0.9% 50 ml @ 100 mls/hr IVPB Q12HR [facility] Rx#:[id number] Output: Urine 2200 600 1150 Other: Voiding Method Urinal Urinal Urinal # Voids 1 0 1 - Exam Physical Exam: Revealed 51-year-old white male in no distress, on room air. Head: Atraumatic, normocephalic. HEENT:[Neck is supple.] [No neck masses.] [No thyromegaly.] [No JVD.] Chest: [Clear throughout, no crackles, no rhonchi, no wheezes.] Cardiac Exam: [Normal S1 and S2, no S3 gallop, no murmur.] Abdomen: [Soft, nontender, no megaly, no rebound, no guarding, normal bowel sounds.] Extremities: [No clubbing, no edema, no cyanosis.] Neurological Exam: [No focal neurologic deficit.] Alert oriented 3. Musculoskeletal: No deformities noted limitation of range of motion. Psychiatric: Normal mood affect and normal mental status examination. Skin: No rashes. - Labs CBC & Chem 7: 12/17/21 06:10 12/17/21 06:10 Labs: Abnormal Lab Results - Last 24 Hours (Table) 12/17/21 12/17/21 Range/Units 06:10 06:10 WBC 17.7 H (3.8-10.6) k/uL Neutrophils # 13.5 H (1.3-7.7) k/uL BUN 25 H (9-20) mg/dL Creatinine 1.29 H (0.66-1.25) mg/dL Assessment and Plan Assessment: Impression: Acute hypoxic respiratory failure secondary to acute community-acquired pneumonia and acute exacerbation of COPD, possible acute diastolic congestive heart failure. Elevated troponin, possible non-ST elevation myocardial infarction. History of coronary artery disease and previous stents placement. Benign essential hypertension. Dyslipidemia. History of depression. Status post cardiac catheterization on 12/16/21. Recommendation: Continue present supportive care measures. Continue antibiotics and bronchodilators. Into new cardiac meds including lisinopril and amlodipine. Continue Lasix. We will continue to follow. Transfer out of the ICU to a cardiac floor once a bed is available Possible discharge planning in the next 24 hours if cleared by other consultants Time with Patient: Less than 30
--- NOTE | 2021-12-17 18:22 | P.PN ---
Subjective Progress Note Date: 12/17/21 This is a 51-year-old gentleman admitted with acute hypoxic respiratory failure secondary to acute community-acquired pneumonia, COPD, possible old CHF with elevated troponins, possible NSTEMI and multiple other medical issues. Maintained on nebulized bronchodilators, antibiotics, maintaining O2 sats in the high 90s on room air. Afebrile, sinus rhythm. Underwent cardiac cath yesterday reporting patent stents of the LAD and circumflex, moderate disease in the diagonal stent with normal LV function. Creatinine increased post-cath, creatinine up to 1.29, IV fluids initiated. Continues on oral diuretics SLOANE inhibitor, Norvasc, antibiotics, nebulized bronchodilators with significant clinical improvement. Afebrile, and ABC trending down, 17.7. Denies chest pain, palpitations or shortness of breath. Occasional minimal productive cough with brown sputum. Objective - Vital Signs Vital signs: Vital Signs Temp 98.0 F 12/17/21 08:00 Pulse 65 12/17/21 11:00 Resp 20 12/17/21 11:00 BP 130/78 12/17/21 11:00 Pulse Ox 92 L 12/17/21 11:00 Intake & Output 12/16/21 12/17/21 12/17/21 18:59 06:59 18:59 Intake Total 1075 750 225 Output Total 2200 600 600 Balance -1125 150 -375 Weight 89.8 kg Intake: IV 400 750 225 Sodium Chloride 0.9% 1, 300 000 ml @ 50 mls/hr IV . Q20H [facility] Rx#:[id number] Sodium Chloride 0.9% 1, 750 225 000 ml @ 75 mls/hr IV . [id number] [facility] Rx#:[id number] Intake, IV Titration 675 0 Amount Sodium Chloride 0.9% 1, 675 000 ml @ 75 mls/hr IV . [id number] [facility] Rx#:[id number] cefTRIAXone 1 gm In 0 Sodium Chloride 0.9% 50 ml @ 100 mls/hr IVPB Q12HR [facility] Rx#:[id number] Output: Urine 2200 600 600 Other: Voiding Method Urinal Urinal Urinal # Voids 1 0 1 - Exam PHYSICAL EXAM: VITAL SIGNS: [As above] GENERAL: Sitting up in bed, no acute distress. HEENT: Conjunctivae normal. eyes normal. NECK: No JVD. No thyroid enlargement. No LNs CARDIOVASCULAR: S1, S2 regular.systolic murmur RESPIRATION: Breath sounds diminished in the bases. No rhonchi or crackles. No bronchial breathing. ABDOMEN: Soft, nontender . No guarding. no masses palpable. Bowel sounds heard. LEGS: No edema. no swelling, no clubbing, no cyanosis PSYCHIATRY: Alert and oriented X3, mood and affect normal. NERVOUS SYSTEM: Cranial N 2-12 grossly normal. Moves all 4 limbs. No focal deficits. Strength and sensation grossly intact.. Skin: Warm and dry, no rash - Labs CBC & Chem 7: 12/17/21 06:10 12/17/21 06:10 Labs: Abnormal Lab Results - Last 24 Hours (Table) 12/17/21 12/17/21 Range/Units 06:10 06:10 WBC 17.7 H (3.8-10.6) k/uL Neutrophils # 13.5 H (1.3-7.7) k/uL BUN 25 H (9-20) mg/dL Creatinine 1.29 H (0.66-1.25) mg/dL Assessment and Plan Assessment: Acute hypoxic respiratory failure secondary to acute exacerbation of COPD, acute community-acquired pneumonia, possible acute diastolic CHF Elevated troponins, posible NSTEMI, status post cardiac catheterization Acute renal failure, post cardiac catheterization, contrast-induced CAD with history of previous stents Hypertension Hyperlipidemia History of depression Plan: Continue on current medication regime ,monitoring and symptomatic treatment. Increase activity as tolerated. Worsening renal function post catheterization, IV fluids initiated. Close monitoring of renal function with Repeat labs ordered for a.m. Cleared by cardiology for transfer out of ICU, awaiting bed on stepdown unit. Smoking cessation reinforced. Discharge planning in progress for tomorrow. The impression and plan of care has been dictated as directed. : I performed a history and examination of this patient, discussed the same with the dictator. I agree with the dictator's note ,documented as a scribe. Any additional findings or plans will be noted.
[2021-12-17] MEDS: SODIUM CHLORIDE 0.9% 1,000 ML in EMPTY BAG 1 BAG IV SCH (20:30)
[2021-12-17] MEDS ORDERED: AZITHROMYCIN 500 MG TAB PO SCH (21:00)
[2021-12-18] MEDS: predniSONE 10 MG TAB PO SCH (08:49)
[2021-12-18] MEDS: amLODIPine 5 MG TAB PO SCH (08:49)
[2021-12-18] MEDS: METOPROLOL TARTRATE 50 MG TAB PO SCH (08:49)
[2021-12-18] MEDS: FUROSEMIDE 40 MG TAB PO SCH (08:49)
[2021-12-18] MEDS: lisinopriL 20 MG TAB PO SCH (08:49)
[2021-12-18] MEDS: SPIRONOLACTONE 25 MG TAB PO SCH (08:49)
[2021-12-18] MEDS: ISOSORBIDE MONONITRATE ER 30 MG TAB.ER.24H PO SCH (08:49)
[2021-12-18] MEDS: ASPIRIN 81 MG PO SCH (08:49)
[2021-12-18] MEDS: HEPARIN SODIUM,PORCINE/PF 5,000 UNIT/0.5 ML SYRINGE SQ SCH (08:50)
[2021-12-18] MEDS: ATORVASTATIN 80 MG TAB PO SCH (08:50)
[2021-12-18] MEDS: NICOTINE 21MG/24HR PATCH TRANSDERM SCH (08:52)
[2021-12-18 09:13] LABS: Basophils # (A) 0.1 k/uL (0-0.2); Basophils % (A) 0 %; Eosinophils # (A) 0.2 k/uL (0-0.7); Eosinophils % (A) 2 %; HCT 46.6 % (39.0-53.0); HGB 15.6 gm/dL (13.0-17.5); Lymphocytes # (A) 2.8 k/uL (1.0-4.8); Lymphocytes % (A) 18 %; MCH 33.1 pg (25.0-35.0); MCHC 33.4 g/dL (31.0-37.0); MCV 98.9 fL (80.0-100.0); Mean Platelet Volume 9.4; Monocytes # (A) 0.7 k/uL (0-1.0); Monocytes % (A) 5 %; Neutrophils # (A) 12.2 k/uL (1.3-7.7); Neutrophils % (A) 75 %; Platelet Count 234 k/uL (150-450); RBC 4.71 m/uL (4.30-5.90); RDW 13.5 % (11.5-15.5); WBC 16.3 k/uL (3.8-10.6)
[2021-12-18] MEDS: IPRATROPIUM-ALBUTEROL 3 ML NEB INHALATION SCH ×2 (09:16→12:12)
[2021-12-18] MEDS: SYMBICORT 160-4.5 MCG INHALER INHALATION SCH (09:16)
[2021-12-18 09:20] LABS: Potassium 3.9 mmol/L (3.5-5.1)
--- NOTE | 2021-12-18 10:22 | P.PN ---
Subjective Progress Note Date: 12/18/21 Principal diagnosis: Shortness of breath On 12/18/2021 patient seen in follow-up on selective care unit, he is awake and alert, in no acute distress, sitting up in the recliner, breathing comfortably, room air pulse ox is 95%, chest x-ray from 12/16/2021 showed interstitial edema. Patient is also being treated for possibility of right lower lobe community acquired pneumonia, he is on a combination of azithromycin and Rocephin, no worsening dyspnea or cough, lung sounds are clear to auscultation, no compensation chest discomfort no hemoptysis, no fever overnight. Today's labs have been reviewed his white blood cell, 16.3, hemoglobin is 15.6, electrolytes and renal profile are unremarkable. His pro-calcium level came back negative at 0.05. Patient has been transitioned to oral prednisone, he continues on DuoNeb, and continues on oral Lasix 40 mg daily. Objective - Vital Signs Vital signs: Vital Signs Temp 96.8 F L 12/18/21 08:00 Pulse 62 12/18/21 08:00 Resp 18 12/18/21 08:00 BP 146/83 12/18/21 08:00 Pulse Ox 97 12/18/21 08:00 Intake & Output 12/17/21 12/18/21 12/18/21 18:59 06:59 18:59 Intake Total 1130 240 Output Total 1150 Balance -20 240 Intake: IV 600 Sodium Chloride 0.9% 1, 600 000 ml @ 75 mls/hr IV . [id number] [facility] Rx#:[id number] Intake, IV Titration 50 Amount cefTRIAXone 1 gm In 50 Sodium Chloride 0.9% 50 ml @ 100 mls/hr IVPB Q12HR [facility] Rx#:[id number] Oral 480 240 Output: Urine 1150 Other: Voiding Method Urinal Toilet Toilet Urinal Urinal # Voids 1 - Exam GENERAL EXAM: Alert, very pleasant, 51-year-old white male on room air with pulse ox of 97% comfortable in no apparent distress. HEAD: Normocephalic/atraumatic. EYES: Normal reaction of pupils, equal size. Conjunctiva pink, sclera white. NOSE: Clear with pink turbinates. THROAT: No erythema or exudates. NECK: No masses, no JVD, no thyroid enlargement, no adenopathy. CHEST: No chest wall deformity. Symmetrical expansion. LUNGS: Equal air entry with no crackles, wheeze, rhonchi or dullness. CVS: Regular rate and rhythm, normal S1 and S2, no gallops, no murmurs, no rubs ABDOMEN: Soft, nontender. No hepatosplenomegaly, normal bowel sounds, no guarding or rigidity. EXTREMITIES: No clubbing, no edema, no cyanosis, 2+ pulses and upper and lower extremities. MUSCULOSKELETAL: Muscle strength and tone normal. SPINE: No scoliosis or deformity SKIN: No rashes CENTRAL NERVOUS SYSTEM: Alert and oriented -3. No focal deficits, tone is normal in all 4 extremities. PSYCHIATRIC: Alert and oriented -3. Appropriate affect. Intact judgment and insight. - Labs CBC & Chem 7: 12/18/21 08:32 12/18/21 08:32 Labs: Abnormal Lab Results - Last 24 Hours (Table) 12/18/21 12/18/21 Range/Units 08:32 08:32 WBC 16.3 H (3.8-10.6) k/uL Neutrophils # 12.2 H (1.3-7.7) k/uL BUN 23 H (9-20) mg/dL Glucose 111 H (74-99) mg/dL Assessment and Plan Plan: Assessment: #1. Acute hypoxic respiratory failure secondary to acute community acquired pneumonia and acute exacerbation of COPD and possible acute diastolic CHF #2. Elevated troponin with a possibility of non-ST elevated myocardial infarction E #3. History of coronary artery disease and previous stent placement, status post cardiac catheterization on 12/16/2021 showing patent stents, and mild CAD, please refer to the cardiac cath report #4. Benign essential hypertension #5. Dyslipidemia #6. History of depression Plan: Patient is stable from pulmonary perspective Vital signs have been stable, No fever or chills, Patient maintained stable oxygen saturations on room air No acute events overnight Patient could be considered for discharge home today from pulmonary perspective He can finish outpatient course of antibiotics and prednisone taper Outpatient follow-up with Dr. Nielsen in the office in one week I performed a history & physical examination of the patient and discussed their management with my nurse practitioner, Yesenia Vieira. I reviewed the nurse practitioner's note and agree with the documented findings and plan of care. Lung sounds are positive for diffuse wheezes throughout the lung cruz. The findings and the impression was discussed with the patient. I attest to the documentation by the nurse practitioner. I have personally seen and examined the patient, performed the documentation and the assessment and plan as written. Number of minutes spent on the visit: [10] Time with Patient: Less than 30
[2021-12-18 10:42] VITALS: RESP 16
[2021-12-18 11:48] VITALS: BP 124/70; PULSE 63; TEMP 97.7
--- NOTE | 2021-12-18 11:51 | P.DS ---
Providers Date of admission: 12/12/21 23:25 Expected date of discharge: 12/18/21 Attending physician: Kyler Ng Consults: 12/12/21 23:26 Consult Physician Routine Consulting Provider: Haritha Abbott Consult Reason/Comments: hypoxia Do you want consulting provider notified?: Yes Consult Physician Routine Consulting Provider: Neal Sewell Consult Reason/Comments: nstemi Do you want consulting provider notified?: Yes Primary care physician: Kyler Ng Hospital Course: Final Diagnoses Acute hypoxic respiratory failure secondary to acute exacerbation of COPD, acute community-acquired pneumonia, possible acute diastolic CHF Elevated troponins, posible NSTEMI, status post cardiac catheterization Acute renal failure, post cardiac catheterization, contrast-induced CAD with history of previous stents Hypertension Hyperlipidemia History of depression Hospital course:This is a 51-year-old gentleman admitted with acute hypoxic respiratory failure secondary to acute community-acquired pneumonia, COPD, possible old CHF with elevated troponins, possible NSTEMI and multiple other medical issues. Maintained on nebulized bronchodilators, antibiotics, maintaining O2 sats in the high 90s on room air. Afebrile, sinus rhythm. Underwent cardiac cath yesterday reporting patent stents of the LAD and circumflex, moderate disease in the diagonal stent with normal LV function. Creatinine increased post-cath, creatinine up to 1.29, IV fluids initiated. Continues on oral diuretics SLOANE inhibitor, Norvasc, antibiotics, nebulized bronchodilators with significant clinical improvement. Afebrile, and ABC trending down, 17.7. Denies chest pain, palpitations or shortness of breath. Occasional minimal productive cough with brown sputum. Significant clinical improvement. Denies chest pain, palpitations or shortness of breath. Creatinine improving with IV fluid hydration. Advised to hold off with NSAIDs at this time for chronic shoulder pain and instead use Tylenol. Cleared by both pulmonary and cardiology for discharge. Patient will be discharged home in stable condition with guarded prognosis. The impression and plan of care has been dictated as directed. : I performed a history and examination of this patient, discussed the same with the dictator. I agree with the dictator's note ,documented as a scribe. Any additional findings or plans will be noted. Patient Condition at Discharge: Stable Plan - Discharge Summary Discharge Rx Participant: Yes New Discharge Prescriptions: New Cefuroxime Axetil [Ceftin] 500 mg PO BID 5 Days #10 tab Budesonide-Formot 160-4.5 Mcg [Symbicort 160-4.5 Mcg Inhaler] 2 puff INHALATION RT-BID #1 inh Albuterol Inhaler [Ventolin Hfa Inhaler] 2 puff INHALATION RT-QID PRN #8 gm PRN Reason: Shortness Of Breath Spironolactone [Aldactone] 25 mg PO DAILY #90 tab Isosorbide Mononitrate ER [Imdur] 30 mg PO BID #180 tablet Furosemide [Lasix] 40 mg PO DAILY #90 tab predniSONE 10 mg PO DIRECTED #18 tab Nicotine 21Mg/24Hr Patch [Habitrol] 1 patch TRANSDERM DAILY #30 patch Aspirin 81 mg PO DAILY #90 tab amLODIPine [Norvasc] 5 mg PO BID #180 tab Continue Metoprolol Tartrate [Lopressor] 50 mg PO BID #60 tab lisinopriL [Zestril] 20 mg PO BID #60 tab buPROPion XL [Wellbutrin XL] 150 mg PO DAILY Atorvastatin [Lipitor] 80 mg PO DAILY Discontinued amLODIPine BESYLATE/BENAZEPRIL [Lotrel 5-20 MG] 1 cap PO DAILY Discharge Medication List Metoprolol Tartrate [Lopressor] 50 mg PO BID #60 tab 05/07/20 [Rx] lisinopriL [Zestril] 20 mg PO BID #60 tab 05/07/20 [Rx] Atorvastatin [Lipitor] 80 mg PO DAILY 04/28/21 [History] buPROPion XL [Wellbutrin XL] 150 mg PO DAILY 04/28/21 [History] Albuterol Inhaler [Ventolin Hfa Inhaler] 2 puff INHALATION RT-QID PRN #8 gm 12/18/21 [Rx] Aspirin 81 mg PO DAILY #90 tab 12/18/21 [Rx] Budesonide-Formot 160-4.5 Mcg [Symbicort 160-4.5 Mcg Inhaler] 2 puff INHALATION RT-BID #1 inh 12/18/21 [Rx] Cefuroxime Axetil [Ceftin] 500 mg PO BID 5 Days #10 tab 12/18/21 [Rx] Furosemide [Lasix] 40 mg PO DAILY #90 tab 12/18/21 [Rx] Isosorbide Mononitrate ER [Imdur] 30 mg PO BID #180 tablet 12/18/21 [Rx] Nicotine 21Mg/24Hr Patch [Habitrol] 1 patch TRANSDERM DAILY #30 patch 12/18/21 [Rx] Spironolactone [Aldactone] 25 mg PO DAILY #90 tab 12/18/21 [Rx] amLODIPine [Norvasc] 5 mg PO BID #180 tab 12/18/21 [Rx] predniSONE 10 mg PO DIRECTED #18 tab 12/18/21 [Rx] Follow up Appointment(s)/Referral(s): Dewayne Nielsen MD [STAFF PHYSICIAN] - 1 Week Arabella Taveras MD [STAFF PHYSICIAN] - 1 Week Kyler Ng DO [Primary Care Provider] - 3 Days Ambulatory/Diagnostic Orders: Complete Blood Count w/diff [LAB.AMB] Time Frame: 3 Days, Location: None Selected Activity/Diet/Wound Care/Special Instructions: Avoid NSAIDs at this time.
[2021-12-18] MEDS: buPROPion XL 150 MG TAB.ER.24H PO SCH (12:16)
--- NOTE | 2021-12-18 12:31 | P.PN ---
Subjective Progress Note Date: 12/18/21 HISTORY OF PRESENT ILLNESS: Patient examined this morning at the bedside. Patient denies chest pain or pressure. He denies shortness of breath. Vital signs are stable. He is hoping to be discharged home this morning. PHYSICAL EXAM: VITAL SIGNS: Reviewed. GENERAL: Well-developed in no acute distress. NECK: Supple. No JVD or thyromegaly LUNGS: Respirations even and unlabored. Lungs essentially clear to auscultation bilaterally. HEART: Regular rate and rhythm. S1 and S2 heard. EXTREMITIES: Normal range of motion. No clubbing or cyanosis. Peripheral pulses intact. No lower extremity edema. Right radial cath site with pulse present. ASSESSMENT: Shortness of breath Abnormal troponins S/P cardiac catheterization revealing patent stents Coronary artery disease Hypertension Hyperlipidemia Nicotine dependence PLAN: Continue current cardiac medications Patient is stable for discharge home today from a cardiac standpoint He is to follow up in the office with Dr. Taveras Nurse practitioner note has been reviewed by physician. Signing provider agrees with the documented findings, assessment, and plan of care. Objective - Vital Signs Vital signs: Vital Signs Temp 97.7 F 12/18/21 11:46 Pulse 63 12/18/21 11:46 Resp 16 12/18/21 11:46 BP 124/70 12/18/21 11:46 Pulse Ox 98 12/18/21 11:46 Intake & Output 12/17/21 12/18/21 12/18/21 18:59 06:59 18:59 Intake Total 1130 240 Output Total 1150 Balance -20 240 Intake: IV 600 Sodium Chloride 0.9% 1, 600 000 ml @ 75 mls/hr IV . [id number] [facility] Rx#:[id number] Intake, IV Titration 50 Amount cefTRIAXone 1 gm In 50 Sodium Chloride 0.9% 50 ml @ 100 mls/hr IVPB Q12HR [facility] Rx#:[id number] Oral 480 240 Output: Urine 1150 Other: Voiding Method Urinal Toilet Toilet Urinal Urinal # Voids 1 - Labs CBC & Chem 7: 12/18/21 08:32 12/18/21 08:32 Labs: Abnormal Lab Results - Last 24 Hours (Table) 12/18/21 12/18/21 Range/Units 08:32 08:32 WBC 16.3 H (3.8-10.6) k/uL Neutrophils # 12.2 H (1.3-7.7) k/uL BUN 23 H (9-20) mg/dL Glucose 111 H (74-99) mg/dL
[2021-12-18 13:11] VITALS: BMI 29.2
--- NOTE | 2021-12-20 14:58 | CDI ---
Documentation Clarification Form Date: 12/20/2021 01:54:27 PM From: Aditi Delatorre RN CCDS Admit Date: 12/12/2021 11:25:00 PM Patient Name: Ildefonso Mercer Visit Number: [id number] Discharge Date: 12/18/2021 03:29:00 PM ATTENTION: The Clinical Documentation Specialists (CDI) and [facility] Coding Staff appreciate your assistance in clarifying documentation. Please respond to the clarification below the line at the bottom and electronically sign. The CDI & [facility] Coding staff will review the response and follow-up if needed. Please note: Queries are made part of the Legal Health Record. If you have any questions, please contact the author of this message via ITS. Dr. Arabella Taveras MD Acute renal failure is documented 12/17, medicine progress note which may lack sufficient clinical evidence/support in the medical record. Additional clarification is requested. History/Risk Factors: A 51-year-old male presented to the ED with Shortness of breath. Medical history of CAD, HTN and DE. H&P, 12/13 Clinical Indicators: 12/17 Medicine progress note: Acute renal failure, post cardiac catheterization, contrast induced. 12/16 Cardiac Catheterization 12/12 Cr 1.33 12/13 Cr 1.12 12/16 Cr 1.15 12/17 Cr 1.29 12/18 Cr 1.22 KDIGO defines GORAN as the occurrence of any 1 of the following: an increase in serum creatinine level by 0.3 mg/dL or more, measured prospectively by at least 2 separate levels obtained within 48 hours, or an increase in serum creatinine level to 1.5 times baseline or greater, which is known or presumed to have occurred within the prior 7 days, or a urine volume of less than 0.5 mL/kg/h for 6 hours or longer Treatment: 12/12 12/16 0.9NS 50cc/hr; 12/15 12/17 0.9NS 1,000ml [id number]; 12/16- 12/17 0.9NS 75cc/hr; 12/17 12/17 0.9NS 75cc/hr Please clarify if GORAN is a valid diagnosis? [ ] Yes, GORAN contrast induced is present as evidence by (additional clinical support): [ ] No, GORAN induced contrast is ruled out [ ] Other (please specify diagnosis) __NSTEMI and prerenal azotemia [ ] Unable to determine (Template Last Revised: December 2020) No, GORAN induced contrast is ruled out MTDD
== END 2021-12-18 15:29 | disposition home or self-care (01) | DRG 280 ==
LOC: EC 21:02 → 3SCARD 23:25 → 2SICU 12-13 23:50 → 3SCARD 12-17 16:50
PROVIDERS: ADMIT Family Medicine; ATTEND Family Medicine
PROC: 5A09357 Assistance with Respiratory Ventilation, Less than 24 Consecutive Hours, Continuous Positive Airway Pressure (ICD-10-PCS; 2021-12-13)
PROC: 4A023N7 Measurement of Cardiac Sampling and Pressure, Left Heart, Percutaneous Approach (ICD-10-PCS; principal; 2021-12-16 09:55)
PROC: B2111ZZ Fluoroscopy of Multiple Coronary Arteries using Low Osmolar Contrast (ICD-10-PCS; principal; 2021-12-16 09:55)
DX: I21.4 Non-ST elevation (NSTEMI) myocardial infarction (principal); J18.9 Pneumonia, unspecified organism; I50.31 Acute diastolic (congestive) heart failure; J96.01 Acute respiratory failure with hypoxia; I42.9 Cardiomyopathy, unspecified; J44.1 Chronic obstructive pulmonary disease with (acute) exacerbation; J44.0 Chronic obstructive pulmonary disease with (acute) lower respiratory infection; I11.0 Hypertensive heart disease with heart failure; Z20.822 Contact with and (suspected) exposure to COVID-19; I25.10 Atherosclerotic heart disease of native coronary artery without angina pectoris; G89.29 Other chronic pain; M25.519 Pain in unspecified shoulder; M19.90 Unspecified osteoarthritis, unspecified site; I25.2 Old myocardial infarction; F32.A Depression, unspecified; E78.5 Hyperlipidemia, unspecified; R39.2 Extrarenal uremia; F17.210 Nicotine dependence, cigarettes, uncomplicated; Z71.6 Tobacco abuse counseling; Z79.899 Other long term (current) drug therapy; Z95.5 Presence of coronary angioplasty implant and graft; Y92.230 Patient room in hospital as the place of occurrence of the external cause; Z88.0 Allergy status to penicillin; Z91.030 Bee allergy status; Z80.9 Family history of malignant neoplasm, unspecified
CPT/HCPCS: 36415; 71045; 71046; 71275; 80048; 80053; 83605; 83735; 83880; 84100; 84145; 84484; 85025; 85027; 85379; 85610; 85730; 87635; 93005; 93306; 93458; 94640; 94660; 94760; 96365; 96375; 99291

== ENCOUNTER → 2022-02-14 | Outpatient (CLI) | payer BC ==
[2022-02-14 19:36] LABS: HCT 45.6 % (39.6-50.0); HGB 15.7 g/dL (13.0-17.0); MCH 32.3 pg (27.0-32.0); MCHC 34.4 g/dL (32.0-37.0); MCV 93.8 fL (80.0-97.0); Mean Platelet Volume 11.9 fL (9.5-12.2); NRBC Per 100 WBC 0 /100 WBCS (0.0-0.0); Platelet Count 216 X 10*3/uL (140-440); RBC 4.86 X 10*6/uL (4.40-5.60); WBC 12.13 X 10*3/uL (4.50-10.00)
[2022-02-14 23:40] LABS: Anion Gap 12.5 mmol/L (10.00-18.00); Blood Urea Nitrogen 12.1 mg/dL (9.0-27.0); Carbon Dioxide 23.8 mmol/L (20.0-27.5); Non-African American GFR(CKD) 59.5 (60.0-200.0); Potassium 4.3 mmol/L (3.5-5.5)
== END | disposition home or self-care (01) ==
LOC: LABPAT 13:08
PROVIDERS: ATTEND Internal Medicine Interventional Cardiology
DX: Z01.812 Encounter for preprocedural laboratory examination (principal); I25.10 Atherosclerotic heart disease of native coronary artery without angina pectoris
CPT/HCPCS: 36415; 80051; 82565; 82947; 83735; 84520; 85027

== ENCOUNTER 2022-02-25 06:07 | Day surgery (SDC) | payer BC ==
[~2022-02-25 06:07] MED LIST changes: +ALPRAZolam 0.25 MG TAB PO PRN; +ALPRAZolam 0.5 MG TAB PO PRN; +ASPIRIN 325 MG TAB PO STA; +ATORVASTATIN 80 MG TAB PO STA; -DEXAMETHASONE SOD PHOS (MDV) 100 MG/10 ML VIAL IVP ONE; -DEXAMETHASONE SOD PHOSPHATE 10 MG/ML 1 ML VIAL IV ONE; +HEPARIN SODIUM,PORCINE 10,000 UNIT in SODIUM CHLORIDE 0.9% 1,000 ML IRRIGATION PRN; +HEPARIN SODIUM,PORCINE 2,500 UNIT in SODIUM CHLORIDE 0.9% 250 ML IRRIGATION PRN; -LACTATED RINGERS 1,000 ML IV SCH; -LIDOCAINE 1% 20 ML VIAL (10MG/ML) FOR IV START INTRADERMA PRN; -LIDOCAINE 1% INJ 10MG/ML (20 ML MDV) ONE; -MIDAZOLAM (PF) 2 MG/2 ML VIAL IV PRN; -MIDAZOLAM 2 MG/2 ML VIAL ONE; +NITROGLYCERIN SL TABS 0.4 MG TAB SUBLINGUAL PRN; -ONDANSETRON 4 MG/2 ML VIAL IVP ONE; -PROPOFOL 10 MG/ML 20 ML VIAL IV ONE; -ROPIVACAINE 5 MG/ML 30 ML VIAL MISCELLANE ONE; -ROPIVACAINE 5 MG/ML 30 ML VIAL ONE; -SODIUM CHLORIDE 0.9% 1,000 ML IV ONE; -SUCCINYLCHOLINE CHLORIDE VIAL 200 MG/10 ML VIAL IV ONE; -ceFAZolin IN SWFI 2 GM/20 ML SYRINGE IVP ONE; -fentaNYL (PF) 50 MCG/ML 2 ML AMP IVP ONE; -fentaNYL (PF) 50 MCG/ML 2 ML AMP ONE
[2022-02-25] MEDS: SODIUM CHLORIDE 0.9% 1,000 ML in EMPTY BAG 1 BAG IV SCH ×3 (06:42→14:20)
[2022-02-25 06:50] LABS: Basophils # (A) 0.1 k/uL (0-0.2); Basophils % (A) 1 %; Eosinophils # (A) 0.4 k/uL (0-0.7); Eosinophils % (A) 3 %; HCT 47.2 % (39.0-53.0); HGB 15.9 gm/dL (13.0-17.5); Lymphocytes # (A) 2.1 k/uL (1.0-4.8); Lymphocytes % (A) 13 %; MCH 32.1 pg (25.0-35.0); MCHC 33.7 g/dL (31.0-37.0); MCV 95.2 fL (80.0-100.0); Monocytes # (A) 1.1 k/uL (0-1.0); Monocytes % (A) 7 %; Neutrophils # (A) 11.8 k/uL (1.3-7.7); Neutrophils % (A) 75 %; Platelet Count 227 k/uL (150-450); RBC 4.95 m/uL (4.30-5.90); RDW 12.8 % (11.5-15.5); WBC 15.7 k/uL (3.8-10.6)
[2022-02-25] MEDS: MIDAZOLAM 2 MG/2 ML VIAL IV ONE ×2 (11:31→11:38)
[2022-02-25] MEDS ORDERED: LIDOCAINE 1% INJ 10MG/ML (30 ML VIAL-PF) SQ ONE (11:36)
[2022-02-25] MEDS ORDERED: fentaNYL (PF) 50 MCG/ML 2 ML AMP ONE (11:39)
[2022-02-25] MEDS ORDERED: fentaNYL (PF) 50 MCG/ML 2 ML AMP IV ONE (11:40)
[2022-02-25] MEDS: HEPARIN SODIUM 1,000 UN/ML (10ML VL) IV ONE ×3 (11:55→12:40)
[2022-02-25] MEDS ORDERED: HEPARIN SODIUM 1,000 UN/ML (10ML VL) ONE (11:55)
[2022-02-25] MEDS ORDERED: CLOPIDOGREL 75 MG TAB ONE (11:57)
[2022-02-25] MEDS ORDERED: CLOPIDOGREL 75 MG TAB PO ONE (12:05)
[2022-02-25] MEDS ORDERED: PHENYLEPHRINE 10 MG/ML VIAL IV ONE ×3 (12:15)
[2022-02-25] MEDS ORDERED: IOPAMIDOL-370 100ML BTL INJ ONE ×2 (12:20→13:08)
[2022-02-25] MEDS ORDERED: HYDROmorphone 0.5 MG/0.5 ML SYRINGE IVP ONE ×2 (12:48→13:02)
[2022-02-25] MEDS ORDERED: ALBUTEROL NEBULIZED 2.5 MG/3 ML INHALATION PRN (12:48)
[2022-02-25] MEDS ORDERED: IV FLUID CONTINUATION 1,000 ML IV ONE (13:11)
[2022-02-25] MEDS ORDERED: ZOLPIDEM 5 MG TAB PO PRN (13:14)
[2022-02-25] MEDS ORDERED: RX INFO: IV CONTRAST WAS GIVEN 1 EACH MISC MISCELLANE PRN (13:14)
[2022-02-25] MEDS ORDERED: MAG HYDROX/AL HYDROX/SIMETH 30 ML CUP PO PRN (13:14)
[2022-02-25] MEDS ORDERED: ATROPINE SULFATE 0.1 MG/ML 10ML SYRINGE IV PRN (13:14)
--- NOTE | 2022-02-25 18:12 | CC ---
CARDIAC CATHETERIZATION REPORT DATE OF SERVICE: 02/25/2022 PROCEDURE: 1. Left heart catheterization and coronary angiography. 2. Percutaneous transluminal coronary angioplasty of mid LAD and ostium of the diagonal branch with two noncompliant balloons. A kissing balloon dilatation. 3. Intravascular ultrasound of LAD lesion. PERFORMED BY: Dr. Ronald Taveras. Moderate conscious sedation time was 95 minutes. Patient was administered Versed. He also received fentanyl. Oxygen saturation, hemodynamics and EKG were monitored closely. CLINICAL INFORMATION: Mr. Ildefonso Mercer is a 51-year-old gentleman history of CAD, previous stenting of LAD and diagonal, which were two separate stents. One was in the ostium of the diagonal and one was just after the diagonal in the LAD. He also presented with acute inferior ST- elevation HI and underwent stenting of a totally occluded circumflex in 2019. Following that, in November of this year, he presented with a [id number] HI and cardiac catheterization revealed that he did not have significant disease in the LAD, but the diagonal had moderate disease. RCA was dominant with non-critical disease and circumflex was patent. Because of a significantly abnormal stress test and symptoms of angina, I recommended a repeat cardiac catheterization with concern that he may have disease both in the LAD and ostium of diagonal. Risks, benefits and options were discussed and he understood all details and wished to proceed with the procedure. PROCEDURE NOTE: Under local anesthesia and strict aseptic precautions, a 6-Russian introducer was placed in the right femoral artery. I used a standard right Cassius catheter to perform right coronary artery angiography and also checked LV pressures with the catheter. A JL3.5 catheter was used to check left coronary artery images. I noted that the major diagonal at its origin had a 90% stenosis, and the LAD right after the ostium of the diagonal also had a 50% to 55% stenosis. Circumflex had non-critical disease and stent was patent. RCA was widely patent with decent flow with non-critical disease. I advised PCI of diagonal with a kissing balloon inflation if necessary of the LAD and proceeded to perform this in the same setting. CARDIAC CATHETERIZATION FINDINGS: The left ventricular end-diastolic pressure was 8 mmHg without any gradient across aortic valve. CORONARY ANGIOGRAPHY FINDINGS: RIGHT CORONARY ARTERY: Large dominant vessel has no significant disease in the proximal, mid and distal portions; bifurcates into PDA and PLV, both of which are large and have minor irregularities. No significant disease with mild diffuse distal disease. LEFT MAIN CORONARY ARTERY: Left main almost is non-existent. There are actually two separate ostia for LAD and circumflex. LEFT ANTERIOR DESCENDING CORONARY ARTERY: This vessel is of good caliber in the beginning, gives off a major diagonal and septal branch, and then the second diagonal comes off and this is stented. The ostium of the second diagonal has about a 90% stenosis and LAD after the origin of the diagonal has about a 55% narrowing with decent flow. The stent in the LAD appears to be patent. Distally LAD has no significant disease. LEFT POSTERIOR CIRCUMFLEX CORONARY ARTERY: This is a nondominant vessel. In the mid portion it was stented, widely patent, has 30% to 40% multiple areas of narrowing as the vessel runs laterally; it is mostly an obtuse marginal branch. FINAL IMPRESSION: This patient has a right-dominant system. Normal filling pressures. No gradient. Circumflex stent is patent with mild diffuse disease distally. LAD has a 55% mid lesion after the origin of the diagonal branch and the ostium of the diagonal has a 90% stenosis. Dominant RCA is free of significant disease. RECOMMENDATIONS: I recommended PCI of the diagonal and possibly of the LAD also and proceeded to perform this in the same setting. PERCUTANEOUS CORONARY INTERVENTION PROCEDURE DETAILS: Patient received a total of 8000 units of heparin and ACT was kept at 268. A JL3.5 guide catheter was used to cannulate the left coronary artery. A run-through wire was used to cross the lesion in the diagonal branch. I dilated the diagonal branch initially with a 1.5 balloon and then up to a 2.5 balloon. Good result was achieved. I noted that there was a compromise in the LAD right after the diagonal. I then advanced another Whisper wire into the LAD. After some significant effort, I advanced a 2.5 caliber 12 mm NC Trek balloon into the diagonal and another 2.5 NC Trek balloon into the LAD. Both balloons were pulled back and the ostium of the diagonal and LAD immediately after the diagonal were both dilated. A kissing balloon technique was used up to 12 atmospheres. Patient had chest pain, precordial, more prominent ST-segment changes. Excellent angiographic result was achieved. I then performed intravascular ultrasound to check the LAD patency. The stent in the proximal portion was not very well apposed. I then went ahead with a 3.0 caliber 8 mm NC Trek balloon and I dilated the stent up to 13 to 14 atmospheres. Excellent angiographic result was achieved. Final result revealed remarkably good flow in LAD and diagonal. The catheters were withdrawn and the sheath was taken out and Angio-Seal device used to secure hemostasis and he was sent to the room in stable condition. Excellent angiographic result of LAD and diagonal was achieved. Both were kissing balloon only. No stent was used. Both of them were within the previous stent and the stent actually was right after the diagonal and in the ostium of the diagonal. Results were discussed with the patient and family. I expect he will be discharged tomorrow, but I will check an echocardiogram to assess LV function in the morning. MMODL / IJN: [id number] /
[2022-02-25] MEDS: SYMBICORT 160-4.5 MCG INHALER INHALATION SCH (20:12)
[2022-02-25] MEDS: ISOSORBIDE MONONITRATE ER 30 MG TAB.ER.24H PO SCH (20:57)
[2022-02-25] MEDS: METOPROLOL TARTRATE 50 MG TAB PO SCH (20:58)
[2022-02-26] MEDS: SYMBICORT 160-4.5 MCG INHALER INHALATION SCH (06:59)
[2022-02-26] MEDS: NICOTINE 21MG/24HR PATCH TRANSDERM SCH ×2 (08:00→08:04)
[2022-02-26] MEDS: ISOSORBIDE MONONITRATE ER 30 MG TAB.ER.24H PO SCH (08:00)
[2022-02-26] MEDS: METOPROLOL TARTRATE 50 MG TAB PO SCH (08:01)
[2022-02-26 08:13] VITALS: BP 144/89; PULSE 61; RESP 15; TEMP 98.1
[2022-02-26] MEDS ORDERED: CLOPIDOGREL 75 MG TAB PO SCH (09:00)
[2022-02-26] MEDS ORDERED: ASPIRIN 81 MG PO SCH (09:00)
[2022-02-26] MEDS ORDERED: FUROSEMIDE 40 MG TAB PO SCH (09:00)
[2022-02-26] MEDS ORDERED: ATORVASTATIN 80 MG TAB PO SCH (09:00)
[2022-02-26] MEDS ORDERED: buPROPion XL 150 MG TAB.ER.24H PO SCH (09:00)
[2022-02-26] MEDS ORDERED: SPIRONOLACTONE 25 MG TAB PO SCH (09:00)
[2022-02-26] MEDS ORDERED: LOSARTAN 50 MG TAB PO SCH (09:00)
[2022-02-26 10:48] VITALS: BMI 30.8
--- NOTE | 2022-02-26 10:50 | DS ---
DISCHARGE SUMMARY DATE OF ADMISSION: 02/25/2022 DATE OF DISCHARGE: 02/26/2022 DIAGNOSIS: 1. Unstable angina. 2. Hypertension. 3. Hyperlipidemia. 4. History of prior multi-vessel percutaneous coronary intervention. Mr. Mercer is a patient with previous multi-vessel PCI who underwent a cardiac catheterization in November which revealed patent LAD and also moderate disease in diagonal but had abnormal stress test with multiple fixed and reversible defects. Therefore he was brought in for the procedure electively. Cardiac catheterization was performed via right femoral approach. I performed PTCA of LAD and diagonal with a kissing balloon technique and intravascular ultrasound. Excellent result was achieved. This morning he is asymptomatic. His EKG is unremarkable. Labs are pending. Blood pressure is 130/70, pulse rate 70 per minute. No JVD. S1-S2 heard normally. Short systolic murmur at left sternal border. Clear lungs. Abdomen is soft, nontender. Lower extremities reveal normal pulses. No edema. Right groin site is oozing mildly, but there is no hematoma. I will apply a FemoStop for 2 hours and we will re-evaluate him around 10:30 this morning. If he is up and about without symptoms, he will be discharged. I will also check the labs in the interim. Discharge instructions regarding activity, diet and medications were given. I gave him the prescription for Plavix. He is already on aspirin, statin and beta karina. We have discontinued amlodipine. He will be discharged today and I will see him in the office within a week. He will have his groin checked and an echo performed prior to discharge. MMODL / IJN: [id number] /
[2022-02-26 11:06] LABS: Basophils % (A) 0 %; Eosinophils # (A) 0.2 k/uL (0-0.7); Eosinophils % (A) 2 %; HCT 42.4 % (39.0-53.0); Lymphocytes # (A) 1.3 k/uL (1.0-4.8); Lymphocytes % (A) 14 %; MCH 32.4 pg (25.0-35.0); MCHC 33.2 g/dL (31.0-37.0); MCV 97.6 fL (80.0-100.0); Mean Platelet Volume 9.3; Monocytes # (A) 0.5 k/uL (0-1.0); Monocytes % (A) 5 %; Neutrophils # (A) 7.1 k/uL (1.3-7.7); Neutrophils % (A) 77 %; Platelet Count 200 k/uL (150-450); RBC 4.34 m/uL (4.30-5.90); RDW 13.6 % (11.5-15.5); WBC 9.2 k/uL (3.8-10.6)
[2022-02-26 11:29] LABS: African American GFR (CKD) 82 (>60 ml/min/1.73 sqM); Anion Gap 7 mmol/L; Blood Urea Nitrogen 17 mg/dL (9-20); Calcium 8.8 mg/dL (8.4-10.2); Carbon Dioxide 24 mmol/L (22-30); Chloride 106 mmol/L (98-107); Glucose 132 mg/dL (74-99); Non-African American GFR(CKD) 71 (>60 ml/min/1.73 sqM); Potassium 4.3 mmol/L (3.5-5.1); Sodium 137 mmol/L (137-145)
--- NOTE | 2022-02-26 11:31 | CA ---
Transthoracic Echo Report Name: Ildefonso Mercer Age: 51 Gender: M : 1970 Exam Date: 02/26/2022 08:31 Exam Location: [facility] Ht (in): 69 Wt (lb): 208 Ordering Physician: Arabella Taveras MD ([id number]) Attending/Referring Phys: Windows Application Administrator Milly Salazar RDCS Procedure CPT: Indications: lvef Cardiac Hx: Hx of stents Technical Quality: Technically difficult study Contrast 1: Lumason Total Dose (mL): 1 Contrast 2: Total Dose (mL): MEASUREMENTS (Male / Female) Normal Values 2D ECHO LV Diastolic Diameter PLAX 4.9 cm 4.2 - 5.9 / 3.9 - 5.3 cm LV Systolic Diameter PLAX 2.4 cm IVS Diastolic Thickness 1.3 cm 0.6 - 1.0 / 0.6 - 0.9 cm LVPW Diastolic Thickness 1.4 cm 0.6 - 1.0 / 0.6 - 0.9 cm LV Relative Wall Thickness 0.6 LA Volume 41.8 cm??? 18 - 58 / 22 - 52 cm??? M-MODE Aortic Root Diameter MM 3.5 cm LA Systolic Diameter MM 3.7 cm LA Ao Ratio MM 1.0 MV E Point Septal Separation 1.0 cm AV Cusp Separation MM 2.5 cm DOPPLER AV Peak Velocity 116.3 cm/s AV Peak Gradient 5.4 mmHg MV Area PHT 3.3 cm??? MR Peak Velocity 199.5 cm/s MR Peak Gradient 15.9 mmHg Mitral E Point Velocity 90.0 cm/s Mitral A Point Velocity 114.4 cm/s Mitral E to A Ratio 0.8 MV Deceleration Time 232.8 ms MV E' Velocity 5.9 cm/s Mitral E to MV E' Ratio 15.3 TR Peak Velocity 112.0 cm/s TR Peak Gradient 5.0 mmHg Right Ventricular Systolic Press 10.0 mmHg FINDINGS Left Ventricle Mildly increased septal wall thickness. Left ventricular ejection fraction is estimated at 40-45 %. Basal inferoseptal and apical lateral is hypokinetic. Right Ventricle The right ventricle is normal in size and function. Right Atrium The right atrium is normal in size. Left Atrium The left atrium is normal in size. Mitral Valve Structurally normal mitral valve without significant stenosis or prolapse. There is a trace of mitral regurgitation. Aortic Valve Structurally normal aortic valve without significant sclerosis or stenosis. There is no aortic regurgitation. Tricuspid Valve Structurally normal tricuspid valve without significant stenosis. Pulmonary artery systolic pressure is normal. Trace tricuspid regurgitation. Pulmonic Valve Structurally normal pulmonic valve without significant stenosis. There is no pulmonic regurgitation. Pericardium Normal pericardium without effusion. Aorta Normal aortic root dimension. CONCLUSIONS Reduced LV systolic function ejection fraction around 40% with inferoseptal and apical hypokinesis Previewed by: Dr. Kyle Eli MD (Electronically Signed) Final Date: 26 Feb 2022 11:30
== END 2022-02-26 12:43 | disposition home or self-care (01) ==
LOC: CATHCVL 06:07 → 6NMEDSUR 13:09 → CATHCVL 02-26 12:43
PROVIDERS: ATTEND Internal Medicine Interventional Cardiology
DX: I25.110 Atherosclerotic heart disease of native coronary artery with unstable angina pectoris (principal); I10 Essential (primary) hypertension; E78.2 Mixed hyperlipidemia; E78.00 Pure hypercholesterolemia, unspecified; I25.2 Old myocardial infarction; F17.210 Nicotine dependence, cigarettes, uncomplicated; Z79.82 Long term (current) use of aspirin; Z79.51 Long term (current) use of inhaled steroids; Z88.0 Allergy status to penicillin; Z20.822 Contact with and (suspected) exposure to COVID-19
CPT/HCPCS: 94640 ×2; 94760; 93306; 92978; 93458; 92920; 92921; 80048; 85025 ×2; 87635; C1760; C1769 ×4; C1887; C1894 ×2; C1725 ×5; C1753; J2250; J2370; J2001; J3010; J1644; J1170; Q9950; Q9967

== ENCOUNTER 2022-07-27 20:18 | Emergency (ER) | payer BC ==
[2022-07-27 20:45] VITALS: BP 149/92; RESP 18; TEMP 98.6
[2022-07-27 21:16] LABS: Basophils # (A) 0.1 k/uL (0-0.2); Basophils % (A) 0 %; Eosinophils # (A) 0.3 k/uL (0-0.7); Eosinophils % (A) 2 %; HCT 43.7 % (39.0-53.0); HGB 15.8 gm/dL (13.0-17.5); Lymphocytes # (A) 2.9 k/uL (1.0-4.8); Lymphocytes % (A) 21 %; MCH 32.7 pg (25.0-35.0); MCHC 36.1 g/dL (31.0-37.0); MCV 90.7 fL (80.0-100.0); Mean Platelet Volume 10.3; Monocytes # (A) 0.8 k/uL (0-1.0); Monocytes % (A) 6 %; Neutrophils # (A) 9.6 k/uL (1.3-7.7); Neutrophils % (A) 68 %; Platelet Count 197 k/uL (150-450); RBC 4.81 m/uL (4.30-5.90); RDW 13.3 % (11.5-15.5); WBC 14.1 k/uL (3.8-10.6)
[2022-07-27 21:32] LABS: Albumin 4.5 g/dL (3.5-5.0); Calcium 9.4 mg/dL (8.4-10.2); Potassium 3.9 mmol/L (3.5-5.1); Total Bilirubin 0.5 mg/dL (0.2-1.3); Total Protein 6.7 g/dL (6.3-8.2)
--- NOTE | 2022-07-27 21:58 | XR ---
EXAMINATION TYPE: XR KUB DATE OF EXAM: 07/27/2022 COMPARISON: 07/15/2018 HISTORY: Abdominal pain TECHNIQUE: 2 views upright FINDINGS: There is no sign of intestinal obstruction or pneumoperitoneum. Fecal pattern is normal. No evidence of a mass. There are no pathologic calcifications over the kidneys. Lung bases are clear. IMPRESSION: Nonacute abdomen. No adverse change.
--- NOTE | 2022-07-28 01:25 | ED ---
Abdominal Pain HPI - General Chief Complaint: Abdominal Pain Stated Complaint: Rib Pain Source: patient, RN notes reviewed, old records reviewed Mode of arrival: ambulatory Limitations: no limitations - History of Present Illness Initial Comments: There is a 51-year-old male to the emergency department for evaluation patient presents today for evaluation regards to abdominal pain. Patient has history of heart disease and chest pain. No current chest pain. Patient admits arrival to the emergency department is a dull pain is resolved Those quite alarming earlier. Is also concerned of blood pressure with a little elevated. MD Complaint: abdominal pain -: hour(s) Location: diffuse, RUQ Radiation: RLQ, R flank, back Migration to: epigastric Severity: moderate Severity scale (1-10): 6 Quality: sharp Consistency: constant Improves With: nothing Worsens With: nothing Associated Symptoms: nausea Treatments Prior to Arrival: other (0) - Related Data Home Medications Medication Instructions Recorded Confirmed Atorvastatin [Lipitor] 80 mg PO DAILY 04/28/21 02/25/22 buPROPion XL [Wellbutrin XL] 150 mg PO DAILY 04/28/21 02/25/22 Losartan [Cozaar] 100 mg PO DAILY 02/25/22 02/25/22 Previous Rx's Medication Instructions Recorded Metoprolol Tartrate [Lopressor] 50 mg PO BID #60 tab 05/07/20 Albuterol Inhaler [Ventolin Hfa 2 puff INHALATION RT-QID PRN #8 gm 12/18/21 Inhaler] Aspirin 81 mg PO DAILY #90 tab 12/18/21 Budesonide-Formot 160-4.5 Mcg 2 puff INHALATION RT-BID #1 inh 12/18/21 [Symbicort 160-4.5 Mcg Inhaler] Furosemide [Lasix] 40 mg PO DAILY #90 tab 12/18/21 Isosorbide Mononitrate ER [Imdur] 30 mg PO BID #180 tablet 12/18/21 Nicotine 21Mg/24Hr Patch [Habitrol] 1 patch TRANSDERM DAILY #30 patch 12/18/21 Spironolactone [Aldactone] 25 mg PO DAILY #90 tab 12/18/21 amLODIPine [Norvasc] 5 mg PO BID #180 tab 12/18/21 Allergies Allergy/AdvReac Type Severity Reaction Status Date / Time Penicillins Allergy Unknown Verified 07/27/22 20:41 Childhood venom-honey bee Allergy Swelling Verified 07/27/22 20:41 [bee venom (honey bee)] Review of Systems ROS Statement: Those systems with pertinent positive or pertinent negative responses have been documented in the HPI. ROS Other: All systems not noted in ROS Statement are negative. Past Medical History Past Medical History: Coronary Artery Disease (CAD), Hyperlipidemia, Hypertension, Myocardial Infarction (CO), Osteoarthritis (OA) Additional Past Medical History / Comment(s): 02/2022 flash pulmonary edema Last Myocardial Infarction Date:: 2008 History of Any Multi-Drug Resistant Organisms: None Reported Past Surgical History: Heart Catheterization With Stent Additional Past Surgical History / Comment(s): multiple knee surg., bilateral shoulder surg., right thumb Past Anesthesia/Blood Transfusion Reactions: No Reported Reaction Date of Last Stent Placement:: 2008 Past Psychological History: Depression Smoking Status: Current every day smoker Past Alcohol Use History: Rare Past Drug Use History: None Reported - Past Family History Mother Family Medical History: Cancer General Exam Limitations: no limitations General appearance: alert, in no apparent distress Head exam: Present: atraumatic, normocephalic, normal inspection Eye exam: Present: normal appearance, PERRL, EOMI. Absent: scleral icterus, conjunctival injection, periorbital swelling ENT exam: Present: normal exam, mucous membranes moist Neck exam: Present: normal inspection. Absent: tenderness, meningismus, lymphadenopathy Respiratory exam: Present: normal lung sounds bilaterally. Absent: respiratory distress, wheezes, rales, rhonchi, stridor Cardiovascular Exam: Present: normal rhythm, bradycardia, normal heart sounds. Absent: systolic murmur, diastolic murmur, rubs, gallop, clicks GI/Abdominal exam: Present: soft, normal bowel sounds. Absent: distended, tenderness, guarding, rebound, rigid Extremities exam: Present: normal inspection, full ROM, normal capillary refill. Absent: tenderness, pedal edema, joint swelling, calf tenderness Back exam: Present: normal inspection Neurological exam: Present: alert, oriented X3, CN II-XII intact Psychiatric exam: Present: normal affect, normal mood Skin exam: Present: warm, dry, intact, normal color. Absent: rash Course Vital Signs 07/27/22 07/28/22 07/28/22 20:41 02:01 02:52 Temperature 98.6 F Pulse Rate 47 L 71 76 Respiratory 18 18 Rate Blood Pressure 149/92 O2 Sat by Pulse 97 98 Oximetry - Reevaluation(s) Reevaluation #1: 07/28/22 01:25 medical record is reviewed Reevaluation #2: 07/28/22 Patient informed of results questions answered Medical Decision Making - Medical Decision Making 51 male to the emergency department for evaluation of abdominal pain history of heart disease patient will continue abdominal pain here in the ER, imaging is negative labwork is normal heart enzymes will be discharged home - Lab Data Result diagrams: 07/27/22 20:55 07/27/22 20:55 Lab Results 07/27/22 07/27/22 07/27/22 Range/Units 20:55 20:55 20:55 WBC 14.1 H (3.8-10.6) k/uL RBC 4.81 (4.30-5.90) m/uL Hgb 15.8 (13.0-17.5) gm/dL Hct 43.7 (39.0-53.0) % MCV 90.7 (80.0-100.0) fL MCH 32.7 (25.0-35.0) pg MCHC 36.1 (31.0-37.0) g/dL RDW 13.3 (11.5-15.5) % Plt Count 197 (150-450) k/uL MPV 10.3 Neutrophils % 68 % Lymphocytes % 21 % Monocytes % 6 % Eosinophils % 2 % Basophils % 0 % Neutrophils # 9.6 H (1.3-7.7) k/uL Lymphocytes # 2.9 (1.0-4.8) k/uL Monocytes # 0.8 (0-1.0) k/uL Eosinophils # 0.3 (0-0.7) k/uL Basophils # 0.1 (0-0.2) k/uL Sodium 137 (137-145) mmol/L Potassium 3.9 (3.5-5.1) mmol/L Chloride 103 (98-107) mmol/L Carbon Dioxide 23 (22-30) mmol/L Anion Gap 11 mmol/L BUN 17 (9-20) mg/dL Creatinine 1.31 H (0.66-1.25) mg/dL Est GFR (CKD-EPI)AfAm 72 (>60 ml/min/1.73 sqM) Est GFR (CKD-EPI)NonAf 62 (>60 ml/min/1.73 sqM) Glucose 97 (74-99) mg/dL Calcium 9.4 (8.4-10.2) mg/dL Total Bilirubin 0.5 (0.2-1.3) mg/dL AST 63 H (17-59) U/L ALT 98 H (4-49) U/L Alkaline Phosphatase 75 (38-126) U/L Troponin I 0.041 H* (0.000-0.034) ng/mL Total Protein 6.7 (6.3-8.2) g/dL Albumin 4.5 (3.5-5.0) g/dL Amylase 80 (30-110) U/L Lipase 141 (23-300) U/L - Radiology Data Radiology results: report reviewed (CT of the chest pelvis negative for acute disease), image reviewed Disposition Clinical Impression: Troponin level elevated, CAD (coronary artery disease), Abdominal pain Disposition: HOME SELF-CARE Condition: Undetermined Instructions (If sedation given, give patient instructions): Abdominal Pain (ED) Is patient prescribed a controlled substance at d/c from ED?: No Referrals: Kyler Ng DO [Primary Care Provider] - 1-2 days Decision Time: 02:45
--- NOTE | 2022-07-28 02:13 | CT ---
EXAMINATION TYPE: CT angio chest DATE OF EXAM: 07/28/2022 COMPARISON: 12/14/2021 HISTORY: RUQ pain CT DLP: 502.1 mGycm Automated exposure control for dose reduction was used. CONTRAST: Performed with IV Contrast, patient injected with 100 mL of Isovue 370. There are Three-D postprocessed images. The lungs are clear of consolidation. No pleural effusion. Heart size is normal. No pericardial effus ion. There is some fatty infiltration of the liver. The bile duct are not dilated. Gallbladder appears nor mal. Spleen and pancreas appear normal. Stomach is intact. There is no mediastinal adenopathy. There are no hilar masses. There is normal contrast opacification of the pulmonary arteries. No filling defect. The thoracic aorta is intact. No sign of aneurysm or d issection. There are a few bilateral bronchial lymph nodes that measure up to 1 cm. The thoracic spin e is intact. No compression fracture. IMPRESSION: No evidence of pulmonary embolism. Nonspecific bilateral bronchial lymph nodes. No suspicious pulmona ry mass. There is clearing of the extensive pulmonary airspace infiltrates compared to old exam.
--- NOTE | 2022-07-28 02:23 | CT ---
EXAMINATION TYPE: CT abdomen pelvis w con DATE OF EXAM: 07/28/2022 COMPARISON: 04/28/2021 HISTORY: RUQ pain CT DLP: 1242.7 mGycm Automated exposure control for dose reduction was used. CONTRAST: Performed with IV Contrast, patient injected with 100 mL of Isovue 370. Images obtained from the diaphragm to the floor the pelvis with the IV contrast. The lung bases are clear. No pleural effusion. There is fatty infiltration of the liver. No discrete liver mass. Spleen and stomach pancreas gallbladder appear intact. The bile ducts are not dilated. There is no adrenal mass. Kidneys show satisfactory contrast opacification. No hydronephrosis. The ur eters are not dilated. Bladder distends smoothly. No inguinal hernia. No free fluid in the pelvis. No pelvic mass. Delayed images show normal renal excretion. The appendix is medial and appears normal. There is no mesenteric edema. No ascites or free air. No sign of a bowel obstruction. There are some scattered sigmoid diverticula. No diverticulitis. The lumbar vertebral show normal alignment. There is narrowing at the L5-S1 disc space with vacuum di sc and spur formation. There is posterior calcified disc herniation at L5-S1 with significant spinal stenosis. The bony pelvis is intact. The hip joints are intact. Sacroiliac joints are intact. IMPRESSION: There is some mild sigmoid diverticulosis. Normal appendix. No acute abnormality in the abdomen and p anna. Mild fatty infiltration of the liver. No adverse change compared to old exam.
[2022-07-28] MEDS ORDERED: MORPHINE SULFATE 4 MG/ML SYRINGE IV PRN (02:40)
[2022-07-28] MEDS ORDERED: ONDANSETRON 4 MG/2 ML VIAL IVP PRN (02:40)
[2022-07-28] MEDS ORDERED: NALOXONE 0.4 MG/ML 1 ML VIAL IV PRN (02:40)
[2022-07-28] MEDS ORDERED: SODIUM CHLORIDE 0.9% 1,000 ML IV SCH (02:45)
[2022-07-28 02:53] VITALS: PULSE 76
== END 2022-07-28 02:53 | disposition home or self-care (01) ==
LOC: EC 20:18
DX: R77.8 Other specified abnormalities of plasma proteins (principal); I25.10 Atherosclerotic heart disease of native coronary artery without angina pectoris; Z88.0 Allergy status to penicillin; Z91.030 Bee allergy status; I10 Essential (primary) hypertension; I25.2 Old myocardial infarction; F17.200 Nicotine dependence, unspecified, uncomplicated
CPT/HCPCS: 36415; 71275; 74018; 74177; 80053; 82150; 83690; 84484; 85025; 93005; 99284

== ENCOUNTER 2024-01-17 19:56 | Emergency (ER) | payer BC, OTHER ==
[2024-01-17 20:18] VITALS: BP 194/116; PULSE 93; RESP 18; TEMP 98.2
[2024-01-17] MEDS: PROPARACAINE 0.5% OPHTH DROPS 15 ML BTL RIGHT EYE STA (20:35)
[2024-01-17] MEDS: FLUORESCEIN STRIPS 1 MG STRIP RIGHT EYE ONE (20:35)
--- NOTE | 2024-01-17 21:55 | ED ---
General Adult HPI - General Chief complaint: Eye Problems Stated complaint: rt eye pain Time Seen by Provider: 01/17/24 20:19 Source: patient, RN notes reviewed Mode of arrival: ambulatory Limitations: no limitations - History of Present Illness Initial comments: 53-year-old male presents to the emergency department for evaluation of right eye foreign body. He states that this occurred yesterday. He was hammering the starter of a car and notes that some metallic pieces fell and landed in his eye. He denies any changes in his vision. He wears glasses but does not use contact lenses. He is unsure of the date of his last tetanus vaccination. - Related Data Home Medications Medication Instructions Recorded Confirmed Atorvastatin [Lipitor] 80 mg PO DAILY 04/28/21 02/25/22 buPROPion XL [Wellbutrin XL] 150 mg PO DAILY 04/28/21 02/25/22 Losartan [Cozaar] 100 mg PO DAILY 02/25/22 02/25/22 Previous Rx's Medication Instructions Recorded Metoprolol Tartrate [Lopressor] 50 mg PO BID #60 tab 05/07/20 Albuterol Inhaler [Ventolin Hfa 2 puff INHALATION RT-QID PRN #8 gm 12/18/21 Inhaler] Aspirin 81 mg PO DAILY #90 tab 12/18/21 Budesonide-Formot 160-4.5 Mcg 2 puff INHALATION RT-BID #1 inh 12/18/21 [Symbicort 160-4.5 Mcg Inhaler] Furosemide [Lasix] 40 mg PO DAILY #90 tab 12/18/21 Isosorbide Mononitrate ER [Imdur] 30 mg PO BID #180 tablet 12/18/21 Nicotine 21Mg/24Hr Patch [Habitrol] 1 patch TRANSDERM DAILY #30 patch 12/18/21 Spironolactone [Aldactone] 25 mg PO DAILY #90 tab 12/18/21 amLODIPine [Norvasc] 5 mg PO BID #180 tab 12/18/21 Allergies Allergy/AdvReac Type Severity Reaction Status Date / Time Penicillins Allergy Unknown Verified 01/17/24 20:10 Childhood venom-honey bee Allergy Swelling Verified 01/17/24 20:10 [bee venom (honey bee)] Review of Systems ROS Statement: Those systems with pertinent positive or pertinent negative responses have been documented in the HPI. ROS Other: All systems not noted in ROS Statement are negative. Past Medical History Past Medical History: Coronary Artery Disease (CAD), Hyperlipidemia, Hypertension, Myocardial Infarction (NV), Osteoarthritis (OA) Additional Past Medical History / Comment(s): 02/2022 flash pulmonary edema Last Myocardial Infarction Date:: 2008 History of Any Multi-Drug Resistant Organisms: None Reported Past Surgical History: Heart Catheterization With Stent Additional Past Surgical History / Comment(s): multiple knee surg., bilateral shoulder surg., right thumb Past Anesthesia/Blood Transfusion Reactions: No Reported Reaction Date of Last Stent Placement:: 2008 Past Psychological History: Depression Smoking Status: Current every day smoker Past Alcohol Use History: Rare Past Drug Use History: None Reported - Past Family History Mother Family Medical History: Cancer General Exam Limitations: no limitations General appearance: alert, in no apparent distress Head exam: Present: atraumatic, normocephalic, normal inspection Eye exam: Present: PERRL, EOMI, conjunctival injection ENT exam: Present: normal exam, mucous membranes moist Neck exam: Present: normal inspection. Absent: tenderness, meningismus, lymphadenopathy Respiratory exam: Present: normal lung sounds bilaterally. Absent: respiratory distress, wheezes, rales, rhonchi, stridor Cardiovascular Exam: Present: regular rate, normal rhythm, normal heart sounds. Absent: systolic murmur, diastolic murmur, rubs, gallop, clicks Extremities exam: Present: normal inspection, full ROM, normal capillary refill. Absent: tenderness, pedal edema, joint swelling, calf tenderness Neurological exam: Present: alert, oriented X3 Psychiatric exam: Present: normal affect, normal mood Skin exam: Present: warm, dry, intact, normal color. Absent: rash Course Vital Signs 01/17/24 20:08 Temperature 98.2 F Pulse Rate 93 Respiratory 18 Rate Blood Pressure 194/116 O2 Sat by Pulse 97 Oximetry Medical Decision Making - Medical Decision Making Was pt. sent in by a medical professional or institution (, PA, MENTAL HYGIENIST, urgent care, hospital, or prison...) When possible be specific @ -No Did you speak to anyone other than the patient for history (EMS, parent, family, police, friend...)? What history was obtained from this source @ -No Did you review nursing and triage notes (agree or disagree)? Why? @ -I reviewed and agree with nursing and triage notes Were old charts reviewed (outside hosp., previous admission, EMS record, old EKG, old radiological studies, urgent care reports/EKG's, prison records)? Report findings @ -No old charts were reviewed Differential Diagnosis (chest pain, altered mental status, abdominal pain women, abdominal pain men, vaginal bleeding, weakness, fever, dyspnea, syncope, headache, dizziness, GI bleed, back pain, seizure, CVA, palpatations, mental health, musculoskeletal)? @ -Corneal foreign body, conjunctivitis, corneal abrasion, this was not all inclusive EKG interpreted by me (3pts min.). @ -None X-rays interpreted by me (1pt min.). @ -None done CT interpreted by me (1pt min.). @ -None done U/S interpreted by me (1pt. min.). @ -None done What testing was considered but not performed or refused? (CT, X-rays, U/S, labs)? Why? @ -None What meds were considered but not given or refused? Why? @ -None Did you discuss the management of the patient with other professionals (professionals i.e. , PA, MENTAL HYGIENIST, lab, RT, psych nurse, social problems specialist, nib adjuster, teacher, traffic police officer, piano case and bench assembler)? Give summary @ -No Was smoking cessation discussed for >3mins.? @ -No Was critical care preformed (if so, how long)? @ -No Were there social determinants of health that impacted care today? How? (Homelessness, low income, unemployed, alcoholism, drug addiction, transportation, low edu. Level, literacy, decrease access to med. care, long-term, rehab)? @ -No Was there de-escalation of care discussed even if they declined (Discuss DNR or withdrawal of care, Hospice)? DNR status @ -No What co-morbidities impacted this encounter? (DM, HTN, Smoking, COPD, CAD, Cancer, CVA, ARF, Chemo, Hep., AIDS, mental health diagnosis, sleep apnea, morbid obesity)? @ -None Was patient admitted / discharged? Hospital course, mention meds given and route, prescriptions, significant lab abnormalities, going to OR and other pertinent info. @ -Discharge. Patient presented to the emergency department for evaluation of right eye foreign body. Visual acuity 20/25 in the right eye, 20/40 in the left eye. He does wear glasses, no contact lens use. Proparacaine drops were instilled which improved his pain. Fluorescein stain was performed which shows corneal abrasion with foreign body and rust ring. Foreign body was removed, attempted removal of rust ring kimberli brush, there is some remaining rust ring. Advised patient that he needs to follow-up with ophthalmology. Provided Cipro drops along with ketorolac drops. Advised on use of these eyedrops. Updated tetanus vaccination. Patient is understanding and agreeable with plan. Patient stable at time of discharge. Case discussed with Dr. Miller Undiagnosed new problem with uncertain prognosis? @ -No Drug Therapy requiring intensive monitoring for toxicity (Heparin, Nitro, Ins ulin, Cardizem)? @ -No Were any procedures done? @ -No Diagnosis/symptom? @ -Corneal foreign body, corneal abrasion Acute, or Chronic, or Acute on Chronic? @ -Acute Uncomplicated (without systemic symptoms) or Complicated (systemic symptoms)? @ -Uncomplicated Side effects of treatment? @ -No Exacerbation, Progression, or Severe Exacerbation? @ -No Poses a threat to life or bodily function? How? (Chest pain, USA, NV, pneumonia, PE, COPD, DKA, ARF, appy, cholecystitis, CVA, Diverticulitis, Homicidal, Suicidal, threat to staff... and all critical care pts) @ -No Disposition Clinical Impression: Corneal abrasion, Foreign body of cornea, Rust ring of right cornea due to metallic foreign body Disposition: HOME SELF-CARE Condition: Stable Instructions (If sedation given, give patient instructions): Eye Foreign Body (ED) Additional Instructions: Please utilize 2 ciprofloxacin eyedrops 4 times daily and you can utilize the ketorolac eyedrops 1 drop 4 times daily. Please follow-up with ophthalmology. Return to the emergency department for new or worsening symptoms. Is patient prescribed a controlled substance at d/c from ED?: No Referrals: Kyler Ng DO [Primary Care Provider] - 1-2 days Zia Ferguson MD [STAFF PHYSICIAN] - 1-2 days Tamica Toribio MD [STAFF PHYSICIAN] - 1-2 days Catarino Gutiérrez MD [STAFF PHYSICIAN] - 1-2 days
[2024-01-17] MEDS: DIPH,PERTUS(ACELL)TETVAC-LF 0.5 ML VIAL IM ONE (22:02)
[2024-01-17] MEDS: KETOROLAC 0.5% OPHTH DROPS 5 ML BTL RIGHT EYE STA (22:16)
[2024-01-17] MEDS: CIPROFLOXACIN 0.3% OPHTH SOLN 5 ML BTL RIGHT EYE STA (22:16)
== END 2024-01-17 22:18 | disposition home or self-care (01) ==
LOC: EC 19:56
DX: T15.01XA Foreign body in cornea, right eye, initial encounter (principal); F17.200 Nicotine dependence, unspecified, uncomplicated; Z88.0 Allergy status to penicillin; Z91.030 Bee allergy status; Z23 Encounter for immunization; W22.8XXA Striking against or struck by other objects, initial encounter
CPT/HCPCS: 90471; 90715; 99283

== ENCOUNTER 2024-04-03 08:57 | Emergency (ER) | payer OTHER ==
[2024-04-03 09:12] VITALS: PULSE 57; RESP 18
[2024-04-03 09:49] LABS: Basophils # (A) 0.1 k/uL (0-0.2); Basophils % (A) 1 %; Eosinophils # (A) 0.6 k/uL (0-0.7); Eosinophils % (A) 4 %; HGB 16.6 gm/dL (13.0-17.5); Lymphocytes # (A) 2.2 k/uL (1.0-4.8); Lymphocytes % (A) 14 %; MCH 32.4 pg (25.0-35.0); MCHC 34.5 g/dL (31.0-37.0); Monocytes # (A) 0.9 k/uL (0-1.0); Monocytes % (A) 6 %; Neutrophils # (A) 11.3 k/uL (1.3-7.7); Neutrophils % (A) 74 %; Platelet Count 201 k/uL (150-450); RDW 13.3 % (11.5-15.5); WBC 15.4 k/uL (3.8-10.6)
[2024-04-03 10:12] LABS: ALT 53 U/L (4-49); AST 40 U/L (17-59); African American GFR (CKD) >90 (>60 ml/min/1.73 sqM); Albumin 4.3 g/dL (3.5-5.0); Alkaline Phosphatase 80 U/L (38-126); Anion Gap 6 mmol/L; Blood Urea Nitrogen 13 mg/dL (9-20); Calcium 9.4 mg/dL (8.4-10.2); Carbon Dioxide 24 mmol/L (22-30); Chloride 108 mmol/L (98-107); Glucose 128 mg/dL (74-99); Lipase 102 U/L (23-300); Non-African American GFR(CKD) 88 (>60 ml/min/1.73 sqM); Potassium 4.1 mmol/L (3.5-5.1); Sodium 138 mmol/L (137-145); Total Bilirubin 1.2 mg/dL (0.2-1.3); Total Protein 6.9 g/dL (6.3-8.2)
--- NOTE | 2024-04-03 10:23 | CT ---
EXAMINATION TYPE: CT abdomen pelvis w con CT DLP: 1135.8 mGycm, Automated exposure control for dose reduction was used. DATE OF EXAM: 04/03/2024 10:04 AM COMPARISON: CT abdomen pelvis most recent from 07/28/2022 CLINICAL INDICATION:Male, 53 years old with history of abd pain, hernia; Abdominal pain, hernia TECHNIQUE: Axial CT abdomen pelvis w con;Sagittal and coronal reformats were created on a separate w orkstation. Contrast used:100 ml mL of Isovue 300 with IV Contrast, (none if empty) Oral contrast used: without Oral Contrast (none if empty) FINDINGS: LOWER CHEST: Unremarkable ABDOMEN LIVER: Diffusely hypoattenuating parenchyma. GALLBLADDER AND BILE DUCTS: Unremarkable. PANCREAS: Unremarkable. SPLEEN: Unremarkable. ADRENAL GLANDS: Unremarkable. KIDNEYS AND URETERS: No evidence of hydronephrosis or renal calculus. The ureters are unremarkable. PELVIS BLADDER: Unremarkable REPRODUCTIVE: Unremarkable. ABDOMEN & PELVIS STOMACH AND BOWEL: No evidence of bowel obstruction. The appendix is normal. PERITONEUM/RETROPERITONEUM: No evidence of pneumoperitoneum or free fluid. VASCULATURE: No evidence of aortic aneurysm. Infrarenal saccular aneurysm measuring up to 3.4 cm. MUSCULOSKELETAL: No acute osseous abnormalities LYMPH NODES: No gross evidence for lymphadenopathy. SOFT TISSUE/ABDOMINAL WALL: Fat-containing umbilical hernia. IMPRESSION: 1. No evidence for acute abdominal process. The appendix is normal. No obstructive uropathy. 2. Infrarenal saccular aneurysm measuring up to 3.4 cm. 3. Hepatic steatosis.
--- NOTE | 2024-04-03 10:45 | ED ---
Abdominal Pain HPI - General Chief Complaint: Abdominal Pain Stated Complaint: Abdominal Pain Time Seen by Provider: 04/03/24 09:13 Source: patient, RN notes reviewed Mode of arrival: ambulatory Limitations: no limitations - History of Present Illness Initial Comments: 53-year-old male presents emerged department complaint of upper abdominal pain. Patient states he has been worsening. He states he has been told he has small hernia but pain in the area of swelling is getting worse he denies any current complaints of chest pain no fevers chills nausea vomit diarrhea constipation no dysuria no other complaints. Patient does state that he had prior tumors removed from his abdomen. - Related Data Home Medications Medication Instructions Recorded Confirmed Atorvastatin [Lipitor] 80 mg PO DAILY 04/28/21 02/25/22 buPROPion XL [Wellbutrin XL] 150 mg PO DAILY 04/28/21 02/25/22 Losartan [Cozaar] 100 mg PO DAILY 02/25/22 02/25/22 Previous Rx's Medication Instructions Recorded Metoprolol Tartrate [Lopressor] 50 mg PO BID #60 tab 05/07/20 Albuterol Inhaler [Ventolin Hfa 2 puff INHALATION RT-QID PRN #8 gm 12/18/21 Inhaler] Aspirin 81 mg PO DAILY #90 tab 12/18/21 Budesonide-Formot 160-4.5 Mcg 2 puff INHALATION RT-BID #1 inh 12/18/21 [Symbicort 160-4.5 Mcg Inhaler] Furosemide [Lasix] 40 mg PO DAILY #90 tab 12/18/21 Isosorbide Mononitrate ER [Imdur] 30 mg PO BID #180 tablet 12/18/21 Nicotine 21Mg/24Hr Patch [Habitrol] 1 patch TRANSDERM DAILY #30 patch 12/18/21 Spironolactone [Aldactone] 25 mg PO DAILY #90 tab 12/18/21 amLODIPine [Norvasc] 5 mg PO BID #180 tab 12/18/21 Allergies Allergy/AdvReac Type Severity Reaction Status Date / Time Penicillins Allergy Unknown Verified 04/03/24 09:12 Childhood venom-honey bee Allergy Swelling Verified 04/03/24 09:12 [bee venom (honey bee)] Review of Systems ROS Statement: Those systems with pertinent positive or pertinent negative responses have been documented in the HPI. ROS Other: All systems not noted in ROS Statement are negative. Past Medical History Past Medical History: Coronary Artery Disease (CAD), Hyperlipidemia, Hypertension, Myocardial Infarction ([place]), Osteoarthritis (OA) Additional Past Medical History / Comment(s): 02/2022 flash pulmonary edema Last Myocardial Infarction Date:: 2008 History of Any Multi-Drug Resistant Organisms: None Reported Past Surgical History: Heart Catheterization With Stent Additional Past Surgical History / Comment(s): multiple knee surg., bilateral shoulder surg., right thumb Past Anesthesia/Blood Transfusion Reactions: No Reported Reaction Date of Last Stent Placement:: 2008 Past Psychological History: Depression Smoking Status: Current every day smoker Past Alcohol Use History: Rare Past Drug Use History: None Reported - Past Family History Mother Family Medical History: Cancer General Exam Limitations: no limitations General appearance: alert, in no apparent distress Head exam: Present: atraumatic, normocephalic, normal inspection Eye exam: Present: normal appearance, PERRL, EOMI. Absent: scleral icterus, conjunctival injection, periorbital swelling ENT exam: Present: normal exam, mucous membranes moist Neck exam: Present: normal inspection, full ROM. Absent: tenderness, meningi smus, lymphadenopathy Respiratory exam: Present: normal lung sounds bilaterally. Absent: respiratory distress, wheezes, rales, rhonchi, stridor, chest wall tenderness Cardiovascular Exam: Present: regular rate, normal rhythm, normal heart sounds. Absent: systolic murmur, diastolic murmur, rubs, gallop, clicks GI/Abdominal exam: Present: soft, tenderness, normal bowel sounds, hernia. Absent: distended, guarding, rebound, rigid Course Vital Signs 04/03/24 04/03/24 09:09 10:57 Temperature 98 F 98.7 F Pulse Rate 57 L 57 L Respiratory 18 18 Rate Blood Pressure 119/82 145/97 O2 Sat by Pulse 98 100 Oximetry Medical Decision Making - Medical Decision Making Was pt. sent in by a medical professional or institution (, PA, MITER SAW OPERATOR, urgent care, hospital, or long term...) When possible be specific @ -No Did you speak to anyone other than the patient for history (EMS, parent, family, police, friend...)? What history was obtained from this source @ -No Did you review nursing and triage notes (agree or disagree)? Why? @ -I reviewed and agree with nursing and triage notes Were old charts reviewed (outside hosp., previous admission, EMS record, old EKG, old radiological studies, urgent care reports/EKG's, long term records)? Report findings @ -No old charts were reviewed Differential Diagnosis (chest pain, altered mental status, abdominal pain women, abdominal pain men, vaginal bleeding, weakness, fever, dyspnea, syncope, headache, dizziness, GI bleed, back pain, seizure, CVA, palpatations, mental health, musculoskeletal)? @ -Differential Abdominal Pain Men: Appendicitis, cholecystitis, diverticulosis, ischemic bowel, pancreatitis, hepatitis, UTI, gastroenteritis, AAA, incarcerated hernia, bowel obstruction, constipation, inflammatory bowel, hepatitis, peptic ulcer disease, splenic infarction, perforated viscus, testicular torsion, this is not meant to be an all-inclusive list EKG interpreted by me (3pts min.). @ -As above X-rays interpreted by me (1pt min.). @ -None done CT interpreted by me (1pt min.). @ -CT abdomen pelvis showing umbilical hernia no other acute process, patient does have a incidental finding of infrarenal aortic aneurysm U/S interpreted by me (1pt. min.). @ -None done What testing was considered but not performed or refused? (CT, X-rays, U/S, labs)? Why? @ -None What meds were considered but not given or refused? Why? @ -None Did you discuss the management of the patient with other professionals (professionals i.e. , PA, MITER SAW OPERATOR, lab, RT, psych nurse, social work supervisor, optical engineering manager, teacher, sewage reticulation drafting officer, case assembler)? Give summary @ -No Was smoking cessation discussed for >3mins.? @ -No Was critical care preformed (if so, how long)? @ -No Were there social determinants of health that impacted care today? How? (Homelessness, low income, unemployed, alcoholism, drug addiction, transportation, low edu. Level, literacy, decrease access to med. care, long-term, rehab)? @ -No Was there de-escalation of care discussed even if they declined (Discuss DNR or withdrawal of care, Hospice)? DNR status @ -No What co-morbidities impacted this encounter? (DM, HTN, Smoking, COPD, CAD, Cancer, CVA, ARF, Chemo, Hep., AIDS, mental health diagnosis, sleep apnea, m orbid obesity)? @ -None Was patient admitted / discharged? Hospital course, mention meds given and r oute, prescriptions, significant lab abnormalities, going to OR and other pertinent info. @ -Discharge patient does have notable rectus diastasis will follow-up with outpatient surgery he was notified if of infrarenal aneurysm and will need to have close follow-up and repeat testing. Undiagnosed new problem with uncertain prognosis? @ -No Drug Therapy requiring intensive monitoring for toxicity (Heparin, Nitro, Insulin, Cardizem)? @ -No Were any procedures done? @ -No Diagnosis/symptom? @ -Recti diastasis Acute, or Chronic, or Acute on Chronic? @ -Acute Uncomplicated (without systemic symptoms) or Complicated (systemic symptoms)? @ -Uncomplicated Side effects of treatment? @ -No Exacerbation, Progression, or Severe Exacerbation? @ -No Poses a threat to life or bodily function? How? (Chest pain, USA, ME, pneumonia, PE, COPD, DKA, ARF, appy, cholecystitis, CVA, Diverticulitis, Homicidal, S uicidal, threat to staff... and all critical care pts) @ -No - Lab Data Result diagrams: 04/03/24 09:42 04/03/24 09:42 Lab Results 04/03/24 04/03/24 04/03/24 Range/Units 09:42 09:42 09:42 WBC 15.4 H (3.8-10.6) k/uL RBC 5.10 (4.30-5.90) m/uL Hgb 16.6 (13.0-17.5) gm/dL Hct 48.0 (39.0-53.0) % MCV 94.0 (80.0-100.0) fL MCH 32.4 (25.0-35.0) pg MCHC 34.5 (31.0-37.0) g/dL RDW 13.3 (11.5-15.5) % Plt Count 201 (150-450) k/uL MPV 9.0 Neutrophils % 74 % Lymphocytes % 14 % Monocytes % 6 % Eosinophils % 4 % Basophils % 1 % Neutrophils # 11.3 H (1.3-7.7) k/uL Lymphocytes # 2.2 (1.0-4.8) k/uL Monocytes # 0.9 (0-1.0) k/uL Eosinophils # 0.6 (0-0.7) k/uL Basophils # 0.1 (0-0.2) k/uL Sodium 138 (137-145) mmol/L Potassium 4.1 (3.5-5.1) mmol/L Chloride 108 H (98-107) mmol/L Carbon Dioxide 24 (22-30) mmol/L Anion Gap 6 mmol/L BUN 13 (9-20) mg/dL Creatinine 0.97 (0.66-1.25) mg/dL Est GFR (CKD-EPI)AfAm >90 (>60 ml/min/1.73 sqM) Est GFR (CKD-EPI)NonAf 88 (>60 ml/min/1.73 sqM) Glucose 128 H (74-99) mg/dL Plasma Lactic Acid Sergio 1.1 (0.7-2.0) mmol/L Calcium 9.4 (8.4-10.2) mg/dL Total Bilirubin 1.2 (0.2-1.3) mg/dL AST 40 (17-59) U/L ALT 53 H (4-49) U/L Alkaline Phosphatase 80 (38-126) U/L Troponin I (0.000-0.034) ng/mL Total Protein 6.9 (6.3-8.2) g/dL Albumin 4.3 (3.5-5.0) g/dL Lipase 102 (23-300) U/L 04/03/24 Range/Units 09:42 WBC (3.8-10.6) k/uL RBC (4.30-5.90) m/uL Hgb (13.0-17.5) gm/dL Hct (39.0-53.0) % MCV (80.0-100.0) fL MCH (25.0-35.0) pg MCHC (31.0-37.0) g/dL RDW (11.5-15.5) % Plt Count (150-450) k/uL MPV Neutrophils % % Lymphocytes % % Monocytes % % Eosinophils % % Basophils % % Neutrophils # (1.3-7.7) k/uL Lymphocytes # (1.0-4.8) k/uL Monocytes # (0-1.0) k/uL Eosinophils # (0-0.7) k/uL Basophils # (0-0.2) k/uL Sodium (137-145) mmol/L Potassium (3.5-5.1) mmol/L Chloride (98-107) mmol/L Carbon Dioxide (22-30) mmol/L Anion Gap mmol/L BUN (9-20) mg/dL Creatinine (0.66-1.25) mg/dL Est GFR (CKD-EPI)AfAm (>60 ml/min/1.73 sqM) Est GFR (CKD-EPI)NonAf (>60 ml/min/1.73 sqM) Glucose (74-99) mg/dL Plasma Lactic Acid Sergio (0.7-2.0) mmol/L Calcium (8.4-10.2) mg/dL Total Bilirubin (0.2-1.3) mg/dL AST (17-59) U/L ALT (4-49) U/L Alkaline Phosphatase (38-126) U/L Troponin I 0.031 (0.000-0.034) ng/mL Total Protein (6.3-8.2) g/dL Albumin (3.5-5.0) g/dL Lipase (23-300) U/L - EKG Data -: EKG Interpreted by Me EKG Comments: EKG performed at 9: 34 sinus bradycardia rate of 56 CA 184 QRS 105 QT/QTc 433/425 Disposition Clinical Impression: Diastasis recti Disposition: HOME SELF-CARE Condition: Stable Instructions (If sedation given, give patient instructions): Ventral Hernia (ED) Additional Instructions: Please return to the Emergency Department if symptoms worsen or any other concerns. Is patient prescribed a controlled substance at d/c from ED?: No Referrals: Kyler Ng DO [Primary Care Provider] - 1-2 days Flo Marie MD [STAFF PHYSICIAN] - 1-2 days Time of Disposition: 10:44
[2024-04-03 10:58] VITALS: BP 145/97; TEMP 98.7
== END 2024-04-03 10:58 | disposition home or self-care (01) ==
LOC: EC 08:57
DX: M62.08 Separation of muscle (nontraumatic), other site (principal); R00.1 Bradycardia, unspecified; F17.200 Nicotine dependence, unspecified, uncomplicated; Z88.0 Allergy status to penicillin; Z91.030 Bee allergy status
CPT/HCPCS: 36415; 93005; 80053; 83605; 83690; 84484; 85025; 74177; 99284; Q9967

== ENCOUNTER → 2024-04-21 | Outpatient (CLI) | payer OTHER ==
[2024-04-21 14:39] LABS: Basophils # (A) 0.08 X 10*3/uL (0.00-0.10); Basophils % (A) 0.6 %; Eosinophils % (A) 2.2 %; HCT 49.3 % (39.6-50.0); HGB 17.1 g/dL (13.0-17.0); Lymphocytes # (A) 3.04 X 10*3/uL (0.90-5.00); Lymphocytes % (A) 21.8 %; MCH 33.2 pg (27.0-32.0); MCHC 34.7 g/dL (32.0-37.0); MCV 95.7 FL (80.0-97.0); Mean Platelet Volume 11.5 FL (9.5-12.2); Monocytes # (A) 1.04 X 10*3/uL (0.20-1.00); Monocytes % (A) 7.5 %; NRBC Per 100 WBC 0 X 10*3/uL (0.00-0.01); Neutrophils # (A) 9.43 X 10*3/uL (1.80-7.70); Neutrophils % (A) 67.5 %; Platelet Count 258 X 10*3/uL (140-440); RBC 5.15 X 10*6/uL (4.40-5.60); RDW 13.5 % (11.5-14.5); WBC 13.94 X 10*3/uL (4.50-10.00)
== END | disposition home or self-care (01) ==
LOC: LABPAT 09:59
PROVIDERS: ATTEND Surgery
DX: Z01.818 Encounter for other preprocedural examination (principal)
CPT/HCPCS: 85025; 86850; 86900; 86901; 93005

== ENCOUNTER 2024-04-27 05:44 | Day surgery (SDC) | payer OTHER ==
[2024-04-27] MEDS: ACETAMINOPHEN TAB 500 MG TAB PO PRN (06:42)
[2024-04-27] MEDS: ONDANSETRON 4 MG/2 ML VIAL IVP ONE (06:42)
[2024-04-27] MEDS: LACTATED RINGERS 1,000 ML IV SCH (06:42)
[2024-04-27] MEDS: DEXAMETHASONE SOD PHOSPHATE 4 MG/ML 1 ML VIAL IV ONE (06:42)
[2024-04-27] MEDS: IV FLUID CONTINUATION 1,000 ML IV ONE (06:50)
[2024-04-27] MEDS: MIDAZOLAM 2 MG/2 ML VIAL IVP ONE (06:55)
[2024-04-27] MEDS: fentaNYL (PF) 50 MCG/1 ML VIAL IVP ONE (06:55)
[2024-04-27] MEDS ORDERED: HYDROmorphone 0.5 MG/0.5 ML SYRINGE IVP PRN (07:00)
[2024-04-27] MEDS: HEPARIN SODIUM,PORCINE 5,000 UNIT/ML 1 ML VIAL SQ PRN (07:12)
[2024-04-27] MEDS ORDERED: KETOROLAC 15 MG/ML 1 ML VIAL ONE (07:43)
[2024-04-27] MEDS ORDERED: SODIUM CHLORIDE 0.9% (PF) 10 ML VIAL ONE (07:43)
[2024-04-27] MEDS ORDERED: GLYCOPYRROLATE 0.2 MG/ML 2 ML VIAL ONE (07:43)
[2024-04-27] MEDS ORDERED: SUCCINYLCHOLINE CHLORIDE 200 MG/10 ML VIAL IV ONE (07:43)
[2024-04-27] MEDS ORDERED: PROPOFOL 10 MG/ML 20 ML VIAL IV ONE (07:43)
[2024-04-27] MEDS ORDERED: NEOSTIGMINE 1 MG/ML 10 ML VIAL ONE (07:43)
[2024-04-27] MEDS ORDERED: ROPIVACAINE 5 MG/ML 30 ML VIAL ONE (07:43)
[2024-04-27] MEDS ORDERED: fentaNYL (PF) 50 MCG/ML 2 ML AMP ONE (07:43)
[2024-04-27] MEDS ORDERED: DEXAMETHASONE SOD PHOSPHATE 4 MG/ML 1 ML VIAL ONE (07:43)
[2024-04-27] MEDS ORDERED: ROCURONIUM 10 MG/ML (5 ML VIAL) IV ONE (07:43)
[2024-04-27] MEDS ORDERED: MIDAZOLAM 2 MG/2 ML VIAL ONE (07:43)
[2024-04-27] MEDS: LIDOCAINE 1%-EPI 1:100,000 20 ML VIAL SQ ONE ×2 (08:03)
[2024-04-27] MEDS: LACTATED RINGERS 1,000 ML IV ONE (08:37)
[2024-04-27 08:56] VITALS: TEMP 98
--- NOTE | 2024-04-27 08:57 | P.OP ---
Date of Procedure: 04/27/24 Preoperative Diagnosis: ventral hernia Postoperative Diagnosis: ventral hernia Procedure(s) Performed: laparoscopic robotic system repair of ventral hernia Transversus abdominis plane block Partial omentectomy Anesthesia: MAYNOR Surgeon: Flo Marie Estimated Blood Loss (ml): 5 Pathology: other (omentum/hernia sac) Condition: stable Disposition: PACU Description of Procedure: tThe patient was placed on the operating table in the supine position. He recei gloria general anesthesia. His abdomen was prepped and draped usual fashion. Using a 5 mm optical trocar under direct visualization the peritoneal cavity was entered in the left upper quadrant. The abdomen was then insufflated. The laparoscope was placed back into the perineal cavity. Next a 8 mm robotic trocar was placed in the left lower quadrant and a 12 mm robotic trocar was placed in the left lateral position. The original 5 mm trocar was exchanged for a 8 mm robotic trocar. The patient's placed in the left side up position. And the patient was udocked to the robot TheVentral hernia was visualized. Using hook cautery the peritoneum over theventral hernia was excised. incarcerated fat and hernia sac were dissected free sent to pathology.The fascial opening was repaired using 0V LOC suture. Next a piece of 11 cm round ventral light ST mesh was placed into the. Cavity and secured with 2 OV lock suture. The patient was undocked the robot. The needles were retrieved. A four-quadrant transversus abdominis plane block was performed Xylocaine. The fascia of the 12 mm trocar site was closed with 0 Ethibond suture. Skin was closed interrupted 3-0 Monocryl suture. Dermabond dressings was applied. Patient top procedure well and was sent to recovery room stable condition.
--- NOTE | 2024-04-27 09:37 | P.ANPRN ---
Procedure Note - Anesthesia - Nerve Block Performed Bilateral Erector Spinae Single Time Out Performed: Yes Date of Procedure: 04/27/24 Procedure Start Time: :54 Procedure Stop Time: :03 Location of Patient: PreOp Indication: Acute Post-Operative Pain, Requested by Surgeon Sedation Type: Sedate with meaningful contact maintained Preparation: Sterile Prep Position: Prone Needle Types: Pajunk Needle Gauge: 21 Ultrasound used to visualize needle placement: Yes Ultrasound used to observe medication spread: Yes Injectate: 0.5% Ropivacaine (see comment for volume) (20 ML+10 mL of normal saline +4 mg dexamethasone per side) Blood Aspirated: No Pain Paresthesia on Injection Noted: No Resistance on Injection: Normal Image Stored and Saved: Yes Events: Uneventful and Well Tolerated
[2024-04-27 10:56] VITALS: BP 119/71; PULSE 71; RESP 18
== END 2024-04-27 11:04 | disposition home or self-care (01) ==
LOC: OR 05:44
PROVIDERS: ATTEND Surgery
DX: K43.6 Other and unspecified ventral hernia with obstruction, without gangrene (principal); G89.18 Other acute postprocedural pain
CPT/HCPCS: 49594; S2900; 64999; 84132; 88305

== ENCOUNTER 2024-06-13 02:16 | Emergency (ER) | payer OTHER ==
[2024-06-13] MEDS ORDERED: MORPHINE SULFATE 4 MG/ML SYRINGE ONE (03:33)
[2024-06-13] MEDS ORDERED: KETOROLAC 15 MG/ML 1 ML VIAL ONE (03:34)
[2024-06-13] MEDS ORDERED: predniSONE 20 MG TAB ONE (03:34)
--- NOTE | 2024-07-22 13:56 | XR ---
EXAM: XR Left Hip With Pelvis When Performed, 1 View CLINICAL HISTORY: Sciatica pain TECHNIQUE: Frontal view of the left hip with pelvis when performed. COMPARISON: No relevant prior studies available. FINDINGS: Bones/joints:No acute fracture. No dislocation. Rounded femoral head contours are preserved. Soft tissues:Unremarkable. IMPRESSION: No evidence of osseous abnormality. Radiologist: Edgardo Patel M.D. Electronically Signed: 06/13/24 09:12 Study ready at 04:33 and initial results transmitted at 09:12 [facility]
== END 2024-06-13 06:20 | disposition home or self-care (01) ==
LOC: EC 02:16
DX: M54.32 Sciatica, left side (principal)
CPT/HCPCS: 73502; 96372; 99283

== ENCOUNTER 2024-10-13 21:15 | Emergency (ER) | payer OTHER ==
[2024-10-13 21:59] LABS: Basophils # (A) 0.1 k/uL (0-0.2); Basophils % (A) 1 %; Eosinophils # (A) 0.3 k/uL (0-0.7); Eosinophils % (A) 2 %; HCT 49.7 % (39.0-53.0); HGB 17.2 gm/dL (13.0-17.5); Lymphocytes # (A) 3.3 k/uL (1.0-4.8); Lymphocytes % (A) 26 %; MCH 33.2 pg (25.0-35.0); MCHC 34.6 g/dL (31.0-37.0); Mean Platelet Volume 8.8; Monocytes # (A) 0.8 k/uL (0-1.0); Monocytes % (A) 6 %; Neutrophils # (A) 8.1 k/uL (1.3-7.7); Neutrophils % (A) 64 %; Platelet Count 205 k/uL (150-450); RBC 5.17 m/uL (4.30-5.90); RDW 12.4 % (11.5-15.5); WBC 12.6 k/uL (3.8-10.6)
[2024-10-13 22:06] LABS: ALT 40 U/L (4-49); AST 29 U/L (17-59); African American GFR (CKD) 88 (>60 ml/min/1.73 sqM); Albumin 4.7 g/dL (3.5-5.0); Alkaline Phosphatase 62 U/L (38-126); Anion Gap 6 mmol/L; Blood Urea Nitrogen 18 mg/dL (9-20); Calcium 9.9 mg/dL (8.4-10.2); Carbon Dioxide 24 mmol/L (22-30); Chloride 107 mmol/L (98-107); Glucose 199 mg/dL (74-99); Non-African American GFR(CKD) 76 (>60 ml/min/1.73 sqM); Sodium 137 mmol/L (137-145); Total Bilirubin 0.7 mg/dL (0.2-1.3); Total Protein 7.3 g/dL (6.3-8.2)
[2024-10-13 22:09] LABS: Potassium 4.5 mmol/L (3.5-5.1)
[2024-10-13 22:20] LABS: Partial Thromboplastin Time 26.7 sec (22.0-30.0); Prothrombin Time 10.6 sec (10.0-12.5)
[2024-10-13] MEDS: ASPIRIN 81 MG PO STA (23:19)
--- NOTE | 2024-10-14 00:13 | ED ---
Extremity Problem HPI - General Chief complaint: Extremity Problem,Nontraumatic Stated complaint: Left shoulder pain, groin pain Source: patient, RN notes reviewed Mode of arrival: ambulatory Limitations: no limitations - History of Present Illness Initial comments: Quick note: This is a 53-year-old male presenting with left chest pressure and right groin pain since 1830 this evening. 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 Endorses concern that groin pain is associated with aneurysm. Endorses upcoming MRI on 10/21/2024. Time: 18:30 - Related Data Home Medications Medication Instructions Recorded Confirmed Losartan [Cozaar] 100 mg PO DAILY 02/25/22 04/27/24 Celecoxib [CeleBREX] 200 mg PO DAILY 04/21/24 04/27/24 Previous Rx's Medication Instructions Recorded Metoprolol Tartrate [Lopressor] 50 mg PO BID #60 tab 05/07/20 Aspirin 81 mg PO DAILY #90 tab 12/18/21 Furosemide [Lasix] 40 mg PO DAILY #90 tab 12/18/21 amLODIPine [Norvasc] 5 mg PO BID #180 tab 12/18/21 Acetaminophen Tab [Tylenol] 650 mg PO Q6H #30 tab 04/27/24 Docusate [Colace] 100 mg PO BID #20 capsule 04/27/24 Ibuprofen [Motrin] 600 mg PO Q6HR PRN #40 tab 04/27/24 oxyCODONE HCL [OxyIR] 5 mg PO Q6H PRN 3 Days #10 tab 04/27/24 Allergies Allergy/AdvReac Type Severity Reaction Status Date / Time Penicillins Allergy Unknown Verified 10/13/24 21:34 Childhood venom-honey bee Allergy Swelling Verified 10/13/24 21:34 [bee venom (honey bee)] Review of Systems ROS Statement: Those systems with pertinent positive or pertinent negative responses have been documented in the HPI. ROS Other: All systems not noted in ROS Statement are negative. 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 Last Myocardial Infarction Date:: 2008 History of Any Multi-Drug Resistant Organisms: None Reported Past Surgical History: Heart Catheterization With Stent Additional Past Surgical History / Comment(s): multiple knee surg., bilateral shoulder surg., right thumb Past Anesthesia/Blood Transfusion Reactions: No Reported Reaction Date of Last Stent Placement:: 2008 Past Psychological History: Depression Smoking Status: Current every day smoker Past Alcohol Use History: Rare Past Drug Use History: None Reported - Past Family History Mother Family Medical History: Cancer General Exam - General Exam Comments Initial Comments: Visual Physical Exam Vital signs reviewed General: Well-appearing, nontoxic, no acute distress. Head: Normocephalic, atraumatic Eyes: PERRLA, EOMI ENT: Airway patent Chest: Nonlabored breathing Skin: No visual rash, normal skin tone Neuro: Alert and oriented 3 Musculoskeletal: No gross abnormalities Limitations: no limitations Course Vital Signs 10/13/24 10/14/24 10/14/24 21:34 00:37 02:40 Temperature 98.5 F Pulse Rate 91 71 67 Respiratory 18 17 13 Rate Blood Pressure 165/98 151/109 163/104 O2 Sat by Pulse 98 95 96 Oximetry Medical Decision Making - Medical Decision Making I completed the quick note portion of this chart signed MARY ALICE Hernández - Lab Data Result diagrams: 10/13/24 21:47 10/13/24 21:47 Lab Results 10/13/24 10/13/24 10/13/24 Range/Units 21:47 21:47 21:47 WBC 12.6 H (3.8-10.6) k/uL RBC 5.17 (4.30-5.90) m/uL Hgb 17.2 (13.0-17.5) gm/dL Hct 49.7 (39.0-53.0) % MCV 96.0 (80.0-100.0) fL MCH 33.2 (25.0-35.0) pg MCHC 34.6 (31.0-37.0) g/dL RDW 12.4 (11.5-15.5) % Plt Count 205 (150-450) k/uL MPV 8.8 Neutrophils % 64 % Lymphocytes % 26 % Monocytes % 6 % Eosinophils % 2 % Basophils % 1 % Neutrophils # 8.1 H (1.3-7.7) k/uL Lymphocytes # 3.3 (1.0-4.8) k/uL Monocytes # 0.8 (0-1.0) k/uL Eosinophils # 0.3 (0-0.7) k/uL Basophils # 0.1 (0-0.2) k/uL PT 10.6 (10.0-12.5) sec INR 1.0 (<1.2) APTT 26.7 (22.0-30.0) sec Sodium 137 (137-145) mmol/L Potassium 4.5 (3.5-5.1) mmol/L Chloride 107 (98-107) mmol/L Carbon Dioxide 24 (22-30) mmol/L Anion Gap 6 mmol/L BUN 18 (9-20) mg/dL Creatinine 1.09 (0.66-1.25) mg/dL Est GFR (CKD-EPI)AfAm 88 (>60 ml/min/1.73 sqM) Est GFR (CKD-EPI)NonAf 76 (>60 ml/min/1.73 sqM) Glucose 199 H (74-99) mg/dL Calcium 9.9 (8.4-10.2) mg/dL Total Bilirubin 0.7 (0.2-1.3) mg/dL AST 29 (17-59) U/L ALT 40 (4-49) U/L Alkaline Phosphatase 62 (38-126) U/L Troponin I (0.000-0.034) ng/mL Total Protein 7.3 (6.3-8.2) g/dL Albumin 4.7 (3.5-5.0) g/dL 10/13/24 Range/Units 21:47 WBC (3.8-10.6) k/uL RBC (4.30-5.90) m/uL Hgb (13.0-17.5) gm/dL Hct (39.0-53.0) % MCV (80.0-100.0) fL MCH (25.0-35.0) pg MCHC (31.0-37.0) g/dL RDW (11.5-15.5) % Plt Count (150-450) k/uL MPV Neutrophils % % Lymphocytes % % Monocytes % % Eosinophils % % Basophils % % Neutrophils # (1.3-7.7) k/uL Lymphocytes # (1.0-4.8) k/uL Monocytes # (0-1.0) k/uL Eosinophils # (0-0.7) k/uL Basophils # (0-0.2) k/uL PT (10.0-12.5) sec INR (<1.2) APTT (22.0-30.0) sec Sodium (137-145) mmol/L Potassium (3.5-5.1) mmol/L Chloride (98-107) mmol/L Carbon Dioxide (22-30) mmol/L Anion Gap mmol/L BUN (9-20) mg/dL Creatinine (0.66-1.25) mg/dL Est GFR (CKD-EPI)AfAm (>60 ml/min/1.73 sqM) Est GFR (CKD-EPI)NonAf (>60 ml/min/1.73 sqM) Glucose (74-99) mg/dL Calcium (8.4-10.2) mg/dL Total Bilirubin (0.2-1.3) mg/dL AST (17-59) U/L ALT (4-49) U/L Alkaline Phosphatase (38-126) U/L Troponin I 0.056 H* (0.000-0.034) ng/mL Total Protein (6.3-8.2) g/dL Albumin (3.5-5.0) g/dL Disposition Clinical Impression: Chest pain Disposition: HOME SELF-CARE Condition: Good Is patient prescribed a controlled substance at d/c from ED?: No Referrals: Kyler Ng DO [Primary Care Provider] - 1-2 days Time of Disposition: 04:15
[2024-10-14] MEDS: METOPROLOL TARTRATE 50 MG TAB PO STA (02:51)
[2024-10-14] MEDS: amLODIPine 5 MG TAB PO STA (02:51)
--- NOTE | 2024-10-14 04:11 | CT ---
EXAM: CT Abdomen and Pelvis With Intravenous Contrast CLINICAL HISTORY: ITS.REASON CT Reason: Right groin pain TECHNIQUE: Axial computed tomography images of the abdomen and pelvis with intravenous contrast. CTDI is 14.2 mGy and DLP is 461.9 mGy-cm. This CT exam was performed using one or more of the following dose reduction techniques: automated exposure control, adjustment of the mA and/or kV according to patient size, and/or use of iterative reconstruction technique. COMPARISON: CT dated 04/03/2024 FINDINGS: Lung bases: 4 mm pulmonary nodule seen within the right middle lobe. Recommend 1 year follow-up per Fleischner criteria. No consolidation. ABDOMEN: Liver: The liver is enlarged with uniform decreased density consistent with hepatic steatosis. No evidence of hepatic mass. Gallbladder and bile ducts: Unremarkable. No calcified stones. No ductal dilation. Pancreas: Unremarkable. No mass. No ductal dilation. Spleen: Unremarkable. No splenomegaly. Adrenals: Unremarkable. No mass. Kidneys and ureters: Unremarkable. No solid mass. No hydronephrosis. Stomach and bowel: Colonic diverticulosis without evidence of acute diverticulitis. Mild to moderate colonic stool burden. No obstruction. PELVIS: Appendix: No findings to suggest acute appendicitis. Bladder: Unremarkable. No mass. Reproductive: Unremarkable as visualized. ABDOMEN and PELVIS: Intraperitoneal space: Unremarkable. No free air. No significant fluid collection. Bones/joints: Degenerative changes are seen within the spine and hips. No acute fracture. No dislocation. Soft tissues: Unremarkable. 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 Calcifications are seen within the aorta. Lymph nodes: Mildly prominent periportal lymph nodes. Other findings: Fatty distention of the left inguinal canal. IMPRESSION: 1. No acute intra-abdominal or pelvic findings. 2. No right-sided inguinal hernia. No pathologically enlarged inguinal lymphadenopathy.
[2024-10-14 04:32] VITALS: BP 153/95; PULSE 71; RESP 20; TEMP 98
--- NOTE | 2024-10-14 04:39 | XR ---
EXAM: XR Chest, 2 Views CLINICAL HISTORY: ITS.REASON XR Reason: Chest pain TECHNIQUE: Frontal and lateral views of the chest. COMPARISON: X-ray dated 12/25/2021 FINDINGS: Lungs: Unremarkable. No consolidation. The lungs are hyperinflated with flattening of the diaphragms. Pleural space: Unremarkable. No pneumothorax. Heart: Unremarkable. No cardiomegaly. Mediastinum: Unremarkable. Normal mediastinal contour. Bones/joints: Unremarkable. No acute fracture. IMPRESSION: No acute findings seen within the chest.
== END 2024-10-14 04:32 | disposition home or self-care (01) ==
LOC: EC 21:15
DX: R07.89 Other chest pain (principal); F17.200 Nicotine dependence, unspecified, uncomplicated; Z88.0 Allergy status to penicillin; Z91.030 Bee allergy status
CPT/HCPCS: 36415 ×2; 93005; 80053; 84484 ×2; 85025; 85610; 85730; 71046; 74177; 99284; Q9967

== ENCOUNTER 2024-11-18 11:27 | Emergency (ER) | payer OTHER ==
[2024-11-18 11:32] VITALS: TEMP 97.5
--- NOTE | 2024-11-18 11:49 | ED ---
Extremity Problem HPI - General Chief complaint: Extremity Problem,Nontraumatic Stated complaint: R knee pain Time Seen by Provider: 11/18/24 11:40 Source: patient, RN notes reviewed Mode of arrival: ambulatory Limitations: no limitations - History of Present Illness Initial comments: This is a 53-year-old male with history of 13 right knee surgeries presenting with right knee pain (06/04) x 3 weeks. Patient denies recent trauma, open wound or known cause for pain. Endorses knee "giving out" on occasion. Endorses pain worsened with movement and weightbearing. Denies distal radiculopathy, paresthesia, pallor/color change. MD Complaint: extremity pain Onset/Timin -: week(s) Location: right, knee History of Same: Yes -: Yes arthralgia Radiation: none Severity scale (1-10): 8 Quality: sharp Consistency: intermittent Improves with: immobilization Worsens with: weight bearing, walking, palpation Associated Symptoms: denies other symptoms - Related Data Home Medications Medication Instructions Recorded Confirmed Losartan [Cozaar] 100 mg PO DAILY 02/25/22 04/27/24 Celecoxib [CeleBREX] 200 mg PO DAILY 04/21/24 04/27/24 Previous Rx's Medication Instructions Recorded Metoprolol Tartrate [Lopressor] 50 mg PO BID #60 tab 05/07/20 Aspirin 81 mg PO DAILY #90 tab 12/18/21 Furosemide [Lasix] 40 mg PO DAILY #90 tab 12/18/21 amLODIPine [Norvasc] 5 mg PO BID #180 tab 12/18/21 Acetaminophen Tab [Tylenol] 650 mg PO Q6H #30 tab 04/27/24 Docusate [Colace] 100 mg PO BID #20 capsule 04/27/24 Ibuprofen [Motrin] 600 mg PO Q6HR PRN #40 tab 04/27/24 oxyCODONE HCL [OxyIR] 5 mg PO Q6H PRN 3 Days #10 tab 04/27/24 Ibuprofen [Motrin] 800 mg PO Q8HR PRN #30 tab 11/18/24 Allergies Allergy/AdvReac Type Severity Reaction Status Date / Time Penicillins Allergy Unknown Verified 11/18/24 11:29 Childhood venom-honey bee Allergy Swelling Verified 11/18/24 11:29 [bee venom (honey bee)] Review of Systems ROS Statement: Those systems with pertinent positive or pertinent negative responses have been documented in the HPI. ROS Other: All systems not noted in ROS Statement are negative. 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 Last Myocardial Infarction Date:: 2008 History of Any Multi-Drug Resistant Organisms: None Reported Past Surgical History: Heart Catheterization With Stent Additional Past Surgical History / Comment(s): multiple knee surg., bilateral shoulder surg., right thumb Past Anesthesia/Blood Transfusion Reactions: No Reported Reaction Date of Last Stent Placement:: 2008 Past Psychological History: Depression Smoking Status: Current every day smoker Past Alcohol Use History: Rare Past Drug Use History: None Reported - Past Family History Mother Family Medical History: Cancer General Exam Limitations: no limitations General appearance: alert, in no apparent distress Head exam: Present: atraumatic, normocephalic, normal inspection Eye exam: Present: normal appearance, PERRL, EOMI. Absent: scleral icterus, conjunctival injection, periorbital swelling ENT exam: Present: normal exam, mucous membranes moist Neck exam: Present: normal inspection. Absent: tenderness, meningismus, lymphadenopathy Respiratory exam: Present: normal lung sounds bilaterally. Absent: respiratory distress, wheezes, rales, rhonchi, stridor Cardiovascular Exam: Present: regular rate, normal rhythm, normal heart sounds. Absent: systolic murmur, diastolic murmur, rubs, gallop, clicks GI/Abdominal exam: Present: soft, normal bowel sounds. Absent: distended, tenderness, guarding, rebound, rigid Extremities exam: Present: full ROM, tenderness (Positive right medial knee tenderness especially right medial tibial plateau), normal capillary refill, joint swelling (Mild right medial subpatellar edema without overlying erythema or open wound), other (FROM without pain with passive flexion. Negative Reji test, varus/valgus. Positive Sammy test for medial meniscus). Absent: pedal edema, calf tenderness Back exam: Present: normal inspection Neurological exam: Present: alert, oriented X3, CN II-XII intact Psychiatric exam: Present: normal affect, normal mood Skin exam: Present: warm, dry, intact, normal color. Absent: rash Course Vital Signs 11/18/24 11:29 Temperature 97.5 F L Pulse Rate 62 Respiratory 18 Rate Blood Pressure 155/91 O2 Sat by Pulse 98 Oximetry Medical Decision Making - Medical Decision Making Was pt. sent in by a medical professional or institution (, [facility]SHREE, MANAGER CHANNEL, urgent care, hospital, or jail...) When possible be specific @ -[No] Did you speak to anyone other than the patient for history (EMS, parent, family, police, friend...)? What history was obtained from this source @ -[No] Did you review nursing and triage notes (agree or disagree)? Why? @ -[I reviewed and agree with nursing and triage notes] Were old charts reviewed (outside hosp., previous admission, EMS record, old EKG, old radiological studies, urgent care reports/EKG's, jail records)? Report findings @ -[No old charts were reviewed] Differential Diagnosis (chest pain, altered mental status, abdominal pain women, abdominal pain men, vaginal bleeding, weakness, fever, dyspnea, syncope, headache, dizziness, GI bleed, back pain, seizure, CVA, palpatations, mental health, musculoskeletal)? @ -Knee contusion, ligament tear, tendon tear, meniscus tear, sprain, Bey's cyst, septic arthritis, this is not an exhaustive list EKG interpreted by me (3pts min.). @ -Not done X-rays interpreted by me (1pt min.). @ -[None done] CT interpreted by me (1pt min.). @ -[None done] U/S interpreted by me (1pt. min.). @ -[None done] What testing was considered but not performed or refused? (CT, X-rays, U/S, labs)? Why? @ -[None] What meds were considered but not given or refused? Why? @ -Patient declined Toradol/medications for pain control. Accepted cold compress. Did you discuss the management of the patient with other professionals (professionals i.e. JAYSHREE Garcia, MANAGER CHANNEL, lab, RT, psych nurse, social insurance administrator, scagliola mechanic, teacher, business practices officer, trimming caser)? Give summary @ -[No] Was smoking cessation discussed for >3mins.? @ -[No] Was critical care preformed (if so, how long)? @ -[No] Were there social determinants of health that impacted care today? How? (Homelessness, low income, unemployed, alcoholism, drug addiction, transportation, low edu. Level, literacy, decrease access to med. care, intermediate, rehab)? @ -[No] Was there de-escalation of care discussed even if they declined (Discuss DNR or withdrawal of care, Hospice)? DNR status @ -[No] What co-morbidities impacted this encounter? (DM, HTN, Smoking, COPD, CAD, Cancer, CVA, ARF, Chemo, Hep., AIDS, mental health diagnosis, sleep apnea, morbid obesity)? @ -[None] Was patient admitted / discharged? Hospital course, mention meds given and route, prescriptions, significant lab abnormalities, going to OR and other pertinent info. @ -[hospital course] Undiagnosed new problem with uncertain prognosis? @ -[No] Drug Therapy requiring intensive monitoring for toxicity (Heparin, Nitro, Insulin, Cardizem)? @ -[No] Were any procedures done? @ -[No] Diagnosis/symptom? @ -Possible meniscus tear Acute, or Chronic, or Acute on Chronic? @ -Acute Uncomplicated (without systemic symptoms) or Complicated (systemic symptoms)? @ -Uncomplicated Side effects of treatment? @ -[No] Exacerbation, Progression, or Severe Exacerbation? @ -[No] Poses a threat to life or bodily function? How? (Chest pain, USA, ME, pneumonia, PE, COPD, DKA, ARF, appy, cholecystitis, CVA, Diverticulitis, Homicidal, Suicidal, threat to staff... and all critical care pts) @ -[No] Disposition Clinical Impression: Medial meniscus tear, Knee pain, right Disposition: HOME SELF-CARE Condition: Good Instructions (If sedation given, give patient instructions): Meniscus Tear (ED) Prescriptions: Ibuprofen [Motrin] 800 mg PO Q8HR PRN #30 tab PRN Reason: Pain Is patient prescribed a controlled substance at d/c from ED?: No Referrals: Kyler Ng DO [Primary Care Provider] - 1-2 days Time of Disposition: 12:53
--- NOTE | 2024-11-18 12:31 | XR ---
EXAMINATION TYPE: XR knee complete RT DATE OF EXAM: 11/18/2024 12:04 PM COMPARISON: 12/10/2015 CLINICAL INDICATION: Male, 53 years old with history of Pain, "giving out", pain TECHNIQUE: 3 view(s) obtained. FINDINGS: No acute fracture or dislocation evident. No joint effusion is evident. Anterior superior patellar sp ur is noted. Joint spaces are preserved. Follow up exams can be performed 7-10 days from acute trauma for continued pain IMPRESSION: 1. No acute osseous abnormality right knee [facility] Darshan Penn, , 11/18/2024 12:29 PM
[2024-11-18] MEDS: ACET/COD 300 MG/30 MG STARTER PACK 6 TAB BTL PO STA (13:05)
[2024-11-18 13:08] VITALS: BP 147/79; PULSE 75; RESP 20
== END 2024-11-18 13:08 | disposition home or self-care (01) ==
LOC: EC 11:27
DX: S83.241A Other tear of medial meniscus, current injury, right knee, initial encounter (principal); M25.561 Pain in right knee; F17.200 Nicotine dependence, unspecified, uncomplicated; Z88.0 Allergy status to penicillin; Z91.030 Bee allergy status; X58.XXXA Exposure to other specified factors, initial encounter
CPT/HCPCS: 99283